=== PATIENT | female | born 1950 | race Caucasian/White ===

== ENCOUNTER 2022-03-08 16:04 | Outpatient (CLI) | payer MEDICARE, SELFPAY ==
[2022-03-08 17:24] LABS: Cholesterol* 245 mg/dL (90-199)
[2022-03-08 17:25] LABS: HDL Cholesterol* 79 mg/dL (>=50); LDL Cholesterol Calculated 131 mg/dL (<100); Triglycerides* 175 mg/dL (40-149)
== END 2022-03-08 16:05 | disposition home or self-care (01) ==
PROVIDERS: PCP Internal Medicine; Visit Provider Internal Medicine
DX: E78.5 Hyperlipidemia, unspecified (principal); D12.6 Benign neoplasm of colon, unspecified; E03.9 Hypothyroidism, unspecified
CPT/HCPCS: 80061; 84439; 84443

== ENCOUNTER 2022-04-12 10:01 | Outpatient (CLI) | payer MEDICARE, SELFPAY | END 2022-04-12 10:02 | disposition home or self-care (01) | PROVIDERS: PCP Internal Medicine; Visit Provider Surgery | DX: Z12.11 Encounter for screening for malignant neoplasm of colon (principal); K63.5 Polyp of colon; Z86.010 Personal history of colon polyps | CPT/HCPCS: 45385; 88305; 99153; J1200; J2250; J2405; J3010 ==

== ENCOUNTER 2022-06-27 08:54 | Day surgery (SDC) | payer MEDICARE, SELFPAY ==
--- NOTE | 2022-06-27 09:03 | SUR.PREOP ---
Patient provided home covid negative results to RN.
--- NOTE | 2022-06-27 09:03 | SUR.PREOP ---
The eye drops brought by the patient (Ketorolac and Prednisolone) are examined and I have determined they are labeled by the patient's pharmacy for this patient as prescribed by the surgeon. The bottles are intact, recently obtained and appear to be correct.
[2022-06-27] MEDS: TETRACAINE 0.5% OPHTH 1 DROP EYE-RIGHT ×2 (09:23→09:31)
[2022-06-27] MEDS: KETOROLAC OPHTH 0.5% 1 DROP EYE-RIGHT ×2 (09:29→09:40)
[2022-06-27 09:43] VITALS: BP 110/72; PULSE 58; RESP 16; TEMP 36.6; O2SAT 95
[2022-06-27] MEDS: SODIUM CHLORIDE 0.9 % (FLUSH) 10 ML SYRINGE IVF (09:46)
[2022-06-27 09:50] VITALS: BMI 23.9
[2022-06-27] MEDS: TETRACAINE 0.5% OPHTH 2 DROP EYE-RIGHT (10:27)
[2022-06-27] MEDS: BALANCED SALT IRRIG SOLN 15 ML EYE-RIGHT (10:32)
--- NOTE | 2022-06-27 10:34 | P.ANES_ITS ---
Anesthesia Charges Start Date/Time Anesthesia Start Date: 06/27/22 Anesthesia Start Time: 10:24 Stop Date/Time Anesthesia Stop Date: 06/27/22 Anesthesia Stop Time: 10:57 Summary Extremes of Age - Over 70 or under 1: [employer]
[2022-06-27 10:55] VITALS: BP 106/78; PULSE 51; RESP 16; TEMP 36.1; O2SAT 95
--- NOTE | 2022-06-27 11:52 | P.OPTPRC_ITS ---
Procedure Note Date of procedure: 06/27/22 Will [facility] bill your pro fee for this procedure?: Yes Procedure Description: SURGEON: Leti Henderson MD PREOPERATIVE DIAGNOSIS: Nuclear sclerotic cataract, right eye. POSTOPERATIVE DIAGNOSIS: Nuclear sclerotic cataract, right eye. NAME OF OPERATION: Phacoemulsification of cataract with posterior chamber intraocular lens implantation in the right eye. ANESTHESIA: Topical. ESTIMATED BLOOD LOSS: Less than 2 cc. COMPLICATIONS: None. PATHOLOGY SPECIMEN: None. INDICATIONS: See consult note for details. The risks, benefits and alternatives of the procedure were explained to the patient, who elected to proceed and s igned informed consent to do so. PROCEDURE: The patient was brought to the pre-holding area where the right eye was identified as the operative eye. I placed my initials above this eye. The patient received eye drops consisting of 0.5% tetracaine, 1% tropicamide, 10% phenylephrine, and 0.5% ketorolac. The patient was then brought to the operating room where the right eye was again identified as the operative eye. The eye was prepped with Betadine and draped in the usual sterile ophthalmic fashion. A #15 super-sharp blade was used to create a paracentesis site. 1% non-preserved intracameral lidocaine was injected into the anterior chamber. Endocoat was injected into the anterior chamber. A 2.4 mm keratome was used to create a three-plane self-sealing incision 1 mm anterior to the temporal limbus. A cystotome was used to create an anterior capsular leaflet. The Utrata forceps were used to extend this to form a continuous curvilinear capsulorrhexis. Hydrodissection was performed. The cataract was removed with phacoemulsification using the kummng-din-qzqeyoi technique. The irrigation and aspiration tip was used to remove the remaining cortex. Healon was injected into the capsular bag. An CANDELARIO ZCB00 intraocular lens of 20.5 diopters was injected into the capsular bag. The irrigation and aspiration tip was used to remove the remaining viscoelastic. Balanced salt solution on a cannula was used to hydrate the wound, and the wound was found to be watertight. The pupil was noted to be round. DISPOSITION: The patient was taken to the recovery room and discharged to home in stable condition. The patient was instructed to call me or go to the emergency department with any sudden change, including dramatic loss of vision, severe pain in the eye or eyebrow region, nausea, or vomiting. The patient will follow up in the clinic tomorrow morning.
== END 2022-06-27 11:24 | disposition home or self-care (01) ==
PROVIDERS: PCP Internal Medicine; Visit Provider Ophthalmology
PROC: (CPT 66984; principal; 2022-06-27 09:00)
DX: H25.11 Age-related nuclear cataract, right eye (principal)
CPT/HCPCS: 66984; 00142; 99100; A9270; J2250; J2405; J3010; V2632

== ENCOUNTER 2022-07-11 10:53 | Day surgery (SDC) | payer MEDICARE, SELFPAY ==
[2022-07-11] MEDS: KETOROLAC OPHTH 0.5% 1 DROP EYE-LEFT ×2 (11:00→11:05)
[2022-07-11] MEDS: TETRACAINE 0.5% OPHTH 1 DROP EYE-LEFT ×2 (11:00→11:05)
--- NOTE | 2022-07-11 11:11 | SUR.PREOP ---
HOME COVID TEST NEGATIVE.
[2022-07-11 11:12] VITALS: BMI 23.9
[2022-07-11 11:15] VITALS: BP 101/73; PULSE 68; RESP 16; TEMP 36.4; O2SAT 95
[2022-07-11] MEDS: SODIUM CHLORIDE 0.9 % (FLUSH) 10 ML SYRINGE IVF (11:15)
--- NOTE | 2022-07-11 11:29 | W.ANESCHARGE ---
Anesthesia Charges Start Date/Time Anesthesia Start Date: 07/11/22 Anesthesia Start Time: 12:01 Stop Date/Time Anesthesia Stop Date: 07/11/22 Anesthesia Stop Time: 12:35 Summary Extremes of Age - Over 70 or under 1: MDA
[2022-07-11] MEDS: TETRACAINE 0.5% OPHTH 2 DROP EYE-LEFT (12:04)
--- NOTE | 2022-07-11 12:08 | W.ANESCHARGE ---
Anesthesia Charges Start Date/Time Anesthesia Start Date: 07/11/22 Anesthesia Start Time: 12:01 Stop Date/Time Anesthesia Stop Date: 07/11/22 Anesthesia Stop Time: 12:35 Summary Extremes of Age - Over 70 or under 1: [employer]
[2022-07-11] MEDS: BALANCED SALT IRRIG SOLN 15 ML EYE-LEFT (12:09)
--- NOTE | 2022-07-11 12:36 | P.OPTPRC_ITS ---
Procedure Note Date of procedure: 07/11/22 Will [facility] bill your pro fee for this procedure?: Yes Procedure Description: SURGEON: Leti Henderson MD PREOPERATIVE DIAGNOSIS: Nuclear sclerotic cataract, left eye. POSTOPERATIVE DIAGNOSIS: Nuclear sclerotic cataract, left eye. NAME OF OPERATION: Phacoemulsification of cataract with posterior chamber intraocular lens implantation in the left eye. ANESTHESIA: Topical. ESTIMATED BLOOD LOSS: Less than 2 cc. COMPLICATIONS: None. PATHOLOGY SPECIMEN: None. INDICATIONS: See consult note for details. The risks, benefits and alternatives of the procedure were explained to the patient, who elected to proceed and sign ed informed consent to do so. PROCEDURE: The patient was brought to the pre-holding area where the left eye was identified as the operative eye. I placed my initials above this eye. The patient received eye drops consisting of 0.5% tetracaine, 1% tropicamide, 10% phenylephrine, and 0.5% ketorolac. The patient was then brought to the operating room where the left eye was again identified as the operative eye. The eye was prepped with Betadine and draped in the usual sterile ophthalmic fashion. A #15 super-sharp blade was used to create a paracentesis site. 1% non-preserved intracameral lidocaine was injected into the anterior chamber. Endocoat was injected into the anterior chamber. A 2.4 mm keratome was used to create a three-plane self-sealing incision 1 mm anterior to the temporal limbus. A cystotome was used to create an anterior capsular leaflet. The Utrata forceps were used to extend this to form a continuous curvilinear capsulorrhexis. Hydrodissection was performed. The cataract was removed with phacoemulsification using the iheypk-kln-uihrced technique. The irrigation and aspiration tip was used to remove the remaining cortex. Healon was injected into the capsular bag. An CANDELARIO ZCB00 intraocular lens of 21.0 diopters was injected into the capsular bag. The irrigation and aspiration tip was used to remove the remaining viscoelastic. Balanced salt solution on a cannula was used to hydrate the wound, and the wound was found to be watertight. The pupil was noted to be round. DISPOSITION: The patient was taken to the recovery room and discharged to home in stable condition. The patient was instructed to call me or go to the emergency department with any sudden change, including dramatic loss of vision, severe pain in the eye or eyebrow region, nausea, or vomiting. The patient will follow up in the clinic tomorrow morning.
[2022-07-11 12:38] VITALS: BP 91/65; PULSE 59; RESP 16; TEMP 36.6; O2SAT 96
== END 2022-07-11 12:51 | disposition home or self-care (01) ==
LOC: OR 10:53
PROVIDERS: PCP Internal Medicine; Visit Provider Ophthalmology
PROC: (CPT 66984; principal; 2022-07-11 11:00)
DX: H25.12 Age-related nuclear cataract, left eye (principal)
CPT/HCPCS: 66984; 00142; 99100; A9270; J2250; J2405; J3010; V2632

== ENCOUNTER 2022-12-31 08:53 | Outpatient (CLI) | payer MEDICARE, SELFPAY | END 2022-12-31 08:54 | disposition home or self-care (01) | PROVIDERS: PCP Internal Medicine; Visit Provider Internal Medicine | DX: Z00.00 Encounter for general adult medical examination without abnormal findings (principal); E03.9 Hypothyroidism, unspecified; E78.5 Hyperlipidemia, unspecified; M85.80 Other specified disorders of bone density and structure, unspecified site; Z13.1 Encounter for screening for diabetes mellitus | CPT/HCPCS: 80061; 82306; 82947; 84443 ==

== ENCOUNTER 2023-01-01 09:27 | Outpatient (RCR) | payer MEDICARE, SELFPAY ==
--- NOTE | 2022-12-18 10:23 | URNOTE ---
Received request for prior auth for Rituximab ([id number]). Pt has medicare primary. Prior authorization is not required as services are based on medical necessity and follow medicare guidelines.
[2023-01-01 09:38] VITALS: BP 108/74; PULSE 67; RESP 16; TEMP 35.7; O2SAT 96
[2023-01-01] MEDS: ACETAMINOPHEN 325 MG TABLET 650 MG PO (10:25)
[2023-01-01] MEDS: METHYLPREDNISOLONE SOD SUCC 62.5 MG/ML (125) 125 MG IVP (10:25)
[2023-01-01] MEDS: SODIUM CHLORIDE 0.9 % (FLUSH) 10 ML SYRINGE IVF (10:30)
[2023-01-01] MEDS: 0.9 % SODIUM CHLORIDE 250 ml IV (10:30)
[2023-01-01 11:43] LABS: Basophils Absolute Auto 0.05 K/uL (0.00-0.30); Basophils Percent Auto 0.8 % (0.0-3.0); Eosinophils Absolute Auto 0.12 K/uL (0.00-0.50); Hemoglobin* 12.9 gm/dL (12.0-16.0); Immature Granulocytes Abs Auto 0.02 K/uL (0.00-0.30); Immature Granulocytes Pct Auto 0.3 %; Lymphocytes Percent Auto 11.7 % (20-44); Mean Corpuscular HGB Conc 32 gm/dL (32-36); Mean Corpuscular Hemoglobin 29 pg (26-34); Mean Corpuscular Volume 91 fL (80-100); Monocytes Percent Auto 10.6 % (0.0-11.0); Neutrophils Percent Auto 74.6 % (42.0-72.0); Platelet Count* 229 K/uL (140-440); RDW Coefficient of Variation % 13.7 % (11.5-15.5); Red Blood Count 4.39 m/uL (4.00-5.20); White Blood Count* 6.06 K/uL (4.50-11.00)
[2023-01-01 11:44] LABS: Slide Review Reflex No
[2023-01-01] MEDS: FAMOTIDINE 10 MG/ML inj 20 MG IVP (12:38)
--- NOTE | 2023-01-01 15:04 | PC.NURSE ---
Pt present at [facility] for Rituxan infusion. About 10 minutes into 200 cc/hour rate pt called to use the restroom and shared that she had itching in her throat for which she took a lozenge. Rituxan infusion stopped and NS started. Pt states this has happened in the past and she was told that it will just pass and to keep going. Dorothea also reports that she used to get Benadryl as a pre-med but because it makes her so sleepy her pre-med was switched to Zyrtec. This was not ordered so was not given. This RN gave pt Tylenol and Solumedrol as ordered about 35 minutes prior to starting infusion. RN discussed with JOSH Farris who came to evaluate Dorothea. Shivani ordered oral Benadryl (12.5 mg), oral Zyrtec (10 mg), and IV famotidine (20 mg). All were given as ordered. Continued to infuse NS for 15 minutes and then Rituxan resumed at 200 cc/hour. Infusion completed without incident. Will fax provider note to ordering provider with this update.
[2023-01-02 21:10] LABS: Immunoglobulin A 146 mg/dL (68-408); Immunoglobulin G 387 mg/dL (768-1632); Immunoglobulin M 92 mg/dL (35-263)
== END 2023-06-30 23:59 | disposition home or self-care (01) ==
LOC: CCIC 09:27
PROVIDERS: Internal Medicine Hematology & Oncology; PCP Internal Medicine; Referring Provider Internal Medicine; Visit Provider Clinical Nurse Specialist
DX: M31.30 Wegener's granulomatosis 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 involvement (principal)
CPT/HCPCS: 36415; 82784; 85025; 88184; 88185; 96376; 96413; 96415; 99212; 99214; A9270; J2930; J7050; J7120; J9312; S0028

== ENCOUNTER 2023-12-31 08:08 | Outpatient (CLI) | payer MEDICARE, SELFPAY ==
--- OUTSIDE RECORDS SUMMARY | 2023-12-31 20:56 | XMS_ITS | Clinical Summary ---
Author Organization [facility] Address [address] [place] [address] Care Team Providers Care Legger Press Operator Name Role Phone Jen Rush MD Unavailable [phone] Dorothea Barfield MD Primary Care Provider Refugio Schulz MD Unavailable [phone] Jen Rush MD Unavailable [phone] Allergies Active Allergy Reactions Criticality Noted Date Comments Amoxicillin 02/05/2018 Iodides Hives 04/20/2014 Iodine Hives High 10/19/2016 Levofloxacin 02/05/2018 Leg pain Medications Medication Sig Dispensed Refills Start Date End Date Status mupirocin (BACTROBAN) 2 % ointmentIndications: Jacky's granulomatosis Use as directed twice daily - mixing 1/3 tube of Bactroban into 1 liter of usual saline nasal rinse. 08/17/2016 Active riTUXimab (RITUXAN) 1 mg/0.1 mL 1 mg/0.1 ml intravitreal injection (PF)Indications:Wege ner's granulomatosis Inject 600 mg into the vein Every 9 months Active loratadine (CLARITIN) 10 MG tabletIndications:We gener's granulomatosis Take 10 mg by mouth Active fluticasone (FLONASE) 50 MCG/ACT sprayIndications:Weg ener's granulomatosis 100 mcg Active levothyroxine (SYNTHROID/LEVOTHROI D) 75 MCG tabletIndications:We gener's granulomatosis Take 75 mcg by mouth Active conjugated estrogens (PREMARIN) creamIndications:Weg ener's granulomatosis Place 1 g vaginally Active hydrocortisone 2.5 % creamIndications:Weg ener's granulomatosis Apply topically 2 times daily 20 g 2 10/31/2017 Active Additional Information Patient taking differently:TopicalPRN, Reported on 11/26/2023 omeprazole (PRILOSEC) [address] capsule TK 1 C PO QAM 05/03/2019 Active formoterol (PERFOROMIST) 20 MCG/2ML neb solutionIndications: Asthma, intermittent Take 2 mLs (20 mcg) by nebulization every 12 hours 120 mL 6 07/24/2019 Active Additional Information Patient taking differently:20 mcg NebulizationPRN, Reported on 11/26/2023 budesonide (PULMICORT) 0.5 MG/2ML neb solutionIndications: Jacky's granulomatosis USE 1 VIAL VIA NEBULIZER DAILY 180 mL 3 09/15/2019 Active Additional Information Patient taking differently: PRN, USE 1 VIAL VIA NEBULIZER DAILY, Reported on 11/26/2023 albuterol (PROAIR HFA/PROVENTIL HFA/VENTOLIN HFA) 108 (90 Base) MCG/ACT inhalerIndications:M oderate persistent asthma without complication Inhale 2 puffs into the lungs every 6 hours as needed for shortness of breath, wheezing or cough 18 g 3 05/29/2023 Active fluticasone-vilanter ol (BREO ELLIPTA) 200-25 MCG/ACT inhalerIndications:M oderate persistent asthma without complication Inhale 1 puff into the lungs daily 180 each 3 10/07/2023 Active sodium chloride (NEBUSAL) 3 % neb solutionIndications: Bronchiectasis without complication (H),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 Use AFTER albuterol 240 mL 6 11/26/2023 Active montelukast (SINGULAIR) 10 MG tabletIndications:Mo derate persistent asthma without complication TAKE 1 TABLET(10 MG) BY MOUTH AT BEDTIME 30 tablet 3 11/29/2023 Active Active Problems Problem Noted Date Diagnosed Date Moderate persistent asthma without complication 06/16/2019 H/O cyclophosphamide therapy 11/07/2016 Jacky's granulomatosis 10/19/2016 Overview: Replacing diagnoses that were inactivated after the 12/23/2020 regulatory import. 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) 11/26/2023 Travel 11/21/2023 Travel 11/07/2023 10:15 AM CDT Lab [facility] [address] [place] [phone] 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); Moderate persistent asthma without complication 11/07/2023 Travel 10/08/2023 My[facility] Medical Advice [facility] Science critical access hospital Health [address] [phone] Jen Rush MD Moderate persistent asthma without complication 10/07/2023 MyC Medical Advice [facility] critical access hospital Health [address] [phone] Jen Rush MD Moderate persistent asthma without complication from Last 3 Months Immunizations Name Administration Dates Next Due COVID-19 MONOVALENT 12+ (Pfizer) 022,11/09/2020,06/15/2020,2020 Zoster recombinant adjuvante d (SHINGRIX) 07/26/2017 Family History Medical History Relation Comments Depression Mother Mental Illness Mother Other - See Comments Mother CLL, PMR Thyroid Disease Mother Thyroid Disease Sister LUNG DISEASE No family hx of Relation Status Comments Mother Sister Social History Tobacco Use Types Packs/Day Years Used Date Smoking Tobacco: Former Cigarettes 0 03/25/1967 - 03/25/1972 Smokeless Tobacco: Never Tobacco Cessation:Counseling Given: Not Answered Comments: very little Alcohol Use Standard Drinks/Week Comments Yes 0 (1 standard drink = 0.6 oz pur e alcohol) PHQ-2 Answer Date Recorded PHQ-2 Score 0 07/04/2023 Adolescent Education Answer Date Record ed Getting School Help Needed Not on file 12/15 Sex and Gender Information Value Date Recorded Sex Assigned at Female 08/08/2018 9:48 AM CDT Gender Identity Female 08/03/2018 6:39 PM CDT Sexual Orientation Straight 08/03/2018 6: 39 PM CDT Last Filed Vital Signs Vital Sign Reading Time Taken Comments Blood Pressure 126/79 11/26/2023 3:58 PM CDT Pulse 61 11/26/2023 3:58 PM CDT Temperature 36.7 ??C (98.1 ??F) 06/02/2019 11:30 AM C DT Respiratory Rate 16 07/04/2023 10:53 AM CDT Oxygen Saturation 98% 11/26/2023 3:58 PM CDT Inhaled Oxygen Concentration - - Weight 67.1 kg (148 lb) 07/04/2023 10:53 AM CDT Height 162.6 cm (5' 4) 07/04/2023 10:53 AM CDT Body Mass Index 25.4 07/04/2023 10:53 AM CDT Plan of Treatment Upcoming Encounters Date Type Department Care Team (Late st Contact Info) Description 02/06/2024 11:00 AM NUISANCE ANIMAL DAMAGE CONTROL AGENT Office Visit [facility] [address] [phone] Refugio Schulz MD [address] [place] [address] 07/07/2024 12:00 PM CDT Office Visit [facility] Pulmonary Function Testing [address] [place] [phone] Jen Rush MD [address] [facility] [address] [place] [address] 07/07/2024 1:30 PM CDT Office Visit [facility] [address] [place] [place] [phone] Jen Rush MD [address] [address] Health Maintenance Due Date Last Done Comments ANNUAL REVIEW OF HM ORDERS 1950 ASTHMA ACTION PLAN [address] ASTHMA CONTR[address] TEST [address] COLONOGRAPHY 1951 FIT 1951 FLEX SIG 1951 TSH W/FREE T4 REFLEX 1951 sDNA (Cologuard) 1951 HEPATITIS C SCREENING 1969 LIPID 1991 RSV VACCINE (1 - Risk 60-74 years 1-dose series) 2011 MEDICARE ANNUAL WELLNESS VISIT 2016 FALL RISK ASSESSMENT 08/12/2019 08/11/2018, 06/12/19 18 MAMMO SCREENING 11/07/2019 11/06/2017 ADVANCE CARE PLANNING 01/23/2022 01/23/2017 COVID-19 Vaccine ( season) 2023 04/23/2023, 07/31/2022, 05/18/2021, Additional history exists INFLUENZA VACCINE (#1) 2023 , 12/19/2021, 12/16/2021, Additional history exists DTAP/TDAP/TD IMMUNIZATION (3 - Td or Tdap) 11/06/2026 11/06/2016, 11/06/2016 GLUCOSE 11/06/2026 11/07/2023, 04/0 05/2023, 11/19/2022, Additional history exists COLONOSCOPY 03/25/2027 03/25/2022 COLORECTAL CANCER SCREENING 03/25/2027 DEXA 01/09/2037 01/09/2022 Pneumococcal Vaccine: 65+ Years Completed 09/27/2017, 05/11/2016, 11/11/2015 ZOSTER IMMUNIZATION Completed 09/27/2017, 8 PHQ-2 (once per calendar year) Completed 07/04/2023, 05/29/2022, 06/02/2019, Additional history exists LUNG CANCER SCREENING Discontinued 07/26/2023 , 01/08/2020, 12/23/2018 HPV IMMUNIZATION Aged Out No longer e ligible based on patient's age to complete this topic MENINGITIS IMMUNIZATION Aged Out No l onger eligible based on patient's age to complete this topic RSV MONOCLONAL ANTIBODY Aged Out No l onger eligible based on patient's age to complete this topic Procedures Procedure Name Priority Date/Time Associated Diagnosis Comments UA MICROSCOPIC WITH REFLEX TO CULTURE Routine 11/07/2023 9:56 AM CDT 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) ROUTINE UA WITH MICROSCOPIC REFLEX TO CULTURE Routine 11/07/2023 9:56 AM CDT 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) CBC WITH PLATELETS Routine 11/07/2023 9: 53 AM CDT 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) CRP INFLAMMATION Routine 11/07/2023 9:53 AM CDT 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) COMPREHENSIVE METABOLIC PANEL Routine 11/07/2023 9:53 AM CDT 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) CT CHEST HI-RESOLUTION WO CONTRAST Routine 07/26/2023 11:15 AM CDT 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) Moderate persistent asthma without complication COLONOSCOPY - HIM SCAN Routine 03/25/2022 DEXA - HIM SCAN Routine 01/09/2022 from Last 3 Months or Most Recently Relevant to Health Maintenance Results * (ABNORMAL) UA Microscopic with Reflex to Culture (11/07/2023 9:56 AM CDT) RBC Urine 0-2 0-2 /HPF /HPF [facility] 11/07/2023 10:03 AM CDT [facility] WBC Urine 0-5 0-5 /HPF /HPF [facility] 11/07/2023 10:03 AM CDT [facility] Squamous Epithelials Urine Few(A) None Seen /LPF [facility] 11/07/2023 10:03 AM CDT [facility] Urine URINE SPECIMEN OBTAINED BY CLEAN CATCH PROCEDURE / Unknown Non-blood Collection / Unknown 11/07/2023 9:56 AM CDT 11/07/2023 9:56 AM CDT Narrative [facility] - 11/07/2023 10:03 AM CDT Urine Culture not indicated Refugio Schulz MD LAB - URINE ORDERAB LES [facility] [address] [facility] (no room number, 1st floor of clinic) [place] [address], [facility] * Routine UA with micro reflex to culture (11/07/2023 9:56 AM CDT) Color Urine Yellow Colorless, Straw, Light Yellow, Yellow 11/07/2023 9:58 AM CDT [facility] Appearance Urine Clear Clear 11/07/19 9:58 AM CDT [facility] Glucose Urine Negative Negative mg/dL 11/07/2023 9:58 AM CDT [facility] Bilirubin Urine Negative Negative 9:58 AM CDT [facility] Ketones Urine Negative Negative mg/dL 11/07/2023 9:58 AM CDT [facility] Specific [place] Urine 1.020 1.003 - 1.035 11/07/2023 9:58 AM CDT [facility] Blood Urine Negative Negative 11/07/2023 9:58 AM CDT [facility] pH Urine 7.0 5.0 - 7.0 11/07/2023 9:58 AM CDT [facility] Protein Albumin Urine Negative Negative mg/dL 11/07/2023 9:58 AM CDT [facility] Urobilinogen Urine 0.2 0.2, 1.0 E.U./dL 11/07/2023 9:58 AM CDT [facility] Nitrite Urine Negative Negative 11/07/2023 9:58 AM CDT [facility] Leukocyte Esterase Urine Negative Negative 11/07/2023 9:58 AM CDT [facility] Urine URINE SPECIMEN OBTAINED BY CLEAN CATCH PROCEDURE / Unknown Non-blood Collection / Unknown 11/07/2023 9:56 AM CDT 11/07/2023 9:56 AM CDT Refugio Schulz MD LAB - URINE ORDERAB LES [facility] [address] [facility] (no room number, 1st floor of clinic) [place] [address], [facility] * CRP inflammation (11/07/2023 9:53 AM CDT) Pathologist [facility] CRP Inflammation 3.23 <5.00 mg/L 11/07/19 4:51 PM CDT [facility] Blood BLOOD SPECIMEN / Unknown Venipuncture / Unknown 11/07/2023 9:53 AM CDT 11/07/2023 9:53 AM CDT Refugio Schulz MD LAB - BLOOD ORDERAB LES [facility] [address] [facility], [address] [place] [phone] * Comprehensive metabolic panel (11/07/2023 9:53 AM CDT) Sodium 140 135 - 145 mmol/L 11/07/2023 4:51 PM CDT [facility] Potassium 4.4 3.4 - 5.3 mmol/L 11/07/2023 4:51 PM CDT [facility] Carbon Dioxide (CO2) 26 22 - 29 mmol/L 11/07/2023 4:51 PM CDT [facility] Anion Gap 9 7 - 15 mmol/L 11/07/2023 4:51 PM CDT [facility] Urea Nitrogen 11.5 8.0 - 23.0 mg/dL 11/07/2023 4:51 PM CDT [facility] Creatinine 0.71 0.51 - 0.95 mg/dL 11/07/2023 4:51 PM CDT [facility] GFR Estimate 90 >60 mL/min/1.7 3m2 11/07/2023 4:51 PM CDT [facility] Comment:eGFR calculated 2020 CKD-EPI equation. Calcium 9.1 8.8 - 10.4 mg/dL 11/07/2023 4:51 PM CDT [facility] Comment:Reference intervals for this test were updated on 10/08/2023 to reflect our healthy population more accurately. There may be differences in the flagging of prior results with similar values performed with this method. Those prior results can be interpreted in the context of the updated reference intervals. Chloride 105 98 - 107 mmol/L 11/07/2023 4:51 PM CDT [facility] Glucose 87 70 - 99 mg/dL 11/07/2023 4:51 PM CDT [facility] Alkaline Phosphatase 135 40 - 150 U/L 11/07/2023 4:51 PM CDT [facility] AST 24 0 - 45 U/L 11/07/2023 4:51 PM CDT [facility] ALT 25 0 - 50 U/L 11/07/2023 4:51 PM CDT [facility] Protein Total 6.5 6.4 - 8.3 g/dL 11/07/2023 4:51 PM CDT [facility] Albumin 4.0 3.5 - 5.2 g/dL 11/07/2023 4:51 PM CDT [facility] Bilirubin Total 0.3 <=1.2 mg/dL 11/07/2023 4:51 PM CDT [facility] Blood BLOOD SPECIMEN / Unknown Venipuncture / Unknown 11/07/2023 9:53 AM CDT 11/07/2023 9:53 AM CDT Refugio Schulz MD LAB - BLOOD ORDERAB LES [facility] [address] [facility], [address] [place] [address], [facility] * CBC with platelets (11/07/2023 9:53 AM CDT) WBC Count 7.0 4.0 - 11.0 10e3/uL 11/07/2023 9:55 AM CDT [facility] RBC Count 4.29 3.80 - 5.20 10e6/uL 11/07/2023 9:55 AM CDT [facility] Hemoglobin 12.4 11.7 - 15.7 g/dL 11/07/2023 9:55 AM CDT [facility] Hematocrit 39.0 35.0 - 47.0 % 11/07/2023 9:55 AM CDT [facility] MCV 91 78 - 100 fL 11/07/2023 9:55 AM CDT [facility] MCH 28.9 26.5 - 33.0 pg 11/07/2023 9:55 AM CDT [facility] MCHC 31.8 31.5 - 36.5 g/dL 11/07/2023 9:55 AM CDT [facility] RDW 14.4 10.0 - 15.0 % 11/07/2023 9:55 AM CDT [facility] Platelet Count 307 150 - 450 10e3/uL 11/07/2023 9:55 AM CDT [facility] Blood BLOOD SPECIMEN / Unknown Venipuncture / Unknown 11/07/2023 9:53 AM CDT 11/07/2023 9:53 AM CDT Refugio Schulz MD LAB - BLOOD ORDERAB LES [facility] [address] [facility] (no room number, 1st floor of clinic) [place] [address], [facility] * CT Chest Hi-Resolution wo Contrast (07/26/2023 11:15 AM CDT) Anatomical Region Laterality Modality Chest, SUBRAD CT BODY, UMP CT CHEST, RAD CT Computed Tomography Impressions 07/26/2023 2:36 PM CDT IMPRESSION: 1. ??Scattered bilateral pulmonary nodules similar to 2019 and therefore should be benign. 2. ??Mucous plugging and mild peribronchial infiltrates in the lung bases suggesting mild small airways type infectious process. NANCY VELIZ MD Narrative 07/26/2023 2:[address] CHEST HI-RESOLUTION WITHOUT CONTRAST July 26, 2023 11:15 AM CLINICAL HISTORY: Worsening productive cough, history of GPA. On rituximab. 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 Moderate persistent asthma without complication. TECHNIQUE: High resolution images were obtained through the chest during inspiration with select expiratory views. Prone imaging was performed. Multiplanar reformats were obtained. Dose reduction techniques were used. CONTRAST: None. COMPARISON: 12/23/2018. FINDINGS: LUNGS AND PLEURA: Scattered pulmonary nodules again seen. Nodules that are present on the current study are similar to previous. Some of the previously seen nodules have resolved. One of the larger nodules in the right upper lobe on series 3 image 66 measures 4 mm, not appreciably changed. There is mild bronchiectasis with mucous plugging in the inferior lingula and right middle lobe, and in both lower lobes. Mild peribronchial reticular nodular infiltrates in the same distribution in the lung bases. MEDIASTINUM/AXILLAE: No lymphadenopathy. No coronary artery calcification. UPPER ABDOMEN: Cholelithiasis. MUSCULOSKELETAL: Unremarkable. Procedure Note Nancy Veliz MD - 07/26/2023 CT CHEST HI-RESOLUTION WITHOUT CONTRAST July 26, 2023 11:15 AM CLINICAL HISTORY: Worsening productive cough, history of GPA. On rituximab. 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 Moderate persistent asthma without complication. TECHNIQUE: High resolution images were obtained through the chest during inspiration with select expiratory views. Prone imaging was performed. Multiplanar reformats were obtained. Dose reduction techniques were used. CONTRAST: None. COMPARISON: 12/23/2018. FINDINGS: LUNGS AND PLEURA: Scattered pulmonary nodules again seen. Nodules that are present on the current study are similar to previous. Some of the previously seen nodules have resolved. One of the larger nodules in the right upper lobe on series 3 image 66 measures 4 mm, not appreciably changed. There is mild bronchiectasis with mucous plugging in the inferior lingula and right middle lobe, and in both lower lobes. Mild peribronchial reticular nodular infiltrates in the same distribution in the lung bases. MEDIASTINUM/AXILLAE: No lymphadenopathy. No coronary artery calcification. UPPER ABDOMEN: Cholelithiasis. MUSCULOSKELETAL: Unremarkable. IMPRESSION: 1. Scattered bilateral pulmonary nodules similar to 2019 and therefore should be benign. 2. Mucous plugging and mild peribronchial infiltrates in the lung bases suggesting mild small airways type infectious process. NANCY VELIZ MD Jasen Butterfield MD IMG CT ORDERABLE S * Colonoscopy - HIM Scan (03/25/2022) Narrative Eleanor Bird - 03/25/[address] [facility] Progress Note Patient Reported PROCEDURES * DEXA - HIM Scan (01/09/2022) Anatomical Region Laterality Modality Other Narrative 01/09/[address] [facility] Progress Note Provider Outside IMG DEXA ORDERABLES from Last 3 Months or Most Recently Relevant to Health Maintenance Care Teams Legger Press Operator Relationship Specialty Start Date End Date Dorothea Barfield MD [facility] [address] [place], [place] [id number] PCP - General Internal Medicine 12/03/16 Jen Rush MD [address] [place] [address] Pulmonary Disease 08/27/16 Refugio Schulz MD [address] [place] [address] [address] [place] [address] Assigned Rheumatology Provider 03/24/22 Jen Rush MD [address] [place] [address] [address] [place] [address] Assigned Pulmonology Provider 06/09/22
--- OUTSIDE RECORDS SUMMARY | 2023-12-31 20:56 | XMS_ITS | Encounter Summary ---
Author Organization [facility] Address [address] [place] [address] Phone Care Team Providers Care Walking Dragline Operator Name Role Phone Joelle Jefferson DO Primary Care Provider [phone] Encounter Details Date Type Department Care Team (Late st Contact Info) Description 12/20/[address] [facility] EpicCare Link [address] [place] [address] Joelle Jefferson DO [address] [place] [address] Special screening for malignant neoplasms, colon (Primary Dx) Social History Tobacco Use Types Packs/Day Years Used Date Smoking Tobacco: Never Assessed Comments Unknown Sex and Gender Information Value Date Recorded Sex Assigned at Not on file Legal Sex Female 11:03 AM CDT Gender Identity Not on file Sexual Orientation Not on file documented as of this encounter Plan of Treatment Not on file documented as of this encounter Visit Diagnoses Diagnosis Special screening for malignant neoplasms, colon- Primary documented in this encounter Care Teams Walking Dragline Operator Relationship Specialty Start Date End Date Joelle Jefferson DO [address] [place], [place] [phone] PCP - General Family Medicine 12/21/21 documented as of this encounter
--- OUTSIDE RECORDS SUMMARY | 2023-12-31 20:56 | XMS_ITS | Referral Summary ---
Author Organization [facility] Address [address] [place] [address] Care Team Providers Care Portrait Painter Name Role Phone Jen Rush MD Unavailable [phone] Dorothea Barfield MD Primary Care Provider Refugio Schulz MD Unavailable [phone] Jen Rush MD Unavailable [phone] Encounters Date Type Department Care Team Description 12/03/2023 Telephone [facility] Rheumatology Clinic [address] [phone] Refugio Schulz MD Medication Question 11/29/2023 Refill [facility] [address] [phone] Jen Rush MD Medication Refill 11/26/2023 Travel 11/26/2023 4:00 PM CDT Office Visit [facility] Health [address] [phone] Jen Rush MD Bronchiectasis without complication (H) (Primary Dx); 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) 11/21/2023 Travel 11/07/2023 Travel 11/07/2023 10:15 AM CDT Lab [facility] [address] [place] [phone] 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 Immunizations Name Administration Dates Next Due COVID-19 MONOVALENT 12+ (Pfizer) 022,11/09/2020,06/15/2020,2020 Zoster recombinant adjuvante d (SHINGRIX) 07/26/2017 Social History Tobacco Use Types Packs/Day Years [...] st Contact Info) Description 02/06/2024 11:00 AM GREEN PROMOTIONS SPECIALIST Office Visit [facility] Specialty Clinic [address] [place] [phone] Refugio Schulz MD [address] [place] [address] [address] [place], [place] [address] 07/07/2024 12:00 PM CDT Office Visit [facility] Pulmonary Function Testing [place] 9[address] [facility] 3rd [place] [address] Jen Rush MD 420 [facility] [address] [place], [place] [phone] 07/07/2024 1:30 PM CDT Office Visit [facility] Lung Science [facility] Clinic [place] 954289 [place] [address] Jen Rush MD 420 [facility] [address] [place] [address] Procedures Procedure Name Priority Date/Time Associated Diagnosis [...] LABORATORY WBC Urine 0-5 0-5 /HPF /HPF HANANH 11/07/2023 10:03 AM CDT CR LABORATORY Squamous [...] LAB - URINE ORDERAB LES CR LABORATORY [facility] [place] [facility] [address] [facility] (no room number, 1st floor of clinic) [place] [address], [facility] * Routine UA with micro reflex [...] 11/07/2023 9:58 AM CDT CR LABORATORY Specific [place] Urine 1.020 1.003 - 1.035 11/07/2023 9:58 [...] LAB - URINE ORDERAB LES CR LABORATORY [facility] [place] [facility] [address] [facility] (no room number, 1st floor of clinic) [place] [address], [facility] * CRP inflammation (11/07/2023 9:53 AM CDT) CRP Inflammation 3.23 <5.00 mg/L 11/07/19 4:51 PM CDT [facility] Blood BLOOD SPECIMEN / Unknown Venipuncture / Unknown 11/07/2023 9:53 AM CDT 11/07/2023 9:53 AM CDT Refugio Schulz MD LAB - BLOOD ORDERAB LES [facility]U LABORATORY [facility] [address] [facility], Room [address]580 [place] [address], [facility] * Comprehensive metabolic panel (11/07/2023 9:53 AM [...] 4:51 PM CDT [facility] Comment:eGFR calculated usin g 1 CKD-EPI equation. Calcium 9.1 8.8 - 10.4 [...] LAB - BLOOD ORDERAB LES [facility]U LABORATORY [facility] [facility] [address] [facility], Room 3[address]580 [place] [address], [facility] * CBC with platelets (11/07/2023 9:53 [...] LAB - BLOOD ORDERAB LES CR LABORATORY [facility] [place] [facility] [address] [facility] (no room number, 1st floor of clinic) [place] [address], [facility] * CT Chest Hi-Resolution wo Contrast [...] Scan (03/25/2022) Narrative Eleanor Bird - 03/25/2022 [facility] Progress Note Patient Reported PROCEDURES * DEXA - HIM Scan (01/09/2022) Anatomical Region Laterality Modality Other Narrative 01/09/2022 [facility] Progress Note Provider Outside IMG DEXA ORDERABLES from Last 3 Months or Most Recently Relevant to Health Maintenance Care Teams Portrait Painter Relationship Specialty Start Date End Date Dorothea Barfield MD [facility] [address] [place] [address] PCP - General Internal Medicine 12/03/16 Jen Rush MD 420 [facility] [address] [place] [address] Pulmonary Disease 08/27/16 Refugio Schulz MD [address] [place] [address] [address] [place], [place] 8836[address] Assigned Rheumatology Provider 03/24/22 Jen Rush MD [address] [place] [address] [address] [place], [place] 803445 Assigned Pulmonology Provider 06/09/22
--- OUTSIDE RECORDS SUMMARY | 2023-12-31 20:56 | XMS_ITS | Clinical Summary ---
Author Organization [facility] Address [address] [place] [address] Phone Care Team Providers Care Supervisor Electrolytic Tinning Name Role Phone Li Joelle Primary Care Provider [phone] Allergies Active Allergy Reactions Criticality Noted Date Comments Amoxicillin Diarrhea 01/17/2022 Iodine Hives 01/17/2022 Medications Breo Ellipta 200-25 mcg/dose blister with device 1 puff 1 (one) time each day. 2 Active levothyroxine (Synthroid) 75 mcg tablet Take 75 mcg by mouth 1 (one) time each day. 2 Active montelukast (SINGULAIR) 10 mg tablet SMARTSI Tablet(s) By Mouth Every Evening 2 Active omeprazole (PriLOSEC) 20 mg capsule Take 20 mg by mouth 1 (one) time each day. 2 Active SUMAtriptan (IMITREX) 50 mg tablet Take by mouth. 2 Active valACYclovir (VALTREX) 1 gram tablet Take 1,000 mg by mouth 2 (two) times per day. 2 Active polyethylene glycol (MIRALAX) 17 gram/dose powderIndicatio ns:History of colon polyps Take 510 g by mouth as directed by provider (bowel prep) for up to 1 dose. Follow prep instructions from our office 17 g 2 Active Active Problems Problem Noted Date Diagnosed Date History of colon polyps 01/16/2022 Overview (01/16/2022): Added automatically from request for surgery [id number] Family History Medical History Relation Comments Colon cancer Neg Hx Social History Tobacco Use Types Packs/Day Years Used Date Smoking Tobacco: Never Smokeless Tobacco: Never Alcohol Use Standard Drinks/Week Comments Not Asked 0 (1 standard drink = 0.6 oz pur e alcohol) rare Comments Unknown Sex and Gender Information Value Date Recorded Sex Assigned at Not on file Legal Sex Female 11:03 AM CDT Gender Identity Not on file Sexual Orientation Not on file Last Filed Vital Signs Vital Sign Reading Time Taken Comments Blood Pressure 122/60 01/15/2022 10:24 AM CDT Pulse 79 01/15/2022 10:24 AM CDT Temperature - - Respiratory Rate - - Oxygen Saturation - - Inhaled Oxygen Concentration - - Weight 64.9 kg (143 lb) 01/15/2022 10:24 AM CDT Height 160 cm (5' 3) 01/15/2022 10:24 AM CDT Body Mass Index 25.33 01/15/2022 10:24 AM CDT Plan of Treatment Health Maintenance Due Date Last Done Comments CT Colonography 1951 Cologuard 1951 Colonoscopy 1951 Colorectal Cancer Screening 1951 Mammogram 1951 Medicare Wellness 1951 Osteoporosis Screening 1951 MMR Vaccines (1 of 1 - Standard series) 1952 Pneumococcal 65+ Yr (1 of 2 - PCV) 1957 Varicella Vaccines (1 of 2 - 13+ 2-dose series) 1964 Hepatitis C Screening 1969 FOBT/FIT 1996 Sigmoidoscopy 1996 Zoster Vaccines (1 of 2) 2001 RSV 60 Years or (1 - 1-dose 60+ series) 2011 Fall Risk Screening 2016 Depression Screening 03/25/2023 COVID-19 Vaccine ( - season) 2023 05/18/2021, 11/09/2020, 06/15/2020, Additional history exists Influenza Vaccine (#1) 2023 DTaP,Tdap,and Td Vaccines (2 - Td or Tdap) 11/06/2026 11/06/2016 HIB Vaccines Aged Out No longer eligi ble based on patient's age to complete this topic HPV Vaccines Aged Out No longer eligi ble based on patient's age to complete this topic Hepatitis A Vaccines Aged Out No long er eligible based on patient's age to complete this topic Hepatitis B Vaccines Aged Out No long er eligible based on patient's age to complete this topic IPV Vaccines Aged Out No longer eligi ble based on patient's age to complete this topic Meningococcal Vaccine Aged Out No ej vitaliy eligible based on patient's age to complete this topic RSV Aged Out No longer eligi ble based on patient's age to complete this topic Insurance MEDICARE PART A AND B [facility] Care Teams Supervisor Electrolytic Tinning Relationship Specialty Start Date End Date Joelle Jefferson DO [address] [place] [address] PCP - General Family Medicine 12/21/21
--- OUTSIDE RECORDS SUMMARY | 2023-12-31 20:57 | XMS_ITS | Encounter Summary ---
Author Organization [facility] Address [address] [place] [address] Care Team Providers Care Acute Care Physical Therapist Name Role Phone Jen Rush MD Unavailable [phone] Dorothea Barfield MD Primary Care Provider Refugio Schulz MD Unavailable [phone] Jen Rush MD Unavailable [phone] Encounter Details Date Type Department Care Team (Latest Contact Info) Description 11/07/2023 Travel Social History Tobacco Use Types Packs/Day Years Used Date Smoking Tobacco: Former Cigarettes 0 03/25/1967 - 03/25/1972 Smokeless Tobacco: Never Comments: very little Alcohol Use Standard Drinks/Week [...] Orientation Straight 08/03/2018 6: 39 PM CDT documented as of this encounter Plan of Treatment Upcoming Encounters Date Type Department Care Team (Late st Contact Info) Description 02/06/2024 11:00 AM TESTBOARD OPERATOR Office Visit [facility] Specialty Clinic [address] [phone] Refugio Schulz MD [address] [place] [address] 07/07/2024 12:00 PM CDT Office Visit [facility] Pulmonary Function Testing [address] 3rd [place] [phone] Jen Rush MD [address] [place] [address]25145 07/07/2024 1:30 PM CDT Office Visit [facility] for [facility] Health Clinic [address] [phone] Jen Rush MD [address] [place] [address] documented as of this encounter Visit Diagnoses Not on filedocumented in this encounter Care Teams Acute Care Physical Therapist Relationship Specialty Start Date End Date Dorothea Barfield MD [address] [address] PCP - General Internal Medicine 12/03/16 Jen Rush MD [address] [place] [address] Pulmonary Disease 08/27/16 Refugio Schulz MD [address] [place] [address] Assigned Rheumatology Provider 03/24/22 Jen Rush MD [address] [place] [address] Assigned Pulmonology Provider 06/09/22 documented as of this encounter
--- OUTSIDE RECORDS SUMMARY | 2023-12-31 20:57 | XMS_ITS | Encounter Summary ---
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); Moderate persistent asthma without complication Social History Tobacco Use Types Packs/Day Years [...] st Contact Info) Description 02/06/2024 11:00 AM STAFF GENETIC COUNSELOR Office Visit [facility] Specialty Clinic [place] [address] [facility] [address] [place] [phone] Refugio Schulz MD [address] [place] [address] 88 [place] [address] 07/07/2024 12:00 PM CDT Office Visit [facility] Pulmonary Function Testing [place] [address] [facility] 3rd [place] [phone] Jen Rush MD [address] [place] [address] 276 [place], [place] 7[address] 07/07/2024 1:30 PM CDT Office Visit [facility] for [facility] Science [facility] Health Clinic [address] [phone] Jen Rush MD [address] [place] [address] 276 [place], [place] 349685 documented as of this encounter Procedures Procedure Name Priority Date/Time Associated Diagnosis [...] 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) documented in this encounter Results * (ABNORMAL) UA Microscopic with Reflex [...] LAB - URINE ORDERAB LES CR LABORATORY [facility] [place] [facility] [address] [facility] (no room number, 1st floor of clinic) [place] [address], [place] * Routine UA with micro reflex to culture (11/07/2023 9:56 AM CDT) Color Urine Yellow Colorless, Straw, Light Yellow, Yellow 11/07/2023 9:58 AM CDT CR LABORATORY Appearance Urine Clear Clear 11/07/19 24 9:58 AM CDT CR LABORATORY Glucose Urine Negative Negative mg/dL 11/07/2023 9:58 AM CDT CR LABORATORY Bilirubin Urine Negative Negative 9:58 AM CDT CR LABORATORY Ketones Urine Negative Negative mg/dL 11/07/2023 9:58 AM CDT CR LABORATORY Specific [place] Urine 1.020 1.003 - 1.035 11/07/2023 9:58 [...] LAB - URINE ORDERAB LES CR LABORATORY [facility] [address] [facility] (no room number, 1st floor of clinic) [place] [address], [facility] * CBC with platelets (11/07/2023 9:53 AM [...] LAB - BLOOD ORDERAB LES CR LABORATORY [facility] [address] [facility] (no room number, 1st floor of clinic) [place] [address], [facility] * CRP inflammation (11/07/2023 9:53 AM CDT) CRP Inflammation 3.23 <5.00 mg/L 11/07/19 4:51 PM CDT [facility] LAB[facility] Blood BLOOD SPECIMEN / Unknown Venipuncture / Unknown 11/07/2023 9:53 AM CDT 11/07/2023 9:53 AM CDT Refugio Schulz MD LAB - BLOOD ORDERAB LES [facility] LABORATORY [facility] [place] [facility] [address] [facility], Room [address]580 [place] [address] * Comprehensive metabolic panel (11/07/2023 9:53 AM [...] PM CDT [facility] LAB[facility] Comment:eGFR calculated usin 2020 CKD-EPI equation. 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) Moderate persistent asthma without complication Unspecified asthma documented in this encounter Care Teams Diesel Mechanic Helper Relationship Specialty Start Date End Date Dorothea Barfield MD [facility] [address] [place] [address] PCP - General Internal Medicine 12/03/16 Jen Rush MD 420 [facility] 276 [place], [place] 421355 Pulmonary Disease 08/27/16 Refugio Schulz MD [address] [place] [address] 558395 Assigned Rheumatology Provider 03/24/22 Jen Rush MD [address] [place] [address]435 Assigned Pulmonology Provider 06/09/22 documented as of this encounter
--- OUTSIDE RECORDS SUMMARY | 2023-12-31 20:57 | XMS_ITS | Encounter Summary ---
Author Organization [facility] Address [address] [place] [address]. [place] [address] Care Team Providers Care Bottle Selector Name Role Phone Jen Rush MD Unavailable [phone] Dorothea Barfield MD Primary Care Provider Refugio Schulz MD Unavailable [phone] Jen Rush MD Unavailable [phone] Encounter Details Date Type Department Care Team (Late st Contact Info) Description 04/05/2023 [facility] Medical Advice [facility] for [facility] Science and Health Clinic [address] [address] Jen Rush MD [address] [place] [address] 276 [place] [address] Social History Tobacco Use Types Packs/Day Years Used Date Smoking Tobacco: Former Cigarettes 0 03/25/1967 - 03/25/1972 Smokeless Tobacco: Never Comments: very little Alcohol Use Standard Drinks/Week Comments Yes 0 (1 standard drink = 0.6 oz pur e alcohol) PHQ-2 Answer Date Recorded PHQ-2 Score 0 05/29/2022 Adolescent Education Answer Date Record ed Getting [...] st Contact Info) Description 02/06/2024 11:00 AM ACOUSTIC WARFARE ANALYST Office Visit [facility] Specialty Clinic [place] [address] [place] [phone] Refugio Schulz MD [address] 33[address] 07/07/2024 12:00 PM CDT Office Visit [facility] Pulmonary Function Testing [address] 3rd [place] [phone] Jen Rush MD [address] [phone] 07/07/2024 1:30 PM CDT Office Visit [facility] for [facility] Clinic [address] [address] Jen Rush MD [address] [phone] documented as of this encounter Visit Diagnoses Not on filedocumented in this encounter Care Teams Bottle Selector Relationship Specialty Start Date End Date Dorothea Barfield MD [facility] [address] [place] [address] PCP - General Internal Medicine 12/03/16 Jen Rush MD [address] [phone] Pulmonary Disease 08/27/16 Refugio Schulz MD [address] [address] Assigned Rheumatology Provider 03/24/22 Jen Rush MD [address] [place] [address] Assigned Pulmonology Provider 06/09/22 documented as of this encounter
--- OUTSIDE RECORDS SUMMARY | 2023-12-31 20:57 | XMS_ITS | Encounter Summary ---
Author Organization [facility] Address [address] [place] [address]. [place] [address] Care Team Providers Care Tree Faller Name Role Phone Jen Rush MD Unavailable [phone] Dorothea Barfield MD Primary Care Provider Refugio Schulz MD Unavailable [phone] Jen Rush MD Unavailable [phone] Encounter Details Date Type Department Care Team (Late st Contact Info) Description 10/08/2023 [facility] Adv[facility] for [facility] Health Clinic [address] [phone] Jen Rush MD 420 [facility] 276 [place] [address] Moderate persistent asthma without complication Social History [...] st Contact Info) Description 02/06/2024 11:00 AM ASSISTANT ACTIVITIES DIRECTOR Office Visit [facility] Specialty Clinic [address] [phone] Refugio Schulz MD [address] [place] [address]4945 07/07/2024 12:00 PM CDT Office Visit [facility] Pulmonary Function Testing [address] 3rd [place] [phone] Jen Rush MD [address] [phone] 07/07/2024 1:30 PM CDT Office Visit [facility] Clinic [address] [phone] Jen Rush MD [address] [place] [address] [phone] documented as of this encounter Visit Diagnoses Diagnosis Moderate persistent asthma without complication Unspecified asthma documented in this encounter Care Teams Tree Faller Relationship Specialty Start Date End Date Dorothea Barfield MD [facility] [address] [place] [address] PCP - General Internal Medicine 12/03/16 Jen Rush MD [address] [phone] Pulmonary Disease 08/27/16 Refugio Schulz MD [address] [place] [address] 855395 Assigned Rheumatology Provider 03/24/22 Jen Rush MD [address] [place] [address] Assigned Pulmonology Provider 06/09/22 documented as of this encounter
--- OUTSIDE RECORDS SUMMARY | 2023-12-31 20:57 | XMS_ITS | Encounter Summary ---
Author Organization [facility] Address [address] [place] [address]. [place] [address] Care Team Providers Care Wireless Team Member Name Role Phone Jen Rush MD Unavailable [phone] Dorothea Barfield MD Primary Care Provider Refugio Schulz MD Unavailable [phone] Jen Rush MD Unavailable [phone] Encounter Details Date Type Department Care Team (Late st Contact Info) Description 07/08/2023 [facility] Medical Advice [facility] for [facility] Science and Health Clinic [address] [phone] Jen Rush MD [address] [place] [address] 276 [place] [address] Social History Tobacco Use Types [...] st Contact Info) Description 02/06/2024 11:00 AM CIGARETTE INSPECTOR Office Visit [facility] [place] [address] [place] [phone] Refugio Schulz MD [address] 4387[address] 07/07/2024 12:00 PM CDT [facility] Visit [facility] Pulmonary Function Testing [address] 3rd [place] [phone] Jen Rush MD [address] [phone] 07/07/2024 1:30 PM CDT Office Visit [facility] for [facility] Clinic [address] [phone] Jen Rush MD [address] [phone] documented as of this encounter Visit Diagnoses Not on filedocumented in this encounter Care Teams Wireless Team Member Relationship Specialty Start Date End Date Dorothea Barfield MD [facility] [address] [place] [address] PCP - General Internal Medicine 12/03/16 Jen Rush MD [address] [phone] Pulmonary Disease 08/27/16 Refugio Schulz MD [address] 817635 Assigned Rheumatology Provider 03/24/22 Jen Rush MD [address] [place] [address] Assigned Pulmonology Provider 06/09/22 documented as of this encounter
--- OUTSIDE RECORDS SUMMARY | 2023-12-31 20:57 | XMS_ITS | Encounter Summary ---
Author Organization [facility] Address [address] [place] [address]. [place] [address] Care Team Providers Care Glue Clamp Operator Name Role Phone Jen Rush MD Unavailable [phone] Dorothea Barfield MD Primary Care Provider Refugio Schulz MD Unavailable [phone] Jen Rush MD Unavailable [phone] Encounter Details Date Type Department Care Team (Late st Contact Info) Description 10/07/2023 [facility] Medical Advice [facility] for [facility] Health Clinic [address] [phone] Jen Rush MD 420 [facility] 276 [place] [address] Moderate persistent asthma without complication [...] st Contact Info) Description 02/06/2024 11:00 AM BEZEL CUTTER Office Visit [facility] Specialty Clinic [address] [phone] Refugio Schulz MD [address] [place] [address] [id number] 07/07/2024 12:00 PM CDT Office Visit [facility] Pulmonary Function Testing [address] 3rd [place] [phone] Jen Rush MD [address] [phone] 07/07/2024 1:30 PM CDT Office Visit [facility] Clinic [address] [phone] Jen Rush MD [address] [place] [address] [phone] documented as of this encounter Visit Diagnoses Diagnosis Moderate persistent asthma without complication Unspecified asthma documented in this encounter Care Teams Glue Clamp Operator Relationship Specialty Start Date End Date Dorothea Barfield MD [facility] [address] [place] [address] PCP - General Internal Medicine 12/03/16 Jen Rush MD [address] [phone] Pulmonary Disease 08/27/16 Refugio Schulz MD [address] [place] [address] 097345 Assigned Rheumatology Provider 03/24/22 Jen Rush MD [address] [place] [address] Assigned Pulmonology Provider 06/09/22 documented as of this encounter
--- OUTSIDE RECORDS SUMMARY | 2023-12-31 20:57 | XMS_ITS | Encounter Summary ---
Author Organization [place] Address [address] [place] [address]. [place] [address] Care Team Providers Care Field Artillery Officer Name Role Phone Jen Rush MD Unavailable [phone] Dorothea Barfield MD Primary Care Provider Refugio Schulz MD Unavailable [phone] Jen Rush MD Unavailable [phone] Encounter Details Date Type Department Care Team (Late st Contact Info) Description 02/07/2023 [facility] Medical Advice Former[facility] [address] [address] Jen Rush MD [address] [place] [address] 276 [place] [address] Social History Tobacco Use Types [...] st Contact Info) Description 02/06/2024 11:00 AM CARE TRANSITIONS MANAGER Office Visit [facility] [place] [address] [place] [phone] Refugio Schulz MD [address] 908165 07/07/2024 12:00 PM CDT Office Visit [facility] Function Testing [address] 3rd [place] [phone] Jen Rush MD [address] [phone] 07/07/2024 1:30 PM CDT Office Visit [facility] [address] [address] Jen Rush MD [address] [phone] documented as of this encounter Visit Diagnoses Not on filedocumented in this encounter Care Teams Field Artillery Officer Relationship Specialty Start Date End Date Dorothea Barfield MD [facility] [address] [place] [address] PCP - General Internal Medicine 12/03/16 Jen Rush MD [address] [phone] Pulmonary Disease 08/27/16 Refugio Schulz MD [address] 673[address] Assigned Rheumatology Provider 03/24/22 Jen Rush MD [address] [place] [address] Assigned Pulmonology Provider 06/09/22 documented as of this encounter
--- OUTSIDE RECORDS SUMMARY | 2023-12-31 20:57 | XMS_ITS | Encounter Summary ---
Author Organization [place] Address [address] [place] [address]. [place] [address] Care Team Providers Care Educational Aide Name Role Phone Jen Rush MD Unavailable [phone] Dorothea Barfield MD Primary Care Provider Refugio Schulz MD Unavailable [phone] Jen Rush MD Unavailable [phone] Encounter Details Date Type Department Care Team (Late st Contact Info) Description 08/16/2023 [facility] [address] [address] Jen Rush MD [address] [place] [address] 276 [place] [address] Social History Tobacco Use Types [...] st Contact Info) Description 02/06/2024 11:00 AM ORACLE FUSION [place] ARCHITECT Office Visit [facility] [place] [address] [place] [phone] Refugio Schulz MD [address] [id number] 07/07/2024 12:00 PM CDT Office Visit [facility] Pul[facility] Function Testing [address] 3rd [place] [phone] Jen Rush MD [address] [phone] 07/07/2024 1:30 PM CDT Office Visit [facility] [address] [address] Jen Rush MD [address] [phone] documented as of this encounter Visit Diagnoses Not on filedocumented in this encounter Care Teams Educational Aide Relationship Specialty Start Date End Date Dorothea Barfield MD [facility] [address] [place] [address] PCP - General Internal Medicine 12/03/16 Jen Rush MD [address] [phone] Pulmonary Disease 08/27/16 Refguio Schulz MD [address] 426125 Assigned Rheumatology Provider 03/24/22 Jen Rush MD [address] [place] [address] Assigned Pulmonology Provider 06/09/22 documented as of this encounter
--- OUTSIDE RECORDS SUMMARY | 2023-12-31 20:57 | XMS_ITS | Encounter Summary ---
Author Organization [place] Address [address] [place] [address]. [place] [address] Care Team Providers Care Aircraft De Icer Installer Name Role Phone Jen Rush MD Unavailable [phone] Dorothea Barfield MD Primary Care Provider Refugio Schulz MD Unavailable [phone] Jen Rush MD Unavailable [phone] Reason for Visit * Reason Comments Medication Refill Encounter Details Date Type Department Care Team (Late st Contact Info) Description 11/29/2023 Refill [facility] [address] [address] Jen Rush MD 420 [facility] 276 [place] [address] Medication Refill Social History Tobacco Use Types Packs/Day Years [...] st Contact Info) Description 02/06/2024 11:00 AM TELEPHONE PLANT POWER OPERATOR Office Visit [facility] [address] [phone] Refugio Schulz MD [address] [place] [address] [id number] 07/07/2024 12:00 PM CDT Office Visit [facility] Pul[facility] Function Testing [address] 3rd [place] [address] Jen Rush MD [address] [phone] 07/07/2024 1:30 PM CDT Office Visit [facility] [address] [phone] Jen Rush MD [address] [address] documented as of this encounter Visit Diagnoses Diagnosis Moderate persistent asthma without complication Unspecified asthma documented in this encounter Care Teams Aircraft De Icer Installer Relationship Specialty Start Date End Date Dorothea Barfield MD [facility] [address] [address] PCP - General Internal Medicine 12/03/16 Jen Rush MD [address] [address] Pulmonary Disease 08/27/16 Refugio Schulz MD [address] 1024[address] Assigned Rheumatology Provider 03/24/22 Jen Rush MD [address] [place] [address] Assigned Pulmonology Provider 06/09/22 documented as of this encounter
--- OUTSIDE RECORDS SUMMARY | 2023-12-31 20:57 | XMS_ITS | Encounter Summary ---
Author Organization [place] [facility] Address [address] [place] [address]. [place] [address] Care Team Providers Care Logistics Operations Manager Name Role Phone Jen Rush MD Unavailable [phone] Dorothea Barfield MD Primary Care Provider Refugio Schulz MD Unavailable [phone] Jne Rush MD Unavailable [phone] Reason for Visit * Reason Onset Date Comments Orders 05/28/2023 Encounter Details Date Type Department Care Team (Late st Contact Info) Description 05/28/2023 Telephone [facility] [place] [id number] [place] [address] Jen Rush MD 420 [facility] [address] [place] [address] Orders Social History Tobacco Use Types Packs/Day Years [...] PM CDT documented as of this encounter Miscellaneous Notes * Telephone Encounter - Adalgisa Beltran - 05/28/2023 8:11 AM CST [facility] Call Center Phone Message May a detailed message be left on voicemail: no Reason for Call: Order(s): Other: Reason for requested: PFT Date needed: 11/12/2023 Provider name: Dr. Rush Pt had to reschedule her original apt on 06/11/2023 to 11/12/2023. Please extend PFT orders. Action Taken: Other: Pulm Travel Screening: Not Applicable RNET MEDIA PLANNER documented in this encounter Plan of Treatment Upcoming Encounters Date Type Department Care Team (Late st Contact Info) Description 02/06/2024 11:00 AM INTERNET MEDIA PLANNER Office Visit [facility] [address] [phone] Refugio Schulz MD [address] [place] [address] [phone] 07/07/2024 12:00 PM CDT Office Visit [facility] Pulmonary Function Testing [address] 3rd [place] [phone] Jen Rush MD [address] [place] [address] [phone] 07/07/2024 1:30 PM CDT Office Visit [facility] [address] [phone] Jen Rush MD [address] [place] [address] 394405 documented as of this encounter Visit Diagnoses Not on filedocumented in this encounter Care Teams Logistics Operations Manager Relationship Specialty Start Date End Date Dorothea Barfield MD [address] [address] PCP - General Internal Medicine 12/03/16 Jen Rush MD [address] [place] [address] [phone] Pulmonary Disease 08/27/16 Refugio Schulz MD [address] [place] [address] [phone] Assigned Rheumatology Provider 03/24/22 Jen Rush MD [address] [place] [address] [phone] Assigned Pulmonology Provider 06/09/22 documented as of this encounter
--- OUTSIDE RECORDS SUMMARY | 2023-12-31 20:57 | XMS_ITS | Encounter Summary ---
Author Organization [facility] Address [address] [place] [address] Care Team Providers Care Chain Mortiser Operator Name Role Phone Jen Rush MD Unavailable [phone] Dorothea Barfield MD Primary Care Provider [phone] Refugio Schulz MD Unavailable [phone] Jen Rush MD Unavailable [phone] Reason for Visit * Reason Onset Date Comments Medication Question 12/03/2023 Encounter Details Date Type Department Care Team (Late st Contact Info) Description 12/03/2023 Telephone [facility] [address] [address] Refugio Schulz MD [address] [place] [address] Medication Question Social History Tobacco Use Types Packs/Day Years [...] encounter Miscellaneous Notes * Telephone Encounter - Erma Palomares RN - 12/12/2023 10:17 AM CDT Called and discussed needed labs based on therapy plan orders. Erma Palomares RN * Telephone Encounter - Colleen Red - 12/12/2023 9:36 AM CDT Bel[facility] is requesting a call back from a nurse of Dr. Schulz. States they have a specific, quick question. Please follow-up. Thank you. * Telephone Encounter - Erma Palomares RN - 12/03/2023 9:47 AM CDT [facility] called and per orders ok to substitute a biosimiliar. Erma Palomares RN * Telephone Encounter - Jaky Juarez - 12/03/2023 9:01 AM CDT Images from the original note were not included. Action Taken: Message routed to: [facility]): Rheum Travel Screening: Not Applicable Date of Service: documented in this encounter Plan of Treatment Upcoming Encounters Date Type Department Care Team (Late st Contact Info) Description 02/06/2024 11:00 AM COMMUNICATIONS MARKETING INTERN Office Visit [facility] [address] [place] [address] Refugio Schulz MD [address] [place] [phone] 07/07/2024 12:00 PM CDT Office Visit [facility] Pulmonary Function Testing [address] 3rd [place] [phone] Jen Rush MD [address] [place] [address] [phone] 07/07/2024 1:30 PM CDT Office Visit [facility] [address] [phone] Jen Rush MD [address] [place] [address] [phone] documented as of this encounter Visit Diagnoses Not on filedocumented in this encounter Care Teams Chain Mortiser Operator Relationship Specialty Start Date End Date Dorothea Barfield MD [address] [address] PCP - General Internal Medicine 12/03/16 Jen Rush MD [address] [place] [address] [phone] Pulmonary Disease 08/27/16 Refugio Schulz MD [address] [place] [address] Assigned Rheumatology Provider 03/24/22 Jen Rush MD [address] [place] [address] Assigned Pulmonology Provider 06/09/22 documented as of this encounter
--- OUTSIDE RECORDS SUMMARY | 2023-12-31 20:57 | XMS_ITS | Encounter Summary ---
Author Organization [facility] Address [address] [place] [address]. [place] [address] Care Team Providers Care Machine Heel Seat Laster Name Role Phone Jen Rush MD Unavailable [phone] Dorothea Barfield MD Primary Care Provider [phone] Refugio Schulz MD Unavailable [phone] Jen Rush MD Unavailable [phone] Reason for Visit * Reason Onset Date Comments Labs Only 11/15/2022 Encounter Details Date Type Department Care Team (Late st Contact Info) Description 11/15/2022 MyC Medical Advice [facility] [address] [phone] Refugio Schulz MD [address] [place] [address] Labs Only Social History Tobacco Use Types Packs/Day Years Used Date Smoking Tobacco: Former Cigarettes 0 03/25/1967 - 03/25/1972 Smokeless Tobacco: Never Comments: very little Alcohol Use Standard Drinks/Week Comments Yes 0 (1 standard drink = 0.6 oz pur e alcohol) PHQ-2 Answer Date Recorded PHQ-2 Score 0 05/29/2022 Sex and Gender Information Value Date Recorded Sex Assigned at Female 08/08/2018 9:48 AM CDT Gender Identity Female 08/03/2018 6:39 PM CDT Sexual Orientation Straight 08/03/2018 6: 39 PM CDT COVID-19 Exposure Response Date Recorded In the last 10 days, have wander u been in contact with someone who was confirmed or suspected to have Coronavirus/COVID-19? No / Unsure 11/16/2022 12:52 PM CDT documented as of this encounter Miscellaneous Notes * Telephone Encounter - Erma Palomares RN - 11/15/2022 9:57 AM CDT See MyChart message from patient. Wondering about labs prior to 11/29/22 appt. Labs entered from previous appt. Please review and sign if appropriate. Erma Palomares RN documented in this encounter Plan of Treatment Upcoming Encounters Date Type Department Care Team (Late st Contact Info) Description 02/06/2024 11:00 AM SEMICONDUCTOR ASSEMBLER Office Visit [facility] [address] [phone] Refugio Schulz MD [address] [place] [address] [phone] 07/07/2024 12:00 PM CDT Office Visit [facility] Pulmonary Function Testing [address] 3rd [place] [phone] Jen Rush MD [address] [place] [address] [phone] 07/07/2024 1:30 PM CDT Office Visit [facility] [address] [phone] Jen Rush MD [address] [place] [address] [phone] documented as of this encounter Results * (ABNORMAL) Routine UA with micro reflex to culture (06/26/2023 9:42 AM CDT) Color Urine Yellow Colorless, Straw, Light Yellow, Yellow 06/26/2023 9:49 AM CDT [facility] Appearance Urine Clear Clear 06/26/19 9:49 AM CDT [facility] Glucose Urine Negative Negative mg/dL 06/26/2023 9:49 AM CDT [facility] Bilirubin Urine Negative Negative 9:49 AM CDT [facility] Ketones Urine Negative Negative mg/dL 06/26/2023 9:49 AM CDT [facility] Specific [place] Urine 1.025 1.003 - 1.035 06/26/2023 9:49 AM CDT [facility] Blood Urine Negative Negative 06/26/2023 9:49 AM CDT [facility] pH Urine 6.0 5.0 - 7.0 06/26/2023 9:49 AM CDT [facility] Protein Albumin Urine Negative Negative mg/dL 06/26/2023 9:49 AM CDT [facility] Urobilinogen Urine 0.2 0.2, 1.0 E.U./dL 06/26/2023 9:49 AM CDT [facility] Nitrite Urine Negative Negative 06/26/2023 9:49 AM CDT [facility] Leukocyte Esterase Urine Trace(A) Negative 06/26/2023 9:49 AM CDT [facility] Urine URINE SPECIMEN OBTAINED BY CLEAN CATCH PROCEDURE / Unknown Non-blood Collection / Unknown 06/26/2023 9:42 AM CDT 06/26/2023 9:42 AM CDT Refugio Schulz MD LAB - URINE ORDERAB LES [facility]ORY [facility] [place] [facility] [address] [facility] (no room number, 1st floor of clinic) [place] [address], [facility] [phone] * CRP inflammation (06/26/2023 9:36 AM CDT) CRP Inflammation <3.00 <5.00 mg/L 06/26/19 3:29 PM CDT [facility] Blood BLOOD SPECIMEN / Unknown Venipuncture / Unknown 06/26/2023 9:36 AM CDT 06/26/2023 9:36 AM CDT Refugio Schulz MD LAB - BLOOD ORDERAB LES [facility] Lab [address] [facility], Room [address] [place] [address], [facility] * Comprehensive metabolic panel (06/26/2023 9:36 AM CDT) Sodium 140 135 - 145 mmol/L 06/26/2023 3:29 PM CDT [facility] Comment:Reference intervals for this test were updated on 12/18/2022 to more accurately reflect our healthy population. There may be differences in the flagging of prior results with similar values performed with this method. Interpretation of those prior results can be made in the context of the updated reference intervals. Potassium 4.5 3.4 - 5.3 mmol/L 06/26/2023 3:29 PM CDT [facility] Carbon Dioxide (CO2) 26 22 - 29 mmol/L 06/26/2023 3:29 PM CDT [facility] Anion Gap 9 7 - 15 mmol/L 06/26/2023 3:29 PM CDT [facility] Urea Nitrogen 14.9 8.0 - 23.0 mg/dL 06/26/2023 3:29 PM CDT [facility] Creatinine 0.73 0.51 - 0.95 mg/dL 06/26/2023 3:29 PM CDT [facility] GFR Estimate 87 >60 mL/min/1. 73m2 06/26/2023 3:29 PM CDT [facility] Calcium 9.2 8.8 - 10.2 mg/dL 06/26/2023 3:29 PM CDT [facility] Chloride 105 98 - 107 mmol/L 06/26/2023 3:29 PM CDT [facility] Glucose 84 70 - 99 mg/dL 06/26/2023 3:29 PM CDT [facility] Alkaline Phosphatase 71 40 - 150 U/L 06/26/2023 3:29 PM CDT [facility] Comment:Reference intervals for this test were updated on 02/05/2023 to more accurately reflect our healthy population. There may be differences in the flagging of prior results with similar values performed with this method. Interpretation of those prior results can be made in the context of the updated reference intervals. AST 20 0 - 45 U/L 06/26/2023 3:29 PM CDT [facility] Comment:Reference intervals for this test were updated on 09/03/2022 to more accurately reflect our healthy population. There may be differences in the flagging of prior results with similar values performed with this method. Interpretation of those prior results can be made in the context of the updated reference intervals. ALT 19 0 - 50 U/L 06/26/2023 3:29 PM CDT [facility] Comment:Reference intervals for this test were updated on 09/03/2022 to more accurately reflect our healthy population. There may be differences in the flagging of prior results with similar values performed with this method. Interpretation of those prior results can be made in the context of the updated reference intervals. Protein Total 6.4 6.4 - 8.3 g/dL 06/26/2023 3:29 PM CDT [facility] Albumin 4.2 3.5 - 5.2 g/dL 06/26/2023 3:29 PM CDT [facility] Bilirubin Total 0.3 <=1.2 mg/dL 06/26/2023 3:29 PM CDT [facility] Blood BLOOD SPECIMEN / Unknown Venipuncture / Unknown 06/26/2023 9:36 AM CDT 06/26/2023 9:36 AM CDT Refugio Schulz MD LAB - BLOOD ORDERAB LES [facility] [place] [facility] [address] [facility], [address] [place] [address] * (ABNORMAL) Routine UA with microscopic - No culture (UMP) (11/19/2022 1:13 PM CDT) Color Urine Yellow Colorless, Straw, Light Yellow, Yellow 11/19/2022 1:26 PM CDT [facility] Appearance Urine Clear Clear 11/20/19 23 1:26 PM CDT [facility] Glucose Urine Negative Negative mg/dL 11/19/2022 1:26 PM CDT [facility] Bilirubin Urine Negative Negative 3 1:26 PM CDT [facility] Ketones Urine 40(A) Negative mg/dL 11/19/2022 1:26 PM CDT [facility] Specific [place] Urine >=1.030 1.003 - 1.035 11/19/2022 1:26 PM CDT [facility] Blood Urine Negative Negative 11/19/2022 1:26 PM CDT [facility] pH Urine 5.5 5.0 - 7.0 11/19/2022 1:26 PM CDT [facility] Protein Albumin Urine Negative Negative mg/dL 11/19/2022 1:26 PM CDT [facility] Urobilinogen Urine 0.2 0.2, 1.0 E.U./dL 11/19/2022 1:26 PM CDT [facility] Nitrite Urine Negative Negative 11/19/2022 1:26 PM CDT [facility] Leukocyte Esterase Urine Moderate(A) Negative 11/19/2022 1:26 PM CDT [facility] Urine URINE SPECIMEN / Unknown Non-blood Collection / Unknown 11/19/2022 1:13 PM CDT 11/19/2022 1:13 PM CDT Refugio Schulz MD LAB - URINE ORDERAB LES [facility] [place] [facility] [address] [facility] (no room number, 1st floor of clinic) [place] [address], [place] [phone] * (ABNORMAL) CRP inflammation (11/19/2022 1:09 PM CDT) CRP Inflammation 12.20(H) <5.00 mg/L 11/19/2022 5:29 PM CDT [facility] Blood BLOOD SPECIMEN / Unknown Venipuncture / Unknown 11/19/2022 1:09 PM CDT 11/19/2022 1:09 PM CDT Refugio Schulz MD LAB - BLOOD ORDERAB LES [facility] [place] [facility] [address] [facility], Room [address] [place] [address], [place] [phone] * CBC with platelets (11/19/2022 1:09 PM CDT) WBC Count 8.7 4.0 - 11.0 10e3/uL 11/19/2022 1:21 PM CDT [facility] RBC Count 4.92 3.80 - 5.20 10e6/uL 11/19/2022 1:21 PM CDT [facility] Hemoglobin 14.5 11.7 - 15.7 g/dL 11/19/2022 1:21 PM CDT [facility] Hematocrit 45.4 35.0 - 47.0 % 11/19/2022 1:21 PM CDT [facility] MCV 92 78 - 100 fL 11/19/2022 1:21 PM CDT [facility] MCH 29.5 26.5 - 33.0 pg 11/19/2022 1:21 PM CDT [facility] MCHC 31.9 31.5 - 36.5 g/dL 11/19/2022 1:21 PM CDT [facility] RDW 13.0 10.0 - 15.0 % 11/19/2022 1:21 PM CDT [facility] Platelet Count 302 150 - 450 10e3/uL 11/19/2022 1:21 PM CDT [facility] Blood BLOOD SPECIMEN / Unknown Venipuncture / Unknown 11/19/2022 1:09 PM CDT 11/19/2022 1:09 PM CDT Refugio Schuzl MD LAB - BLOOD ORDERAB LES [facility] [place] [facility] [address] [facility] (no room number, 1st floor of clinic) [place] [address], [facility] [phone] * Comprehensive metabolic panel (11/19/2022 1:09 PM CDT) Pathologist [facility] Sodium 141 136 - 145 mmol/L 11/19/2022 5:29 PM CDT [facility] Potassium 4.2 3.4 - 5.3 mmol/L 11/19/2022 5:29 PM CDT [facility] Chloride 103 98 - 107 mmol/L 11/19/2022 5:29 PM CDT [facility] Carbon Dioxide (CO2) 26 22 - 29 mmol/L 11/19/2022 5:29 PM CDT [facility] Anion Gap 12 7 - 15 mmol/L 11/19/2022 5:29 PM CDT [facility] Urea Nitrogen 14.1 8.0 - 23.0 mg/dL 11/19/2022 5:29 PM CDT [facility] Creatinine 0.74 0.51 - 0.95 mg/dL 11/19/2022 5:29 PM CDT [facility] Calcium 9.4 8.8 - 10.2 mg/dL 11/19/2022 5:29 PM CDT [facility] Glucose 92 70 - 99 mg/dL 11/19/2022 5:29 PM CDT [facility] Alkaline Phosphatase 90 35 - 104 U/L 11/19/2022 5:29 PM CDT [facility] AST 24 0 - 45 U/L 11/19/2022 5:29 PM CDT [facility] Comment:Reference intervals for this test were updated on 09/03/2022 to more accurately reflect our healthy population. There may be differences in the flagging of prior results with similar values performed with this method. Interpretation of those prior results can be made in the context of the updated reference intervals. ALT 25 0 - 50 U/L 11/19/2022 5:29 PM CDT [facility] Comment:Reference intervals for this test were updated on 09/03/2022 to more accurately reflect our healthy population. There may be differences in the flagging of prior results with similar values performed with this method. Interpretation of those prior results can be made in the context of the updated reference intervals. Protein Total 7.3 6.4 - 8.3 g/dL 11/19/2022 5:29 PM CDT [facility] Albumin 4.7 3.5 - 5.2 g/dL 11/19/2022 5:29 PM CDT [facility] Bilirubin Total 0.3 <=1.2 mg/dL 11/19/2022 5:29 PM CDT [facility] GFR Estimate 86 >60 mL/min/1. 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
--- OUTSIDE RECORDS SUMMARY | 2023-12-31 20:57 | XMS_ITS | Encounter Summary ---
Author Organization [facility] Address [address] [place] [address] Care Team Providers Care Packaging Coordinator Name Role Phone Jen Rush MD Unavailable [phone] Dorothea Barfield MD Primary Care Provider Refugio Schulz MD Unavailable [phone] Jen Rush MD Unavailable [phone] Encounter Details Date Type Department Care Team (Late st Contact Info) Description 06/27/2023 MyC Medical Advice [facility] Heart Clinic [address] [address] [facility] Social History Tobacco Use Types Packs/Day Years [...] st Contact Info) Description 02/06/2024 11:00 AM TRANSCRIPTIONIST Office Visit [facility] Specialty Clinic [address] [place] [phone] Refugio Schulz MD [address] [place] [address] [id number] 07/07/2024 12:00 PM CDT Office Visit [facility] Pulmonary Function Testing [address] 3rd [place] [phone] Jen Rush MD [address] [phone] 07/07/2024 1:30 PM CDT Office Visit [facility] Clinic [address] [phone] Jen Rush MD [address] [place] [address] [id number] documented as of this encounter Visit Diagnoses Not on filedocumented in this encounter Care Teams Packaging Coordinator Relationship Specialty Start Date End Date Dorothea Barfield MD [address] [address] PCP - General Internal Medicine 12/03/16 Jen Rush MD [address] [place] [address] Pulmonary Disease 08/27/16 Refugio Schulz MD [address] [place] [address] [phone] Assigned Rheumatology Provider 03/24/22 Jen Rush MD [address] [place] [address] [phone] Assigned Pulmonology Provider 06/09/22 documented as of this encounter
--- OUTSIDE RECORDS SUMMARY | 2023-12-31 20:57 | XMS_ITS | Encounter Summary ---
Author Organization [facility] Address [address] [place] [address] Care Team Providers Care Reporting Consultant Name Role Phone Jen Rush MD Unavailable [phone] Dorothea Barfield MD Primary Care Provider [phone] Refugio Schulz MD Unavailable [phone] Jen Rush MD Unavailable [phone] Encounter Details Date Type Department Care Team (Late st Contact Info) Description 07/10/2023 MyC Medical Advice [address] [place] [address] Erma Palomares RN Social History Tobacco Use Types Packs/Day Years [...] st Contact Info) Description 02/06/2024 11:00 AM PEDIATRIC ORTHODONTIST Office Visit [address] [place] [phone] Refugio Schulz MD [address] [place] [address] [phone] 07/07/2024 12:00 PM CDT Office Visit [facility] Pulmonary Function Testing [address] 3rd [place] [phone] Jen Rush MD [address] [phone] 07/07/2024 1:30 PM CDT Office Visit [facility] [address] [phone] Jen Rush MD [address] [place] [address] [phone] documented as of this encounter Visit Diagnoses Not on filedocumented in this encounter Care Teams Reporting Consultant Relationship Specialty Start Date End Date Dorothea Barfield MD [address] [address] PCP - General Internal Medicine 12/03/16 Jen Rush MD [address] [place] [address] 378325 Pulmonary Disease 08/27/16 Refugio Schulz MD [address] [place] [address] [phone] Assigned Rheumatology Provider 03/24/22 Jen Rush MD [address] [place] [address] [phone] Assigned Pulmonology Provider 06/09/22 documented as of this encounter
--- OUTSIDE RECORDS SUMMARY | 2023-12-31 20:57 | XMS_ITS | Encounter Summary ---
Author Organization [place] Address [address] [place] [address]. [place] [address] Care Team Providers Care Production Lead Name Role Phone Jen Rush MD Unavailable [phone] Dorothea Barfield MD Primary Care Provider Refugio Schulz MD Unavailable [phone] Jen Rush MD Unavailable [phone] Encounter Details Date Type Department Care Team (Late st Contact Info) Description 07/16/2023 [facility] Medical Advice [facility] [address] [address] Jen Rush MD [address] [place] [address] 276 [place] [address] Social History Tobacco Use Types [...] st Contact Info) Description 02/06/2024 11:[address] AM STREETS AND BUILDINGS DECORATOR Office Visit [facility] [place] [address] [place] [phone] Refugio Schulz MD [address] [phone] 07/07/2024 12:00 PM CDT Office Visit [facility] Pulmonary Function Testing [address] 3rd [place] [phone] Jen Rush MD [address] [phone] 07/07/2024 1:30 PM CDT Office Visit [facility] [address] [phone] Jen Rush MD [address] [phone] documented as of this encounter Visit Diagnoses Not on filedocumented in this encounter Care Teams Production Lead Relationship Specialty Start Date End Date Dorothea Barfield MD [facility] [address] [place] [address] PCP - General Internal Medicine 12/03/16 Jen Rush MD [address] [phone] Pulmonary Disease 08/27/16 Refugio Schulz MD [address] [phone] Assigned Rheumatology Provider 03/24/22 Jen Rush MD [address] [place] [address] Assigned Pulmonology Provider 06/09/22 documented as of this encounter
--- OUTSIDE RECORDS SUMMARY | 2023-12-31 20:57 | XMS_ITS | Encounter Summary ---
Author Organization [facility] Address [address] [place] [address]. [place] [address] Care Team Providers Care Broadcast Transmitter Operator Name Role Phone Jen Rush MD Unavailable [phone] Dorothea Barfield MD Primary Care Provider Refugio Schulz MD Unavailable [phone] Jen Rush MD Unavailable [phone] Encounter Details Date Type Department Care Team (Late st Contact Info) Description 10/08/2022 [facility] [facility] [address] [address] Jen Rush MD [address] [place] [address] 276 [place] [address] Social History Tobacco Use Types [...] st Contact Info) Description 02/06/2024 11:00 AM ACQUISITION PROFESSIONAL Office Visit [facility] [place] [address] [place] [phone] Refugio Schulz MD [address] [address] 07/07/2024 12:00 PM CDT Office Visit [facility] Pulmonary Function Testing [address] 3rd [place] [phone] Jen Rush MD [address] [phone] 07/07/2024 1:30 PM CDT Office Visit [facility] [address] [phone] Jen Rush MD [address] [id number] documented as of this encounter Visit Diagnoses Not on filedocumented in this encounter Care Teams Broadcast Transmitter Operator Relationship Specialty Start Date End Date Dorothea Barfield MD [address] [address] PCP - General Internal Medicine 12/03/16 Jen Rush MD [address] [address] Pulmonary Disease 08/27/16 Refugio Schulz MD [address] [place] [address] Assigned Rheumatology Provider 03/24/22 Jen Rush MD [address] [place] [address] 276 [place] [address] Assigned Pulmonology Provider 06/09/22 documented as of this encounter
--- OUTSIDE RECORDS SUMMARY | 2023-12-31 20:57 | XMS_ITS | Encounter Summary ---
Author Organization [facility] Address [address] [place] [address]. [place] [address] Care Team Providers Care Kiln Worker Name Role Phone Jen Rush MD Unavailable [phone] Dorothea Barfield MD Primary Care Provider Refugio Schulz MD Unavailable [phone] Jen Rush MD Unavailable [phone] Reason for Visit * Reason Comments Follow Up Return pulm. 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) Social History Tobacco Use Types Packs/Day Years [...] PM CDT documented as of this encounter Last Filed Vital Signs Vital Sign Reading Time Taken Comments Blood Pressure 126/79 11/26/2023 3:58 PM CDT Pulse 61 11/26/2023 3:58 PM CDT Temperature - - Respiratory Rate - - Oxygen Saturation 98% 11/26/2023 3:58 PM CDT Inhaled Oxygen Concentration - - Weight - - Height - - Body Mass Index - - documented in this encounter Patient Instructions * Patient Instructions* Jen Rush MD - 11/26/2023 4:00 PM CDT I am prescribing a 3% saline nebulizer solution to be used initially every day, probably morning. Then you can use the flutter/aerobika valve. Keep me posted on how it goes, we can tweak it or adjust frequency depending on how you're feeling. documented in this encounter Progress Notes * Jen Rush MD - 11/26/2023 4:00 PM CDT Images from the original note were not included. 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 Her granulomatosis has been characterized by extensive sinus disease, no known airway stenoses although she did have hemoptysis. Asthma-moderate persistent. Noticed albuterol made things worse. Still on maintenance inhaled steroid and LABA but once daily. Definitely notices dyspnea and wheezing without these. Granulomatosis with polyangiitis-primarily sinus manifestations and lower respiratory symptoms without airway stenosis. Currently rituximab therapy seems to be working well for her. She is also seeing rheumatology had [facility] to manage this. PFTs do not seem to have been very helpful in monitoring her disease activity, however they are abnormal and has been even more so in the past. Moderate obstruction on last PFTs Breo definitely helps but albuterol really doesn't Bronchiectasis - 3% NaCl 1-2 times daily, Flutter valve given today She hasn't experienced exacerbations but is bothered by cough and mucus. Trial airway clearance primarily for symptom relief. Follow-up in clinic in 6 months The longitudinal plan of care for the diagnosis(es)/condition(s) as documented were addressed during this visit. Due to the added complexity in care, I will continue to support Dorothea in the subsequent management and with ongoing continuity of care. Medical Decision Making Jen Rush MD Reason for Visit Dorothea Brunner is a 73 year old female who is followed for GPA. Pulmonary HPI She continues on Rituximab, now yearly in December. She had antibiotics in September for tick bite and that helped her breathing. She takes loratadine in the spring (or montelukast) Morning - Breo every day now Budesonide and Formoterol neb only when sick; Nasal irrigation (NaCl, NaHCO3 and baby shampoo with mupirocin); Flonase Evening - nasal irrigation (increase to TID if needed) The patient was seen and examined by Jen Rush MD Current Outpatient Medications Medication Sig Dispense Refill albuterol (PROAIR HFA/PROVENTIL HFA/VENTOLIN HFA) 108 (90 Base) MCG/ACT inhaler Inhale 2 puffs intothe lungs every 6 hours as needed for shortness of breath, wheezing or cough 18 g 3 budesonide (PULMICORT) 0.5 MG/2ML neb solution USE 1 VIAL VIA NEBULIZER DAILY (Patient taking differently: as needed. USE 1 VIAL VIA NEBULIZER DAILY) 180 mL 3 conjugated estrogens (PREMARIN) cream Place 1 g vaginally fluticasone (FLONASE) 50 MCG/ACT spray 100 mcg fluticasone-vilanterol (BREO ELLIPTA) 200-25 MCG/ACT inhaler Inhale 1 puff into the lungs daily 180each 3 formoterol (PERFOROMIST) 20 MCG/2ML neb solution Take 2 mLs (20 mcg) by nebulization every 12 hours(Patient taking differently: Take 20 mcg by nebulization as needed.) 120 mL 6 hydrocortisone 2.5 % cream Apply topically 2 times daily (Patient taking differently: Apply topically as needed.) 20 g 2 levothyroxine (SYNTHROID/LEVOTHROID) 75 MCG tablet Take 75 mcg by mouth loratadine (CLARITIN) 10 MG tablet Take 10 mg by mouth montelukast (SINGULAIR) 10 MG tablet Take 1 tablet (10 mg) by mouth at bedtime 30 tablet 3 mupirocin (BACTROBAN) 2 % ointment Use as directed twice daily - mixing 1/3 tube of Bactroban into 1 liter of usual saline nasal rinse. omeprazole (PRILOSEC) [address] capsule TK 1 C PO QAM riTUXimab (RITUXAN) 1 mg/0.1 mL 1 mg/0.1 ml intravitreal injection (PF) Inject 600 mg into the veinEvery 9 months fluticasone-vilanterol (BREO ELLIPTA) 200-25 MCG/INH inhaler INHALE 1 PUFF INTO THE LUNGS DAILY 1 Inhaler 5 VENTOLIN HFA 108 (90 Base) MCG/ACT inhaler Inhale 2 puffs into the lungs every 6 hours as needed for shortness of breath, wheezing or cough 18 g 3 No current facility-administered medications for this visit. Allergies Allergen Reactions Iodine Hives Amoxicillin Iodides Hives Levaquin [Levofloxacin] Leg pain Social History Socioeconomic History Marital status: Spouse name: Not on file Number of children: Not on file Years of education: Not on file Highest education level: Not on file Occupational History Not on file Tobacco Use Smoking status: Former Current packs/day: 0.00 Types: Cigarettes Start date: 03/25/1967 Quit date: 03/25/1972 Years since quittin.7 Smokeless tobacco: Never Tobacco comments: very little Substance and Sexual Activity Alcohol use: Yes Drug use: No Sexual activity: Never Other Topics Concern Parent/sibling w/ CABG, [place] or angioplasty before 65F 55M? Not Asked Social History Narrative Not on file Social Determinants of Health Financial Resource Strain: Not on file Food Insecurity: Not on file Transportation Needs: Not on file Physical Activity: Not on file Stress: Not on file Social Connections: Not on file Interpersonal Safety: Not on file Housing Stability: Not on file Past Medical History: Diagnosis Date Allergic rhinitis child Asthma Autoimmune disease (H24) GPA diagnosed about Age 41 Chronic sinusitis child Chronic tonsillitis child Tonsillectomy at Age 8 Gastroesophageal reflux disease Last two years Granulomatosis with polyangiitis (H) Hearing problem Since Age 8 Several Ear tubes Hypothyroid Tinnitus Last two years Past Surgical History: Procedure Laterality Date ADENOIDECTOMY Age 8 APPENDECTOMY CATARACT EXTRACTION, BILATERAL Bilateral 08/10/2022 SECTION TEMPLATE CHECKER SURGERY 2 Caesarians SINUS SURGERY TONSILLECTOMY Age 8 TYMPANOPLASTY Age 8 Several Ear tubes since Family History Problem Relation Age of Onset Other - See Comments Mother CLL, PMR Mental Illness Mother Depression Mother Thyroid Disease Mother Thyroid Disease Sister LUNG DISEASE No family hx of ROS Pulmonary Dyspnea: No, Cough: Yes, Chest pain: No, Wheezing: No, Sputum Production: Yes, Hemoptysis: No A complete ROS was otherwise negative except as noted in the HPI. BP 126/79 (BP Location: Right arm, Patient Position: Chair, Cuff Size: Adult Regular) Pulse 61 SpO2 98% Exam: GENERAL APPEARANCE: Well developed, well nourished, alert, and in no apparent distress. RESP: normal percussion, good air flow throughout. No crackles. No rhonchi. No wheezes. PSYCH: mentation appears normal. and affect normal/bright Results: PFTs 07/12/23 stable since at least 2017 moderate obstruction with normal diffusion CT chest July 2023 bronchiectasis of the right middle lobe and lingula, nonspecific although can be seen in the setting of coexisting atypical mycobacterial infection. Most recent sinus CT done in March [address] [facility] January 2016 IMPRESSION: 1. Significant interval improvement in previously noted multifocal nodular and masslike regions of airspace disease consistent with treated GPA. Residual nodules are felt to reflect regions of postinflammatory scarring. 2. Chronic large airways disease with areas of progressive distal mucous plugging as well as a few new branching opacities. A superimposed chronic airways infection is possible. documented in this encounter Nursing Notes * Maria Ines Zamorano CMA - 11/26/2023 4:00 PM CDT Chief Complaint Patient presents with Follow Up Return pulm. Vitals were taken and medications were reconciled. Maria Ines Zamorano RMLandry 3:59 PM documented in this encounter Plan of Treatment Upcoming Encounters Date Type Department Care Team (Late st Contact Info) Description 02/06/2024 11:00 AM SCOOP DRIVER Office Visit [facility] [address] [place] [phone] Refugio Schulz MD [address] [place] [address] [phone] 07/07/2024 12:00 PM CDT Office Visit [facility] Pulmonary Function Testing [address] 3rd [place] [phone] Jen Rush MD [address] [place] [address] [phone] 07/07/2024 1:30 PM CDT Office Visit [facility] [address] [phone] Jen Rush MD [address] [place] [address] [phone] documented as of this encounter Visit Diagnoses Diagnosis Bronchiectasis without complication (H)- Primary Bronchiectasis without acute exacerbation 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) documented in this encounter Care Teams Kiln Worker Relationship Specialty Start Date End Date Dorothea Barfield MD [facility] [address] [place] [address] PCP - General Internal Medicine 12/03/16 Jen Rush MD [address] [place] [address] [phone] Pulmonary Disease 08/27/16 Refugio Schulz MD 515 [facility] [address] [place] [address] Assigned Rheumatology Provider 03/24/22 Jen Rush MD 420 [facility] [address] [place] [address] Assigned Pulmonology Provider 06/09/22 documented as of this encounter
--- OUTSIDE RECORDS SUMMARY | 2023-12-31 20:57 | XMS_ITS | Encounter Summary ---
Author Organization [place] Address [address] [place] [address]. [place] [address] Care Team Providers Care Data Processing Systems Consultant Name Role Phone Jen Rush MD Unavailable [phone] Dorothea Barfield MD Primary Care Provider Refugio Schulz MD Unavailable [phone] eJn Rush MD Unavailable [phone] Encounter Details Date Type Department Care Team (Late st Contact Info) Description 03/09/2022 [facility] Medical Advice [facility] [address] [address] Jen Rush MD [address] [place] [address] [address] [place] [address] Social History Tobacco Use Types Packs/Day Years Used Date Smoking Tobacco: Former Cigarettes 0 03/25/1967 - 03/25/1972 Smokeless Tobacco: Never Comments: very little Alcohol Use Standard Drinks/Week Comments Yes 0 (1 standard drink = 0.6 oz pur e alcohol) PHQ-2 Answer Date Recorded PHQ-2 Score 0 06/02/2019 Sex and Gender Information Value Date Recorded Sex Assigned at Female 08/08/2018 9:48 AM CDT Gender Identity Female 08/03/2018 6:39 PM CDT Sexual Orientation Straight 08/03/2018 6: 39 PM CDT COVID-19 Exposure Response Date Recorded In the last 10 days, have yo u been in contact with someone who was confirmed or suspected to have Coronavirus/COVID-19? Unable to assess 03/12/2022 8:19 AM TANK PUMPER documented as of this encounter Plan of Treatment Upcoming Encounters Date Type Department Care Team (Late st Contact Info) Description 02/06/2024 11:00 AM TANK PUMPER Office Visit [facility] [address] [phone] Refugio Schulz MD [address] [place] [address] [phone] 07/07/2024 12:00 PM CDT Office Visit [facility] Pulmonary Function Testing [place] [address] [place] [address] 3rd [place] [address] Jen Rush MD [address] [place] [address] [phone] 07/07/2024 1:30 PM CDT Office Visit [facility] [address] [address] Jen Rush MD [address] [place] [address] documented as of this encounter Visit Diagnoses Not on filedocumented in this encounter Care Teams Data Processing Systems Consultant Relationship Specialty Start Date End Date Doroteha Barfield MD [facility] [address] [place] [address] PCP - General Internal Medicine 12/03/16 Jen Rush MD [address] [place] [address] [phone] Pulmonary Disease 08/27/16 Refugio Schulz MD [address] [place] [address] Assigned Rheumatology Provider 03/24/22 Jen Rush MD [address] [place] [address] 276 [place], [place] 075855 Assigned Pulmonology Provider 06/09/22 documented as of this encounter
--- OUTSIDE RECORDS SUMMARY | 2023-12-31 20:57 | XMS_ITS | Encounter Summary ---
Author Organization [facility] Address [address] [place] [address] Care Team Providers Care Audiovisual Aids Technician Name Role Phone Jen Rush MD Unavailable [phone] Dorothea Barfield MD Primary Care Provider Refugio Schulz MD Unavailable [phone] Jen Rush MD Unavailable [phone] Encounter Details Date Type Department Care Team (Latest Contact Info) Description 11/21/2023 Travel Social History Tobacco Use Types Packs/Day [...] st Contact Info) Description 02/06/2024 11:00 AM COMMERCIAL ESTIMATOR Office Visit [facility] [address] [phone] Refugio Schulz MD [address] [place] [address] 07/07/2024 12:00 PM CDT Office Visit [facility] Pulmonary Function Testing [address] 3rd [place] [phone] Jen Rush MD [address] [place] [address] [phone] 07/07/2024 1:30 PM CDT Office Visit [facility] [address] [phone] Jen Rush MD [address] [place] [address] documented as of this encounter Visit Diagnoses Not on filedocumented in this encounter Care Teams Audiovisual Aids Technician Relationship Specialty Start Date End Date Dorothea Barfield MD [address] [address] PCP - General Internal Medicine 12/03/16 Jen Rush MD [address] [place] [address] Pulmonary Disease 08/27/16 Refugio Schulz MD [address] [place] [address] Assigned Rheumatology Provider 03/24/22 Jen Rush MD [address] [place] [address] Assigned Pulmonology Provider 06/09/22 documented as of this encounter
--- OUTSIDE RECORDS SUMMARY | 2023-12-31 20:57 | XMS_ITS | Encounter Summary ---
Author Organization [facility] Address [address] [place] [address]. [place] [address] Care Team Providers Care Rewriter Name Role Phone Jen Rush MD Unavailable [phone] Dorothea Barfield MD Primary Care Provider Refugio Schulz MD Unavailable [phone] Jen Rush MD Unavailable [phone] Encounter Details Date Type Department Care Team (Late st Contact Info) Description 04/22/2022 [facility] Medical Advice [facility] [address] [address] Jen Rush MD [address] [place] [address] [address] [place] [address] Social History Tobacco Use Types [...] suspected to have Coronavirus/COVID-19? No / Unsure 03/26/2022 1:20 PM MACHINE FORMER documented as of this encounter Plan of Treatment Upcoming Encounters Date Type Department Care Team (Late st Contact Info) Description 02/06/2024 11:00 AM MACHINE FORMER Office Visit [facility] [address] [phone] Refugio Schulz MD [address] [place] [address] 557655 07/07/2024 12:00 PM CDT Office Visit [facility] Function Testing [place] [address] [place] [address] 3rd [place] [address] Jen Rush MD [address] [place] [address] [phone] 07/07/2024 1:30 PM CDT Office Visit [facility] [address] [address] Jen Rush MD [address] [place] [address] [phone] documented as of this encounter Visit Diagnoses Not on filedocumented in this encounter Care Teams Rewriter Relationship Specialty Start Date End Date Dorothea Barfield MD [facility] [address] [place] [address] PCP - General Internal Medicine 12/03/16 Jen Rush MD [address] [place] [address] [phone] Pulmonary Disease 08/27/16 Refugio Schulz MD [address] [place] [address] [phone] Assigned Rheumatology Provider 03/24/22 Jen Rush MD [address] [place] [address] [address] [place], [place] 986805 Assigned Pulmonology Provider 06/09/22 documented as of this encounter
--- OUTSIDE RECORDS SUMMARY | 2023-12-31 20:57 | XMS_ITS | Encounter Summary ---
Author Organization [facility] Address [address] [place] [address] Care Team Providers Care Fruit Picker Machine Operator Name Role Phone Jen Rush MD Unavailable [phone] Dorothea Barfield MD Primary Care Provider Refugio Schulz MD Unavailable [phone] Jen Rush MD Unavailable [phone] Encounter Details Date Type Department Care Team (Late st Contact Info) Description 06/20/2023 [facility] Advice [address] [place] [address] Carlee Bates, ESPERANZA Social History Tobacco Use Types Packs/Day Years [...] st Contact Info) Description 02/06/2024 11:00 AM CLINICAL PHLEBOTOMIST Office Visit [address] [place] [address] Refugio Schulz MD [address] [place] [address] 192915 07/07/2024 12:00 PM CDT Office Visit [facility] Pulmonary Function Testing [address] 3rd [place] [phone] Jen Rush MD [address] [phone] 07/07/2024 1:30 PM CDT Office Visit [facility] [address] [phone] Jen Rush MD [address] [place] [address] [id number] documented as of this encounter Visit Diagnoses Not on filedocumented in this encounter Care Teams Fruit Picker Machine Operator Relationship Specialty Start Date End Date Dorothea Barfield MD [address] [address] PCP - General Internal Medicine 12/03/16 Jen Rush MD [address] [place] [address] 858495 Pulmonary Disease 08/27/16 Refugio Schulz MD [address] [place] [address] [phone] Assigned Rheumatology Provider 03/24/22 Jen Rush MD [address] [place] [address] [phone] Assigned Pulmonology Provider 06/09/22 documented as of this encounter
--- OUTSIDE RECORDS SUMMARY | 2023-12-31 20:57 | XMS_ITS | Encounter Summary ---
Author Organization [place] Address [address] [place] [address]. [place] [address] Care Team Providers Care Food Assembler Kitchen Name Role Phone Jen Rush MD Unavailable [phone] Dorothea Barfield MD Primary Care Provider [phone] Refugio Schulz MD Unavailable [phone] Jen Rush MD Unavailable [phone] Reason for Visit * Reason Onset Date Comments Refill Request 09/23/2023 fluticasone-akin nterol (BREO ELLIPTA) 200-25 MCG/ACT inhaler Encounter Details Date Type Department Care Team (Late st Contact Info) Description 09/23/2023 Refill [facility] [address] [address] Jen Rush MD [address] [place] [address] 276 [place] [address] Refill Request (fluticasone-vilanterol (BREO ELLIPTA) 200-25 MCG/ACT inhaler) Social History Tobacco Use Types Packs/Day Years Used Date Smoking Tobacco: Former Cigarettes 0 03/25/1967 - 03/25/1972 Smokeless Tobacco: Never Comments: very little Alcohol Use Standard Drinks/Week Comments Yes 0 (1 standard drink = 0.6 oz pur e alcohol) PHQ-2 Answer Date Recorded PHQ-2 Score 0 07/04/2023 Adolescent Education Answer Date Record ed Getting School Help Needed Not on file 09/23 /2023 Sex and Gender Information Value Date Recorded Sex Assigned at Female 08/08/2018 9:48 AM CDT Gender Identity Female 08/03/2018 6:39 PM CDT Sexual Orientation Straight 08/03/2018 6: 39 PM CDT documented as of this encounter Miscellaneous Notes * Telephone Encounter - Germaine Perkins LPN - 09/23/2023 10:58 AM CDT Images from the original note were not included. documented in this encounter Plan of Treatment Upcoming Encounters Date Type Department Care Team (Late st Contact Info) Description 02/06/2024 11:00 AM NON PROFIT FINANCIAL CONTROLLER Office Visit [facility] [address] [phone] Refugio Schulz MD [address] [place] [address] 460355 07/07/2024 12:00 PM CDT Office Visit [facility] Pulmonary Function Testing [address] 3rd [place] [phone] Jen Rush MD [address] [place] [address] 896605 07/07/2024 1:30 PM CDT Office Visit [facility] [address] [phone] Jen Rush MD [address] [place] [address] [phone] documented as of this encounter Visit Diagnoses Diagnosis Moderate persistent asthma without complication Unspecified asthma documented in this encounter Care Teams Food Assembler Kitchen Relationship Specialty Start Date End Date Dorothea Barfield MD [facility] [address] [place] [address] PCP - General Internal Medicine 12/03/16 Jen Rush MD [address] [place] [address] Pulmonary Disease 08/27/16 Refugio Schulz MD [address] [place] [address] 955005 Assigned Rheumatology Provider 03/24/22 Jen Rush MD [address] [place] [address] Assigned Pulmonology Provider 06/09/22 documented as of this encounter
--- OUTSIDE RECORDS SUMMARY | 2023-12-31 20:57 | XMS_ITS | Encounter Summary ---
Author Organization [facility] Address [address] [place] [address] Care Team Providers Care Pct Name Role Phone Jen Rush MD Unavailable [phone] Dorothea Barfield MD Primary Care Provider Refugio Schulz MD Unavailable [phone] Jen Rush MD Unavailable [phone] Encounter Details Date Type Department Care Team (Late st Contact Info) Description 11/23/2022 [facility] Medical Advice [facility] [address] [address] Carlee Bates, RN Social History Tobacco Use Types Packs/Day [...] suspected to have Coronavirus/COVID-19? No / Unsure 11/22/2022 2:54 PM CDT documented as of this encounter Plan of Treatment Upcoming Encounters Date Type Department Care Team (Late st Contact Info) Description 02/06/2024 11:00 AM INDUSTRIAL SALES REPRESENTATIVE Office Visit [facility] [address] [phone] Refugio Schulz MD [address] [place] [address] 07/07/2024 12:00 PM CDT Office Visit [facility] Pulmonary Function Testing [address] 3rd [place] [phone] Jen Rush MD [address] [phone] 07/07/2024 1:30 PM CDT Office Visit [facility] [address] [phone] Jen Rush MD [address] [phone] documented as of this encounter Visit Diagnoses Not on filedocumented in this encounter Care Teams Pct Relationship Specialty Start Date End Date Dorothea Barfield MD [facility] [address] [place] [address] PCP - General Internal Medicine 12/03/16 Jen Rush MD [address] 445385 Pulmonary Disease 08/27/16 Refugio Schulz MD [address] [place] [address] Assigned Rheumatology Provider 03/24/22 Jen Rush MD [address] [place] [address] Assigned Pulmonology Provider 06/09/22 documented as of this encounter
--- OUTSIDE RECORDS SUMMARY | 2023-12-31 20:57 | XMS_ITS | Encounter Summary ---
Author Organization [facility] Address [address] [place] [address] Care Team Providers Care Beauty Culturist Apprentice Name Role Phone Jen Rush MD Unavailable [phone] Dorothea Barfield MD Primary Care Provider Refugio Schulz MD Unavailable [phone] Jen Rush MD Unavailable [phone] Encounter Details Date Type Department Care Team (Latest Contact Info) Description 11/26/2023 Travel Social History Tobacco Use Types Packs/Day [...] st Contact Info) Description 02/06/2024 11:00 AM FUNERAL SALES MANAGER Office Visit [facility] [address] [address] Refugio Schulz MD [address] [place] [address] 07/07/2024 12:00 PM CDT Office Visit [facility] Pulmonary Function Testing [address] 3rd [place] [phone] Jen Rush MD [address] [place] [address] 425915 07/07/2024 1:30 PM CDT Office Visit [facility] for [facility] Clinic [address] [phone] Jen Rush MD [address] [place] [address] documented as of this encounter Visit Diagnoses Not on filedocumented in this encounter Care Teams Beauty Culturist Apprentice Relationship Specialty Start Date End Date Dorothea Barfield MD [address] [address] PCP - General Internal Medicine 12/03/16 Jen Rush MD [address] [place] [address] Pulmonary Disease 08/27/16 Refugio Schulz MD [address] [place] [address] Assigned Rheumatology Provider 03/24/22 Jen Rush MD [address] [place] [address] Assigned Pulmonology Provider 06/09/22 documented as of this encounter
--- OUTSIDE RECORDS SUMMARY | 2023-12-31 20:58 | XMS_ITS | Encounter Summary ---
Author Organization [facility] Address [address] [place] [address] Care Team Providers Care Manager Restaurant Name Role Phone Jen Rush MD Unavailable [phone] Dorothea Barfield MD Primary Care Provider Cinthia Bravo MD Unavailable [phone] Refugio Schulz MD Unavailable [phone] Jen Rush MD Unavailable [phone] Refugio Schulz MD Unavailable [phone] Jen Rush MD Unavailable [phone] Encounter Details Date Type Department Care Team (Late st Contact Info) Description 06/22/2018 [facility] Medical Advice [facility] for [facility] [address] [address] Jen Rush MD [address] [place] [address] 276 [place] [address] Social History Tobacco Use Types Packs/Day Years Used Date Smoking Tobacco: Former Cigarettes 0 06/10/1966 - 06/11/1971 Smokeless Tobacco: Never Comments: very little Alcohol Use Standard Drinks/Week Comments No 0 (1 standard drink = 0.6 oz pur e alcohol) PHQ-2 Answer Date Recorded PHQ-2 Score 0 04/01/2018 Sex and Gender Information Value Date Recorded Sex Assigned at Female 08/08/2018 9:48 AM CDT Gender Identity Female 08/03/2018 6:39 PM CDT Sexual Orientation Straight 08/03/2018 6: 39 PM CDT documented as of this encounter Plan of Treatment Upcoming Encounters Date Type Department Care Team (Late st Contact Info) Description 02/06/2024 11:00 AM COUNTER SERVER Office Visit [facility] [address] [phone] Refugio Schulz MD [address] [place] [address] [phone] 07/07/2024 12:00 PM CDT Office Visit [facility] Pulmonary Function Testing [place] [address] [facility] 3rd [place] [phone] Jen Rush MD [address] [address] 07/07/2024 1:30 PM CDT Office Visit [facility] [place] [address] [place] [address] Jen Rush MD [address] [phone] documented as of this encounter Visit Diagnoses Not on filedocumented in this encounter Care Teams Manager Restaurant Relationship Specialty Start Date End Date Dorothea Barfield MD [facility] [address] [place] [address] PCP - General Internal Medicine 12/03/16 Jen Rush MD [address] [place] [address] 276 [place], [place] 533575 Pulmonary Disease 08/27/16 Cinthia Bravo MD [address] [place] [address] Assigned Surgical Provider 01/15/20 02/13/20 Refugio Schulz MD [address] [place] [address] Assigned Rheumatology Provider 01/15/20 12/03/20 Jen Rush MD [address] [place] [address] Assigned Pulmonology Provider 01/15/20 12/17/20 Refugio Schulz MD [address] [place] [address] Assigned Rheumatology Provider 03/24/22 Jen Rush MD [address] [place] [address] Assigned Pulmonology Provider 06/09/22 documented as of this encounter
--- OUTSIDE RECORDS SUMMARY | 2023-12-31 20:58 | XMS_ITS | Encounter Summary ---
Author Organization [place] Address [address] [place] [address] Care Team Providers Care Audit Control Clerk Name Role Phone Jen Rush MD Unavailable [phone] Dorothea Barfield MD Primary Care Provider Cinthia Bravo MD Unavailable [phone] Refugio Schulz MD Unavailable [phone] Jen Rush MD Unavailable [phone] Refugio Schulz MD Unavailable [phone] Jen Rush MD Unavailable [phone] Encounter Details Date Type Department Care Team (Late st Contact Info) Description 06/10/2019 [facility] Medical Advice [facility] [address] [address] Jen Rush MD [address] [place] [address] 276 [place] [address] Social History Tobacco Use Types [...] st Contact Info) Description 02/06/2024 11:00 AM STITCHDOWNS TOE FORMER Office Visit [facility] [address] [phone] Refugio Schulz MD [address] [place] [address] 593235 07/07/2024 12:00 PM CDT Office Visit [facility] Pul[facility] Function Testing [place] [address] [facility] 3rd [place] [phone] Jen Rush MD [address] [address] 07/07/2024 1:30 PM CDT Office Visit [facility] [place] [address] [place] [address] Jen Rush MD [address] [phone] documented as of this encounter Visit Diagnoses Not on filedocumented in this encounter Care Teams Audit Control Clerk Relationship Specialty Start Date End Date Dorothea Barfield MD [facility] [address] [place] [address] PCP - General Internal Medicine 12/03/16 Jen Rush MD [address] [place] [address] 276 [place], [place] 549455 Pulmonary Disease 08/27/16 Cinthia Bravo MD [address] [place] [address] Assigned Surgical Provider 01/15/20 02/13/20 Refugio Schulz MD [address] [place] [address] Assigned Rheumatology Provider 01/15/20 12/03/20 Jen Rush MD [address] [place] [address] Assigned Pulmonology Provider 01/15/20 12/17/20 Refugio Schulz MD [address] [place] [address] Assigned Rheumatology Provider 03/24/22 Jen Rush MD [address] [place] [address] Assigned Pulmonology Provider 06/09/22 documented as of this encounter
--- OUTSIDE RECORDS SUMMARY | 2023-12-31 20:58 | XMS_ITS | Encounter Summary ---
Author Organization [place] Address [address] [place] [address] Care Team Providers Care Blend Technician Name Role Phone Jen Rush MD Unavailable [phone] Dorothea Barfield MD Primary Care Provider [phone] Cinthia Bravo MD Unavailable [phone] Refugio Schulz MD Unavailable [phone] Jen Rush MD Unavailable [phone] Refugio Schulz MD Unavailable [phone] Jen Rush MD Unavailable [phone] Reason for Visit * Reason Onset Date Comments request 06/09/2019 Encounter Details Date Type Department Care Team (Late st Contact Info) Description 06/09/2019 Telephone [facility] [address] [address] Jen Rush MD 420 [facility] 276 [place] [address] request Social History Tobacco Use Types Packs/Day Years [...] encounter Miscellaneous Notes * Telephone Encounter - Tierney Cuello - 06/09/2019 4:20 PM CDT Faxed order back to [facility]. * Telephone Encounter - Tierney Cuello - 06/09/2019 3:42 PM CDT Emailed form to provider and placed in providers folder. * Telephone Encounter - Ivonne Parson - 06/09/2019 8:53 AM CDT [facility] Phone Message May a detailed message be left on voicemail: no Reason for Call: Other: [facility] called to let the clinic know they are faxing over a CMN form forthe pt Action Taken: Message routed to: [facility] Pulm Travel Screening: Not Applicable documented in this encounter Plan of Treatment Upcoming Encounters Date Type Department Care Team (Late st Contact Info) Description 02/06/2024 11:00 AM POT FLUXER Office Visit [facility] [address] [place] [address] Refugio Schulz MD [address] [place] [address] 88 [place] [address] 07/07/2024 12:00 PM CDT Office Visit [facility] Pulmonary Function Testing [address] 3rd [place] [address] Jen Rush MD 420 [facility] 276 [place] [address] 07/07/2024 1:30 PM CDT Office [facility] [address] [phone] Jen Rush MD [address] 458[address] documented as of this encounter Visit Diagnoses Not on filedocumented in this encounter Care Teams Blend Technician Relationship Specialty Start Date End Date Dorothea Barfield MD [address] [address] PCP - General Internal Medicine 12/03/16 Jen Rush MD [address] [place] [address] 312555 Pulmonary Disease 08/27/16 Cinthia Bravo MD [address] [place] [address] 599995 Assigned Surgical Provider 01/15/20 02/13/20 Refugio Schulz MD [address] [place] [place] [address] 287435 Assigned Rheumatology Provider 01/15/20 12/03/20 Jen Rush MD [address] [place] [address] 770065 Assigned Pulmonology Provider 01/15/20 12/17/20 Refugio Schulz MD [address] [place] [address] Assigned Rheumatology Provider 03/24/22 Jen Rush MD [address] [address] Assigned Pulmonology Provider 06/09/22 documented as of this encounter
--- OUTSIDE RECORDS SUMMARY | 2023-12-31 20:58 | XMS_ITS | Encounter Summary ---
Author Organization [place] Address [address] [place] [address]. [place] [address] Care Team Providers Care Appeals Analyst Name Role Phone Jen Rush MD Unavailable [phone] Dorothea Barfield MD Primary Care Provider Cinthia Bravo MD Unavailable [phone] Refugio Schulz MD Unavailable [phone] Jen Rush MD Unavailable [phone] Refugio Schulz MD Unavailable [phone] Jen Rush MD Unavailable [phone] Encounter Details Date Type Department Care Team (Late st Contact Info) Description 08/15/2017 [facility] Medical Advice [facility] [address] [address] Kye [place] MD [facility] [address] [place] [address] [place] [address] Social History Tobacco Use Types Packs/Day Years Used Date Smoking Tobacco: Former Cigarettes Smokeless Tobacco: Never Comments: very little Alcohol Use Standard Drinks/Week Comments No 0 (1 standard drink = 0.6 oz pur e alcohol) Sex and Gender Information Value Date Recorded Sex Assigned at Female 08/08/2018 9:48 AM CDT Gender Identity Female 08/03/2018 6:39 PM CDT Sexual Orientation Straight 08/03/2018 6: 39 PM CDT documented as of this encounter Plan of Treatment Upcoming Encounters Date Type Department Care Team (Late st Contact Info) Description 02/06/2024 11:00 AM TRAFFIC DIVISION COMMANDING OFFICER Office Visit [facility] [address] 200 [place] [address] Refugio Schulz MD 515 [facility] 88 [place], [place] 566875 07/07/2024 12:00 PM CDT Office Visit [facility] Pulmonary Function Testing [place] [address] [facility] 3rd [place] [address] Jen Rush MD 420 [facility] 276 [place], [place] [phone] 07/07/2024 1:30 PM CDT Office Visit [facility] [place] [address] [place] [address] Jen Rush MD [address] [address] documented as of this encounter Visit Diagnoses Not on filedocumented in this encounter Care Teams Appeals Analyst Relationship Specialty Start Date End Date Dorothea Barfield MD [facility] [address] [place] [address] PCP - General Internal Medicine 12/03/16 Jen Rush MD 420 [facility] 276 [place], [place] [phone] Pulmonary Disease 08/27/16 Cinthia Bravo MD [address] [phone] Assigned Surgical Provider 01/15/20 02/13/20 Refugio Schulz MD [address] [place] [address] Assigned Rheumatology Provider 01/15/20 12/03/20 Jen Rush MD [address] [place] [address] 846695 Assigned Pulmonology Provider 01/15/20 12/17/20 Refugio Schulz MD [address] [place] [address] 810665 Assigned Rheumatology Provider 03/24/22 Jen Rush MD [address] [place] [address] 609525 Assigned Pulmonology Provider 06/09/22 documented as of this encounter
--- OUTSIDE RECORDS SUMMARY | 2023-12-31 20:58 | XMS_ITS | Encounter Summary ---
Author Organization [place] Address [address] [place] [address] Care Team Providers Care Commercial Loan Underwriter Name Role Phone Jen Rush MD Unavailable [phone] Dorothea Barfield MD Primary Care Provider Cinthia Bravo MD Unavailable [phone] Refugio Schulz MD Unavailable [phone] Jen Rush MD Unavailable [phone] Refugio Schulz MD Unavailable [phone] Jen Rush MD Unavailable [phone] Encounter Details Date Type Department Care Team (Late st Contact Info) Description 06/18/2017 MyC Medical Advice [facility] [address] [address] Jen Rush MD [address] [place] [address] 276 [place] [address] Social History Tobacco Use Types [...] st Contact Info) Description 02/06/2024 11:00 AM FINISHING RANGE OPERATOR [facility] Visit [facility] [address] [phone] Refugio Schulz MD 515 [facility] 88 [place], [place] 252345 07/07/2024 12:00 PM CDT [facility] Visit [facility] Pulmonary Function Testing [place] [address] [place] [address] 3rd [place] [address] Jen Rush MD 420 [facility] 276 [place], [place] [phone] 07/07/2024 1:30 PM CDT Office Visit [facility] for [facility] Health [facility] [address] [place] [address] Jen Rush MD [address] [address] documented as of this encounter Visit Diagnoses Not on filedocumented in this encounter Care Teams Commercial Loan Underwriter Relationship Specialty Start Date End Date Dorothea Barfield MD [facility] 1999 [place] [address] PCP - General Internal Medicine 12/03/16 Jen Rush MD 420 [facility] 276 [place] [address] Pulmonary Disease 08/27/16 Cinthia Bravo MD 420 [facility] 396 [place], [place] [phone] Assigned Surgical Provider 01/15/20 02/13/20 Refugio Schulz MD [address] [place] [address] Assigned Rheumatology Provider 01/15/20 12/03/20 Jen Rush MD [address] [place] [address] 455025 Assigned Pulmonology Provider 01/15/20 12/17/20 Refugio Schulz MD [address] [place] [address] 590645 Assigned Rheumatology Provider 03/24/22 Jen Rush MD [address] [place] [address] [id number] Assigned Pulmonology Provider 06/09/22 documented as of this encounter
--- OUTSIDE RECORDS SUMMARY | 2023-12-31 20:58 | XMS_ITS | Encounter Summary ---
Author Organization [place] Address [address] [place] [address] Care Team Providers Care Insurance Follow Up Rep Name Role Phone Jen Rush MD Unavailable [phone] Dorothea Barfield MD Primary Care Provider [phone] Cinthia Bravo MD Unavailable [phone] Refugio Schulz MD Unavailable [phone] Jen Rush MD Unavailable [phone] Refugio Schulz MD Unavailable [phone] Jen Rush MD Unavailable [phone] Encounter Details Date Type Department Care Team (Late st Contact Info) Description 12/11/2016 MyC Medical Advice [facility] [address] [address] Kylah Cueva, ESPERANZA Social History Tobacco Use Types Packs/Day Years Used Date Smoking Tobacco: Former Cigarettes Comments:1967- very little Sex and Gender Information Value Date Recorded Sex Assigned at Female 08/08/2018 9:48 AM CDT Gender Identity Female 08/03/2018 6:39 PM CDT Sexual Orientation Straight 08/03/2018 6: 39 PM CDT documented as of this encounter Plan of Treatment Upcoming Encounters Date Type Department Care Team (Late st Contact Info) Description 02/06/2024 11:00 AM WRAP YARN SORTER Office Visit [facility] [address] [place] [phone] Refugio Schulz MD [address] [place] [address] 225245 07/07/2024 12:00 PM CDT Office Visit [facility] Pulmonary Function Testing [address] 3rd [place] [phone] Jen Rush MD [address] 304435 07/07/2024 1:30 PM CDT Office Visit [facility] for Lung Science and [address] [phone] Jen Rush MD [address] [place] [address] 209625 documented as of this encounter Visit Diagnoses Not on filedocumented in this encounter Care Teams Insurance Follow Up Rep Relationship Specialty Start Date End Date Dorothea Barfield MD [address] [address] PCP - General Internal Medicine 12/03/16 Jen Rush MD [address] [place] [address] 540285 Pulmonary Disease 08/27/16 Cinthia Bravo MD [address] [place] [address] 836355 Assigned Surgical Provider 01/15/20 02/13/20 Refugio Schulz MD [address] [place] [address] 066445 Assigned Rheumatology Provider 01/15/20 12/03/20 Jen Rush MD 420 [facility] 276 [place], [place] 912445 Assigned Pulmonology Provider 01/15/20 12/17/20 Refugio Schulz MD [address] [place] [address] 88 [place], [place] 309425 Assigned Rheumatology Provider 03/24/22 Jen Rush MD [address] [place] [address] 276 [place], [place] 630495 Assigned Pulmonology Provider 06/09/22 documented as of this encounter
--- OUTSIDE RECORDS SUMMARY | 2023-12-31 20:58 | XMS_ITS | Encounter Summary ---
Author Organization [place] Address [address] [place] [address] Care Team Providers Care Rubber Extrusion Machine Operator Name Role Phone Jen Rush MD Unavailable [phone] Dorothea Barfield MD Primary Care Provider [phone] Cinthia Bravo MD Unavailable [phone] Refugio Schulz MD Unavailable [phone] Jen Rush MD Unavailable [phone] Refugio Schulz MD Unavailable [phone] Jen Rush MD Unavailable [phone] Encounter Details Date Type Department Care Team (Late st Contact Info) Description 01/15/2019 MyC Medical Advice [facility] 909 [facility] 4th [place] [address] Cinthia Bravo MD 420 [facility] 396 [place] [address] Social History Tobacco Use Types [...] st Contact Info) Description 02/06/2024 11:00 AM YOUTH CORRECTIONS OFFICER Office Visit [facility] [address] [phone] Refugio Schulz MD [address] [place] [address] 88 [place], [place] 641335 07/07/2024 12:00 PM CDT Office Visit [facility] Pulmonary Function Testing [place] 9[address] [facility] 3rd [place] [address] Jen Rush MD [address] [address] 07/07/2024 1:30 PM CDT Office Visit [facility] [place] 909 [place] [address] Jen Rush MD [address] [address] documented as of this encounter Visit Diagnoses Not on filedocumented in this encounter Care Teams Rubber Extrusion Machine Operator Relationship Specialty Start Date End Date Dorothea Barfield MD [facility] 1999 [place] [address] PCP - General Internal Medicine 12/03/16 Jen Rush MD [address] [place] [address] [phone] Pulmonary Disease 08/27/16 Cinthia Bravo MD [address] [place] [address] Assigned Surgical Provider 01/15/20 02/13/20 Refugio Schulz MD [address] [place] [address] Assigned Rheumatology Provider 01/15/20 12/03/20 Jen Rush MD [address] [place] [address] Assigned Pulmonology Provider 01/15/20 12/17/20 Refugio Schulz MD [address] [place] [address] Assigned Rheumatology Provider 03/24/22 Jen Rush MD [address] [place] [address] Assigned Pulmonology Provider 06/09/22 documented as of this encounter
--- OUTSIDE RECORDS SUMMARY | 2023-12-31 20:58 | XMS_ITS | Encounter Summary ---
Author Organization [place] Address [address] [place] [address] Care Team Providers Care Central Sterile Supply Technician Name Role Phone Jen Rush MD Unavailable [phone] Dorothea Barfield MD Primary Care Provider Cinthia Bravo MD Unavailable [phone] Refugio Schulz MD Unavailable [phone] Jen Rush MD Unavailable [phone] Refugio Schulz MD Unavailable [phone] Jen Rush MD Unavailable [phone] Encounter Details Date Type Department Care Team (Late st Contact Info) Description 10/22/2019 [facility] Medical Advice [facility] [address] [address] Jen Rush MD [address] [place] [address] 276 [place] [address] Social History Tobacco Use Types [...] * Telephone Encounter - Tierney Cuello - 10/23/2019 12:58 PM CDT Mailed pts last PFT results to home address. documented in this encounter Plan of Treatment Upcoming Encounters Date Type Department Care Team (Late st Contact Info) Description 02/06/2024 11:00 AM PSYCHIATRIC NP Office Visit [facility] [address] [phone] Refugio Schulz MD [address] [place] [address] 236265 07/07/2024 12:00 PM CDT Office Visit [facility] Pulmonary Function Testing [address] 3rd [place] [phone] Jen Rush MD [address] [place] [address] [phone] 07/07/2024 1:30 PM CDT Office Visit [facility] Center for [facility] Science and Health Clinic [address] [phone] Jen Rush MD [address] [place] [address] [phone] documented as of this encounter Visit Diagnoses Not on filedocumented in this encounter Care Teams Central Sterile Supply Technician Relationship Specialty Start Date End Date Dorothea Barfield MD [facility] 1999 [place] [address] PCP - General Internal Medicine 12/03/16 Jen Rush MD 420 [facility] 276 [place], [place] 308375 Pulmonary Disease 08/27/16 Cinthia Bravo MD 420 [facility] 396 [place] [address] Assigned Surgical Provider 01/15/20 02/13/20 Refugio Schulz MD 515 [facility] 88 [place], [place] 795425 Assigned Rheumatology Provider 01/15/20 12/03/20 Jen Rush MD 420 [facility] 276 [place], [place] 747245 Assigned Pulmonology Provider 01/15/20 12/17/20 Refugio Schulz MD [address] [phone] Assigned Rheumatology Provider 03/24/22 Jen Rush MD 420 [facility] 276 [place], [place] 801695 Assigned Pulmonology Provider 06/09/22 documented as of this encounter
--- OUTSIDE RECORDS SUMMARY | 2023-12-31 20:58 | XMS_ITS | Encounter Summary ---
Author Organization [facility] Address [address] [place] [address] Care Team Providers Care Water Treatment Plant Mechanic Name Role Phone Jen Rush MD Unavailable [phone] Dorothea Barfield MD Primary Care Provider Cinthia Bravo MD Unavailable [phone] Refugio Schulz MD Unavailable [phone] Jen Rush MD Unavailable [phone] Refugio Schulz MD Unavailable [phone] Jen Rush MD Unavailable [phone] Encounter Details Date Type Department Care Team (Late st Contact Info) Description 06/08/2019 [facility] Medical Advice [facility] [address] [address] Jen Rush MD [address] [place] [address] 276 [place] [address] Social History Tobacco Use Types [...] * Telephone Encounter - Tierney Cuello - 06/08/2019 12:58 PM CDT Called and spoke with pt and changed appt to telephone visit. documented in this encounter Plan of Treatment Upcoming Encounters Date Type Department Care Team (Late st Contact Info) Description 02/06/2024 11:00 AM BAND SAWMILL OPERATOR Office Visit [facility] Special[facility] Clinic [address] [phone] Refugio Schulz MD [address] [place] [address] [phone] 07/07/2024 12:00 PM CDT Office Visit [facility] Pulmonary Function Testing [address] 3rd [place] [phone] Jen Rush MD [address] [place] [address] [phone] 07/07/2024 1:30 PM CDT Office Visit [facility] Center for [facility] Science and Health Clinic [address] [phone] Jen Rush MD [address] [place] [address] 821745 documented as of this encounter Visit Diagnoses Not on filedocumented in this encounter Care Teams Water Treatment Plant Mechanic Relationship Specialty Start Date End Date Dorothea Barfield MD [facility] 2000 [place] [address] PCP - General Internal Medicine 12/03/16 Jen Rush MD 420 [facility] 276 [place], [place] 633825 Pulmonary Disease 08/27/16 Cinthia Bravo MD 420 [facility] 396 [place] [address] Assigned Surgical Provider 01/15/20 02/13/20 Refugio Schulz MD 515 [facility] 88 [place], [place] 538035 Assigned Rheumatology Provider 01/15/20 12/03/20 Jen Rush MD 420 [facility] 276 [place], [place] 745705 Assigned Pulmonology Provider 01/15/20 12/17/20 Refugio Schulz MD 515 [facility] 88 [place], [place] 685075 Assigned Rheumatology Provider 03/24/22 Jen Rush MD 420 [facility] 276 [place], [place] 333945 Assigned Pulmonology Provider 06/09/22 documented as of this encounter
--- OUTSIDE RECORDS SUMMARY | 2023-12-31 20:58 | XMS_ITS | Encounter Summary ---
Author Organization [facility] Address [address] [place] [address] Care Team Providers Care Pizza Maker Name Role Phone Jen Rush MD Unavailable [phone] Dorothea Barfield MD Primary Care Provider Cinthia Bravo MD Unavailable [phone] Refugio Schulz MD Unavailable [phone] Jen Rush MD Unavailable [phone] Refugio Schulz MD Unavailable [phone] Jen Rush MD Unavailable [phone] Encounter Details Date Type Department Care Team (Late st Contact Info) Description 06/18/2017 MyC Medical Advice [facility] Clinic [address] [address] Jen Rush MD [address] [place] [address] 276 [place] [address] Social History Tobacco Use Types [...] st Contact Info) Description 02/06/2024 11:00 AM BEEF CATTLE FARM MANAGER Office Visit [facility] Specialty Clinic [address] [phone] Refugio Schulz MD 515 [facility] 88 [place], [place] 380785 07/07/2024 12:00 PM CDT Office Visit [facility] Pulmonary Function Testing [place] [address] [place] [address] 3rd [place] [address] Jen Rush MD 420 [facility] 276 [place], [place] [phone] 07/07/2024 1:30 PM CDT Office Visit [facility] for [facility] Science and Health [facility] [address] [place] [address] Jen Rush MD [address] [address] documented as of this encounter Visit Diagnoses Not on filedocumented in this encounter Care Teams Pizza Maker Relationship Specialty Start Date End Date Dorothea Barfield MD [facility] 1999 [place] [address] PCP - General Internal Medicine 12/03/16 Jen Rush MD 420 [facility] 276 [place] [address] Pulmonary Disease 08/27/16 Cinthia Bravo MD 420 [facility] 396 [place], [place] [phone] Assigned Surgical Provider 01/15/20 02/13/20 Refugio Schulz MD [address] [place] [address] Assigned Rheumatology Provider 01/15/20 12/03/20 Jen Rush MD [address] [place] [address] 074205 Assigned Pulmonology Provider 01/15/20 12/17/20 Refugio Schulz MD [address] [place] [address] 201405 Assigned Rheumatology Provider 03/24/22 Jen Rush MD [address] [place] [address] [phone] Assigned Pulmonology Provider 06/09/22 documented as of this encounter
--- OUTSIDE RECORDS SUMMARY | 2023-12-31 20:58 | XMS_ITS | Encounter Summary ---
Author Organization [place] Address [address] [place] [address] Care Team Providers Care Evaporator Name Role Phone Jen Rush MD Unavailable [phone] Dorothea Barfield MD Primary Care Provider Cinthia Bravo MD Unavailable [phone] Refugio Schulz MD Unavailable Jen Rush MD Unavailable [phone] Refugio Schulz MD Unavailable [phone] Jen Rush MD Unavailable [phone] Encounter Details Date Type Department Care Team (Late st Contact Info) Description 03/11/2017 [facility] [address] [address] Jen Rush MD [address] [place] [address] 276 [place] [address] Social History Tobacco Use Types Packs/Day Years Used Date Smoking Tobacco: Former Cigarettes Smokeless Tobacco: Never Comments: very little Sex and Gender Information Value Date Recorded Sex Assigned at Female 08/08/2018 9:48 AM CDT Gender Identity Female 08/03/2018 6:39 PM CDT Sexual Orientation Straight 08/03/2018 6: 39 PM CDT documented as of this encounter Plan of Treatment Upcoming Encounters Date Type Department Care Team (Late st Contact Info) Description 02/06/2024 11:00 AM DUST BRUSH ASSEMBLER Office Visit [facility] [address] [place] [phone] Refugio Schulz MD 515 [facility] 88 [place], [place] 0[address]365 07/07/2024 12:00 PM CDT Office Visit [facility] Pulmonary Function Testing [place] [address] [place] [address] 3rd [place] [phone] Jen Rush MD [address] [address] 07/07/2024 1:30 PM CDT Office Visit [facility] Health Clinic [address] [address] Jen Rush MD [address] [phone] documented as of this encounter Visit Diagnoses Not on filedocumented in this encounter Care Teams Evaporator Relationship Specialty Start Date End Date Dorothea Barfield MD [address] [address] PCP - General Internal Medicine 12/03/16 Jen Rush MD 420 [facility] 276 [place], [place] [phone] Pulmonary Disease 08/27/16 Cinthia Bravo MD 420 [facility] 396 [place], [place] 093985 Assigned Surgical Provider 01/15/20 02/13/20 Refugio Schulz MD [address] [place] [address] Assigned Rheumatology Provider 01/15/20 12/03/20 Jen Rush MD [address] [place] [address] 177505 Assigned Pulmonology Provider 01/15/20 12/17/20 Refugio Schulz MD [address] [place] [address] Assigned Rheumatology Provider 03/24/22 Jen Rush MD [address] [place] [address] 979965 Assigned Pulmonology Provider 06/09/22 documented as of this encounter
--- OUTSIDE RECORDS SUMMARY | 2023-12-31 20:58 | XMS_ITS | Encounter Summary ---
Author Organization [place] Address [address] [place] [address] Care Team Providers Care Technical Operations Manager Name Role Phone Jen Rush MD Unavailable [phone] Dorothea Barfield MD Primary Care Provider Cinthia Bravo MD Unavailable [phone] Refugio Schulz MD Unavailable [phone] Jen Rush MD Unavailable [phone] Refugio Schulz MD Unavailable [phone] Jen Rush MD Unavailable [phone] Encounter Details Date Type Department Care Team (Late st Contact Info) Description 05/09/2018 [facility] Adv[facility] for [facility] Health Clinic [address] [address] Jen Rush MD [address] [place] [address] 276 [place] [address] Social History Tobacco Use Types [...] st Contact Info) Description 02/06/2024 11:00 AM MILK TREATER Office Visit [facility] [place] [address] [phone] Refugio Schulz MD [address] [place] [address] [phone] 07/07/2024 12:00 PM CDT Office Visit [facility] Pulmonary Function Testing [place] [address] [place] [address] 3rd [place] [address] Jen Rush MD [address] [address] 07/07/2024 1:30 PM CDT Office Visit [facility] for [facility] Clinic [address] [address] Jen Rush MD [address] [place] [address] documented as of this encounter Visit Diagnoses Not on filedocumented in this encounter Care Teams Technical Operations Manager Relationship Specialty Start Date End Date Dorothea Barfield MD [facility] 1999 [place] [address] PCP - General Internal Medicine 12/03/16 Jen Rush MD [address] [place] [address] Pulmonary Disease 08/27/16 Cinthia Bravo MD [address] [place] [address] Assigned Surgical Provider 01/15/20 02/13/20 Refugio Schulz MD [address] [place] [address] Assigned Rheumatology Provider 01/15/20 12/03/20 Jen Rush MD [address] [place] [address] Assigned Pulmonology Provider 01/15/20 12/17/20 Refugio Schulz MD [address] [place] [address] Assigned Rheumatology Provider 03/24/22 Jen Rush MD [address] [place] [address] Assigned Pulmonology Provider 06/09/22 documented as of this encounter
--- OUTSIDE RECORDS SUMMARY | 2023-12-31 20:58 | XMS_ITS | Encounter Summary ---
Author Organization [place] Address [address] [place] [address] Care Team Providers Care Judicial Registrar Name Role Phone Jen Rush MD Unavailable [phone] Dorothea Barfield MD Primary Care Provider [phone] Cinthia Bravo MD Unavailable [phone] Refugio Schulz MD Unavailable [phone] Jen Rush MD Unavailable [phone] Refugio Schulz MD Unavailable [phone] Jen Rush MD Unavailable [phone] Encounter Details Date Type Department Care Team (Late st Contact Info) Description 08/03/2019 [facility] Medical Advice [facility] Health Clinic [address] [address] Jen Rush MD [address] [place] [address] 276 [place] [address] Social History Tobacco Use Types [...] st Contact Info) Description 02/06/2024 11:00 AM RABBLE FURNACE TENDER Office Visit [facility] Clinic [address] [phone] Refugio Schulz MD [address] [place] [address] [phone] 07/07/2024 12:00 PM CDT Office Visit [facility] Pulmonary Function Testing [place] 909 [facility] 3rd [place] [phone] Jen Rush MD [address] [address] 07/07/2024 1:30 PM CDT Office Visit [facility] Clinic [place] [address] [place] [address] Jen Rush MD [address] [phone] documented as of this encounter Visit Diagnoses Not on filedocumented in this encounter Care Teams Judicial Registrar Relationship Specialty Start Date End Date Dorothea Barfield MD [facility] 2000 [place] [address] PCP - General Internal Medicine 12/03/16 Jen Rush MD [address] [place] [address] 276 [place], [place] 964895 Pulmonary Disease 08/27/16 Cinthia Bravo MD [address] [place] [address] Assigned Surgical Provider 01/15/20 02/13/20 Refugio Schulz MD [address] [place] [address] Assigned Rheumatology Provider 01/15/20 12/03/20 Jen Rush MD [address] [place] [address] Assigned Pulmonology Provider 01/15/20 12/17/20 Refugio Schulz MD [address] [place] [address] Assigned Rheumatology Provider 03/24/22 Jen Rush MD [address] [place] [address] Assigned Pulmonology Provider 06/09/22 documented as of this encounter
--- OUTSIDE RECORDS SUMMARY | 2023-12-31 20:58 | XMS_ITS | Encounter Summary ---
Author Organization [place] Address [address] [place] [address] Care Team Providers Care Purse Framer Name Role Phone Jen Rush MD Unavailable [phone] Dorothea Barfield MD Primary Care Provider Cinthia Bravo MD Unavailable [phone] Refugio Schulz MD Unavailable [phone] Jen Rush MD Unavailable [phone] Refugio Schulz MD Unavailable [phone] Jen Rush MD Unavailable [phone] Encounter Details Date Type Department Care Team (Late st Contact Info) Description 06/04/2019 [facility] Medical Advice [facility] [address] [address] Jen Rush MD [address] [place] [address] 276 [place] [address] Social History Tobacco Use Types [...] st Contact Info) Description 02/06/2024 11:00 AM JUKE BOX MECHANIC Office Visit [facility] [address] [phone] Refugio Schulz MD [address] [place] [address] 398365 07/07/2024 12:00 PM CDT Office Visit [facility] Pulmonary Function Testing [place] [address] [facility] 3rd [place] [phone] Jen Rush MD [address] [address] 07/07/2024 1:30 PM CDT Office Visit [facility] [place] [address] [place] [address] Jen Rush MD [address] [phone] documented as of this encounter Visit Diagnoses Not on filedocumented in this encounter Care Teams Purse Framer Relationship Specialty Start Date End Date Dorothea Barfield MD [facility] [address] [place] [address] PCP - General Internal Medicine 12/03/16 Jen Rush MD [address] [place] [address] 276 [place], [place] [phone] Pulmonary Disease 08/27/16 Cinthia Bravo MD [address] [place] [address] Assigned Surgical Provider 01/15/20 02/13/20 Refugio Schulz MD [address] [place] [address] Assigned Rheumatology Provider 01/15/20 12/03/20 Jen Rush MD [address] [place] [address] Assigned Pulmonology Provider 01/15/20 12/17/20 Refugio Schulz MD [address] [place] [address] Assigned Rheumatology Provider 03/24/22 Jen Rush MD [address] [place] [address] Assigned Pulmonology Provider 06/09/22 documented as of this encounter
--- OUTSIDE RECORDS SUMMARY | 2023-12-31 20:58 | XMS_ITS | Encounter Summary ---
Author Organization [place] Address [address] [place] [address] Care Team Providers Care Accountant Tax Name Role Phone Jen Rush MD Unavailable [phone] Dorothea Barfield MD Primary Care Provider Cinthia Bravo MD Unavailable [phone] Refugio Schulz MD Unavailable [phone] Jen Rush MD Unavailable [phone] Refugio Schulz MD Unavailable [phone] Jen Rush MD Unavailable [phone] Encounter Details Date Type Department Care Team (Late st Contact Info) Description 12/10/2017 [facility] Medical Advice [facility] [address] [address] Jen Rush MD [address] [place] [address] 276 [place] [address] Social History Tobacco Use Types [...] st Contact Info) Description 02/06/2024 11:00 AM SPEECH AND HEARING CLINIC DIRECTOR Office Visit [facility] [address] [phone] Refugio Schulz MD 515 [facility] 88 [place], [place] 1732[address] 07/07/2024 12:00 PM CDT Office Visit [facility] Pulmonary Function Testing [place] [address] [place] [address] 3rd [place] [address] Jen Rush MD 420 [facility] 276 [place], [place] 69644455 07/07/2024 1:30 PM CDT Office Visit [facility] [address] [place] [address] Jen Rush MD [address] [address] documented as of this encounter Visit Diagnoses Not on filedocumented in this encounter Care Teams Accountant Tax Relationship Specialty Start Date End Date Dorothea Barfield MD [facility] 1999 [place] [address] PCP - General Internal Medicine 12/03/16 Jen Rush MD 420 [facility] 276 [place] [address] Pulmonary Disease 08/27/16 Cinthia Bravo MD 420 [facility] 396 [place], [place] [phone] Assigned Surgical Provider 01/15/20 02/13/20 Refugio Schulz MD [address] [place] [address] Assigned Rheumatology Provider 01/15/20 12/03/20 Jen Rush MD [address] [place] [address] 391205 Assigned Pulmonology Provider 01/15/20 12/17/20 Refugio Schulz MD [address] [place] [address] [phone] Assigned Rheumatology Provider 03/24/22 Jen Rush MD [address] [place] [address] [id number] Assigned Pulmonology Provider 06/09/22 documented as of this encounter
--- OUTSIDE RECORDS SUMMARY | 2023-12-31 20:58 | XMS_ITS | Encounter Summary ---
Author Organization [place] Address [address] [place] [address] Care Team Providers Care Fugitive Detective Name Role Phone Jen Rush MD Unavailable [phone] Dorothea Barfield MD Primary Care Provider Cinthia Bravo MD Unavailable [phone] Refugio Schulz MD Unavailable [phone] Jen Rush MD Unavailable [phone] Refugio Schulz MD Unavailable [phone] Jen Rush MD Unavailable [phone] Reason for Referral * Consultation (Routine) - Closed Specialty Diagnoses / Procedures Referred By Lisa t Referred To Contact Rheumatology Diagnoses Granulomatosis with polyangiitis, unspecified whether renal involvement (H) Refugio Schulz MD [address] [place] [address] Referral ID Status Reason Start Date Expiration Date Visits Re quested Visits Authorized [id number] Closed 08/24/2019 08/23/2020 1 1 Question Answer Preferred Location: Other - Use Comments Class External referral [5] Scheduling Instructions: Please call the facility your provider referred you to schedule your appointment - [facility] Comments Please be aware that coverage of these services is subject to the terms and limitations of your health insurance plan. Call member services at your health plan with any benefit or coverage questions. Please call the facility your provider referred you to schedule your appointment [facility] Encounter Details Date Type Department Care Team (Latest Contact Info) Description 08/24/2019 [facility] Medical Advice [facility] [address] [phone] Refugio Scuhlz MD [address] [place] [address] 448505 Granulomatosis with polyangiitis, unspecified whether renal involvement (H) (Primary Dx) Social History Tobacco Use Types [...] st Contact Info) Description 02/06/2024 11:00 AM ATHLETIC MONITOR Office Visit [facility] [address] [phone] Refugio Schulz MD [address] [place] [address] 448335 07/07/2024 12:00 PM CDT Office Visit [facility] Pulmonary Function Testing [address] 3rd [place] [address] Jen Rush MD [address] [place] [address] 575285 07/07/2024 1:30 PM CDT Office Visit [facility] [address] [phone] Jen Rush MD [address] 107025 Scheduled Referrals Name Type Priority Associated Diagnoses Orde r Schedule RHEUMATOLOGY REFERRAL Referral Routine Granulomatosis with polyangiitis, unspecified whether renal involvement (H) Expected: 11/24/2019 (Approximate), Expires: 08/23/2020 documented as of this encounter Visit Diagnoses Diagnosis Granulomatosis with polyangiitis, unspecified whether renal involvement (H)- Primary documented in this encounter Care Teams Fugitive Detective Relationship Specialty Start Date End Date Dorothea Barfield MD [address] [address] PCP - General Internal Medicine 12/03/16 Jen Rush MD [address] [place] [address] Pulmonary Disease 08/27/16 Cinthia Bravo MD [address] [place] [address] Assigned Surgical Provider 01/15/20 02/13/20 Refugio Schulz MD [address] [place] [address] Assigned Rheumatology Provider 01/15/20 12/03/20 Jen Rush MD [address] [place] [address] Assigned Pulmonology Provider 01/15/20 12/17/20 Refugio Schulz MD [address] [place] [address] Assigned Rheumatology Provider 03/24/22 Jen Rush MD [address] [address] Assigned Pulmonology Provider 06/09/22 documented as of this encounter
--- OUTSIDE RECORDS SUMMARY | 2023-12-31 20:58 | XMS_ITS | Encounter Summary ---
Author Organization [place] Address [address] [place] [address] Care Team Providers Care Therapy Teacher Name Role Phone Jen Rush MD Unavailable [phone] Dorothea Barfield MD Primary Care Provider Cinthia Bravo MD Unavailable [phone] Refugio Schulz MD Unavailable [phone] Jen Rush MD Unavailable [phone] Refugio Schulz MD Unavailable [phone] Jen Rush MD Unavailable [phone] Reason for Visit * Reason Onset Date Comments Patient Request 03/02/2019 Infusion Center needing last lab results from 01/10 Encounter Details Date Type Department Care Team (Late st Contact Info) Description 03/02/2019 Telephone [facility] [address] [address] Refugio Schulz MD [address] [place] [address] Patient Request (Infusion Center needing last lab results from 01/10) Social History Tobacco Use Types Packs/Day Years [...] encounter Miscellaneous Notes * Telephone Encounter - Ivonne Bhagat, RN - 03/02/2019 1:00 PM CST Faxed most recent labs to the infusion center. AMMON NegronN RN Rheumatology Clinic Nurse [facility] ING DEPARTMENT SUPERVISOR * Telephone Encounter - Jordyn Hightower - 03/02/2019 11:58 AM CST [facility] Call Center Phone Message May a detailed message be left on voicemail: yes Reason for Call: Other: Infusion [facility] is requesting the last lab for pt from [facility] 2018. They are ging to need it for pt's infusion coming up. Please reach out to Laura or fax results to number on file. Thank you Action Taken: Message routed to: [facility] Rheum ING DEPARTMENT SUPERVISOR documented in this encounter Plan of Treatment Upcoming Encounters Date Type Department Care Team (Late st Contact Info) Description 02/06/2024 11:00 AM CUTTING DEPARTMENT SUPERVISOR Office Visit [facility] [address] 200 [place] [phone] Refugio Schulz MD [address] [place] [address] 88 [place], [place] [address] 07/07/2024 12:00 PM CDT Office Visit [facility] Pulmonary Function Testing [place] [phone] [facility] 3rd [place] [address] Jen Rush MD 420 [facility] 276 [place], [place] 749165 07/07/2024 1:30 PM CDT Office Visit [facility] [address] [phone] Jen Rush MD [address] [address] documented as of this encounter Visit Diagnoses Not on filedocumented in this encounter Care Teams Therapy Teacher Relationship Specialty Start Date End Date Dorothea Barfield MD [address] [address] PCP - General Internal Medicine 12/03/16 Jen Rush MD [address] [place] [address] 453375 Pulmonary Disease 08/27/16 Cinthia Bravo MD [address] 033775 Assigned Surgical Provider 01/15/20 02/13/20 Refugio Schulz MD [address] [place] [address] Assigned Rheumatology Provider 01/15/20 12/03/20 Jen Rush MD [address] [place] [address] Assigned Pulmonology Provider 01/15/20 12/17/20 Refugio Schulz MD [address] [place] [address] Assigned Rheumatology Provider 03/24/22 Jen Rush MD [address] [place] [address] Assigned Pulmonology Provider 06/09/22 documented as of this encounter
--- OUTSIDE RECORDS SUMMARY | 2023-12-31 20:58 | XMS_ITS | Encounter Summary ---
Author Organization [place] Address [address] [place] [address]. [place] [address] Care Team Providers Care Neurosurgical Physician Assistant Name Role Phone Jen Rush MD Unavailable [phone] Dorothea Barfield MD Primary Care Provider Cinthia Bravo MD Unavailable [phone] Refugio Schulz MD Unavailable [phone] Jen Rush MD Unavailable [phone] Refugio Schulz MD Unavailable [phone] Jen Rush MD Unavailable [phone] Encounter Details Date Type Department Care Team (Late st Contact Info) Description 08/21/2018 MyC Medical Advice [facility] Services - Medical Specialties Service Line [address] [place] [address] Jen Rush MD [address] [place] [address] Social History Tobacco Use Types Packs/Day [...] st Contact Info) Description 02/06/2024 11:00 AM FITNESS PLAN COORDINATOR Office Visit [facility] [address] [phone] Refugio Schulz MD [address] [place] [address] 410675 07/07/2024 12:00 PM CDT Office Visit [facility] Pulmonary Function Testing [place] 909 [facility] 3rd [place] [address] Jen Rush MD [address] [address] 07/07/2024 1:30 PM CDT Office Visit [facility] [place] [address] [place] [address] Jen Rush MD [address] [place] [address] documented as of this encounter Visit Diagnoses Not on filedocumented in this encounter Care Teams Neurosurgical Physician Assistant Relationship Specialty Start Date End Date Dorothea Barfield MD [facility] 1999 [place] [address] PCP - General Internal Medicine 12/03/16 Jen Rush MD [address] [place] [address] 489135 Pulmonary Disease 08/27/16 Cinthia Bravo MD [address] [place] [address] Assigned Surgical Provider 01/15/20 02/13/20 Refugio Schulz MD [address] [place] [address] Assigned Rheumatology Provider 01/15/20 12/03/20 Jen Rush MD [address] [place] [address] Assigned Pulmonology Provider 01/15/20 12/17/20 Refugio Schulz MD [address] [place] [address] Assigned Rheumatology Provider 03/24/22 Jen Rush MD [address] [place] [address] 337[address] Assigned Pulmonology Provider 06/09/22 documented as of this encounter
--- OUTSIDE RECORDS SUMMARY | 2023-12-31 20:58 | XMS_ITS | Encounter Summary ---
Author Organization [place] Address [address] [place] [address] Care Team Providers Care Tmd Teacher Assistant Name Role Phone Jen Rush MD Unavailable [phone] Dorothea Barfield MD Primary Care Provider Cinthia Bravo MD Unavailable [phone] Refugio Schulz MD Unavailable [phone] Jen Rush MD Unavailable [phone] Refugio Schulz MD Unavailable [phone] Jen Rush MD Unavailable [phone] Encounter Details Date Type Department Care Team (Late st Contact Info) Description 02/16/2018 [facility] Medical Advice [facility] [address] [address] Refugio Schulz MD [address] [place] [address] Social History Tobacco Use Types Packs/Day [...] st Contact Info) Description 02/06/2024 11:00 AM DIRECTOR OF STUDENT FINANCIAL AID Office Visit [facility] [address] [phone] Refugio Schulz MD 515 [facility] 88 [place], [place] [address] 07/07/2024 12:00 PM CDT Office Visit [facility] Pulmonary Function Testing [place] [address] [place] [address] 3rd [place] [phone] Jen Rush MD [address] 334[address] 07/07/2024 1:30 PM CDT Office Visit [facility] [address] [phone] Jen Rush MD [address] [phone] documented as of this encounter Visit Diagnoses Not on filedocumented in this encounter Care Teams Tmd Teacher Assistant Relationship Specialty Start Date End Date Dorothea Barfield MD [facility] 2000 [place] [address] PCP - General Internal Medicine 12/03/16 Jen Rush MD 420 [facility] 276 [place], [place] [phone] Pulmonary Disease 08/27/16 Cinthia Bravo MD 420 [facility] 396 [place], [place] 512865 Assigned Surgical Provider 01/15/20 02/13/20 Refugio Schulz MD [address] [place] [address] Assigned Rheumatology Provider 01/15/20 12/03/20 Jen Rush MD [address] [place] [address] 393925 Assigned Pulmonology Provider 01/15/20 12/17/20 Refugio Schulz MD [address] [place] [address] Assigned Rheumatology Provider 03/24/22 Jen Ruhs MD [address] [place] [address] 790195 Assigned Pulmonology Provider 06/09/22 documented as of this encounter
--- OUTSIDE RECORDS SUMMARY | 2023-12-31 20:58 | XMS_ITS | Encounter Summary ---
Author Organization [place] Address [address] [place] [address] Care Team Providers Care Farmworker Fur Name Role Phone Jen Rush MD Unavailable [phone] Dorothea Barfield MD Primary Care Provider Cinthia Bravo MD Unavailable [phone] Refugio Schulz MD Unavailable [phone] Jen Rush MD Unavailable [phone] Refugio Schulz MD Unavailable [phone] Jen Rush MD Unavailable [phone] Encounter Details Date Type Department Care Team (Late st Contact Info) Description 07/15/2017 MyC Medical Advice [facility] Clinic [address] [address] Jen Rush MD [address] [place] [address] 276 [place] [address] Social History Tobacco Use Types [...] st Contact Info) Description 02/06/2024 11:00 AM BUSINESS INITIATIVES MANAGER Office Visit [facility] Special[facility] Clinic [address] [phone] Refugio Schulz MD 515 [facility] 88 [place], [place] 119445 07/07/2024 12:00 PM CDT Office Visit [facility] Pulmonary Function Testing [place] [address] [place] [address] 3rd [place] [address] Jen Rush MD 420 [facility] 276 [place], [place] [phone] 07/07/2024 1:30 PM CDT Office Visit [facility] for [facility] Health [facility] [address] [place] [address] Jen Rush MD [address] [address] documented as of this encounter Visit Diagnoses Not on filedocumented in this encounter Care Teams Farmworker Fur Relationship Specialty Start Date End Date Dorothea Barfield MD [facility] 1999 [place] [address] PCP - General Internal Medicine 12/03/16 Jen Rush MD 420 [facility] 276 [place] [address] Pulmonary Disease 08/27/16 Cinthia Bravo MD 420 [facility] 396 [place], [place] 12689455 Assigned Surgical Provider 01/15/20 02/13/20 Refugio Schulz MD [address] [place] [address] Assigned Rheumatology Provider 01/15/20 12/03/20 Jen Rush MD [address] [place] [address] 766645 Assigned Pulmonology Provider 01/15/20 12/17/20 Refugio Schulz MD [address] [place] [address] 470115 Assigned Rheumatology Provider 03/24/22 Jen Rush MD [address] [place] [address] [phone] Assigned Pulmonology Provider 06/09/22 documented as of this encounter
--- OUTSIDE RECORDS SUMMARY | 2023-12-31 20:58 | XMS_ITS | Encounter Summary ---
Author Organization [place] Address [address] [place] [address] Care Team Providers Care Retirement Consultant Name Role Phone Jen Rush MD Unavailable [phone] Dorothea Barfield MD Primary Care Provider Cinthia Bravo MD Unavailable [phone] Refugio Schulz MD Unavailable Jen Rush MD Unavailable [phone] Refugio Schulz MD Unavailable [phone] Jen Rush MD Unavailable [phone] Encounter Details Date Type Department Care Team (Late st Contact Info) Description 03/11/2017 [facility] Medical [facility] for [facility] Health Clinic [address] [address] Jen Rush MD [address] [place] [address] 276 [place] [address] Social History Tobacco Use Types [...] st Contact Info) Description 02/06/2024 11:00 AM FIELD OBSERVER Office Visit [facility] Specialty Clinic [address] [place] [phone] Refugio Schulz MD 515 [facility] 88 [place], [place] 0[address]25 07/07/2024 12:00 PM CDT Office Visit [facility] Pulmonary Function Testing [place] [address] [place] [address] 3rd [place] [phone] Jen Rush MD [address] [address] 07/07/2024 1:30 PM CDT Office Visit [facility] for [facility] Clinic [address] [address] Jen Rush MD [address] [phone] documented as of this encounter Visit Diagnoses Not on filedocumented in this encounter Care Teams Retirement Consultant Relationship Specialty Start Date End Date Dorothea Barfield MD [address] [address] PCP - General Internal Medicine 12/03/16 Jen Rush MD 420 [facility] 276 [place], [place] [phone] Pulmonary Disease 08/27/16 Cinthia Bravo MD 420 [facility] 396 [place], [place] 835645 Assigned Surgical Provider 01/15/20 02/13/20 Refugio Schulz MD [address] [place] [address] Assigned Rheumatology Provider 01/15/20 12/03/20 Jen Rush MD [address] [place] [address] 881755 Assigned Pulmonology Provider 01/15/20 12/17/20 Refugio Schulz MD [address] [place] [address] Assigned Rheumatology Provider 03/24/22 Jen Rush MD [address] [place] [address] 063325 Assigned Pulmonology Provider 06/09/22 documented as of this encounter
--- OUTSIDE RECORDS SUMMARY | 2023-12-31 20:58 | XMS_ITS | Encounter Summary ---
Author Organization [facility] Address [address] [place] [address] Care Team Providers Care Assistant Site Manager Name Role Phone Jen Rush MD Unavailable [phone] Dorothea Barfield MD Primary Care Provider Cinthia Bravo MD Unavailable [phone] Refugio Schulz MD Unavailable [phone] Jen Rush MD Unavailable [phone] Refugio Schulz MD Unavailable [phone] Jen Rush MD Unavailable [phone] Encounter Details Date Type Department Care Team (Late st Contact Info) Description 06/22/2017 MyC Medical Advice [facility] [address] [address] Jen Rush MD [address] [place] [address] [address] [place] [address] Social History Tobacco Use Types [...] st Contact Info) Description 02/06/2024 11:00 AM STORE CLERK Office Visit [facility] [address] [phone] Refugio Schulz MD 515 [facility] [address] [place], [place] [address] 07/07/2024 12:00 PM CDT Office Visit [facility] Pul[facility] Function Testing [place] [address] [place] [address] 3rd [place] [address] Jen Rush MD 420 [facility] [address] [place], [place] [id number] 07/07/2024 1:30 PM CDT Office Visit [facility] [address] [place] [address] Jen Rush MD [address] [address] documented as of this encounter Visit Diagnoses Not on filedocumented in this encounter Care Teams Assistant Site Manager Relationship Specialty Start Date End Date Dorothea Barfield MD [facility] [address] [place] [address] PCP - General Internal Medicine 12/03/16 Jen Rush MD 420 [facility] [address] [place] [address] Pulmonary Disease 08/27/16 Cinthia Bravo MD 420 [facility] [address] [place], [place] [id number] Assigned Surgical Provider 01/15/20 02/13/20 Refugio Schulz MD [address] [place] [address] Assigned Rheumatology Provider 01/15/20 12/03/20 Jen Rush MD [address] [place] [address] [id number] Assigned Pulmonology Provider 01/15/20 12/17/20 Refugio Schulz MD [address] [place] [address] [id number] Assigned Rheumatology Provider 03/24/22 Jen Rush MD [address] [place] [address] [phone] Assigned Pulmonology Provider 06/09/22 documented as of this encounter
--- OUTSIDE RECORDS SUMMARY | 2023-12-31 20:58 | XMS_ITS | Encounter Summary ---
Author Organization [place] Address [address] [place] [address] Care Team Providers Care Child Center Assistant Name Role Phone eJn Rush MD Unavailable [phone] Dorothea Barfield MD Primary Care Provider Cinthia Bravo MD Unavailable [phone] Refugio Schulz MD Unavailable [phone] Jen Rush MD Unavailable [phone] Refugio Schulz MD Unavailable [phone] Jen Rush MD Unavailable [phone] Encounter Details Date Type Department Care Team (Late st Contact Info) Description 12/26/2018 MyC Medical Advice [facility] [address] [address] Amada Issa, ESPERANZA Social History Tobacco Use Types Packs/Day [...] st Contact Info) Description 02/06/2024 11:00 AM RN BARIATRIC Office Visit [facility] [address] [place] [phone] Refugio Schulz MD 515 [facility] 88 [place], [place] [address] 07/07/2024 12:00 PM CDT Office Visit [facility] Pulmonary Function Testing [place] 909 [facility] 3rd [place] [address] Jen Rush MD 420 [facility] 276 [place], [place] [phone] 07/07/2024 1:30 PM CDT Office Visit [facility] [place] 909 [place] [address] Jen Rush MD [address] [address] documented as of this encounter Visit Diagnoses Not on filedocumented in this encounter Care Teams Child Center Assistant Relationship Specialty Start Date End Date Dorothea Barfield MD [facility] [address] [place] [address] PCP - General Internal Medicine 12/03/16 Jen Rush MD 420 [facility] [address] [place], [place] [phone] Pulmonary Disease 08/27/16 Cinthia Bravo MD [address] [phone] Assigned Surgical Provider 01/15/20 02/13/20 Refugio Schulz MD [address] [place] [id number] Assigned Rheumatology Provider 01/15/20 12/03/20 Jen Rush MD [address] [place] [address] [id number] Assigned Pulmonology Provider 01/15/20 12/17/20 Refugio Schulz MD [address] [place] [address] [id number] Assigned Rheumatology Provider 03/24/22 Jen Rush MD [address] [place] [address] [id number] Assigned Pulmonology Provider 06/09/22 documented as of this encounter
== END 2023-12-31 08:09 | disposition home or self-care (01) ==
LOC: NFLDREF 20:54
PROVIDERS: PCP Internal Medicine; Referring Provider Internal Medicine; Visit Provider Internal Medicine
DX: M85.80 Other specified disorders of bone density and structure, unspecified site (principal); E78.5 Hyperlipidemia, unspecified; E03.9 Hypothyroidism, unspecified
CPT/HCPCS: 80061; 82306; 84443

== ENCOUNTER 2024-01-02 08:05 | Outpatient (RCR) | payer MEDICARE, SELFPAY ==
--- NOTE | 2023-12-03 10:54 | URNOTE ---
Prior auth is not required for Rituximab (J9312) or biosimilar Truxima ([id number]). Services are based on medical necessity and follow medicare guidelines.
--- NOTE | 2023-12-04 14:07 | ONC.NURNOTE ---
Diagnosis: Jacky's Granulomatosis
[2024-01-02 08:32] LABS: Basophils Absolute Auto 0.04 K/uL (0.00-0.30); Basophils Percent Auto 0.9 % (0.0-3.0); Eosinophils Percent Auto 4.4 % (0.0-7.0); Hemoglobin* 12.9 gm/dL (12.0-16.0); Immature Granulocytes Abs Auto 0.01 K/uL (0.00-0.30); Immature Granulocytes Pct Auto 0.2 %; Lymphocytes Absolute Auto 1.52 K/uL (0.90-2.90); Lymphocytes Percent Auto 33.3 % (20-44); Mean Corpuscular HGB Conc 32 gm/dL (32-36); Mean Corpuscular Hemoglobin 29 pg (26-34); Mean Corpuscular Volume 92 fL (80-100); Monocytes Percent Auto 11.2 % (0.0-11.0); Neutrophils Absolute Auto 2.29 K/uL (1.7-7.0); Platelet Count* 236 K/uL (140-440); RDW Coefficient of Variation % 14.5 % (11.5-15.5); Red Blood Count 4.48 m/uL (4.00-5.20); White Blood Count* 4.57 K/uL (4.50-11.00)
[2024-01-02 08:42] LABS: Slide Review Reflex No
[2024-01-02 08:46] LABS: Albumin* 4.2 g/dL (3.3-5.0); Chloride* 107 mmol/L (96-114); Sodium* 140 mmol/L (135-149)
[2024-01-02 08:48] LABS: Creatinine* 0.7 mg/dL (0.5-1.5); Estimated Glomerular Filt Rate 92 ml/min
[2024-01-02 08:49] LABS: Alanine Aminotransferase* 33 U/L (4-35); Alkaline Phosphatase* 88 U/L (40-150); Anion Gap 5 mEq/L (7-15); Aspartate Amino Transferase* 31 U/L (12-35); Bilirubin Total* 0.4 mg/dL (0.1-1.5); Blood Urea Nitrogen* 17 mg/dL (7-30); Calcium* 9.5 mg/dL (8.4-10.6); Carbon Dioxide* 28 mmol/L (20-32); Glucose* 71 mg/dL (60-115); Total Protein* 6.7 g/dL (6.0-8.3)
[2024-01-02] MEDS: ACETAMINOPHEN 325 MG TABLET 650 MG PO (09:23)
[2024-01-02] MEDS: diphenhydrAMINE 25 MG CAPSULE PO (09:26)
--- NOTE | 2024-01-02 09:35 | PM.EN ---
Chart Event Note Date Seen: 01/02/24 Chart Event Note: Hypersensitivity prevention regimen for rituximab Previous reaction with last dose of rituximab 500mg on 01/01/23 - pruritis and sensation of throat tightening. - taking singulair - does not want to take IV benadryl due to lethargy and whooziness - previously treated with tylenol and solumedrol. Rxn treated with famotidine 20 mg IVP, zyrec 10mg PO, 12.5mg of diphenhydramine PO and able to complete treatment. Plan - taking singular daily. - tylenol and medrol as ordered - add famotidine 20 mg IV - add benadryl 25mg PO Pt is agreeable to this plan. Addendum: Ms. Brunner tolerated rituximab infusion with mild episode of throat scratchiness. No other evidence for hypersensitivity reaction today.
[2024-01-02] MEDS: FAMOTIDINE 10 MG/ML inj 20 MG IVP (09:50)
[2024-01-02] MEDS: METHYLPREDNISOLONE SOD SUCC 40 MG/ML 80 MG IVP (09:51)
[2024-01-02] MEDS: TUBING PRIMARY IV (10:50)
[2024-01-02] MEDS: [UNRECOGNIZED DRUG - OTHER] IV (10:50)
[2024-01-02] MEDS: RITUXIMAB ABBS IV (10:50)
[2024-01-04 00:44] LABS: Immunoglobulin A 161 mg/dL (68-408); Immunoglobulin G 592 mg/dL (768-1632); Immunoglobulin M 112 mg/dL (35-263)
== END 2024-06-30 23:59 | disposition home or self-care (01) ==
LOC: CCIC 08:05
PROVIDERS: PCP Internal Medicine; Referring Provider Internal Medicine; Visit Provider Clinical Nurse Specialist
DX: M31.30 Wegener's granulomatosis 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 involvement (principal)
CPT/HCPCS: 36415; 80053; 82784; 82787; 85025; 86355; 86356; 96375; 96376; 96413; 96415; A9270; J2919; J7030; Q5115; S0028

== ENCOUNTER 2024-02-17 10:47 | Emergency (ER) | payer MEDICARE, SELFPAY ==
[2024-02-17 10:57] VITALS: BP 114/78; PULSE 62; RESP 18; TEMP 36.6; O2SAT 97; BMI 25.7
--- NOTE | 2024-02-17 11:50 | CRLHL7_ITS ---
For Patients: As a result of the Century Cures Act, medical imaging exams and procedure reports are released immediately into your electronic medical record. You may view this report before your referring provider. If you have questions, please contact your health care provider. INDICATION: Right upper quadrant abdomen pain TECHNIQUE: Ultrasound abdomen limited. Sonographic images of the right upper quadrant were obtained using bobby-scale and color Doppler images. COMPARISON: None FINDINGS: Liver: Normal in size and echotexture. No masses. No intrahepatic biliary dilatation. Gallbladder: Cholelithiasis without gallbladder wall thickening or pericholecystic fluid. Common bile duct: 3 mm. Pancreas: Partially obscured by bowel gas without discrete lesion. Right kidney: Normal in size. Normal echotexture and cortex. No masses, stones, or hydronephrosis. Vasculature: Proximal abdominal aorta and IVC are normal. IMPRESSION: Cholelithiasis without sonographic evidence of cholecystitis. Dictated by Bryan Oates MD @ 02/17/2024 1:14:29 PM (Electronically Signed)
[2024-02-17 12:11] LABS: Basophils Absolute Auto 0.06 K/uL (0.00-0.30); Basophils Percent Auto 0.7 % (0.0-3.0); Eosinophils Absolute Auto 0.15 K/uL (0.00-0.50); Eosinophils Percent Auto 1.8 % (0.0-7.0); Hematocrit 42.4 % (33.0-51.0); Hemoglobin* 13.7 gm/dL (12.0-16.0); Immature Granulocytes Abs Auto 0.02 K/uL (0.00-0.30); Immature Granulocytes Pct Auto 0.2 %; Mean Corpuscular HGB Conc 32 gm/dL (32-36); Mean Corpuscular Hemoglobin 29 pg (26-34); Mean Corpuscular Volume 91 fL (80-100); Monocytes Percent Auto 8.5 % (0.0-11.0); Neutrophils Absolute Auto 6.07 K/uL (1.7-7.0); Neutrophils Percent Auto 70.8 % (42.0-72.0); Platelet Count* 246 K/uL (140-440); RDW Coefficient of Variation % 13.9 % (11.5-15.5); Red Blood Count 4.67 m/uL (4.00-5.20); White Blood Count* 8.57 K/uL (4.50-11.00)
[2024-02-17 12:16] LABS: Slide Review Reflex No
[2024-02-17 12:26] LABS: Albumin* 4.6 g/dL (3.3-5.0); Chloride* 106 mmol/L (96-114); Sodium* 138 mmol/L (135-149)
--- NOTE | 2024-02-17 12:26 | ED.GENADULT ---
HPI - General Adult General Chief complaint: Abdominal Pain Stated complaint: Diverticulitis Time Seen by Provider: 02/17/24 11:37 Source: patient Mode of arrival: ambulatory Limitations: no limitations History of Present Illness HPI narrative: 73-year-old female coming in today complaining of abdominal pain. Pain has occurred 3 times in the past couple of weeks. Usually occurs about 2 hours after she eats. She describes it as being located in the epigastric region. Does not radiate. It causes her to feel nauseated. She denies any fevers or chills. She denies vomiting. She states that she feels she slightly constipated but had a regular bowel movement yesterday before her last episode of pain started. It lasts several hours and then goes away. Patient is concerned that she has diverticulitis. She is on daily omeprazole due to GERD. Related Data Home Medications ?Medication ?Instructions ?Recorded ?Confirmed hydrocortisone 2.5 % topical cream 1 applic topical BID PRN 02/25/22 02/17/24 budesonide 0.5 mg/2 mL suspension 0.5 mg inhalation QDAY PRN 03/08/22 02/17/24 for nebulization (Pulmicort) calcium carbonate-vitamin D3 1 tab PO DAILY 03/08/22 02/17/24 conjugated estrogens 0.625 mg 0.625 mg PO QDAY 03/08/22 02/17/24 tablet (Premarin) fluticasone furoate 200 1 inh inhalation DAILY 03/08/22 02/17/24 mcg-vilanterol 25 mcg/dose inhalation powder (Breo Ellipta) fluticasone propionate 50 1 spray intranasal QDAY 03/08/22 02/17/24 mcg/actuation nasal spray,suspension (Allergy Relief (fluticasone)) formoterol fumarate 20 mcg/2 mL 2 ml inhalation DAILY PRN 03/08/22 02/17/24 solution for nebulization rituximab 10 mg/mL 500 mg IV .yearly 06/18/22 02/17/24 concentrate,intravenous montelukast 10 mg tablet 10 mg PO QPM 08/01/23 02/17/24 (Singulair) Previous Rx's ?Medication ?Instructions ?Recorded albuterol sulfate 90 mcg/actuation 2 puff inhalation Q4-6H PRN 02/25/22 aerosol inhaler shortness of breath or wheezing #8.5 grams valacyclovir 1 gram tablet 1,000 mg PO QDAY PRN cold sores 05/29/23 (Valtrex) #20 tabs sumatriptan succinate 50 mg tablet See Rx Instructions PO .COMPLEX #9 06/03/23 tabs mupirocin 2 % topical ointment 1 applic topical BID #22 grams 08/26/23 levothyroxine 75 mcg capsule 75 mcg PO QDAY #90 caps 01/07/24 omeprazole 20 mg capsule,delayed 20 mg PO QDAY #90 caps 01/07/24 release Allergies Allergy/AdvReac Type Severity Reaction Status Date / Time amoxicillin Allergy Mild Diarrhea Verified 02/17/24 11:03 iodine Allergy Mild Hives Verified 02/17/24 11:03 levofloxacin Allergy Mild leg Verified 02/17/24 11:03 muscles-pain Review of Systems Status of ROS: Reports: 10 or more systems reviewed and unremarkable except as noted in History and below PFSH PFSH Surgical History History of cataract surgery ?Z98.49 - Cataract extraction status, unspecified eye (ICD-10) Squamous cell carcinoma of skin ?C44.92 - Squamous cell carcinoma of skin, unspecified (ICD-10) History of tonsillectomy and adenoidectomy ?Z90.89 - Acquired absence of other organs (ICD-10) History of sinus surgery ?Z98.890 - Other specified postprocedural states (ICD-10) History of section ?Z98.891 - History of uterine scar from previous surgery (ICD-10) History of appendectomy ?Z90.49 - Acquired absence of other specified parts of digestive tract (ICD-10) Social History What is your current living situation?: I presently have a place to live Problems where you live: no known problems In the past 12 months, utilities in danger of being shut off: no In the past 12 mos, have been you worried that your food would run out before you had money to buy more?: never true In the past 12 mos, the food you bought just didn't last and you didn't have money to buy more?: never true Smoking Status: Former smoker Do you use any of these nicotine containing products: None How often do you have a drink containing alcohol: 2-3 times a week Alcohol type: wine How many standard drinks containing alcohol do you have on a typical day: 1 or 2 AUDIT-C Alcohol total score: 3 Non-prescribed substance use: denies use Caffeine: Yes How often does anyone, including family, friends and others, physically hurt you: never How often does anyone, including family, friends and others, insult or talk down to you: never How often does anyone, including family, friends and others, threaten you with harm: never How often does anyone, including family, friends and others, scream or curse at you: never Are you using contraception or practicing any form of control: No Exam Narrative: Exam Narrative: Well-nourished well-developed patient in no acute distress. Alert and oriented. Answers questions appropriately. Mood and affect are appropriate. Thoughts are goal oriented and rational. No tangential or magical thinking noted. Patient speaks in full sentences without needing to catch her breath. HEENT: Normocephalic atraumatic. Pupils are equally round reactive to light. Extraocular muscles are intact. Conjunctivae are moist without any icterus noted. Moist mucous membranes. Posterior pharynx is normal. Neck is soft without any lymphadenopathy or thyromegaly. No masses are appreciated. Cardiovascular: Heart is regular rate and rhythm S1 and S2 are present without any murmurs. Lungs: Clear to auscultation bilaterally no wheezes rhonchi or rales are appreciated. Patient takes deep breaths without any discomfort. Abdomen: Soft and nondistended. She has no significant discomfort in the epigastric region. She does have right upper quadrant tenderness. No masses are appreciated. Main her of the abdominal exam is normal. Extremities: Bilateral lower extremities are without edema. Skin: Well perfused without any obvious rashes. Const: Vital Signs, click to edit/add: Vital Signs - 24 hr 02/17/24 10:57 Temperature 97.9 F Pulse Rate [Right Pulse Oximeter] 62 Respiratory Rate 18 Blood Pressure [Ri ght Upper Arm] 114/78 Pulse Oximetry 97 Oxygen Delivery Me thod Room Air Course Course ED Course: Differential diagnosis includes cholelithiasis, cholecystitis, gastritis, peptic ulcer disease. This would be very unusual presentation for diverticulitis. CBC is unremarkable. Chemistries are normal. Lipase is normal. LFTs are normal. CRP is normal. Right upper quadrant ultrasound showing cholelithiasis with multiple large stones. Vital Signs Vital signs: Initial Vital Signs Temperature 97.9 F 02/17/24 10:57 Temperature Source Temporal Artery Scan 02/17/24 10:57 Pulse Rate 62 02/17/24 10:57 Respiratory Rate 18 02/17/24 10:57 Blood Pressure 114/78 02/17/24 10:57 Blood Pressure Mean 90 02/17/24 10:57 Blood Pressure Position Sitting 02/17/24 10:57 Pulse Oximetry 97 02/17/24 10:57 Oxygen Delivery Method Room Air 02/17/24 10:57 Vital Signs Temperature 97.9 F 02/17/24 10:57 Pulse Rate 62 02/17/24 10:57 Respiratory Rate 18 02/17/24 10:57 Blood Pressure 114/78 02/17/24 10:57 Pulse Oximetry 97 02/17/24 10:57 Oxygen Delivery Method Room Air 02/17/24 10:57 Temperature 97.9 F 02/17/24 10:57 Pulse Rate 62 02/17/24 10:57 Respiratory Rate 18 02/17/24 10:57 Blood Pressure 114/78 02/17/24 10:57 Pulse Oximetry 97 02/17/24 10:57 Oxygen Delivery Method Room Air 02/17/24 10:57 Medical Decision Making MDM Narrative Medical decision making narrative: 73-year-old female with cholelithiasis. No evidence of cholecystitis. Patient will follow-up with general surgery. Lab Data Lab results reviewed: Yes I reviewed the patient's lab results Labs: Lab Results 02/17/24 Range/Units 12:00 WBC 8.57 (4.50-11.00) K/uL RBC 4.67 (4.00-5.20) m/uL Hgb 13.7 (12.0-16.0) gm/dL Hct 42.4 (33.0-51.0) % MCV 91 (80-100) fL MCH 29 (26-34) pg MCHC 32 (32-36) gm/dL RDW Coeff of Veronica 13.9 (11.5-15.5) % Plt Count 246 (140-440) K/uL Neut % (Auto) 70.8 (42.0-72.0) % Lymph % (Auto) 18.0 L (20-44) % Collin % (Auto) 8.5 (0.0-11.0) % Eos % (Auto) 1.8 (0.0-7.0) % Baso % (Auto) 0.7 (0.0-3.0) % Neut # (Auto) 6.07 (1.7-7.0) K/uL Lymph # (Auto) 1.50 (0.90-2.90) K/uL Collin # (Auto) 0.70 (0.00-0.90) K/UL Eos # (Auto) 0.15 (0.00-0.50) K/uL Baso # (Auto) 0.06 (0.00-0.30) K/uL Abs Immat Gran (auto) 0.02 (0.00-0.30) K/uL Imm/Tot Granulo (auto) 0.2 % Sodium 138 (135-149) mmol/L Potassium 4.3 (3.6-5.1) mmol/L Chloride 106 (96-114) mmol/L Carbon Dioxide 27 (20-32) mmol/L Anion Gap 5 L (7-15) mEq/L BUN 12 (7-30) mg/dL Creatinine 0.6 (0.5-1.5) mg/dL Estimated Creat Clear 42.07 Estimated GFR 95 ml/min Glucose 90 (60-115) mg/dL Calcium 9.7 (8.4-10.6) mg/dL Total Bilirubin 0.4 (0.1-1.5) mg/dL Direct Bilirubin 0.1 (0.0-0.5) mg/dL AST 28 (12-35) U/L ALT 32 (4-35) U/L Alkaline Phosphatase 75 (40-150) U/L C-Reactive Protein < 0.5 L (0.5-1.0) mg/dL Total Protein 7.2 (6.0-8.3) g/dL Albumin 4.6 (3.3-5.0) g/dL Lipase 90 (23-300) U/L Imaging Data US - abdomen: Attestation: I have reviewed the pertinent imaging results. Radiologist's impression: Ultrasound abdomen limited. Sonographic images of the right upper quadrant were obtained using bobby-scale and color Doppler images. COMPARISON: None FINDINGS: Liver: Normal in size and echotexture. No masses. No intrahepatic biliary dilatation. Gallbladder: Cholelithiasis without gallbladder wall thickening or pericholecystic fluid. Common bile duct: 3 mm. Pancreas: Partially obscured by bowel gas without discrete lesion. Right kidney: Normal in size. Normal echotexture and cortex. No masses, stones, or hydronephrosis. Vasculature: Proximal abdominal aorta and IVC are normal. IMPRESSION: Cholelithiasis without sonographic evidence of cholecystitis. Discharge Plan Discharge Clinical Impression: Cholelithiasis Instructions: Gallstones (ED) Additional Instructions: You will need to follow-up with general surgeon to discuss removal of your gallbladder. Please call the [facility] at [phone] to get in contact with general surgery. Return to the ER if you develop vomiting, fevers, or pain that does not go away. Prescriptions: No Action fluticasone furoate-vilanterol [Breo Ellipta] 200-25 mcg/dose blister with device 1 inh inhalation DAILY Patient Comments: INHALE 1 PUFF BY MOUTH INTO LUNGS DAILY Premarin 0.625 mg tablet 0.625 mg PO QDAY calcium carbonate-vitamin D3 1 tab PO DAILY budesonide [Pulmicort] 0.5 mg/2 mL suspension for nebulization 0.5 mg inhalation QDAY PRN Patient Comments: USE 1 VIAL VIA NEBULIZER DAILY fluticasone propionate [Allergy Relief (fluticasone)] 50 mcg/actuation spray,suspension 1 spray intranasal QDAY Rx Instructions: administer into each nostril formoterol fumarate 20 mcg/2 mL solution for nebulization 2 ml inhalation DAILY PRN montelukast [Singulair] 10 mg tablet 10 mg PO QPM omeprazole 20 mg capsule,delayed release(DR/EC) 20 mg PO QDAY Qty: 90 3RF levothyroxine 75 mcg capsule 75 mcg PO QDAY Qty: 90 3RF hydrocortisone 2.5 % cream 1 applic topical BID PRN albuterol sulfate 90 mcg/actuation HFA aerosol inhaler 2 puff inhalation Q4-6H PRN (Reason: shortness of breath or wheezing) Qty: 8.5 0RF rituximab 10 mg/mL concentrate 500 mg IV .yearly valacyclovir [Valtrex] 1 gram tablet 1,000 mg PO QDAY PRN (Reason: cold sores) Qty: 20 3RF Rx Instructions: take daily for 5 days at first sign of outbreak sumatriptan succinate 50 mg tablet See Rx Instructions PO .COMPLEX Qty: 9 11RF Rx Instructions: take 1 tab at onset of headache; if no relief may repeat 1 tab after at least 2 hrs; max = 4 tabs/24 hr PO mupirocin 2 % ointment 1 applic topical BID Qty: 22 3RF Follow Up/Referrals: Dorothea Barfield MD [Primary Care Provider] - Stand Alone Forms: MyHealth Info Instructions
[2024-02-17 12:27] LABS: Potassium* 4.3 mmol/L (3.6-5.1)
[2024-02-17 12:29] LABS: Creatinine* 0.6 mg/dL (0.5-1.5); Est. Creatinine Clearance* 42.07; Estimated Glomerular Filt Rate 95 ml/min
[2024-02-17 12:30] LABS: Alanine Aminotransferase* 32 U/L (4-35); Alkaline Phosphatase* 75 U/L (40-150); Anion Gap 5 mEq/L (7-15); Aspartate Amino Transferase* 28 U/L (12-35); Bilirubin Direct* 0.1 mg/dL (0.0-0.5); Bilirubin Total* 0.4 mg/dL (0.1-1.5); Blood Urea Nitrogen* 12 mg/dL (7-30); Calcium* 9.7 mg/dL (8.4-10.6); Carbon Dioxide* 27 mmol/L (20-32); Glucose* 90 mg/dL (60-115); Lipase* 90 U/L (23-300); Total Protein* 7.2 g/dL (6.0-8.3)
--- OUTSIDE RECORDS SUMMARY | 2024-02-17 12:32 | XMS_ITS | Encounter Summary ---
Author Organization [facility] Address [address] [place] [address] Phone Care Team Providers Care Fireworks Assembler Name Role Phone Joelle Jefferson DO Primary Care Provider Encounter Details Date Type Department Care Team (Late st Contact Info) Description 12/20/2021 Community Orders [facility] EpicCare Link [address] [place] [address] Joelle Jefferson DO [address] [place] [address] Special screening for malignant neoplasms, colon (Primary [...] Primary documented in this encounter Care Teams Fireworks Assembler Relationship Specialty Start Date End Date Joelle Jefferson DO [address] [place], [place] [id number] PCP - General Family Medicine 12/21/21 documented as of this encounter
--- OUTSIDE RECORDS SUMMARY | 2024-02-17 12:32 | XMS_ITS | Referral Summary ---
Author Organization [place] Address [facility] 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) 02/02/2024 Travel 12/03/2023 Telephone [facility] Rheumatology [facility] [address] [address] Refugio Schulz MD Medication Question 11/29/2023 Refill [facility] Science [address] [phone] Jen Rush MD Medication Refill 11/26/2023 Travel 11/26/2023 4:00 PM CDT Office Visit [facility] Lung Science and Health [address] [phone] Jen Rush MD Bronchiectasis without complication (H) (Primary Dx); 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) 11/21/2023 Travel from Last 3 Months Allergies Active Allergy Reactions Criticality Noted Date Comments Amoxicillin 02/05/2018 Iodides Hives 04/20/2014 Iodine Hives High 10/19/2016 Levofloxacin 02/05/2018 Leg pain Medications mupirocin (BACTROBAN) 2 % ointmentIndication s:Jacky's granulomatosis Use as directed twice daily - mixing 1/3 tube of Bactroban into 1 liter of usual saline nasal rinse. 08/18/19 17 Active riTUXimab (RITUXAN) 1 mg/0.1 mL 1 mg/0.1 ml intravitreal injection (PF)Indications:We gener's granulomatosis Inject 600 mg into the vein Every 9 months Active loratadine (CLARITIN) 10 MG tabletIndications: Jacky's granulomatosis Take 10 mg by mouth Active fluticasone (FLONASE) 50 MCG/ACT sprayIndications:W egener's granulomatosis 100 mcg Activ e levothyroxine (SYNTHROID/LEVOTHR OID) 75 MCG tabletIndications: Jacky's granulomatosis Take 75 mcg by mouth Active conjugated estrogens (PREMARIN) creamIndications:W egener's granulomatosis Place 1 g vaginally Active hydrocortisone 2.5 % creamIndications:W egener's granulomatosis Apply topically 2 times daily 20 g 2 11/01/19 18 Active Additional Information Patient taking differently:TopicalPRN, Reported on 02/06/2024 omeprazole (PRILOSEC) [address] capsule TK 1 C PO QAM 05/03/19 20 Active formoterol (PERFOROMIST) 20 MCG/2ML neb solutionIndication s:Asthma, intermittent Take 2 mLs (20 mcg) by nebulization every 12 hours 120 mL 6 07/24/19 20 Active Additional Information Patient taking differently:20 mcg NebulizationPRN, Reported on 02/06/2024 budesonide (PULMICORT) 0.5 MG/2ML neb solutionIndication s:Jacky's granulomatosis USE 1 VIAL VIA NEBULIZER DAILY 180 mL 3 09/15/19 20 Active Additional Information Patient taking differently: PRN, USE 1 VIAL VIA NEBULIZER DAILY, Reported on 02/06/2024 albuterol (PROAIR HFA/PROVENTIL HFA/VENTOLIN HFA) 108 (90 Base) MCG/ACT inhalerIndications :Moderate persistent asthma without complication Inhale 2 puffs into the lungs every 6 hours as needed for shortness of breath, wheezing or cough 18 g 3 05/29/19 24 Active fluticasone-vilant franck (BREO ELLIPTA) 200-25 MCG/ACT inhalerIndications :Moderate persistent asthma without complication Inhale 1 puff into the lungs daily 180 each 3 10/07/19 24 Active sodium chloride (NEBUSAL) 3 % neb solutionIndication s:Bronchiectasis without complication (H),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 Use AFTER albuterol 240 mL 6 11/26/19 24 Active montelukast (SINGULAIR) 10 MG tabletIndications: Moderate persistent asthma without complication TAKE 1 TABLET(10 MG) BY MOUTH AT BEDTIME 30 tablet 3 11/29/19 24 Active Active Problems Problem Noted Date Diagnosed Date Moderate persistent asthma without complication 06/16/2019 H/O cyclophosphamide therapy 11/07/2016 Jacky's granulomatosis 10/19/2016 Overview (12/23/2020): Replacing diagnoses that were inactivated after the [...] School Help Needed Not on file 12/15 Comments No Sex and Gender Information Value Date Recorded Sex Assigned at Female 08/08/2018 9:48 AM CDT Legal Sex Female 3:15 AM WEASAND TRIMMER Gender Identity Female 08/03/2018 6:39 PM CDT Sexual Orientation Straight 08/03/2018 6: 39 PM CDT Last Filed Vital Signs Vital Sign Reading Time Taken Comments Blood Pressure 107/70 02/06/2024 10:53 AM WEASAND TRIMMER Pulse 68 02/06/2024 10:53 AM WEASAND TRIMMER Temperature 36.7 C (98.1 F) 06/02/2019 11:30 AM CDT Respiratory Rate 16 07/04/2023 10:53 AM CDT Oxygen Saturation 94% 02/06/2024 10:53 AM WEASAND TRIMMER Inhaled Oxygen Concentration - - Weight 68 kg (150 lb) 02/06/2024 10:53 AM WEASAND TRIMMER sh oes Height 162.6 cm (5' 4) 02/06/2024 10:53 AM WEASAND TRIMMER Body Mass Index 25.75 02/06/2024 10:53 AM WEASAND TRIMMER Plan of Treatment Upcoming Encounters Date Type Department Care Team (Late st Contact Info) Description 07/07/2024 12:00 PM CDT Office Visit [facility] Pulmonary Function Testing [address] 3rd [place] [phone] Jen Rush MD [address] [place] [phone] 07/07/2024 1:30 PM CDT Office Visit [facility] [address] [phone] Jen Rush MD [address] [place] [address] [phone] 11/24/2024 10:15 AM CDT Lab [facility] [address] [place] [phone] 12/03/2024 10:30 AM CDT Office Visit [facility] [place] [address] [place] [address] [address] [place] [address] Refugio Schulz MD [address] [place] [id number] Procedures Procedure Name Priority Date/Time Associated Diagnosis Comments COMPREHENSIVE METABOLIC PANEL Routine 11/07/2023 9:53 AM CDT 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) CT CHEST HI-RESOLUTION WO CONTRAST Routine 07/26/2023 11:15 AM CDT 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) Moderate persistent asthma without complication COLONOSCOPY - HIM SCAN Routine 03/25/2022 DEXA - HIM SCAN Routine 01/09/2022 from Last 3 Months or Most Recently Relevant to Health Maintenance Results * Comprehensive metabolic panel (11/07/2023 9:53 AM [...] 9:53 AM CDT 11/07/2023 9:53 AM CDT us Refugio Schulz MD LAB - BLOOD ORDERABLES Hilda l Result [facility] [place] [facility] [address] [facility], [address] [place] [address], [facility] [place] * CT Chest Hi-Resolution wo Contrast (07/26/2023 11:15 AM CDT) Anatomical Region Laterality Modality Chest, SUBRAD CT BODY, UMP CT CHEST, RAD CT Computed Tomography Impressions 07/26/2023 2:36 PM CDT IMPRESSION: 1. Scattered bilateral pulmonary nodules similar [...] airways type infectious process. NANCY VELIZ MD us Jasen Butterfield MD IMG CT ORDERABLES Final Result * Colonoscopy - HIM Scan (03/25/2022) Narrative Eleanor Bird - 03/25/2022 [facility] Progress Note us Patient Reported PROCEDURES Final Result * DEXA - HIM Scan (01/09/2022) Anatomical Region Laterality Modality Other Narrative 01/09/2022 [facility] Progress Note us Provider Outside IMG DEXA ORDERABLES Final Resul t from Last 3 Months or Most Recently Relevant to Health Maintenance Insurance MEDICARE [facility] MEDICARE [facility] Member Subscriber Plan / Payer (Ef fective 2016-Present) Name:Dorothea Brunner Relation to Subscriber:Self Name:Dorothea Brunner Payer ID:[id number] Group ID:Not on file Type:Dre[employer] Address: [employer] [address] [place] [phone] MEDICARE [facility] Care Teams Lead Trainer Relationship Specialty Start Date End Date Dorothea Barfield MD [address] [address] PCP - General Internal Medicine 12/03/16 Jen Rush MD [address] [place] [address] [phone] Pulmonary Disease 08/27/16 Refugio Schulz MD [address] [place] [address] [phone] Assigned Rheumatology Provider 03/24/22 Jen Rush MD [address] [place] [address] [phone] Assigned Pulmonology Provider 06/09/22
--- OUTSIDE RECORDS SUMMARY | 2024-02-17 12:32 | XMS_ITS | Encounter Summary ---
Author Organization [place] Address [address] [facility] 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 Gender Identity Female 08/03/2018 6:39 PM CDT Sexual Orientation Straight 08/03/2018 6: 39 PM CDT documented as of this encounter Plan of Treatment Upcoming Encounters Date Type Department Care Team (Late st Contact Info) Description 07/07/2024 12:00 PM CDT Office Visit [facility] Pulmonary Function Testing [address] 3rd [place] [phone] Jen Rush MD [address] [place] [address] [phone] 07/07/2024 1:30 PM CDT Office Visit [facility] [address] [phone] Jen Rush MD [address] [place] [address] [phone] 11/24/2024 10:[address] [facility] [address] [place] [phone] 12/03/2024 10:30 AM CDT Office Visit [facility] Specialty [facility] [place] [address] [place] [phone] Refugio Schulz MD [address] [place] [address] [phone] documented as of this encounter Visit Diagnoses Not on filedocumented in this encounter Care Teams Arborist Climber Relationship Specialty Start Date End Date Dorothea Barfield MD [facility] [address] [place] [address] PCP - General Internal Medicine 12/03/16 Jen Rush MD [address] [place] [address] [phone] Pulmonary Disease 08/27/16 Refugio Schulz MD [address] [place] [address] [phone] Assigned Rheumatology Provider 03/24/22 Jen Rush MD [address] [place] [phone] Assigned Pulmonology Provider 06/09/22 documented as of this encounter
--- OUTSIDE RECORDS SUMMARY | 2024-02-17 12:32 | XMS_ITS | Encounter Summary ---
Author Organization [place] Address [address] [facility] 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 Gender Identity Female 08/03/2018 6:39 PM CDT Sexual Orientation Straight 08/03/2018 6: 39 PM CDT documented as of this encounter Plan of Treatment Upcoming Encounters Date Type Department Care Team (Late st Contact Info) Description 07/07/2024 12:00 PM CDT Office Visit [facility] Pulmonary Function Testing [address] [place] [phone] Jen Rush MD [address] [place] [address] [phone] 07/07/2024 1:30 PM CDT Office Visit [facility] for [facility] [address] [phone] Jen Rush MD [address] [place] [address] [phone] 11/24/2024 10:15 AM CDT Lab [facility] [address] [place] [phone] 12/03/2024 10:30 AM CDT Office Visit [facility] Specialty Clinic [place] [address] [place] [phone] Refugio Schulz MD [address] [place] [address] [phone] documented as of this encounter Visit Diagnoses Not on filedocumented in this encounter Care Teams Safety Officer Relationship Specialty Start Date End Date Dorothea Barfield MD [facility] [address] [place] [address] PCP - General Internal Medicine 12/03/16 Jen Rush MD [address] [place] [address] [phone] Pulmonary Disease 08/27/16 Refugio Schulz MD [address] [place] [address] [phone] Assigned Rheumatology Provider 03/24/22 Jen Rush MD [address] [place] [id number] Assigned Pulmonology Provider 06/09/22 documented as of this encounter
--- OUTSIDE RECORDS SUMMARY | 2024-02-17 12:32 | XMS_ITS | Clinical Summary ---
Author Organization [place] Address [address] [facility] [place] [address] Care Team Providers Care Snuff Grinder And Screener Name Role Phone Jen Rush MD Unavailable [phone] Dorothea Barfield MD Primary Care Provider Refugio Schulz MD Unavailable [phone] Jen Rush MD Unavailable [phone] Allergies Active Allergy Reactions Criticality Noted Date [...] Date Type Department Care Team Description 02/06/2024 11:00 AM MEDICATION RECONCILIATION TECHNICIAN Office Visit 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 Rheumatology Clinic [address] [phone] Refugio Schulz MD Medication Question 11/29/2023 Refill [facility] Lung Science and Health [address] [phone] Jen Rush MD Medication Refill 11/26/2023 4:00 PM CDT Office Visit [facility] Lung Science and Health [address] [phone] Jen Rush MD Bronchiectasis without complication (H) (Primary Dx); 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) 11/26/2023 Travel 11/21/2023 Travel from Last 3 Months Immunizations Name Administration [...] AM CDT Legal Sex Female 3:15 AM MEDICATION RECONCILIATION TECHNICIAN Gender Identity Female 08/03/2018 6:39 PM CDT Sexual Orientation Straight 08/03/2018 6: 39 PM CDT Last Filed Vital Signs Vital Sign Reading Time Taken Comments Blood Pressure 107/70 02/06/2024 10:53 AM MEDICATION RECONCILIATION TECHNICIAN Pulse 68 02/06/2024 10:53 AM MEDICATION RECONCILIATION TECHNICIAN Temperature 36.7 C (98.1 F) 06/02/2019 11:30 AM CDT Respiratory Rate 16 07/04/2023 10:53 AM CDT Oxygen Saturation 94% 02/06/2024 10:53 AM MEDICATION RECONCILIATION TECHNICIAN Inhaled Oxygen Concentration - - Weight 68 kg (150 lb) 02/06/2024 10:53 AM MEDICATION RECONCILIATION TECHNICIAN sh oes Height 162.6 cm (5' 4) 02/06/2024 10:53 AM MEDICATION RECONCILIATION TECHNICIAN Body Mass Index 25.75 02/06/2024 10:53 AM MEDICATION RECONCILIATION TECHNICIAN Plan of Treatment Upcoming Encounters Date Type Department Care Team (Late st Contact Info) Description 07/07/2024 12:00 PM CDT Office Visit [facility] Pulmonary Function Testing [address] [place] [phone] Jen Rush MD [address] [place] [phone] 07/07/2024 1:30 PM CDT Office Visit [facility] for [facility] Science and Health Clinic [address] [phone] Jen Rush MD [address] [place] [phone] 11/24/2024 10:15 AM CDT Lab [facility] [address] [place] [phone] 12/03/2024 10:30 AM CDT Office Visit [facility] Specialty Clinic [place] [address] [facility] [address] [place] [phone] Refugio Schulz MD [address] [place] [address] Health Maintenance Due Date Last Done Comments [...] PLANNING 01/23/2022 01/23/2017 COVID-19 Vaccine ( season) 2024 11/27/2023, 04/23/2023, 07/31/2022, Additional history exists DTAP/TDAP/TD IMMUNIZATION (3 - [...] CANCER SCREENING Discontinued 07/26/2023 , 01/08/2020, 12/23/2018 INFLUENZA VACCINE Completed 11/27/2023, , 12/19/2021, Additional history exists HPV IMMUNIZATION Aged Out No longer e [...] CDT [facility] Comment:eGFR calculated usin g 2021 CKD-EPI equation. Calcium 9.1 8.8 - 10.4 [...] CDT Refugio Schulz MD LAB - BLOOD ORDERABLES Hilda rachel Result [facility] [place] [facility] [address] [facility], Room [address] [place] [phone] * CT Chest Hi-Resolution wo Contrast (07/26/2023 [...] Scan (03/25/2022) Narrative Eleanor Bird - 03/25/2022 [facility] Progress Note us Patient Reported PROCEDURES Final Result * DEXA - HIM Scan (01/09/2022) Anatomical Region Laterality Modality Other Narrative 01/09/2022 [facility] Progress Note us Provider Outside IMG DEXA ORDERABLES Final Resul t from Last 3 Months or Most Recently Relevant to Health Maintenance Insurance MEDICARE [facility] MEDICARE [facility] Member Subscriber Plan / Payer ( fective 2016-Present) Name:Dorothea Brunner Relation to Subscriber:Self Name:Dorothea Brunner Payer ID:[id number] Group ID:Not on file Type:[email or web address] Address: [facility] [address] [place] [phone] MEDICARE [facility] Care Teams Snuff Grinder And Screener Relationship Specialty Start Date End Date Dorothea Barfield MD [address] [address] PCP - General Internal Medicine 12/03/16 Jen Rush MD [address] [place] [address] [address] [place] [address] Pulmonary Disease 08/27/16 Refugio Schulz MD [address] [place] [address] Assigned Rheumatology Provider 03/24/22 Jen Rush MD [address] [place] [address] [address] [place] [address] Assigned Pulmonology Provider 06/09/22
--- OUTSIDE RECORDS SUMMARY | 2024-02-17 12:32 | XMS_ITS | Clinical Summary ---
Author Organization [facility] Address [address] [place] [address] Phone Care Team Providers Care Soil Expert Name Role Phone Li Joelle Primary Care Provider [phone] Allergies Active Allergy Reactions Criticality Noted Date [...] (01/16/2022): Added automatically from request for surgery [id number] Family History Medical History Relation Comments Colon [...] Zoster Vaccines (1 of 2) 2001 RSV Vaccine (1 - Risk 60-74 years 1-dose series) 2011 Depression Screening 03/25/2023 Fall Risk Screening 03/25/2023 COVID-19 Vaccine ( - 2023- season) 2023 05/18/2021, 11/09/2020, 06/15/2020, Additional history [...] topic Insurance MEDICARE PART A AND B [facility] Care Teams Soil Expert Relationship Specialty Start Date End Date Joelle Jefferson DO [address] [place] [address] PCP - General Family Medicine 12/21/21
--- OUTSIDE RECORDS SUMMARY | 2024-02-17 12:32 | XMS_ITS | Encounter Summary ---
Author Organization [facility] Address [address] 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) Encounter Details Date Type Department Care Team (Late st Contact Info) Description 02/06/2024 11:00 AM SANITATION WORKER CLEANING EQUIPMENT Office Visit [facility] [address] [phone] Refugio Schulz MD [address] [place] [address] [phone] 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) (Primary Dx) Social History [...] AM CDT Legal Sex Female 3:15 AM SANITATION WORKER CLEANING EQUIPMENT Gender Identity Female 08/03/2018 6:39 PM CDT Sexual Orientation Straight 08/03/2018 6: 39 PM CDT documented as of this encounter Last Filed Vital Signs Vital Sign Reading Time Taken Comments Blood Pressure 107/70 02/06/2024 10:53 AM SANITATION WORKER CLEANING EQUIPMENT Pulse 68 02/06/2024 10:53 AM SANITATION WORKER CLEANING EQUIPMENT Temperature - - Respiratory Rate - - Oxygen Saturation 94% 02/06/2024 10:53 AM SANITATION WORKER CLEANING EQUIPMENT Inhaled Oxygen Concentration - - Weight 68 kg (150 lb) 02/06/2024 10:53 AM SANITATION WORKER CLEANING EQUIPMENT sh oes Height 162.6 cm (5' 4) 02/06/2024 10:53 AM SANITATION WORKER CLEANING EQUIPMENT Body Mass Index 25.75 02/06/2024 10:53 AM SANITATION WORKER CLEANING EQUIPMENT documented in this encounter Patient Instructions * Patient Instructions* Refugio Schulz MD - 02/06/2024 11:00 AM SANITATION WORKER CLEANING EQUIPMENT Diagnosis: 1. 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 2. Bronchiectasis: Structural changes in the airways are likely the major driver examiner of recurrent voluminous sputum and mucus production. Plan: 1. Continue aggressive pulmonary toilet with daily inhalers, saline washes, etc., consider additionof mucolytics. Follow-up with pulmonary/Dr. Rush regarding management of bronchiectasis (mucolytics, suppressive antibiotics, etc.) 2. Plan rituximab 500 mg intravenous to be given no less than 1 year from December 24, 2023 at the infusion center in [facility]. 3. Repeat comprehensive metabolic panel, CBC, urinalysis, CRP in July 2024. 4. Consider substitution of hydroxyzine for Benadryl as needed's at the next infusion. TATION WORKER CLEANING EQUIPMENT TATION WORKER CLEANING EQUIPMENT documented in this encounter Progress Notes * Refugio Schulz MD - 02/06/2024 11:00 AM CST Images from the original note were not included. [facility] Refugio Schulz MD 02/06/2024 Name: Dorothea Brunner Age: [age] year old : 1950 Referring provider: Referred Self Assessment and Plan: #Granulomatosis with polyangiitis (predominantly airway, ocular, and sinus involvement; intermittent low-titer p-ANCA and MPO; Status-post 6 doses of cyclophosphamide in 1995; on maintenance rituximab, 500 mg every 9 months (last infusion 01-15): Patient reports ongoing productive cough, but no blood-streaked sputum. There is stable exercise tolerance. Exam shows subtle, saddlenose change no sinus tenderness, and good airflow throughout all lung schwab. Data: In October 2023, comprehensive metabolic panel was normal; CBC and urinalysis were normal. Imaging: High-resolution chest CT July 28, 2023 showed pulmonary nodules similar to 2019, unchanged mucous plugging and peribronchial infiltrates in the lung bases suggesting small airways infectious process. Discussion: Significant, but non-progressive respiratory symptoms notwithstanding, she continues overall stable and is tolerating Rituxan infusions well. There is no imaging evidence of recurrent cavitary lung disease. I think it unlikely that current respiratory syndrome represents active granulomatosis; I think that chronic productive cough and chest congestion likely reflects bronchiectasis (postinflammatory changes), as described by Dr. Rush. I recommend continuing annual rituximab infusions, with next scheduled dose slated for December 2024. Diagnosis: 1. 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 2. Bronchiectasis: Structural changes in the airways are likely the major driver examiner of recurrent voluminous sputum and mucus production. Plan: 1. Continue aggressive pulmonary toilet with daily inhalers, saline washes, etc., consider additionof mucolytics. Follow-up with pulmonary/Dr. Rush regarding management of bronchiectasis (mucolytics, suppressive antibiotics, etc.) 2. Plan rituximab 500 mg intravenous to be given no less than 1 year from December 24, 2023 at the infusion center in [facility]. 3. Repeat comprehensive metabolic panel, CBC, urinalysis, CRP in July 2024. 4. Consider substitution of hydroxyzine for Benadryl as needed at the next infusion. Follow-up: 9 mos No orders of the defined types were placed in this encounter. 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 The longitudinal plan of care for the diagnosis(es)/condition(s) as documented were addressed during this visit. Due to the added complexity in care, I will continue to support Dorothea in the subsequent management and with ongoing continuity of care. Orders Placed This Encounter Procedures CBC with platelets Comprehensive metabolic panel Routine UA with Micro Reflex to Culture Erythrocyte sedimentation rate auto CRP inflammation HPI: Dorothea Brunner has a history of granulomatosis polyangiitis with primarily sinus and airway involvement and an intermittently positive p-ANCA and MPO who presents for follow-up. I last saw the patient at which time patient had symptoms of chest congestion, but otherwise no evidence of GPAactivity. I recommended maintenance therapy of Rituximab 500mg IV annuallycomprehensive metabolic panel, CBC, and urinalysis. Background: She was followed by Dr. Fernando Torres at [facility] for many years. She had recurrent sinus infections starting in her youth and developed eye swelling at age 21, upper and lower tracheitis/ulcerations in 1995 when she received 6 doses of cyclophosphamide. She was in remission many years but had upper respiratory symptoms in 2015 and was found to have mild pulmonary hemorrhage on bronchoscopy. She was given 4 doses of rituximab a week apart as well as a prolonged steroid taper. She was put on methotrexate for maintenance therapy however she developed upper airway and sinus symptoms in March of 2016 that were concerning for pulmonary toxicity and this was stopped. Thus she was put back on rituximab and got 2 maintenance doses 2 weeks apart in May of 2016. She hadintermittent rituximab therapy through present with 9-12 month intervals of 500 mg IV. Last -90, after annual infusions in December 2021 in December 2022. Interval history February 06, [address] Rush in pulmonary in November 2023. Impression was of granulomatosis with extensive sinus disease. PFTs were judged not informative for monitoring disease activity; but moderate obstruction was noted to be unchanged from previous. Recommendation was to continue rituximab therapywhich was judged successful in maintaining stability. She reports concerns about still-profuse sputum/mucous production. No blood with secretions. Notes periodic total fatigue, lasting for minutes/hours, spontaneously remitting. She is limited by dyspnea after 2 to 2.6 miles walking. She also swims daily. She deos not feel well if she does not exercise. She has tried saline nebs without pesistent effect; mucinex has not helped. No prednisone since last visit. She has not had luck producing sputum for further diagnostics.She took a course of antibiotics (fora tick bite) this summer, and the lung improved from last Spring. She had rituxan 500 mg in . No AE, but her eyes get dry with benadryl; she requests consideration of zyrtec. No F/C, no rash, no joint pain, no neuritic symptoms. Interval history July 04, 2023 Notes continued congestion in chest, with cough productive of green sputum. No hemoptysis Using breo and singulair. Able to swim several times weekly, walk 2 miles, but chest congestion is slowly progressive and more troublesome in the course of the day. Saw Dr. Cedric giles in ENT; recommended consideration of sinus imaging and increasing frequency of Rituxan infusions. Last rituxan infusion in , well tolerated. She had COVID19 infection in late 2022 and RSV vax in . Interval history November 29, 2022 She notes abrupt fatigue during aerobic exercise. She reports malaise increasing in recent months. All my joints and muscles are weak on some days. I struggle just to use legs. Not related to time of day, diet, or recent activity, sleep quality. She does report increasingly frequent insomnia, no problem falling asleep, just early awakening. She may be a heavy snorer. She notes slow progression of saddle nose change, and in fact reports increased congestion in thenose. No blood in nasal/oral secretions however She has cough, sometimes with colored sputum. No BRB in sputum. She did have bronchitis/cough in which has not recurred with similar severity. Still has material from back of lungs and sinuses; she must cough several times a day to clear. Better than when she interacted with Dr. Rush in . She walks 2 miles daily, not impaired by lungs/berathing. Interval history March 22, 2022 I reviewed a note dated November 23, 2019 from rheumatology at [facility]. Impression was of MPO positive granulomatous polyangiitis with respiratory disease. Plan was to continue every 9-month Rituxan infusion schedule with an infusion scheduled for November 2019. [facility] Henderson is dated January 31, 2022. At that visit, review of recent rituximab infusion on December 29, 2021 was had. Disease activity was considered well controlled. Continued Rituxan infusions every 12 months was recommended. She had a severe respiratory illness starting after T-giving with cough/juarez. Occasional blood streaked sputum. Viral serology negative. Took abx and prednisone with slow improvement. She is still limited with respect to walking/exercise. Stil has sputum in the morning. +post nasal drip with running down throat. Otherwise, she is feeling well. No skin rashes, joint pain, leg swelling, neuritic symptoms. Appetite is low and taste is reduced seconddary to GPA. History Today, she reports that she is feeling well. Last Rituxan infusion was in March 2019 and without complication. She continues to have a cough productive of clear mucus, but denies hemoptysis or nosebleeds. Denies joints pains, swelling, morning stiffness, fevers, chills. She denies rashes or bleeding. She plans to move to [place] to be with her daughter as soon as her house in [place] sells. Review of Systems: Pertinent items are noted in HPI or as below, remainder of complete ROS is negative. No recent problems with hearing or vision. No swallowing problems. No breathing difficulty, shortness of breath, coughing, or wheezing No chest pain or palpitations No heart burn, indigestion, abdominal pain, nausea, vomiting, diarrhea No urination problems, no bloody, cloudy urine, no dysuria No numbing, tingling, weakness No headaches or confusion No rashes. No easy bleeding or bruising. Active Medications: Current Outpatient Medications Medication Sig Dispense Refill [...] by mouth montelukast (SINGULAIR) 10 MG tablet TAKE 1 TABLET(10 MG) BY MOUTH AT BEDTIME 30 tablet 3 mupirocin (BACTROBAN) 2 % ointment Use as directed twice daily - mixing 1/3 tube of Bactroban into 1 liter of usual saline nasal rinse. omeprazole (PRILOSEC) [address] capsule TK 1 C PO QAM riTUXimab (RITUXAN) 1 mg/0.1 mL 1 mg/0.1 ml intravitreal injection (PF) Inject 600 mg into the veinEvery 9 months sodium chloride (NEBUSAL) 3 % neb solution Take 4 mLs by nebulization 2 times daily. Use AFTER albuterol 240 mL 6 No current facility-administered medications for this visit. Allergies: Iodine; Amoxicillin; Iodides; and Levaquin [levofloxacin] Past Medical History: Background: She was followed by Dr. Fernando Torres at [facility] for many years. She had recurrent sinus infections starting in her youth and developed eye swelling at age 21, upper and lower tracheitis/ulcerations in 1995 when she received 6 doses of cyclophosphamide for Jacky's. She was in remission many years but had upper respiratory symptoms in 2016 and was found to have mild pulmonary hemorrhage on bronchoscopy. She was given 4 doses of rituximab a week apart as well as a prolonged steroid taper. She was put on methotrexate for maintenance therapy however she developed upperairway and sinus symptoms in March of 2016 that were concerning for pulmonary toxicity and this was stopped. Thus she was put back on rituximab and got 2 maintenance doses 2 weeks apart in May. She did not require any prednisone therapy after starting rituximab. [facility] [place] [facility] 10-09, and -. Asthma Granulomatosis with polyangiitis Hypothyroid Past Surgical History: Appendectomy Section Sinus Surgery Family History: No family history of lung disease Social History: 2018 Former smoker (for 5 years) No alcohol use Physical Exam: BP 107/70 (BP Location: Left arm, Patient Position: Sitting, Cuff Size: Adult Regular) Pulse 68 Ht 1.626 m (5' 4) Wt 68 kg (150 lb) SpO2 94% BMI 25.75 kg/m?? Wt Readings from Last 4 Encounters: 02/06/24 68 kg (150 lb) 07/04/23 67.1 kg (148 lb) 11/29/22 65.3 kg (144 lb) 05/29/22 62.1 kg (137 lb) Constitutional: Well-developed, appearing stated age; cooperative ENT: Slightly depressed nasal bridge. No mucous membrane lesions, normal saliva pool Resp: Decreased breath sounds, left base; no wheezes or crackles. MS: The TMJ, neck, shoulder, elbow, wrist, MCP/PIP/DIP, spine, hip, knee, ankle, and foot MTP/IP joints were examined and found normal. Left wrist slightly swollen; patient reports recent fall on outstretched hand prior to development of swelling and mild tenderness in the radial aspect of the wrist. No active synovitis or altered joint anatomy. Full joint ROM. Normal clinical documentation developer strength. No dactylitis, tenosynovitis, enthesopathy. Skin: No nail pitting, alopecia, rash, nodules or lesions Neuro: Normal cranial nerves, strength, sensation, DTRs. Psych: Normal judgement, orientation, memory, affect. Imaging: EXAMINATION: CT CHEST W/O CONTRAST, 12/23/2018 2:43 PM CLINICAL HISTORY: lung nodule, eval for airway stenosis (GPA); Granulomatosis with polyangiitis (H); Pulmonary nodules COMPARISON: 02/03/2016. IMPRESSION: Solid and part solid nodules represent sequela of underlying granulomatous polyangiitis. The larger isolated pulmonary nodules are similar to prior. Right lower lobe micronodules new. Mayrepresent acute infection superimposed on underlying immune mediated lung disease. SUSY SMITH MD Laboratory: Latest Ref Rng & Units 11/19/2022 1:09 PM 06/26/2023 9:36 AM 11/07/2023 9:53 AM RHEUM RESULTS Albumin 3.5 - 5.2 g/dL 4.7 4.2 4.0 ALT 0 - 50 U/L 25 19 25 AST 0 - 45 U/L 24 20 24 Creatinine 0.51 - 0.95 mg/dL 0.74 0.73 0.71 CRP Inflammation <5.00 mg/L 12.20 <3.00 3.23 GFR Estimate >60 mL/min/1.73m2 86 87 90 Hematocrit 35.0 - 47.0 % 45.4 41.8 39.0 Hemoglobin 11.7 - 15.7 g/dL 14.5 13.5 12.4 WBC 4.0 - 11.0 10e3/uL 8.7 6.0 7.0 RBC Count 3.80 - 5.20 10e6/uL 4.92 4.63 4.29 RDW 10.0 - 15.0 % 13.0 14.7 14.4 MCHC 31.5 - 36.5 g/dL 31.9 32.3 31.8 MCV 78 - 100 fL 92 90 91 Platelet Count 150 - 450 10e3/uL 302 259 307 Neutrophil Cytoplasmic IgG Antibody Date Value Ref Range Status 10/19/2016 Final <1:20 Reference range: <1:20 (Note) The ANCA IFA is <1:20; therefore, no further testing will be performed. INTERPRETIVE INFORMATION: Anti-Neutrophil Cyto Ab, IgG Neutrophil Cytoplasmic Antibodies (C-ANCA = granular cytoplasmic staining, P-ANCA = perinuclear staining) are found in the serum of over 90 percent of patients with certain necrotizing systemic vasculitides, and usually in less than 5 percent of patients with collagen vascular disease or arthritis. Performed by [facility], [address] [place] [id number] [email or web address], Rory Kaba MD, Lab. Director Proteinase 3 Antibody IgG Date Value Ref Range Status 02/05/2018 <0.2 0.0 - 0.9 AI Final Comment: Negative Antibody index (AI) values reflect qualitative changes in antibody concentration that cannot be directly associated with clinical condition or disease state. Myeloperoxidase Antibody IgG Date Value Ref Range Status 02/05/2018 0.7 0.0 - 0.9 AI Final Comment: Negative Antibody index (AI) values reflect qualitative changes in antibody concentration that cannot be directly associated with clinical condition or disease state. 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 Willy Kee. BONNY Thomason TATION WORKER CLEANING EQUIPMENT documented in this encounter Plan of Treatment Upcoming Encounters Date Type Department Care Team (Late st Contact Info) Description 07/07/2024 12:00 PM CDT Office Visit [facility] Pulmonary Function Testing [address] [place] [address] Jen Rush MD [address] [place] [phone] 07/07/2024 1:30 PM CDT Office Visit [facility] [address] [phone] Jen Rush MD [address] [facility] [address] [place], [place] [address] 11/24/2024 10:15 AM CDT Lab [facility] [address] [place] [phone] 12/03/2024 10:30 AM CDT Office Visit [facility] [place] [address] [facility] [address] [place] [phone] Refugio Schulz MD [address] [facility] [address] [place], [place] [address] Scheduled Orders Name Type Priority Associated Diagnoses Orde r Schedule CBC with platelets Lab Routine 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) Expected: 08/05/2024 (Approximate), Expires: 08/07/2024 Comprehensive metabolic panel Lab Routine 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) Expected: 08/05/2024 (Approximate), Expires: 08/07/2024 Routine UA with Micro Reflex to Culture Lab Routine 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) Expected: 08/05/2024 (Approximate), Expires: 08/07/2024 Erythrocyte sedimentation rate auto Lab Routine 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) Expected: 08/05/2024 (Approximate), Expires: 08/07/2024 CRP inflammation Lab Routine 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) Expected: 08/05/2024 (Approximate), Expires: 08/07/2024 documented as of this encounter Visit Diagnoses Diagnosis 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)- Primary documented in this encounter Care Teams Stucco Laborer Relationship Specialty Start Date End Date Dorothea Barfield MD [facility] [address] [place] [address] PCP - General Internal Medicine 12/03/16 Jen Rush MD [address] [facility] [address] [place], [place] [address] Pulmonary Disease 08/27/16 Refugio Schulz MD [address] [place] [id number] Assigned Rheumatology Provider 03/24/22 Jen Rush MD [address] [id number] Assigned Pulmonology Provider 06/09/22 documented as of this encounter
[2024-02-17 12:33] LABS: C Reactive Protein* < 0.5 mg/dL (0.5-1.0)
--- OUTSIDE RECORDS SUMMARY | 2024-02-17 12:33 | XMS_ITS | Encounter Summary ---
Author Organization [facility] Address [address] [facility] [place] [address] Care Team Providers Care Gunner Mate Name Role Phone Jen Rush MD Unavailable [phone] Dorothea Barfield MD Primary Care Provider Refugio Schulz MD Unavailable [phone] Jen Rush MD Unavailable [phone] Encounter Details Date Type Department Care Team (Late st Contact Info) Description 04/05/2023 [facility] [place] [address] [place] [address] Jen Rush MD [address] [facility] [address] [place] [address] Social History Tobacco Use Types [...] AM CDT Legal Sex Female 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 Gender Identity Female 08/03/2018 6:39 PM CDT Sexual Orientation Straight 08/03/2018 6: 39 PM CDT documented as of this encounter Plan of Treatment Upcoming Encounters Date Type Department Care Team (Late st Contact Info) Description 07/07/2024 12:00 PM CDT Office Visit [facility] Pulmonary Function Testing [address] [place] [phone] Jen Rush MD [address] [phone] 07/07/2024 1:30 PM CDT Office Visit [facility] [address] [phone] Jen Rush MD [address] [place] [id number] 11/24/2024 10:15 AM CDT Lab [facility] [address] [place] [phone] 12/03/2024 10:30 AM CDT Office Visit [facility] [address] [phone] Refugio Schulz MD [address] [place] [phone] documented as of this encounter Visit Diagnoses Not on filedocumented in this encounter Care Teams Gunner Mate Relationship Specialty Start Date End Date Dorothea Barfield MD [facility] [address] [place] [address] PCP - General Internal Medicine 12/03/16 Jen Rush MD [address] [phone] Pulmonary Disease 08/27/16 Refugio Schulz MD [address] [place] [address] 88 [place], [place] [phone] Assigned Rheumatology Provider 03/24/22 Jen Rush MD [address] [place] [address] 276 [place], [place] [phone] Assigned Pulmonology Provider 06/09/22 documented as of this encounter
--- OUTSIDE RECORDS SUMMARY | 2024-02-17 12:33 | XMS_ITS | Encounter Summary ---
Author Organization [place] Address [address] [facility] 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 Gender Identity Female 08/03/2018 6:39 PM CDT Sexual Orientation Straight 08/03/2018 6: 39 PM CDT documented as of this encounter Plan of Treatment Upcoming Encounters Date Type Department Care Team (Late st Contact Info) Description 07/07/2024 12:00 PM CDT Office Visit [facility] Pulmonary Function Testing [address] 3rd [place] [phone] Jen Rush MD [address] [place] [address] [id number] 07/07/2024 1:30 PM CDT Office Visit [facility] [address] [phone] Jen Rush MD [address] [place] [address] 686915 11/24/2024 10:15 AM CDT Lab [facility] [address] [place] [phone] 12/03/2024 10:30 AM CDT Office Visit [facility] [place] [address] [place] [phone] Refugio Schulz MD [address] [place] [address] 875445 documented as of this encounter Visit Diagnoses Not on filedocumented in this encounter Care Teams Ostomy Care Nurse Relationship Specialty Start Date End Date Dorothea Barfield MD [facility] [address] [place] [address] PCP - General Internal Medicine 12/03/16 Jen Rush MD [address] [place] [address] [id number] Pulmonary Disease 08/27/16 Refugio Schulz MD [address] [place] [address] 118695 Assigned Rheumatology Provider 03/24/22 Jen Rush MD [address] [place] [address] Assigned Pulmonology Provider 06/09/22 documented as of this encounter
--- OUTSIDE RECORDS SUMMARY | 2024-02-17 12:33 | XMS_ITS | Encounter Summary ---
Author Organization [place] Address [address] [facility] [place] [address] Care Team Providers Care Oxygen Therapy Teacher Name Role Phone Jen Rush MD Unavailable [phone] Dorothea Barfield MD Primary Care Provider [phone] Cinthia Bravo MD Unavailable [phone] eRfugio Schulz MD Unavailable [phone] Jen Rush MD Unavailable [phone] Refugio Schulz MD Unavailable [phone] Jen Rush MD Unavailable [phone] Reason for Referral * Consultation (Routine) - Closed Specialty Diagnoses / Procedures Referred By Lisa kim Referred To Contact Rheumatology Diagnoses Granulomatosis with polyangiitis, unspecified whether renal involvement (H) Refugio Schulz MD [address] [place] [address] Phone: tel: fax: Referral ID Status Reason Start Date Expiration Date Visits Re quested Visits Authorized [id number] Closed 08/24/2019 08/23/2020 1 1 Question Answer Preferred Location: Other - Use Comments Class External referral [5] Scheduling Instructions: Please call the facility your provider referred you to schedule your appointment - [facility] Comments Please be aware that coverage of these services is subject to the terms and limitations of your health insurance plan. Call member services at your health plan with any benefit or coverage questions. Please call the facility your provider referred you to schedule your appointment [facility] Encounter Details Date Type Department Care Team (Latest Contact Info) Description 08/24/[address] [facility] Rheumatology Clinic [address] [address] Refugio Schulz MD [address] [place] [address] 88 [place] [address] Granulomatosis with polyangiitis, unspecified whether renal involvement (H) (Primary Dx) Social History Tobacco Use Types Packs/Day Years Used Date Smoking Tobacco: Former Cigarettes 0 03/25/1967 - 03/25/1972 Smokeless Tobacco: Never Comments: very little Alcohol Use Standard Drinks/Week Comments Yes 0 (1 standard drink = 0.6 oz pur e alcohol) PHQ-2 Answer Date Recorded PHQ-2 Score 0 06/02/2019 Comments No Sex and Gender Information Value Date Recorded Sex Assigned at Female 08/08/2018 9:48 AM CDT 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 Pulmonary Function Testing [address] 3rd [place] [address] Jen Rush MD [address] [place] [address] 276 [place], [place] [phone] 07/07/2024 1:30 PM CDT Office Visit [facility] [address] [address] Jen Rush MD 420 [facility] 276 [place] [address] 11/24/2024 10:[address] [facility] Laboratory [address] [place] [address] 12/03/2024 10:30 AM CDT Office Visit [facility] Specialty Clinic [place] [address] [facility] [address] [place] [phone] Refugio Schulz MD [address] [place] [address] Scheduled Referrals Name Type Priority Associated Diagnoses Orde r Schedule RHEUMATOLOGY REFERRAL Referral Routine Granulomatosis with polyangiitis, unspecified whether renal involvement (H) Expected: 11/24/2019 (Approximate), Expires: 08/23/2020 documented as of this encounter Visit Diagnoses Diagnosis Granulomatosis with polyangiitis, unspecified whether renal involvement (H)- Primary documented in this encounter Care Teams Oxygen Therapy Teacher Relationship Specialty Start Date End Date Dorothea Barfield MD [facility] [address] [place] [address] PCP - General Internal Medicine 12/03/16 Jen Rush MD 420 [facility] 276 [place] [address] Pulmonary Disease 08/27/16 Cinthia Bravo MD 420 [facility] 396 [place] [address] Assigned Surgical Provider 01/15/20 02/13/20 Refugio Schulz MD [address] [place] [address] Assigned Rheumatology Provider 01/15/20 12/03/20 Jen Rush MD 420 [facility] [address] [place], [place] [phone] Assigned Pulmonology Provider 01/15/20 12/17/20 Refugio Schulz MD [address] [facility] 88 [place] [address] Assigned Rheumatology Provider 03/24/22 Jen Rush MD 420 [facility] 276 [place] [address] Assigned Pulmonology Provider 06/09/22 documented as of this encounter
--- OUTSIDE RECORDS SUMMARY | 2024-02-17 12:33 | XMS_ITS | Encounter Summary ---
Author Organization [place] Address [address] [facility] [address] Care Team Providers Care Bricklayer Helper Name Role Phone Jen Rush MD Unavailable [phone] Dorothea Barfield MD Primary Care Provider [phone] Cinthia Bravo MD Unavailable [phone] Refugio Schulz MD Unavailable Jen Rush MD Unavailable [phone] Refugio Schulz MD Unavailable [phone] Jen Rush MD Unavailable [phone] Reason for Visit * Reason Onset Date Comments request 06/09/2019 Encounter Details Date Type Department Care Team (Late st Contact Info) Description 06/09/2019 Telephone [facility] [place] [id number] [place] [address] Jen Rush MD [address] [facility] 276 [place] [address] request Social History Tobacco Use [...] AM CDT 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 Gender Identity Female 08/03/2018 6:39 PM CDT [...] Ivonne Parson - 06/09/2019 8:53 AM CDT [facility] Phone Message May a detailed message be left on voicemail: no Reason for Call: Other: Agustín called to let the clinic know they are faxing over a CMN form forthe pt Action Taken: Message routed to: [facility] Pulm Travel Screening: Not Applicable documented in this encounter Plan of Treatment Upcoming Encounters Date Type Department Care Team (Late st Contact Info) Description 07/07/2024 12:00 PM CDT Office Visit [facility] Pulmonary Function Testing [address] 3rd [place] [address] Jen Rush MD [address] [place] [address] 07/07/2024 1:30 PM CDT Office Visit [facility] [place] [address] [place] [phone] Jen Rush MD [address] 673135 11/24/2024 10:15 AM CDT Lab [facility] [address] [place] [address] 12/03/2024 10:30 AM CDT Office Visit [facility] [place] [address] [facility] 200 [place] [phone] Refugio Schulz MD [address] [place] [address] 856605 documented as of this encounter Visit Diagnoses Not on filedocumented in this encounter Care Teams Bricklayer Helper Relationship Specialty Start Date End Date Dorothea Barfield MD [address] [address] PCP - General Internal Medicine 12/03/16 Jen Rush MD [address] [address] Pulmonary Disease 08/27/16 Cinthia Bravo MD [address] [address] Assigned Surgical Provider 01/15/20 02/13/20 Refugio Schulz MD [address] [place] [address] Assigned Rheumatology Provider 01/15/20 12/03/20 Jen Rush MD [address] [phone] Assigned Pulmonology Provider 01/15/20 12/17/20 Refugio Schulz MD [address] [place] [address] Assigned Rheumatology Provider 03/24/22 Jen Rush MD [address] [phone] Assigned Pulmonology Provider 06/09/22 documented as of this encounter
--- OUTSIDE RECORDS SUMMARY | 2024-02-17 12:33 | XMS_ITS | Encounter Summary ---
Author Organization [place] Address [address] [facility] [address] [place] [address] Care Team Providers Care Writing Tutor Name Role Phone Jen Rush MD Unavailable [phone] Dorothea Barfield MD Primary Care Provider Refugio Schulz MD Unavailable [phone] Jen Rush MD Unavailable [phone] Reason for Visit * Reason Comments Medication Refill Encounter Details Date Type Department Care Team (Late st Contact Info) Description 11/29/2023 Refill [facility] [place] [address] [place] [address] Jen Rush MD 420 [facility] 276 [place] [address] Medication Refill Social History Tobacco [...] AM CDT 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 Gender Identity Female 08/03/2018 6:39 PM CDT Sexual Orientation Straight 08/03/2018 6: 39 PM CDT documented as of this encounter Plan of Treatment Upcoming Encounters Date Type Department Care Team (Late st Contact Info) Description 07/07/2024 12:00 PM CDT Office Visit [facility] Pulmonary Function Testing [address] 3rd [place] [phone] Jen Rush MD [address] [place] [address] 276 [place], [place] 017415 07/07/2024 1:30 PM CDT Office Visit [facility] [address] [phone] Jen Rush MD [address] [place] [place] [address] 761645 11/24/2024 10:[address] [facility] [address] [place] [phone] 12/03/2024 10:30 AM CDT Office Visit [facility] Specialty Clinic [address] [phone] Refugio Schulz MD [address] [place] [address] documented as of this encounter Visit Diagnoses Diagnosis Moderate persistent asthma without complication Unspecified asthma documented in this encounter Care Teams Writing Tutor Relationship Specialty Start Date End Date Dorothea Barfield MD [facility] [address] [place] [address] PCP - General Internal Medicine 12/03/16 Jen Rush MD [facility] [address] [place], [place] 9911[address] Pulmonary Disease 08/27/16 Refugio Schulz MD [address] [place] [address] Assigned Rheumatology Provider 03/24/22 Jen Rush MD [address] [place] [address] [id number] Assigned Pulmonology Provider 06/09/22 documented as of this encounter
--- OUTSIDE RECORDS SUMMARY | 2024-02-17 12:33 | XMS_ITS | Encounter Summary ---
Author Organization [place] Address [address] [facility] 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 Gender Identity Female 08/03/2018 6:39 PM CDT Sexual Orientation Straight 08/03/2018 6: 39 PM CDT documented as of this encounter Plan of Treatment Upcoming Encounters Date Type Department Care Team (Late st Contact Info) Description 07/07/2024 12:00 PM CDT Office Visit [facility] Pulmonary Function Testing [place] [address] [place] [address] 3rd [place] [phone] Jen Rush MD [address] [phone] 07/07/2024 1:30 PM CDT Office Visit [facility] [address] [phone] Jen Rush MD [address] [phone] 11/24/2024 10:15 AM CDT Lab [facility] [address] [place] [address] 12/03/2024 10:30 AM CDT Office Visit [facility] Specialty Clinic [address] [phone] Refugio Schulz MD [address] [place] [address] [phone] documented as of this encounter Visit Diagnoses Not on filedocumented in this encounter Care Teams Client Technologies Analyst Relationship Specialty Start Date End Date Dorothea Barfield MD [facility] [address] [place] [address] PCP - General Internal Medicine 12/03/16 Jen Rush MD [address] 613725 Pulmonary Disease 08/27/16 Refugio Schulz MD 515 [facility] 88 [place] [address] Assigned Rheumatology Provider 03/24/22 Jen Rush MD 420 [facility] 276 [place], [place] 923555 Assigned Pulmonology Provider 06/09/22 documented as of this encounter
--- OUTSIDE RECORDS SUMMARY | 2024-02-17 12:33 | XMS_ITS | Encounter Summary ---
Author Organization [place] Address [address] [facility] [place] [address] Care Team Providers Care Fund Raiser Name Role Phone Jen Rush MD Unavailable [phone] Dorothea Barfield MD Primary Care Provider Refugio Schulz MD Unavailable Jen Rush MD Unavailable [phone] Encounter Details Date Type Department Care Team (Late st Contact Info) Description 10/08/2022 [facility] [place] [address]09 [place] [address] Jen Rush MD [address] [facility] 276 [place] [address] Social History Tobacco Use Types Packs/Day Years Used Date Smoking Tobacco: Former Cigarettes 0 03/25/1967 - 03/25/1972 Smokeless Tobacco: Never Comments: very little Alcohol Use Standard Drinks/Week Comments Yes 0 (1 standard drink = 0.6 oz pur e alcohol) PHQ-2 Answer Date Recorded PHQ-2 Score 0 05/29/2022 Comments No Sex and Gender Information Value Date Recorded Sex Assigned at Female 08/08/2018 9:48 AM CDT 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 Gender Identity Female 08/03/2018 6:39 PM CDT Sexual Orientation Straight 08/03/2018 6: 39 PM CDT documented as of this encounter Plan of Treatment Upcoming Encounters Date Type Department Care Team (Late st Contact Info) Description 07/07/2024 12:00 PM CDT Office Visit [facility] Pulmonary Function Testing [address] 3rd [place] [phone] Jen Rush MD 420 [facility] 276 [place], [place] 436[address] 07/07/2024 1:30 PM CDT Office Visit [facility] Clinic [address] [phone] Jen Rush MD [address] [place] [address] [phone] 11/24/2024 10:15 AM CDT Lab [facility] [address] [place] [phone] 12/03/2024 10:30 AM CDT Office Visit [facility] Specialty Clinic [address] [phone] Refugio Schulz MD [address] [place] [address] 772265 documented as of this encounter Visit Diagnoses Not on filedocumented in this encounter Care Teams Fund Raiser Relationship Specialty Start Date End Date Dorothea Barfield MD [facility] [address] [place] [address] PCP - General Internal Medicine 12/03/16 Jen Rush MD [address] [phone] Pulmonary Disease 08/27/16 Refugio Schulz MD [address] [place] [address] 88 [place] [address] Assigned Rheumatology Provider 03/24/22 Jen Rush MD 420 [facility] [address] [place] [address] Assigned Pulmonology Provider 06/09/22 documented as of this encounter
--- OUTSIDE RECORDS SUMMARY | 2024-02-17 12:33 | XMS_ITS | Encounter Summary ---
Author Organization [place] Address [address] [facility] 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 Gender Identity Female 08/03/2018 6:39 PM CDT [...] 07/07/2024 12:00 PM CDT Office Visit [facility] Pulmonary Function Testing [address] 3rd [place] [phone] Jen Rush MD 420 [facility] 276 [place], [place] 3[address] 07/07/2024 1:30 PM CDT Office Visit [facility] for [facility] Health Clinic [address] [phone] Jen Rush MD [address] [place] [place] [address] 735585 11/24/2024 10:15 AM CDT Lab [facility] [address] [place] [phone] 12/03/2024 10:30 AM CDT Office Visit [facility] Specialty Clinic [place] [address] [place] [phone] Refugio cShulz MD [address] [place] [address] 576155 documented as of this encounter Visit Diagnoses Not on filedocumented in this encounter Care Teams Dry Wall Installations Mechanic Relationship Specialty Start Date End Date Dorothea Barfield MD [facility] [address] [place] [address] PCP - General Internal Medicine 12/03/16 Jen Rush MD [address] [place] [address] [phone] Pulmonary Disease 08/27/16 Refugio Schulz MD [address] [place] [address] 88 [place], [place] [phone] Assigned Rheumatology Provider 03/24/22 Jen Rush MD [address] [place] [address] 276 [place], [place] [phone] Assigned Pulmonology Provider 06/09/22 documented as of this encounter
--- OUTSIDE RECORDS SUMMARY | 2024-02-17 12:33 | XMS_ITS | Encounter Summary ---
Author Organization [place] Address [address] [place] [address] Care Team Providers Care Supervisor Film Processing Name Role Phone Jen Rush MD Unavailable [phone] Dorothea Barfield MD Primary Care Provider Refugio Schulz MD Unavailable [phone] Jen Rush MD Unavailable [phone] Reason for Visit * Reason Onset Date Comments Orders 05/28/2023 Encounter Details Date Type Department Care Team (Late st Contact Info) Description 05/28/2023 Telephone [facility] [address] [address] Jen Rush MD 420 [facility] 276 [place] [address] Orders Social History Tobacco Use [...] AM CDT Legal 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 Rush Pt had to reschedule her original apt on 06/11/2023 to 11/12/2023. Please extend PFT orders. Action Taken: Other: Pulm Travel Screening: Not Applicable ES SUPERVISOR documented in this encounter Plan of Treatment Upcoming Encounters Date Type Department Care Team (Late st Contact Info) Description 07/07/2024 12:00 PM CDT Office Visit [facility] Pulmonary Function Testing [address]rd [place] [phone] Jen Rush MD [address] [place] [address] [phone] 07/07/2024 1:30 PM CDT Office Visit [facility] [address] [address] Jen Rush MD [address] [place] [address] 11/24/2024 10:15 AM CDT Lab [facility] [address] [place] [phone] 12/03/2024 10:30 AM CDT Office Visit [facility] Specialty Clinic [address] [phone] Refugio Schulz MD 515 [facility] 88 [place] [address] documented as of this encounter Visit Diagnoses Not on filedocumented in this encounter Care Teams Supervisor Film Processing Relationship Specialty Start Date End Date Dorothea Barfield MD [address] [address] PCP - General Internal Medicine 12/03/16 Jen Rush MD [address] [phone] Pulmonary Disease 08/27/16 Refugio Schulz MD 515 [facility] 88 [place], [place] 889335 Assigned Rheumatology Provider 03/24/22 Jen Rush MD 420 [facility] 276 [place], [place] 129725 Assigned Pulmonology Provider 06/09/22 documented as of this encounter
--- OUTSIDE RECORDS SUMMARY | 2024-02-17 12:33 | XMS_ITS | Encounter Summary ---
Author Organization [place] Address [address] [place] [address] Care Team Providers Care Claim Review Medical Director Name Role Phone Jen Rush MD Unavailable [phone] Dorothea Barfield MD Primary Care Provider [phone] Refugio Schulz MD Unavailable [phone] Jen Rush MD Unavailable [phone] Reason for Visit * Reason Onset Date Comments Labs Only 11/15/2022 Encounter Details Date Type Department Care Team (Late st Contact Info) Description 11/15/2022 MyC Medical Advice [facility]ty Clinic [address] [address] Refugio Schulz MD [address] [place] [address] Labs Only Social History Tobacco Use [...] AM CDT 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 Gender Identity Female 08/03/2018 6:39 PM CDT [...] Description 07/07/2024 12:00 PM CDT Office Visit [facility] Pulmonary Function Testing [address] 3rd [place] [address] Jen Rush MD [address] [place] [address] 07/07/2024 1:30 PM CDT Office Visit [facility] [address] [phone] Jen Rush MD [address] [place] [address] 11/24/2024 10:15 AM CDT Lab [facility] Laboratory [address] [place] [phone] 12/03/2024 10:30 AM CDT Office Visit [facility]ty Clinic [address] 200 [place] [phone] Refugio Schulz MD [address] [place] [address] documented as of this encounter Results * [...] 06/26/2023 9:49 AM CDT CR LABORATORY Specific [place] Urine 1.025 1.003 - 1.035 06/26/2023 9:49 [...] 9:42 AM CDT 06/26/2023 9:42 AM CDT us Refugio Schulz MD LAB - URINE ORDERABLES Hilda virginie Result CR LABORATORY [facility] [address] [place] [address] (no room number, 1st floor of clinic) [place] [address], [facility] [phone] * CRP inflammation (06/26/2023 9:36 AM CDT) CRP Inflammation <3.00 <5.00 mg/L 06/26/19 3:29 PM CDT UU LABORATORY Blood BLOOD SPECIMEN / Unknown Venipuncture / Unknown 06/26/2023 9:36 AM CDT 06/26/2023 9:36 AM CDT us Refugio Schulz MD LAB - BLOOD ORDERABLES Hilda l Result UU LABORATORY [facility] [place] [address], [address] [place] [address] * Comprehensive metabolic panel (06/26/2023 9:36 AM CDT) Pathologist [facility] Sodium 140 135 - 145 mmol/L 06/26/2023 [...] 9:36 AM CDT 06/26/2023 9:36 AM CDT us Refugio Schulz MD LAB - BLOOD ORDERABLES Hilda rachel Result UU LABORATORY [facility] [address] [place] [address], [facility] * (ABNORMAL) Routine UA with microscopic - No culture (UMP) (11/19/2022 1:13 PM CDT) Color Urine Yellow Colorless, Straw, Light Yellow, Yellow 11/19/2022 1:26 PM CDT CR LABORATORY Appearance Urine Clear Clear 11/20/19 1:26 PM CDT CR LABORATORY Glucose Urine Negative Negative mg/dL 11/19/2022 1:26 PM CDT CR LABORATORY Bilirubin Urine Negative Negative 1:26 PM CDT CR LABORATORY Ketones Urine 40(A) Negative mg/dL 11/19/2022 1:26 PM CDT CR LABORATORY Specific [place] Urine >=1.030 1.003 - 1.035 11/19/2022 1:26 [...] CDT Refugio Schulz MD LAB - URINE ORDERABLES Hilda l Result CR LABORATORY [facility] [address] [facility] (no room number, 1st floor of clinic) [place] [address], [facility] [phone] * (ABNORMAL) CRP inflammation (11/19/2022 1:09 PM CDT) CRP Inflammation 12.20(H) <5.00 mg/L 11/19/2022 5:29 PM CDT UU LABORATORY Blood BLOOD SPECIMEN / Unknown Venipuncture / Unknown 11/19/2022 1:09 PM CDT 11/19/2022 1:09 PM CDT Refugio Schulz MD LAB - BLOOD ORDERABLES Hilda l Result UU LABORATORY [facility] [place] [address], [address] [place] [address], [facility] [phone] * CBC with platelets (11/19/2022 1:09 PM [...] LAB - BLOOD ORDERABLES Hilda l Result CR LABORATORY [facility] [address] [place] [address] Lab (no room number, 1st floor of clinic) [place] [address], [facility] [phone] * Comprehensive metabolic panel (11/19/2022 1:09 PM CDT) Sodium 141 136 - 145 mmol/L 11/19/2022 [...] 1:09 PM CDT 11/19/2022 1:09 PM CDT us Refugio Schulz MD LAB - BLOOD ORDERABLES Hilda l Result UU LABORATORY [facility] [address], [address] [id number] [phone] documented in this encounter Visit Diagnoses Diagnosis 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)- Primary documented in this encounter Care Teams Claim Review Medical Director Relationship Specialty Start Date End Date Dorothea Barfield MD [facility] [place] [place] [address] PCP - General Internal Medicine 12/03/16 Jen Rush MD [address] [place], [place] [address] Pulmonary Disease 08/27/16 Refugio Schulz MD [address] [place] [address] 874305 Assigned Rheumatology Provider 03/24/22 Jen Rush MD [address] [place] [address] 574855 Assigned Pulmonology Provider 06/09/22 documented as of this encounter
--- OUTSIDE RECORDS SUMMARY | 2024-02-17 12:33 | XMS_ITS | Encounter Summary ---
Author Organization [place] Address [address] 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 Gender Identity Female 08/03/2018 6:39 PM CDT Sexual Orientation Straight 08/03/2018 6: 39 PM CDT documented as of this encounter Plan of Treatment Upcoming Encounters Date Type Department Care Team (Late st Contact Info) Description 07/07/2024 12:00 PM CDT Office Visit [facility] Pulmonary Function Testing [place] [address] [place] [address] 3rd [place] [address] Jen Rush MD [address] 5379[address] 07/07/2024 1:30 PM CDT Office Visit [facility] [address] [phone] Jen Rush MD [address] [address] 11/24/2024 10:15 AM CDT Lab [facility] Laboratory [address] [place] [address] 12/03/2024 10:30 AM CDT Office Visit [facility] Specialty Clinic [address] [phone] Refugio Schulz MD [address] [place] [address] 496515 documented as of this encounter Visit Diagnoses Not on filedocumented in this encounter Care Teams Renovation Plant Supervisor Relationship Specialty Start Date End Date Dorothea Barfield MD [facility] [address] [place] [address] PCP - General Internal Medicine 12/03/16 Jen Rush MD [address] 322505 Pulmonary Disease 08/27/16 Refugio Schulz MD [address] [facility] 88 [place] [address] Assigned Rheumatology Provider 03/24/22 Jen Rush MD 420 [facility] 276 [place], [place] 0[address] Assigned Pulmonology Provider 06/09/22 documented as of this encounter
--- OUTSIDE RECORDS SUMMARY | 2024-02-17 12:33 | XMS_ITS | Encounter Summary ---
Author Organization [place] Address [address] 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 Gender Identity Female 08/03/2018 6:39 PM CDT Sexual Orientation Straight 08/03/2018 6: 39 PM CDT documented as of this encounter Plan of Treatment Upcoming Encounters Date Type Department Care Team (Late st Contact Info) Description 07/07/2024 12:00 PM CDT Office Visit [facility] Pulmonary Function Testing [address] 3rd [place] [phone] Jen Rush MD [address] [address] 07/07/2024 1:30 PM CDT Office Visit [facility] Clinic [address] [phone] Jen Rush MD [address] [place] [address] 802385 11/24/2024 10:15 AM CDT Lab [facility] [address] [place] [phone] 12/03/2024 10:30 AM CDT Office Visit [facility] Specialty Clinic [address] [phone] Refugio Schulz MD [address] [place] [address] 467745 documented as of this encounter Visit Diagnoses Not on filedocumented in this encounter Care Teams Panman Relationship Specialty Start Date End Date Dorothea Barfield MD [facility] [address] [place] [address] PCP - General Internal Medicine 12/03/16 Jen Rush MD [address] 613905 Pulmonary Disease 08/27/16 Refugio Schulz MD [address] [place] [address] 88 [place], [place] 8[address] Assigned Rheumatology Provider 03/24/22 Jen Rush MD [address] [place] [address] 276 [place], [place] [address]85 Assigned Pulmonology Provider 06/09/22 documented as of this encounter
--- OUTSIDE RECORDS SUMMARY | 2024-02-17 12:33 | XMS_ITS | Encounter Summary ---
Author Organization [place] Address [address] [facility] [place] [address] Care Team Providers Care Development Specialist Name Role Phone Jen Rush MD Unavailable [phone] Dorothea Barfield MD Primary Care Provider Refugio Schulz MD Unavailable [phone] Jen Rush MD Unavailable [phone] Encounter Details Date Type Department Care Team (Late st Contact Info) Description 10/07/2023 [facility] [place] [address] [place] [address] Jen Rush MD [address] [place] [address] [facility] [address] [place] [address] Moderate persistent asthma without complication [...] AM CDT Legal Sex Female 3:15 AM CREW PERSON Gender Identity Female 08/03/2018 6:39 PM CDT Sexual Orientation Straight 08/03/2018 6: 39 PM CDT documented as of this encounter Plan of Treatment Upcoming Encounters Date Type Department Care Team (Late st Contact Info) Description 07/07/2024 12:00 PM CDT Office Visit [facility] Pulmonary Function Testing [address] 3rd [place] [phone] Jen Rush MD [address] [place] [address] 781165 07/07/2024 1:30 PM CDT Office [facility] Clinic [address] [phone] Jen Rush MD [address] [place] [address] 947245 11/24/2024 10:15 AM CDT Lab [facility] Laboratory [address] [place] [address] 12/03/2024 10:30 AM CDT Office Visit [facility] Clinic [address] [phone] Refugio cShulz MD [address] [place] [address] 194005 documented as of this encounter Visit Diagnoses Diagnosis Moderate persistent asthma without complication Unspecified asthma documented in this encounter Care Teams Development Specialist Relationship Specialty Start Date End Date Dorothea Barfield MD [facility] [address] [place] [address] PCP - General Internal Medicine 12/03/16 Jen Rush MD [address] 506275 Pulmonary Disease 08/27/16 Refugio Schulz MD [address] [place] [address] 851525 Assigned Rheumatology Provider 03/24/22 Jen Rush MD [address] 975345 Assigned Pulmonology Provider 06/09/22 documented as of this encounter
--- OUTSIDE RECORDS SUMMARY | 2024-02-17 12:33 | XMS_ITS | Encounter Summary ---
Author Organization [place] Address [address] [facility] [place] [address] Care Team Providers Care Retirement Assistant Name Role Phone Jen Rush MD Unavailable [phone] Dorothea Barfield MD Primary Care Provider Refugio Schulz MD Unavailable [phone] Jen Rush MD Unavailable [phone] Reason for Visit * Reason Onset Date Comments Medication Question 12/03/2023 Encounter Details Date Type Department Care Team (Late st Contact Info) Description 12/03/2023 Telephone [facility] Rheumatology Clinic [address] [address] Refugio Schulz MD [address] [place] [address] Medication Question Social History Tobacco Use [...] AM CDT Legal Sex Female 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 Gender Identity Female 08/03/2018 6:39 PM CDT [...] to: [facility] Rheum Travel Screening: Not Applicable Date of Service: documented in this encounter Plan of Treatment Upcoming Encounters Date Type Department Care Team (Late st Contact Info) Description 07/07/2024 12:00 PM CDT Office Visit [facility] Pulmonary Function Testing [address] 3rd [place] [address] Jen Rush MD [address] [place] [address] 07/07/2024 1:30 PM CDT Office Visit [facility] Clinic [address] [phone] Jen Rush MD [address] [address] 11/24/2024 10:15 AM CDT Lab [facility] Laboratory [address] [place] [address] 12/03/2024 10:30 AM CDT Office Visit [facility] Specialty Clinic [place] [address] [place] [address] 200 [place] [phone] Refugio Schulz MD [address] [place] [address] documented as of this encounter Visit Diagnoses Not on filedocumented in this encounter Care Teams Retirement Assistant Relationship Specialty Start Date End Date Dorothea Barfield MD [facility] [address] [place] [address] PCP - General Internal Medicine 12/03/16 Jen Rush MD [address] [address] Pulmonary Disease 08/27/16 Refugio Schulz MD [address] [place] [address] Assigned Rheumatology Provider 03/24/22 Jen Rush MD [address] [address] Assigned Pulmonology Provider 06/09/22 documented as of this encounter
--- OUTSIDE RECORDS SUMMARY | 2024-02-17 12:33 | XMS_ITS | Encounter Summary ---
Author Organization [place] Address [facility] 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 Gender Identity Female 08/03/2018 6:39 PM CDT Sexual Orientation Straight 08/03/2018 6: 39 PM CDT documented as of this encounter Plan of Treatment Upcoming Encounters Date Type Department Care Team (Late st Contact Info) Description 07/07/2024 12:00 PM CDT Office Visit [facility] Pulmonary Function Testing [address] 3rd [place] [phone] Jen Rush MD 420 [facility] 276 [place], [place] [address] 07/07/2024 1:30 PM CDT Office Visit [facility] for [facility] Health Clinic [address] [phone] Jen Rush MD [address] [place] [address] 465355 11/24/2024 10:15 AM CDT Lab [facility] Laboratory [address] [place] [phone] 12/03/2024 10:30 AM CDT Office Visit [facility] Specialty Clinic [address] [phone] Refugio Schulz MD [address] [place] [address] documented as of this encounter Visit Diagnoses Not on filedocumented in this encounter Care Teams Middle School Counselor Relationship Specialty Start Date End Date Dorothea Barfield MD [facility] [address] [place] [address] PCP - General Internal Medicine 12/03/16 Jen Rush MD [address] [place] [address] Pulmonary Disease 08/27/16 Refugio Schulz MD [address] [place] [address] 88 [place] [address] Assigned Rheumatology Provider 03/24/22 Jen Rush MD [address] [place] [address] 276 [place], [place] [phone] Assigned Pulmonology Provider 06/09/22 documented as of this encounter
--- OUTSIDE RECORDS SUMMARY | 2024-02-17 12:33 | XMS_ITS | Encounter Summary ---
Author Organization [place] Address [address] [facility] 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 Gender Identity Female 08/03/2018 6:39 PM CDT Sexual Orientation Straight 08/03/2018 6: 39 PM CDT documented as of this encounter Plan of Treatment Upcoming Encounters Date Type Department Care Team (Late st Contact Info) Description 07/07/2024 12:00 PM CDT Office Visit [facility] Pulmonary Function Testing [address] 3rd [place] [phone] Jen Rush MD [address] [place] [address] 07/07/2024 1:30 PM CDT Office [facility] [address] [phone] Jen Rush MD [address] [place] [address] 531735 11/24/2024 10:15 AM CDT Lab [facility] Laboratory [address] [place] [address] 12/03/2024 10:30 AM CDT Office Visit [facility] Specialty Clinic [place] [address] [place] [phone] Refugio Schulz MD [address] [place] [address] 305085 documented as of this encounter Visit Diagnoses Not on filedocumented in this encounter Care Teams Press Worker Helper Relationship Specialty Start Date End Date Dorothea Barfield MD [facility] [address] [place] [address] PCP - General Internal Medicine 12/03/16 Jen Rush MD [address] [place] [address] 394375 Pulmonary Disease 08/27/16 Refugio Schulz MD [address] [place] [address] 340265 Assigned Rheumatology Provider 03/24/22 Jen Rush MD [address] [place] [address] Assigned Pulmonology Provider 06/09/22 documented as of this encounter
--- OUTSIDE RECORDS SUMMARY | 2024-02-17 12:33 | XMS_ITS | Encounter Summary ---
Author Organization [place] Address [address] [facility] [place] [address] Care Team Providers Care Support Services Manager Name Role Phone Jen Rush MD Unavailable [phone] Dorothea Barfield MD Primary Care Provider Cinthia Bravo MD Unavailable [phone] Refugio Schulz MD Unavailable Jen Rush MD Unavailable [phone] Refugio Schulz MD Unavailable [phone] Jen Rush MD Unavailable [phone] Encounter Details Date Type Department Care Team (Late st Contact Info) Description 08/03/2019 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 Gender Identity Female 08/03/2018 6:39 PM CDT Sexual Orientation Straight 08/03/2018 6: 39 PM CDT documented as of this encounter Plan of Treatment Upcoming Encounters Date Type Department Care Team (Late st Contact Info) Description 07/07/2024 12:00 PM CDT Office Visit [facility] Pulmonary Function Testing [address] 3rd [place] [phone] Jen Rush MD [address] [phone] 07/07/2024 1:30 PM CDT Office Visit [facility] Health Clinic [address] [phone] Jen Rush MD [address] [place] [address] 11/24/2024 10:15 AM CDT Lab [facility] Laboratory [address] [place] [address] 12/03/2024 10:30 AM CDT Office Visit [facility] Specialty Clinic [address] [phone] Refugio Schulz MD [address] [place] [address] documented as of this encounter Visit Diagnoses Not on filedocumented in this encounter Care Teams Support Services Manager Relationship Specialty Start Date End Date Dorothea Barfield MD [facility] [address] [place] [address] PCP - General Internal Medicine 9/11/17 Jen Rush MD [address] [place] [facility] 276 [place] [address] Pulmonary Disease 08/27/16 Cinthia Bravo MD [address] [place] [facility] 396 [place], [place] [address] Assigned Surgical Provider 01/15/20 02/13/20 Refugio Schulz MD [address] 496785 Assigned Rheumatology Provider 01/15/20 12/03/20 Jen Rush MD [address] [place] [facility] 276 [place], [place] 6[address] Assigned Pulmonology Provider 01/15/20 12/17/20 Refugio Schulz MD [address] 137445 Assigned Rheumatology Provider 03/24/22 Jen Rush MD 420 [facility] 276 [place], [place] 256095 Assigned Pulmonology Provider 06/09/22 documented as of this encounter
--- OUTSIDE RECORDS SUMMARY | 2024-02-17 12:33 | XMS_ITS | Encounter Summary ---
Author Organization [place] Address [address] [facility] [address] Care Team Providers Care Press Operator Meat Name Role Phone Jen Rush MD Unavailable [phone] Dorothea Barfield MD Primary Care Provider [phone] Refugio Schulz MD Unavailable [phone] Jen Rush MD Unavailable [phone] Reason for Visit * Reason Comments Follow Up Return pulm. 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 [facility] [address] [address] Patient: Dorothea [place], Date of 1950 Date [...] her. She is also seeing rheumatology had [facility] to manage this. PFTs do not seem [...] since quittin.7 Smokeless tobacco: Never Tobacco comments: 1967- very little Substance and Sexual Activity Alcohol use: Yes Drug use: No Sexual activity: Never Other Topics Concern Parent/sibling w/ CABG, NE or angioplasty before 65F 55M? Not Asked [...] APPENDECTOMY CATARACT EXTRACTION, BILATERAL Bilateral 08/10/2022 SECTION SUPERVISOR GREEN END DEPARTMENT SURGERY 2 Caesarians SINUS SURGERY TONSILLECTOMY Age [...] CT done in March [address] [facility] January 2016 IMPRESSION: 1. Significant interval [...] and medications were reconciled. Maria Ines Zamorano RMA 3:59 PM documented in this encounter Plan of Treatment Upcoming Encounters Date Type Department Care Team (Late st Contact Info) Description 07/07/2024 12:00 PM CDT Office Visit [facility] Pulmonary Function Testing [address] 3rd [place] [address] Jen Rush MD [address] [place] [address] 07/07/2024 1:30 PM CDT Office Visit [facility] [address] [phone] Jen Rush MD [address] [place] [address]80455 11/24/2024 10:15 AM CDT Lab [facility] [address] [place] [address] 12/03/2024 10:30 AM CDT Office Visit [facility] Specialty Clinic [place] [address] [place] [address] 200 [place] [address] Refugio Schulz MD [address] [place] [address] 571845 documented as of this encounter Visit Diagnoses Diagnosis Bronchiectasis without complication (H)- Primary Bronchiectasis without acute exacerbation 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
--- OUTSIDE RECORDS SUMMARY | 2024-02-17 12:33 | XMS_ITS | Encounter Summary ---
Author Organization [place] Address [address] [facility] [place] [address] Care Team Providers Care Manager Cosmetic Name Role Phone Jen Rush MD Unavailable [phone] Dorothea Barfield MD Primary Care Provider Cinthia Bravo MD Unavailable [phone] Refugio Schulz MD Unavailable Jen Rush MD Unavailable [phone] Refugio Schulz MD Unavailable [phone] Jen Rush MD Unavailable [phone] Encounter Details Date Type Department Care Team (Late st Contact Info) Description 10/22/2019 [facility] [address] [address] Jen Rush MD 420 [facility] 276 [place] [address] Social History Tobacco [...] AM CDT Legal 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 [address] [place] [address] 12/03/2024 10:30 AM CDT Office Visit [facility] [place] [address] [place] [address] 200 [place] [phone] Refugio Schulz MD [address] [place] [address] documented as of this encounter Visit Diagnoses Not on filedocumented in this encounter Care Teams Manager Cosmetic Relationship Specialty Start Date End Date Dorothea Barfield MD [address] [address] PCP - General Internal Medicine 12/03/16 Jen Rush MD [address] [place] [address] 832605 Pulmonary Disease 08/27/16 Cinthia Bravo MD [address] [place] [address] 879845 Assigned Surgical Provider 01/15/20 02/13/20 Refugio Schulz MD [address] [place] [address] 994345 Assigned Rheumatology Provider 01/15/20 12/03/20 Jen Rush MD [address] [place] [address] 960175 Assigned Pulmonology Provider 01/15/20 12/17/20 Refugio Schulz MD [address] [place] [address] 624035 Assigned Rheumatology Provider 03/24/22 Jen Rush MD [address] [place] [address] 754945 Assigned Pulmonology Provider 06/09/22 documented as of this encounter
--- OUTSIDE RECORDS SUMMARY | 2024-02-17 12:33 | XMS_ITS | Encounter Summary ---
Author Organization [place] Address [address] [facility] [place] [address] Care Team Providers Care Cleaning Professional Name Role Phone Jen Rush MD Unavailable [phone] Dorothea Barfield MD Primary Care Provider Refugio Schulz MD Unavailable [phone] Jen Rush MD Unavailable [phone] Encounter Details Date Type Department Care Team (Late st Contact Info) Description 03/09/2022 [facility] [place] 909 [place] [address] Jen Rush MD 420 [facility] 276 [place] [address] Social History Tobacco Use Types [...] AM CDT Legal Sex Female 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 Unable to assess 03/12/2022 8:19 AM CHOCOLATE DIPPER documented as of this encounter Plan of Treatment Upcoming Encounters Date Type Department Care Team (Late st Contact Info) Description 07/07/2024 12:00 PM CDT Office Visit [facility] Pulmonary Function Testing [address] 3rd [place] [address] Jen Rush MD [address] [phone] 07/07/2024 1:30 PM CDT Office Visit [facility] [address] [phone] Jen Rush MD [address] [place] [address] 11/24/2024 10:15 AM CDT Lab [facility] [address] [place] [address] 12/03/2024 10:30 AM CDT Office Visit [facility] Specialty Clinic [address] 200 [place] [phone] Refugio Schulz MD [address] [place] [address] documented as of this encounter Visit Diagnoses Not on filedocumented in this encounter Care Teams Cleaning Professional Relationship Specialty Start Date End Date Dorothea Barfield MD [facility] [address] [place] [address] PCP - General Internal Medicine 12/03/16 Jen Rush MD [address] [phone] Pulmonary Disease 08/27/16 Refugio Schulz MD [address] [place] [address] Assigned Rheumatology Provider 03/24/22 Jen Rush MD [address] [phone] Assigned Pulmonology Provider 06/09/22 documented as of this encounter
--- OUTSIDE RECORDS SUMMARY | 2024-02-17 12:33 | XMS_ITS | Encounter Summary ---
Author Organization [place] Address [address] [facility] [place] [address] Care Team Providers Care Highway Engineer Name Role Phone Jen Rush MD Unavailable [phone] Dorothea Barfield MD Primary Care Provider [phone] Refugio Schulz MD Unavailable Jen Rush MD Unavailable [phone] Encounter Details Date Type Department Care Team (Late st Contact Info) Description 07/08/2023 [facility] [place] 9[address] [place] [address] Jen Rush MD [address] [facility] 276 [place] [address] Social History Tobacco Use Types [...] AM CDT Legal 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 Gender Identity Female 08/03/2018 6:39 PM CDT Sexual Orientation Straight 08/03/2018 6: 39 PM CDT documented as of this encounter Plan of Treatment Upcoming Encounters Date Type Department Care Team (Late st Contact Info) Description 07/07/2024 12:00 PM CDT Office Visit [facility] Pulmonary Function Testing [address] 3rd [place] [phone] Jen Rush MD [address] 720325 07/07/2024 1:30 PM CDT Office Visit [facility] [address] [phone] Jen Rush MD [address] [place] [address] 886355 11/24/2024 10:15 AM CDT Lab [facility] [address] [place] [phone] 12/03/2024 10:30 AM CDT Office Visit [facility] [address] [phone] Rfeugio Schulz MD [address] [place] [address] 786355 documented as of this encounter Visit Diagnoses Not on filedocumented in this encounter Care Teams Highway Engineer Relationship Specialty Start Date End Date Dorothea Barfield MD [facility] 1999 [place] [address] PCP - General Internal Medicine 12/03/16 Jen Rush MD [address] 067005 Pulmonary Disease 08/27/16 Refugio Schulz MD [address] [place] [address] 88 [place], [place] 989125 Assigned Rheumatology Provider 03/24/22 Jen Rush MD [address] [place] [address] 276 [place], [place] 939195 Assigned Pulmonology Provider 06/09/22 documented as of this encounter
--- OUTSIDE RECORDS SUMMARY | 2024-02-17 12:33 | XMS_ITS | Encounter Summary ---
Author Organization [place] Address [address] [facility] [place] [address] Care Team Providers Care Electric Meter Tester Name Role Phone Jen Rush MD Unavailable [phone] Dorothea Barfield MD Primary Care Provider Refugio Schulz MD Unavailable Jen Rush MD Unavailable [phone] Encounter Details Date Type Department Care Team (Late st Contact Info) Description 04/22/2022 [facility] [place] 909 [place] [address] Jen Rush MD 420 [facility] 276 [place] [address] Social History Tobacco Use Types [...] CDT Legal Sex Female 3: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 No / Unsure 03/26/2022 1:20 PM SENIOR FUNCTIONAL ANALYST documented as of this encounter Plan of Treatment Upcoming Encounters Date Type Department Care Team (Late st Contact Info) Description 07/07/2024 12:00 PM CDT Office Visit [facility] Pulmonary Function Testing [address] 3rd [place] [address] Jen Rush MD [address] 497[address] 07/07/2024 1:30 PM CDT Office Visit [facility] [address] [phone] Jen Rush MD [address] [place] [address] 11/24/2024 10:15 AM CDT Lab [facility] [address] [place] [address] 12/03/2024 10:30 AM CDT Office Visit [facility] [address] 200 [place] [phone] Refugio Schulz MD [address] [place] [address] documented as of this encounter Visit Diagnoses Not on filedocumented in this encounter Care Teams Electric Meter Tester Relationship Specialty Start Date End Date Dorothea Barfield MD [facility] 1999 [place] [address] PCP - General Internal Medicine 12/03/16 Jen Rush MD 420 [facility] 276 [place], [place] 699055 Pulmonary Disease 08/27/16 Refugio Schulz MD [address] [place] [address] Assigned Rheumatology Provider 03/24/22 Jen Rush MD [address] 295305 Assigned Pulmonology Provider 06/09/22 documented as of this encounter
--- OUTSIDE RECORDS SUMMARY | 2024-02-17 12:33 | XMS_ITS | Encounter Summary ---
Author Organization [place] Address [address] [facility] [address] Care Team Providers Care Bottling Supervisor Name Role Phone Jen Rush MD Unavailable [phone] Dorothea Barfield MD Primary Care Provider Refugio Schulz MD Unavailable Jen Rush MD Unavailable [phone] Encounter Details Date Type Department Care Team (Late st Contact Info) Description 07/16/2023 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 Clinic [address] [phone] Jen Rush MD [address] [place] [address] 299105 11/24/2024 10:15 AM CDT Lab [facility] Laboratory [address] [place] [phone] 12/03/2024 10:30 AM CDT Office Visit [facility] Specialty Clinic [address] [phone] Refugio Schulz MD [address] [place] [address] 448895 documented as of this encounter Visit Diagnoses Not on filedocumented in this encounter Care Teams Bottling Supervisor Relationship Specialty Start Date End Date Dorothea Barfield MD [facility] 1999 [place] [address] PCP - General Internal Medicine 12/03/16 Jen Rush MD [address] 172155 Pulmonary Disease 08/27/16 Refugio Schulz MD [address] [place] [address] 88 [place], [place] 108035 Assigned Rheumatology Provider 03/24/22 Jen Rush MD [address] [place] [address] 276 [place], [place] 988235 Assigned Pulmonology Provider 06/09/22 documented as of this encounter
--- OUTSIDE RECORDS SUMMARY | 2024-02-17 12:33 | XMS_ITS | Encounter Summary ---
Author Organization [place] Address [address] [facility] [place] [address] Care Team Providers Care Counter Sales Representative Name Role Phone Jen Rush MD Unavailable [phone] Dorothea Barfield MD Primary Care Provider Cinthia Bravo MD Unavailable [phone] Refugio Schulz MD Unavailable [phone] Jen Rush MD Unavailable [phone] Refugio Schulz MD Unavailable [phone] Jen Rush MD Unavailable [phone] Encounter Details Date Type Department Care Team (Late st Contact Info) Description 06/10/2019 [facility] Clinic [address] [address] Jne Rush MD 420 [facility] 276 [place] [address] Social History Tobacco Use Types [...] AM CDT Legal Sex Female 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 Gender Identity Female 08/03/2018 6:39 PM CDT Sexual Orientation Straight 08/03/2018 6: 39 PM CDT documented as of this encounter Plan of Treatment Upcoming Encounters Date Type Department Care Team (Late st Contact Info) Description 07/07/2024 12:00 PM CDT Office Visit [facility] Pulmonary Function Testing [address] 3rd [place] [address] Jen Rush MD [address] 178325 07/07/2024 1:30 PM CDT Office Visit [facility] [address] [phone] Jen Rush MD [address] [place] [address] 11/24/2024 10:15 AM CDT Lab [facility] Laboratory [address] [place] [address] 12/03/2024 10:30 AM CDT Office Visit [facility] Specialty Clinic [address] [phone] Refugio Schulz MD [address] [place] [address] documented as of this encounter Visit Diagnoses Not on filedocumented in this encounter Care Teams Counter Sales Representative Relationship Specialty Start Date End Date Dorothea Barfield MD [facility] 1999 [place] [address] PCP - General Internal Medicine 9/11/17 Jen Rush MD [address] [facility] 276 [place] [address] Pulmonary Disease 08/27/16 Cinthia Bravo MD [address] [facility] 396 [place], [place] 587275 Assigned Surgical Provider 01/15/20 02/13/20 Refugio Schulz MD [address] 202545 Assigned Rheumatology Provider 01/15/20 12/03/20 Jen Rush MD [address] [facility] 276 [place], [place] 539645 Assigned Pulmonology Provider 01/15/20 12/17/20 Refugio Schulz MD [address] [phone] Assigned Rheumatology Provider 03/24/22 Jen Rush MD 420 [place] [facility] 276 [place], [place] 668025 Assigned Pulmonology Provider 06/09/22 documented as of this encounter
--- OUTSIDE RECORDS SUMMARY | 2024-02-17 12:33 | XMS_ITS | Encounter Summary ---
Author Organization [place] Address [address] [place] [address] Care Team Providers Care School Commissioner Name Role Phone Jen Rush MD Unavailable [phone] Dorothea Barfield MD Primary Care Provider Refugio Schulz MD Unavailable Jen Rush MD Unavailable [phone] Encounter Details Date Type Department Care Team (Late st Contact Info) Description 02/07/2023 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 Gender Identity Female 08/03/2018 6:39 PM CDT Sexual Orientation Straight 08/03/2018 6: 39 PM CDT documented as of this encounter Plan of Treatment Upcoming Encounters Date Type Department Care Team (Late st Contact Info) Description 07/07/2024 12:00 PM CDT Office Visit [facility] Pulmonary Function Testing [address] 3rd [place] [phone] Jen Rush MD [address] 004305 07/07/2024 1:30 PM CDT Office Visit [facility] [address] [phone] Jen Rush MD [address] [place] [address] 205045 11/24/2024 10:15 AM CDT Lab [facility] Laboratory [address] [place] [phone] 12/03/2024 10:30 AM CDT Office Visit [facility] Specialty Clinic [address] [phone] Refugio Schulz MD [address] [place] [address] 262595 documented as of this encounter Visit Diagnoses Not on filedocumented in this encounter Care Teams School Commissioner Relationship Specialty Start Date End Date Dorothea Barfield MD [facility] 1999 [place] [address] PCP - General Internal Medicine 12/03/16 Jen Rush MD [address] 258945 Pulmonary Disease 08/27/16 Refugio Schulz MD [address] [place] [address] 88 [place], [place] 825065 Assigned Rheumatology Provider 03/24/22 Jen Rush MD [address] [place] [address] 276 [place], [place] 504035 Assigned Pulmonology Provider 06/09/22 documented as of this encounter
--- OUTSIDE RECORDS SUMMARY | 2024-02-17 12:34 | XMS_ITS | Encounter Summary ---
Author Organization [place] Address [address] [place] [address] Care Team Providers Care Primary Care Coordinator Name Role Phone Jen Rush MD Unavailable [phone] Dorothea Barfield MD Primary Care Provider Cinthia Bravo MD Unavailable [phone] Refugio Schulz MD Unavailable Jen Rush MD Unavailable [phone] Refugio Schulz MD Unavailable [phone] Jen Rush MD Unavailable [phone] Encounter Details Date Type Department Care Team (Late st Contact Info) Description 06/22/2017 [facility] Clinic [address] [address] Jen Rush MD 420 [facility] 276 [place] [address] Social History Tobacco Use Types Packs/Day Years Used Date Smoking Tobacco: Former Cigarettes Smokeless Tobacco: Never Comments: very little Alcohol Use Standard Drinks/Week Comments No 0 (1 standard drink = 0.6 oz pur e alcohol) Comments Unknown Sex and Gender Information Value Date Recorded Sex Assigned at Female 08/08/2018 9:48 AM CDT 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 Gender Identity Female 08/03/2018 6:39 PM CDT Sexual Orientation Straight 08/03/2018 6: 39 PM CDT documented as of this encounter Plan of Treatment Upcoming Encounters Date Type Department Care Team (Late st Contact Info) Description 07/07/2024 12:00 PM CDT Office Visit [facility] Pulmonary Function Testing [address] 3rd [place] [phone] Jen Rush MD 420 [facility] 276 [place], [place] 6[address]805 07/07/2024 1:30 PM CDT Office Visit [facility] [address] [phone] Jen Rush MD [address] [place] [address] 169955 11/24/2024 10:15 AM CDT Lab [facility] Laboratory [address] [place] [phone] 12/03/2024 10:30 AM CDT Office Visit [facility] Specialty Clinic [address] [phone] Refugio Schulz MD [address] [place] [address] documented as of this encounter Visit Diagnoses Not on filedocumented in this encounter Care Teams Primary Care Coordinator Relationship Specialty Start Date End Date Dorothea Barfield MD [facility] [address] [place] [address] PCP - General Internal Medicine 12/03/16 Jen Rush MD [address] [address] Pulmonary Disease 08/27/16 Cinthia Bravo MD [address] [address] Assigned Surgical Provider 01/15/20 02/13/20 Refugio Schulz MD [address] [place] [address] Assigned Rheumatology Provider 01/15/20 12/03/20 Jen Rush MD [address] [place] [address] Assigned Pulmonology Provider 01/15/20 12/17/20 Refugio Schulz MD [address] [place] [address] Assigned Rheumatology Provider 03/24/22 Jen Rush MD [address] [place] [address] Assigned Pulmonology Provider 06/09/22 documented as of this encounter
--- OUTSIDE RECORDS SUMMARY | 2024-02-17 12:34 | XMS_ITS | Encounter Summary ---
Author Organization [place] Address [address] [place] [address] Care Team Providers Care Income Tax Expert Name Role Phone Jen Rush MD Unavailable [phone] Dorothea Barfield MD Primary Care Provider [phone] Cinthia Bravo MD Unavailable [phone] Refugio Schulz MD Unavailable [phone] Jen Rush MD Unavailable [phone] Refugio Schulz MD Unavailable [phone] Jen Rush MD Unavailable [phone] Encounter Details Date Type Department Care Team (Late st Contact Info) Description 06/08/2019 [facility] [address] [address] Jen Rush MD 420 [facility] 276 [place] [address] Social History Tobacco Use Types [...] AM CDT 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 Gender Identity Female 08/03/2018 6:39 PM CDT [...] Description 07/07/2024 12:00 PM CDT Office Visit [facility] Pulmonary Function Testing [address] 3rd [place] [address] Jen Rush MD [address] [place] [address] 07/07/2024 1:30 PM CDT Office Visit [facility] [address] [phone] Jen Rush MD [address] [place] [address] 11/24/2024 10:15 AM CDT Lab [facility] [address] [place] [phone] 12/03/2024 10:30 AM CDT Office [facility] [place] 6525 [facility] 200 [place] [phone] Refugio Schulz MD [address] [place] [address] documented as of this encounter Visit Diagnoses Not on filedocumented in this encounter Care Teams Income Tax Expert Relationship Specialty Start Date End Date Dorothea Barfield MD [facility] & [address] [address] PCP - General Internal Medicine 12/03/16 Jen Rush MD [address] [place] [address] 255845 Pulmonary Disease 08/27/16 Cinthia Bravo MD [address] [place] [address] 091195 Assigned Surgical Provider 01/15/20 02/13/20 Refugio Schulz MD [address] [place] [address] 213845 Assigned Rheumatology Provider 01/15/20 12/03/20 Jen Rush MD [address] [place] [address] 038235 Assigned Pulmonology Provider 01/15/20 12/17/20 Refugio Schulz MD [address] [place] [address] Assigned Rheumatology Provider 03/24/22 Jen Rush MD [address] [place] [address] 625425 Assigned Pulmonology Provider 06/09/22 documented as of this encounter
--- OUTSIDE RECORDS SUMMARY | 2024-02-17 12:34 | XMS_ITS | Encounter Summary ---
Author Organization [place] Address [address] [facility] [address] Care Team Providers Care Prison Psychiatrist Name Role Phone Jen Rush MD Unavailable [phone] Dorothea Barfield MD Primary Care Provider Cinthia Bravo MD Unavailable [phone] Refugio Schulz MD Unavailable [phone] Jen Rush MD Unavailable [phone] Refugio Schulz MD Unavailable [phone] Jen Rush MD Unavailable [phone] Encounter Details Date Type Department Care Team (Late st Contact Info) Description 06/22/2018 [facility] [address] [address] Jen Rsuh MD 420 [facility] 276 [place] [address] Social History Tobacco Use Types Packs/Day Years Used Date Smoking Tobacco: Former Cigarettes 0 06/10/1966 - 06/11/1971 Smokeless Tobacco: Never Comments:1967- very little Alcohol Use Standard Drinks/Week Comments No 0 (1 standard drink = 0.6 oz pur e alcohol) PHQ-2 Answer Date Recorded PHQ-2 Score 0 04/01/2018 Comments No Sex and Gender Information Value Date Recorded Sex Assigned at Female 08/08/2018 9:48 AM CDT 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 Gender Identity Female 08/03/2018 6:39 PM CDT Sexual Orientation Straight 08/03/2018 6: 39 PM CDT documented as of this encounter Plan of Treatment Upcoming Encounters Date Type Department Care Team (Late st Contact Info) Description 07/07/2024 12:00 PM CDT Office Visit [facility] Pulmonary Function Testing [address] 3rd [place] [phone] Jen Rush MD [address] [phone] 07/07/2024 1:30 PM CDT Office Visit [facility] [address] [phone] Jen Rush MD [address] [place] [address] 11/24/2024 10:15 AM CDT Lab [facility] [address] [place] [address] 12/03/2024 10:30 AM CDT Office Visit [facility] [address] [phone] Refugio Schulz MD [address] [place] [address] documented as of this encounter Visit Diagnoses Not on filedocumented in this encounter Care Teams Prison Psychiatrist Relationship Specialty Start Date End Date Dorothea Barfield MD [facility] 1999 [place] [address] PCP - General Internal Medicine 9/11/17 Jen Rush MD [address] [facility] [address] [place] [address] Pulmonary Disease 08/27/16 Cinthia Bravo MD [address] [facility] [address] [place], [place] 206885 Assigned Surgical Provider 01/15/20 02/13/20 Refugio Schulz MD [address] 239945 Assigned Rheumatology Provider 01/15/20 12/03/20 Jen Rush MD [address] [facility] [address] [place], [place] 823565 Assigned Pulmonology Provider 01/15/20 12/17/20 Refugio Schulz MD [address] 093765 Assigned Rheumatology Provider 03/24/22 Jen Rush MD 420 [place] [facility] [address] [place], [place] 255225 Assigned Pulmonology Provider 06/09/22 documented as of this encounter
--- OUTSIDE RECORDS SUMMARY | 2024-02-17 12:34 | XMS_ITS | Encounter Summary ---
Author Organization [place] Address [address] [place] [address] Care Team Providers Care Rigging Foreman Name Role Phone Jen Rush MD Unavailable [phone] Dorothea Barfield MD Primary Care Provider Cinthia rBavo MD Unavailable [phone] Refugio Schulz MD Unavailable Jen Rush MD Unavailable [phone] Refugio Schulz MD Unavailable [phone] Jen Rush MD Unavailable [phone] Encounter Details Date Type Department Care Team (Late st Contact Info) Description 06/18/2017 [facility] [address] [address] Jen Rush MD 420 [facility] 276 [place] [address] Social History Tobacco Use Types Packs/Day Years Used Date Smoking Tobacco: Former Cigarettes Smokeless Tobacco: Never Comments: very little Alcohol Use Standard Drinks/Week Comments No 0 (1 standard drink = 0.6 oz pur e alcohol) Comments Unknown Sex and Gender Information Value Date Recorded Sex Assigned at Female 08/08/2018 9:48 AM CDT 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 Gender Identity Female 08/03/2018 6:39 PM CDT Sexual Orientation Straight 08/03/2018 6: 39 PM CDT documented as of this encounter Plan of Treatment Upcoming Encounters Date Type Department Care Team (Late st Contact Info) Description 07/07/2024 12:00 PM CDT Office Visit [facility] Pulmonary Function Testing [address] 3rd [place] [phone] Jen Rush MD 420 [facility] 276 [place], [place] 149835 07/07/2024 1:30 PM CDT Office Visit [facility] for [facility] Clinic [address] [phone] Jen Rush MD [address] [place] [address] 331685 11/24/2024 10:[address] [facility] [address] [place] [phone] 12/03/2024 10:30 AM CDT Office Visit [facility] Specialty Clinic [address] [phone] Refugio Schulz MD [address] [place] [address] documented as of this encounter Visit Diagnoses Not on filedocumented in this encounter Care Teams Rigging Foreman Relationship Specialty Start Date End Date Dorothea Barfield MD [facility] [address] [place] [address] PCP - General Internal Medicine 12/03/16 Jen Rush MD [address] [address] Pulmonary Disease 08/27/16 Cinthia Bravo MD [address] [address] Assigned Surgical Provider 01/15/20 02/13/20 Refugio Schulz MD [address] [place] [address] Assigned Rheumatology Provider 01/15/20 12/03/20 Jen Rush MD [address] [place] [address] Assigned Pulmonology Provider 01/15/20 12/17/20 Refugio Schulz MD [address] [place] [address] Assigned Rheumatology Provider 03/24/22 Jen Rush MD [address] [place] [address] Assigned Pulmonology Provider 06/09/22 documented as of this encounter
--- OUTSIDE RECORDS SUMMARY | 2024-02-17 12:34 | XMS_ITS | Encounter Summary ---
Author Organization [place] Address [address] [facility] [place] [address] Care Team Providers Care Supervisor Facepiece Line Name Role Phone Jen Rush MD Unavailable [phone] Dorothea Barfield MD Primary Care Provider Cinthia Bravo MD Unavailable [phone] Refugio Schulz MD Unavailable [phone] Jen Rush MD Unavailable [phone] Refugio Schulz MD Unavailable [phone] Jen Rush MD Unavailable [phone] Reason for Visit * Reason Onset Date Comments Patient Request 03/02/2019 Infusion Center needing last lab results from 01/10 Encounter Details Date Type Department Care Team (Late st Contact Info) Description 03/02/2019 Telephone [facility] [address] [address] Refugio Schulz MD [address] [place] [address] Patient Request (Infusion Center needing last [...] AM CDT 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 KELLEY Negron RN Rheumatology Clinic Nurse [facility] CULTURE ENGINEER * Telephone Encounter - Jordyn Hightower - 03/02/2019 11:58 AM CST [facility] Call Center Phone Message May a detailed message be left on voicemail: yes Reason for Call: Other: Infusion [facility] is requesting the last lab for pt from [facility] 2018. They are ging to need it for pt's infusion coming up. Please reach out to Laura or fax results to number on file. Thank you Action Taken: Message routed to: [facility] Rheum CULTURE ENGINEER documented in this encounter Plan of Treatment Upcoming Encounters Date Type Department Care Team (Late st Contact Info) Description 07/07/2024 12:00 PM CDT Office Visit [facility] Pulmonary Function Testing [address] 3rd [place] [address] Jen Rush MD [address] [place] [address] 07/07/2024 1:30 PM CDT Office Visit [facility] for [facility] [address] [address] Jen Rush MD [address] [place] [facility] 276 [place] [address] 11/24/2024 10:15 AM CDT Lab [facility] [address] [place] [address] 12/03/2024 10:30 AM CDT Office Visit [facility] [place] 6525 [facility] [address] [place] [phone] Refugio Schulz MD [address] [place] [address] 479165 documented as of this encounter Visit Diagnoses Not on filedocumented in this encounter Care Teams Supervisor Facepiece Line Relationship Specialty Start Date End Date Dorothea Barfield MD [facility] 1999 [place] [address] PCP - General Internal Medicine 12/03/16 Jen Rush MD [address] 918145 Pulmonary Disease 08/27/16 Cinthia Bravo MD [address] 419865 Assigned Surgical Provider 01/15/20 02/13/20 Refugio Schulz MD [address] 243905 Assigned Rheumatology Provider 01/15/20 12/03/20 Jen Rush MD [address] 828165 Assigned Pulmonology Provider 01/15/20 12/17/20 Refugio Schulz MD [address] [place] [address] 88 [place] [address] Assigned Rheumatology Provider 03/24/22 Jen Rush MD [address] [place] [address] 276 [place] [address] Assigned Pulmonology Provider 06/09/22 documented as of this encounter
--- OUTSIDE RECORDS SUMMARY | 2024-02-17 12:34 | XMS_ITS | Encounter Summary ---
Author Organization [place] Address [address] [place] [address]. [place] [address] Care Team Providers Care Studio Producer Name Role Phone Jen Rush MD Unavailable [phone] Dorothea Barfield MD Primary Care Provider [phone] Cinthia Bravo MD Unavailable [phone] Refugio Schulz MD Unavailable [phone] Jen Rush MD Unavailable [phone] Refugio Schulz MD Unavailable [phone] Jen Rush MD Unavailable [phone] Encounter Details Date Type Department Care Team (Late st Contact Info) Description 12/11/2016 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 Gender Identity Female 08/03/2018 6:39 PM CDT Sexual Orientation Straight 08/03/2018 6: 39 PM CDT documented as of this encounter Plan of Treatment Upcoming Encounters Date Type Department Care Team (Late st Contact Info) Description 07/07/2024 12:00 PM CDT [facility] Pul[facility] Function Testing [address] 3rd [place] [address] Jen Rush MD 420 [facility] 276 [place], [place] [address] 07/07/2024 1:30 PM CDT Office Visit [facility] [address] [phone] Jen Rush MD [address] [place] [address] 403565 11/24/2024 10:15 AM CDT Lab [facility] [address] [place] [address] 12/03/2024 10:30 AM CDT Office [facility] [address] 200 [place] [address] Refugio Schulz MD [address] [place] [address] 698625 documented as of this encounter Visit Diagnoses Not on filedocumented in this encounter Care Teams Studio Producer Relationship Specialty Start Date End Date Dorothea Barfield MD [facility] 1999 [place] [address] PCP - General Internal Medicine 12/03/16 Jen Rush MD [address] [place] [address] Pulmonary Disease 08/27/16 Cinthia Bravo MD 420 [facility] 396 [place] [address] Assigned Surgical Provider 01/15/20 02/13/20 Refugio Schulz MD [address] [place] [address] Assigned Rheumatology Provider 01/15/20 12/03/20 Jen Rush MD [address] [address] Assigned Pulmonology Provider 01/15/20 12/17/20 Refugio Schulz MD [address] [place] [address] Assigned Rheumatology Provider 03/24/22 Jen Rush MD [address] [place] [address] 641915 Assigned Pulmonology Provider 06/09/22 documented as of this encounter
--- OUTSIDE RECORDS SUMMARY | 2024-02-17 12:34 | XMS_ITS | Encounter Summary ---
Author Organization [place] Address [address] [facility] [place] [address] Care Team Providers Care Elementary Education Teacher Name Role Phone Jen Rush MD Unavailable [phone] Dorothea Barfield MD Primary Care Provider Cinthia Bravo MD Unavailable [phone] Refugio Schulz MD Unavailable Jen Rush MD Unavailable [phone] Refugio Schulz MD Unavailable [phone] Jen Rush MD Unavailable [phone] Encounter Details Date Type Department Care Team (Late st Contact Info) Description 03/11/2017 [facility] for [facility] Health Clinic [address] [address] Jen Rush MD 420 [facility] 276 [place] [address] Social History Tobacco Use Types Packs/Day Years Used Date Smoking Tobacco: Former Cigarettes Smokeless Tobacco: Never Comments: very little Comments Unknown Sex and Gender Information Value Date Recorded Sex Assigned at Female 08/08/2018 9:48 AM CDT 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 Clinic [address] [phone] Jen Rush MD [address] [place] [address] 050465 11/24/2024 10:15 AM CDT Lab [facility] [address] [place] [address] 12/03/2024 10:30 AM CDT Office Visit [facility] Clinic [address] [phone] Refugio Schulz MD [address] [place] [address] 428405 documented as of this encounter Visit Diagnoses Not on filedocumented in this encounter Care Teams Elementary Education Teacher Relationship Specialty Start Date End Date Dorothea Barfield MD [facility] 1999 [place] [address] PCP - General Internal Medicine 12/03/16 Jen Rush MD 420 [facility] 276 [place], [place] 8[address] Pulmonary Disease 08/27/16 Cinthia Bravo MD [address] [place] [address] 818715 Assigned Surgical Provider 01/15/20 02/13/20 Refugio Schulz MD [address] [place] [address] 178745 Assigned Rheumatology Provider 01/15/20 12/03/20 Jen Rush MD [address] [place] [address] 332835 Assigned Pulmonology Provider 01/15/20 12/17/20 Refugio Schulz MD [address] [place] [address] 802485 Assigned Rheumatology Provider 03/24/22 Jen Rush MD [address] [place] [address] 725505 Assigned Pulmonology Provider 06/09/22 documented as of this encounter
--- OUTSIDE RECORDS SUMMARY | 2024-02-17 12:34 | XMS_ITS | Encounter Summary ---
Author Organization [place] Address [address] [facility] [place] [address] Care Team Providers Care Honey Processor Name Role Phone Jne Rush MD Unavailable [phone] Dorothea Barfield MD Primary Care Provider Cinthia Bravo MD Unavailable [phone] Refugio Schulz MD Unavailable [phone] Jen Rush MD Unavailable [phone] Refugio Schulz MD Unavailable [phone] Jen Rush MD Unavailable [phone] Encounter Details Date Type Department Care Team (Late st Contact Info) Description 05/09/2018 [facility] [address] [address] Jen Rush MD 420 [facility] 276 [place] [address] Social History Tobacco Use Types [...] AM CDT 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 Gender Identity Female 08/03/2018 6:39 PM CDT Sexual Orientation Straight 08/03/2018 6: 39 PM CDT documented as of this encounter Plan of Treatment Upcoming Encounters Date Type Department Care Team (Late st Contact Info) Description 07/07/2024 12:00 PM CDT Office Visit [facility] Pulmonary Function Testing [address] 3rd [place] [address] Jen Rush MD [address] 9488[address] 07/07/2024 1:30 PM CDT Office Visit [facility] for [facility] Health Clinic [address] [phone] Jen Rush MD [address] [place] [address] 11/24/2024 10:15 AM CDT Lab [facility] [address] [place] [phone] 12/03/2024 10:30 AM CDT Office Visit [facility] Specialty Clinic [address] [phone] Refugio Schulz MD [address] [place] [address] documented as of this encounter Visit Diagnoses Not on filedocumented in this encounter Care Teams Honey Processor Relationship Specialty Start Date End Date Dorothea Barfield MD [facility] [address] [place] [address] PCP - General Internal Medicine 12/03/16 Jen Rush MD [address] [place] 276 [place] [address] Pulmonary Disease 08/27/16 Cinthia Bravo MD [address] [place] [facility] 396 [place] [address] Assigned Surgical Provider 01/15/20 02/13/20 Refugio Schulz MD 515 [facility] 88 [place], [place] 664065 Assigned Rheumatology Provider 01/15/20 12/03/20 Jen Rush MD 420 [facility] 276 [place], [place] 567965 Assigned Pulmonology Provider 01/15/20 12/17/20 Refugio Schulz MD 515 [facility] 88 [place], [place] 262335 Assigned Rheumatology Provider 03/24/22 Jen Rush MD 420 [facility] 276 [place], [place] 886705 Assigned Pulmonology Provider 06/09/22 documented as of this encounter
--- OUTSIDE RECORDS SUMMARY | 2024-02-17 12:34 | XMS_ITS | Encounter Summary ---
Author Organization [place] Address [address] [facility] [place] [address] Care Team Providers Care State Attorney Name Role Phone Jen Rush MD Unavailable [phone] Dorothea Barfield MD Primary Care Provider Cinthia Bravo MD Unavailable [phone] Refugio Schulz MD Unavailable [phone] Jen Rush MD Unavailable [phone] Refugio Schulz MD Unavailable [phone] Jen Rush MD Unavailable [phone] Encounter Details Date Type Department Care Team (Late st Contact Info) Description 06/04/2019 [facility] [address] [address] Jen Rush MD 420 [facility] 276 [place] [address] Social History Tobacco Use Types [...] AM CDT Legal Sex Female 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 Gender Identity Female 08/03/2018 6:39 PM CDT Sexual Orientation Straight 08/03/2018 6: 39 PM CDT documented as of this encounter Plan of Treatment Upcoming Encounters Date Type Department Care Team (Late st Contact Info) Description 07/07/2024 12:00 PM CDT Office Visit [facility] Pulmonary Function Testing [address] 3rd [place] [address] Jen Rush MD [address] 173635 07/07/2024 1:30 PM CDT Office Visit [facility] Clinic [address] [phone] Jen Rush MD [address] [place] [address] 11/24/2024 10:15 AM CDT Lab [facility] Laboratory [address] [place] [address] 12/03/2024 10:30 AM CDT Office Visit [facility] Specialty Clinic [address] [phone] Refugio Schulz MD [address] [place] [address] documented as of this encounter Visit Diagnoses Not on filedocumented in this encounter Care Teams State Attorney Relationship Specialty Start Date End Date Dorothea Barfield MD [facility] [address] [place] [address] PCP - General Internal Medicine 9/11/17 Jen Rush MD [address] [place] [address] [facility] 276 [place] [address] Pulmonary Disease 08/27/16 Cinthia Bravo MD [address] [place] [address] [facility] 396 [place], [place] [address] Assigned Surgical Provider 01/15/20 02/13/20 Refugio Schulz MD [address] 315105 Assigned Rheumatology Provider 01/15/20 12/03/20 Jen Rush MD [address] [place] [address] [facility] 276 [place], [place] 6[address] Assigned Pulmonology Provider 01/15/20 12/17/20 Refugoi Schulz MD [address] 103985 Assigned Rheumatology Provider 03/24/22 Jen Rush MD [address] [place] [facility] 276 [place], [place] 121565 Assigned Pulmonology Provider 06/09/22 documented as of this encounter
--- OUTSIDE RECORDS SUMMARY | 2024-02-17 12:34 | XMS_ITS | Encounter Summary ---
Author Organization [place] Address [address] [facility] [place] [address] Care Team Providers Care Education Trainer Name Role Phone Jen Rush MD Unavailable [phone] Dorothea Barfield MD Primary Care Provider Cinthia Bravo MD Unavailable [phone] Refugio Schulz MD Unavailable [phone] Jen Rush MD Unavailable [phone] Refugio Schulz MD Unavailable [phone] Jen Rush MD Unavailable [phone] Encounter Details Date Type Department Care Team (Late st Contact Info) Description 12/26/[address] 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 Gender Identity Female 08/03/2018 6:39 PM CDT Sexual Orientation Straight 08/03/2018 6: 39 PM CDT documented as of this encounter Plan of Treatment Upcoming Encounters Date Type Department Care Team (Late st Contact Info) Description 07/07/2024 12:00 PM CDT Office Visit [facility] Pulmonary Function Testing [address] 3rd [place] [phone] Jen Rush MD [address] 515085 07/07/2024 1:30 PM CDT Office Visit [facility] Clinic [address] [phone] Jen Rush MD [address] [place] [address] 722425 11/24/2024 10:15 AM CDT Lab [facility] Laboratory [address] [place] [phone] 12/03/2024 10:30 AM CDT Office Visit [facility] Specialty Clinic [address] [phone] Refugio Schulz MD [address] [place] [address] documented as of this encounter Visit Diagnoses Not on filedocumented in this encounter Care Teams Education Trainer Relationship Specialty Start Date End Date Dorothea Barfield MD [facility] [address] [place] [address] PCP - General Internal Medicine 12/03/16 Jen Rush MD [address] [address] Pulmonary Disease 08/27/16 Cinthia Bravo MD [address] [address] Assigned Surgical Provider 01/15/20 02/13/20 Refugio Schulz MD [address] [place] [address] Assigned Rheumatology Provider 01/15/20 12/03/20 Jen Rush MD [address] [place] [address] Assigned Pulmonology Provider 01/15/20 12/17/20 Refugio Schulz MD [address] [place] [address] Assigned Rheumatology Provider 03/24/22 Jen Rush MD [address] [place] [address] Assigned Pulmonology Provider 06/09/22 documented as of this encounter
--- OUTSIDE RECORDS SUMMARY | 2024-02-17 12:34 | XMS_ITS | Encounter Summary ---
Author Organization [place] Address [address] [facility] [place] [place] [address] Care Team Providers Care Pitch Gatherer Name Role Phone Jen Rush MD Unavailable [phone] Dorothea Barfield MD Primary Care Provider Cinthia Bravo MD Unavailable [phone] Refugio Schulz MD Unavailable Jen Rush MD Unavailable [phone] Refugio Schulz MD Unavailable [phone] Jen Rush MD Unavailable [phone] Encounter Details Date Type Department Care Team (Late st Contact Info) Description 06/18/2017 [facility] [place] [facility] [address] [address] Jen Rush MD 420 [facility] 276 [place] [address] Social History Tobacco Use Types Packs/Day Years Used Date Smoking Tobacco: Former Cigarettes Smokeless Tobacco: Never Comments: very little Alcohol Use Standard Drinks/Week Comments No 0 (1 standard drink = 0.6 oz pur e alcohol) Comments Unknown Sex and Gender Information Value Date Recorded Sex Assigned at Female 08/08/2018 9:48 AM CDT 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 Female 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 CLIN 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 Gender Identity Female 08/03/2018 6:39 PM CDT Sexual Orientation Straight 08/03/2018 6: 39 PM CDT documented as of this encounter Plan of Treatment Upcoming Encounters Date Type Department Care Team (Late st Contact Info) Description 07/07/2024 12:00 PM CDT Office Visit [facility] Pulmonary Function Testing [address] 3rd [place] [phone] Jen Rush MD 420 [facility] 276 [place], [place] [address] 07/07/2024 1:30 PM CDT Office Visit [facility] [address] [phone] Jen Rush MD [address] [place] [address] 464225 11/24/2024 10:15 AM CDT Lab [facility] Laboratory [address] [place] [address] 12/03/2024 10:30 AM CDT Office Visit [facility] Specialty Clinic [address] [phone] Refugio Schulz MD [address] [place] [address] documented as of this encounter Visit Diagnoses Not on filedocumented in this encounter Care Teams Pitch Gatherer Relationship Specialty Start Date End Date Dorothea Barfield MD [facility] [address] [place] [address] PCP - General Internal Medicine 12/03/16 Jen Rush MD [address] [address] Pulmonary Disease 08/27/16 Cinthia Bravo MD [address] [address] Assigned Surgical Provider 01/15/20 02/13/20 Refugio Schulz MD [address] [place] [address] Assigned Rheumatology Provider 01/15/20 12/03/20 Jen Rush MD [address] [place] [address] Assigned Pulmonology Provider 01/15/20 12/17/20 Refugio Schulz MD [address] [place] [address] Assigned Rheumatology Provider 03/24/22 Jen Rush MD [address] [place] [address] Assigned Pulmonology Provider 06/09/22 documented as of this encounter
--- OUTSIDE RECORDS SUMMARY | 2024-02-17 12:34 | XMS_ITS | Encounter Summary ---
Author Organization [place] Address [facility] [place] [address] Care Team Providers Care Angledozer Operator Name Role Phone Jen Rush MD Unavailable [phone] Dorothea Barfield MD Primary Care Provider Cinthia Bravo MD Unavailable [phone] Refugio Schulz MD Unavailable [phone] Jen Rush MD Unavailable [phone] Refugio Schulz MD Unavailable [phone] Jen Rush MD Unavailable [phone] Encounter Details Date Type Department Care Team (Late st Contact Info) Description 01/15/2019 [facility] Nose [facility] [address] [facility] [address] 4th [place] [address] Cinthia Bravo MD 420 [facility] 396 [place] [address] Social History Tobacco Use Types [...] AM CDT 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 Gender Identity Female 08/03/2018 6:39 PM CDT Sexual Orientation Straight 08/03/2018 6: 39 PM CDT documented as of this encounter Plan of Treatment Upcoming Encounters Date Type Department Care Team (Late st Contact Info) Description 07/07/2024 12:00 PM CDT Office Visit [facility] Pulmonary Function Testing [address] 3rd [place] [address] Jen Rush MD [address] 550545 07/07/2024 1:30 PM CDT Office Visit [facility] for [facility] Health Clinic [address] [phone] Jen Rush MD [address] [place] [address] 11/24/2024 10:15 AM CDT Lab [facility] Laboratory [address] [place] [phone] 12/03/2024 10:30 AM CDT Office Visit [facility] Specialty Clinic [address] 200 [place] [address] Refugio Schulz MD [address] [place] [address] documented as of this encounter Visit Diagnoses Not on filedocumented in this encounter Care Teams Angledozer Operator Relationship Specialty Start Date End Date Dorothea Barfield MD [facility] [address] [place] [address] PCP - General Internal Medicine 12/03/16 Jen Rush MD [address] [facility] 276 [place], [place] [address] Pulmonary Disease 08/27/16 Cinthia Bravo MD [address] [facility] 396 [place], [place] 317115 Assigned Surgical Provider 01/15/20 02/13/20 Refugio Schulz MD 515 [facility] 88 [place], [place] 8719[address] Assigned Rheumatology Provider 01/15/20 12/03/20 Jen Rush MD 420 [facility] [address] [place], [place] [address] Assigned Pulmonology Provider 01/15/20 12/17/20 Refugio Schulz MD 515 [facility] 88 [place], [place] 676455 Assigned Rheumatology Provider 03/24/22 Jen Rush MD 420 [facility] 276 [place], [place] 303385 Assigned Pulmonology Provider 06/09/22 documented as of this encounter
--- OUTSIDE RECORDS SUMMARY | 2024-02-17 12:34 | XMS_ITS | Encounter Summary ---
Author Organization [place] Address [address] [facility] [place] [address] Care Team Providers Care Returned Materials Inspector Name Role Phone Jen Rush MD Unavailable [phone] Dorothea Barfield MD Primary Care Provider Cinthia Bravo MD Unavailable [phone] eRfugio Schulz MD Unavailable Jen Rush MD Unavailable [phone] Refugio Schulz MD Unavailable [phone] Jen Rush MD Unavailable [phone] Encounter Details Date Type Department Care Team (Late st Contact Info) Description 03/11/2017 [facility] [address] [address] Jen Rush MD 420 [facility] [address] [place] [address] Social History Tobacco Use Types Packs/Day Years Used Date Smoking Tobacco: Former Cigarettes Smokeless Tobacco: Never Comments: very little Comments Unknown Sex and Gender Information Value Date Recorded Sex Assigned at Female 08/08/2018 9:48 AM CDT 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 Gender Identity Female 08/03/2018 6:39 PM CDT Sexual Orientation Straight 08/03/2018 6: 39 PM CDT documented as of this encounter Plan of Treatment Upcoming Encounters Date Type Department Care Team (Late st Contact Info) Description 07/07/2024 12:00 PM CDT Office Visit [facility] Pulmonary Function Testing [address] 3rd [place] [address] Jen Rush MD 420 [facility] 276 [place], [place] [address] 07/07/2024 1:30 PM CDT Office Visit [facility] Health Clinic [address] [phone] Jen Rush MD [address] [place] [address] 889445 11/24/2024 10:15 AM CDT Lab [facility] Laboratory [address] [place] [address] 12/03/2024 10:30 AM CDT Office Visit [facility] Specialty Clinic [address] [phone] Refugio Schulz MD [address] [place] [address] 598635 documented as of this encounter Visit Diagnoses Not on filedocumented in this encounter Care Teams Returned Materials Inspector Relationship Specialty Start Date End Date Dorothea Barfield MD [facility] [address] [place] [address] PCP - General Internal Medicine 12/03/16 Jen Rush MD 420 [facility] [address] [place], [place] 798824[address] Pulmonary Disease 08/27/16 Cinthia Bravo MD [address] [place] [address] 953505 Assigned Surgical Provider 01/15/20 02/13/20 Refugio Schulz MD [address] [place] [address] 615575 Assigned Rheumatology Provider 01/15/20 12/03/20 Jen Rush MD [address] [place] [address] 097265 Assigned Pulmonology Provider 01/15/20 12/17/20 Refugio Schulz MD [address] [place] [address] 013245 Assigned Rheumatology Provider 03/24/22 Jen Rush MD [address] [place] [address] 865525 Assigned Pulmonology Provider 06/09/22 documented as of this encounter
--- OUTSIDE RECORDS SUMMARY | 2024-02-17 12:34 | XMS_ITS | Encounter Summary ---
Author Organization [place] Address [address] [facility] [place] [address] Care Team Providers Care Loading Inspector Name Role Phone Jen Rush MD Unavailable [phone] Dorothea Barfield MD Primary Care Provider [phone] Cinthia Bravo MD Unavailable [phone] Refugio Schulz MD Unavailable Jen Rush MD Unavailable [phone] Refugio Schulz MD Unavailable [phone] Jen Rush MD Unavailable [phone] Encounter Details Date Type Department Care Team (Late st Contact Info) Description 02/16/2018 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 Gender Identity Female 08/03/2018 6:39 PM CDT Sexual Orientation Straight 08/03/2018 6: 39 PM CDT documented as of this encounter Plan of Treatment Upcoming Encounters Date Type Department Care Team (Late st Contact Info) Description 07/07/2024 12:00 PM CDT Office Visit [facility] Pulmonary Function Testing [address] 3rd [place] [phone] Jen Rush MD [address] 607[address] 07/07/2024 1:30 PM CDT Office Visit [facility] for [facility] Health Clinic [address] [phone] Jen Rush MD [address] [place] [address] 829055 11/24/2024 10:15 AM CDT Lab [facility] Laboratory [address] [place] [phone] 12/03/2024 10:30 AM CDT Office Visit [facility] Specialty Clinic [address] [phone] Refugio Schulz MD [address] [place] [address] 632465 documented as of this encounter Visit Diagnoses Not on filedocumented in this encounter Care Teams Loading Inspector Relationship Specialty Start Date End Date Dorothea Barfield MD [facility] [address] [place] [address] PCP - General Internal Medicine 12/03/16 Jen Rush MD [address] [place] [address] Pulmonary Disease 08/27/16 Cinthia Bravo MD [address] [place] [address] Assigned Surgical Provider 01/15/20 02/13/20 Refugio Schulz MD [address] [place] [address] Assigned Rheumatology Provider 01/15/20 12/03/20 Jen Rush MD [address] [place] [address] Assigned Pulmonology Provider 01/15/20 12/17/20 Refugio Schulz MD [address] [place] [address] Assigned Rheumatology Provider 03/24/22 Jen Rush MD [address] [place] [address] Assigned Pulmonology Provider 06/09/22 documented as of this encounter
--- OUTSIDE RECORDS SUMMARY | 2024-02-17 12:34 | XMS_ITS | Encounter Summary ---
Author Organization [place] Address [address] [facility] [place] [address] Care Team Providers Care Harness Cleaner Name Role Phone Jen Rush MD Unavailable [phone] Dorothea Barfield MD Primary Care Provider Cinthia Bravo MD Unavailable [phone] Refugio Schulz MD Unavailable [phone] Jen Rush MD Unavailable [phone] Refugio Schulz MD Unavailable [phone] Jen Rush MD Unavailable [phone] Encounter Details Date Type Department Care Team (Late st Contact Info) Description 08/15/2017 [facility] [address] [address] Kye Raymond MD [facility] [address] [place] [address] Social History Tobacco Use Types Packs/Day Years Used Date Smoking Tobacco: Former Cigarettes Smokeless Tobacco: Never Comments: very little Alcohol Use Standard Drinks/Week Comments No 0 (1 standard drink = 0.6 oz pur e alcohol) Comments No Sex and Gender Information Value Date Recorded Sex Assigned at Female 08/08/2018 9:48 AM CDT 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 Gender Identity Female 08/03/2018 6:39 PM CDT Sexual Orientation Straight 08/03/2018 6: 39 PM CDT documented as of this encounter Plan of Treatment Upcoming Encounters Date Type Department Care Team (Late st Contact Info) Description 07/07/2024 12:00 PM CDT Office Visit [facility] Pulmonary Function Testing [address] 3rd [place] [phone] Jen Rush MD [address] 445435 07/07/2024 1:30 PM CDT Office Visit [facility] for [facility] Science [facility] Health Clinic [address] [phone] Jen Rush MD [address] [place] [address] 706375 11/24/2024 10:15 AM CDT Lab [facility] Laboratory [address] [place] [phone] 12/03/2024 10:30 AM CDT Office Visit [facility] Specialty Clinic [address] [phone] Refugio Schulz MD [address] [place] [address] documented as of this encounter Visit Diagnoses Not on filedocumented in this encounter Care Teams Harness Cleaner Relationship Specialty Start Date End Date Dorothea Barfield MD [facility] 1999 [place] [address] PCP - General Internal Medicine 12/03/16 Jen Rush MD [address] [address] Pulmonary Disease 08/27/16 Cinthia Bravo MD [address] [address] Assigned Surgical Provider 01/15/20 02/13/20 Refugio Schulz MD [address] [place] [address] Assigned Rheumatology Provider 01/15/20 12/03/20 Jen Rush MD [address] [place] [address] Assigned Pulmonology Provider 01/15/20 12/17/20 Refugio Schulz MD [address] [place] [address] Assigned Rheumatology Provider 03/24/22 Jen Rush MD [address] [place] [address] Assigned Pulmonology Provider 06/09/22 documented as of this encounter
--- OUTSIDE RECORDS SUMMARY | 2024-02-17 12:34 | XMS_ITS | Encounter Summary ---
Author Organization [place] Address [facility] [place] [address] Care Team Providers Care Clinical Data Analyst Name Role Phone Jen Rush MD Unavailable [phone] Dorothea Barfield MD Primary Care Provider Cinthia Bravo MD Unavailable [phone] Refugio Schulz MD Unavailable Jen Rush MD Unavailable [phone] Refugio Schulz MD Unavailable [phone] Jen Rush MD Unavailable [phone] Encounter Details Date Type Department Care Team (Late st Contact Info) Description 08/21/2018 [facility] Medical Advice [facility] - Medical Specialties Service Line [address] [place] [address] Jen Rush MD 420 [facility] 276 [place] [address] Social History Tobacco Use Types [...] AM CDT Legal Sex Female 3:15 AM BABCOCK TESTER Gender Identity Female 08/03/2018 6:39 PM CDT Sexual Orientation Straight 08/03/2018 6: 39 PM CDT documented as of this encounter Plan of Treatment Upcoming Encounters Date Type Department Care Team (Late st Contact Info) Description 07/07/2024 12:00 PM CDT Office Visit [facility] Pulmonary Function Testing [address] 3rd [place] [address] Jen Rush MD [address] [address]57875 07/07/2024 1:30 PM CDT Office Visit [facility] for Lung Science and Health Clinic [address] [phone] Jen Rush MD [address] [place] [address] 11/24/2024 10:15 AM CDT Lab [facility] Laboratory [address] [place] [phone] 12/03/2024 10:30 AM CDT Office Visit [facility] Specialty Clinic [address] 200 [place] [address] Refugio Schulz MD [address] [place] [address] documented as of this encounter Visit Diagnoses Not on filedocumented in this encounter Care Teams Clinical Data Analyst Relationship Specialty Start Date End Date Dorothea Barfield MD [facility] [address] [place] [address] PCP - General Internal Medicine 12/03/16 Jen Rush MD [address] [place] [address] [facility] 276 [place] [address] Pulmonary Disease 08/27/16 Cinthia Bravo MD 420 [facility] 396 [place], [place] [address] Assigned Surgical Provider 01/15/20 02/13/20 Refugio Schulz MD 515 [facility] 88 [place], [place] [address] Assigned Rheumatology Provider 01/15/20 12/03/20 Jen Rush MD 420 [facility] 276 [place], [place] [address] Assigned Pulmonology Provider 01/15/20 12/17/20 Refugio Schulz MD [address] 717475 Assigned Rheumatology Provider 03/24/22 Jen Rush MD 420 [facility] [address] [place] [address] Assigned Pulmonology Provider 06/09/22 documented as of this encounter
--- OUTSIDE RECORDS SUMMARY | 2024-02-17 12:34 | XMS_ITS | Encounter Summary ---
Author Organization [place] Address [address] [facility] [place] [address] Care Team Providers Care Dropper Tank Storage Name Role Phone Jen Rush MD Unavailable [phone] Dorothea Barfield MD Primary Care Provider Cinthia Bravo MD Unavailable [phone] Refugio Schulz MD Unavailable [phone] Jen Rush MD Unavailable [phone] Refugio Schulz MD Unavailable [phone] Jen Rush MD Unavailable [phone] Encounter Details Date Type Department Care Team (Late st Contact Info) Description 12/10/2017 [facility] [address] [address] Jen Rush MD 420 [facility] 276 [place] [address] Social History Tobacco Use Types Packs/Day Years Used Date Smoking Tobacco: Former Cigarettes Smokeless Tobacco: Never Comments: very little Alcohol Use Standard Drinks/Week Comments No 0 (1 standard drink = 0.6 oz pur e alcohol) Comments No Sex and Gender Information Value Date Recorded Sex Assigned at Female 08/08/2018 9:48 AM CDT Legal Sex Female 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 AM 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 Gender Identity Female 08/03/2018 6:39 PM CDT Sexual Orientation Straight 08/03/2018 6: 39 PM CDT documented as of this encounter Plan of Treatment Upcoming Encounters Date Type Department Care Team (Late st Contact Info) Description 07/07/2024 12:00 PM CDT Office Visit [facility] Pulmonary Function Testing [address] 3rd [place] [phone] Jen Rush MD 420 [facility] 276 [place], [place] [address] 07/07/2024 1:30 PM CDT Office Visit [facility] [address] [phone] Jen Rush MD [address] [place] [address] 484915 11/24/2024 10:15 AM CDT Lab [facility] [address] [place] [phone] 12/03/2024 10:30 AM CDT Office Visit [facility] Specialty Clinic [address] [phone] Refugio Schulz MD [address] [place] [address] documented as of this encounter Visit Diagnoses Not on filedocumented in this encounter Care Teams Dropper Tank Storage Relationship Specialty Start Date End Date Dorothea Barfield MD [facility] [address] [place] [address] PCP - General Internal Medicine 12/03/16 Jen Rush MD [address] [address] Pulmonary Disease 08/27/16 Cinthia Bravo MD [address] [address] Assigned Surgical Provider 01/15/20 02/13/20 Refugio Schulz MD [address] [place] [address] Assigned Rheumatology Provider 01/15/20 12/03/20 Jen Rush MD [address] [place] [address] Assigned Pulmonology Provider 01/15/20 12/17/20 Refugio Schulz MD [address] [place] [address] Assigned Rheumatology Provider 03/24/22 Jen Rush MD [address] [place] [address] Assigned Pulmonology Provider 06/09/22 documented as of this encounter
--- OUTSIDE RECORDS SUMMARY | 2024-02-17 12:34 | XMS_ITS | Encounter Summary ---
Author Organization [place] Address [address] [place] [address] Care Team Providers Care Fire Safety Manager Name Role Phone Jen Rush MD Unavailable [phone] Dorothea Barfield MD Primary Care Provider Cinthia Bravo MD Unavailable [phone] Refugio Schulz MD Unavailable [phone] Jen Rush MD Unavailable [phone] Refugio Schulz MD Unavailable [phone] Jen Rush MD Unavailable [phone] Encounter Details Date Type Department Care Team (Late st Contact Info) Description 07/15/2017 [facility] [address] [address] Jen Rush MD 420 [facility] 276 [place] [address] Social History Tobacco Use Types Packs/Day Years Used Date Smoking Tobacco: Former Cigarettes Smokeless Tobacco: Never Comments: very little Alcohol Use Standard Drinks/Week Comments No 0 (1 standard drink = 0.6 oz pur e alcohol) Comments Unknown Sex and Gender Information Value Date Recorded Sex Assigned at Female 08/08/2018 9:48 AM CDT Legal Sex Female 3:15 AM UNDERLAY STITCHER Gender Identity Female 08/03/2018 6:39 PM CDT Sexual Orientation Straight 08/03/2018 6: 39 PM CDT documented as of this encounter Plan of Treatment Upcoming Encounters Date Type Department Care Team (Late st Contact Info) Description 07/07/2024 12:00 PM CDT Office Visit [facility] Pulmonary Function Testing [address] 3rd [place] [phone] Jen Rush MD 420 [facility] 276 [place], [place] 3[address] 07/07/2024 1:30 PM CDT Office Visit [facility] for [facility] Clinic [address] [phone] Jen Rush MD [address] [place] [address] 922915 11/24/2024 10:15 AM CDT Lab [facility] [address] [place] [phone] 12/03/2024 10:30 AM CDT Office Visit [facility] Specialty Clinic [address] [phone] Refugio Schulz MD [address] [place] [address] documented as of this encounter Visit Diagnoses Not on filedocumented in this encounter Care Teams Fire Safety Manager Relationship Specialty Start Date End Date Dorothea Barfield MD [facility] 1999 [place] [address] PCP - General Internal Medicine 12/03/16 Jen Rush MD [address] [address] Pulmonary Disease 08/27/16 Cinthia Bravo MD [address] [address] Assigned Surgical Provider 01/15/20 02/13/20 Refugio Schulz MD [address] [place] [address] Assigned Rheumatology Provider 01/15/20 12/03/20 Jen Rush MD [address] [place] [address] Assigned Pulmonology Provider 01/15/20 12/17/20 Refugio Schulz MD [address] [place] [address] Assigned Rheumatology Provider 03/24/22 Jen Rush MD [address] [place] [address] Assigned Pulmonology Provider 06/09/22 documented as of this encounter
== END 2024-02-17 13:34 | disposition home or self-care (01) ==
PROVIDERS: Emergency Provider Family Medicine; PCP Internal Medicine
DX: K80.20 Calculus of gallbladder without cholecystitis without obstruction (principal)
CPT/HCPCS: 36415; 76705; 80048; 80076; 83690; 85025; 86140; 99284

== ENCOUNTER 2024-04-02 09:28 | Day surgery (SDC) | payer MEDICARE, SELFPAY ==
[2024-04-02] VITALS (14 sets, daily range): BP systolic 102–138; BP diastolic 59–83; PULSE 48–61; RESP 14–16; TEMP 35.7–36.4; O2SAT 95–99; BMI 25.4
--- OUTSIDE RECORDS SUMMARY | 2024-04-02 09:33 | XMS_ITS | Encounter Summary ---
Author Organization [place] Address [address] [facility] [place] [address] Care Team Providers Care Vector Control Assistant Name Role Phone Jen Rush MD Unavailable [phone] Dorothea Barfield MD Primary Care Provider Refugio Schulz MD Unavailable [phone] Jen Rush MD Unavailable [phone] Encounter Details Date Type Department Care Team (Late st Contact Info) Description 06/20/2023 [facility] Clinic [address] [address] Carlee Bates, RN Social History [...] AM CDT Legal Sex Female 3:15 AM SEO COORDINATOR Gender Identity Female 08/03/2018 6:39 PM CDT Sexual Orientation Straight 08/03/2018 6: 39 PM CDT documented as of this encounter Plan of Treatment Upcoming Encounters Date Type Department Care Team (Late st Contact Info) Description 07/07/2024 12:00 PM CDT Office Visit [facility] Pulmonary Function Testing [place] [address] [place] [address] 3rd [place] [phone] Jen Rush MD [address] 638185 07/07/2024 1:30 PM CDT Office Visit [facility] for [facility] Clinic [address] [phone] Jen Rush MD [address] [phone] 11/24/2024 10:15 AM CDT Lab [facility] [address] [place] [address] 12/03/2024 10:30 AM CDT Office Visit [facility] Specialty Clinic [address] [phone] Refugio Schulz MD [address] [place] [address]25 documented as of this encounter Visit Diagnoses Not on filedocumented in this encounter Care Teams Vector Control Assistant Relationship Specialty Start Date End Date Dorothea Barfield MD [facility] [address] [place] [address] PCP - General Internal Medicine 12/03/16 Jen Rush MD [address] 679515 Pulmonary Disease 08/27/16 Refugio Schulz MD [address] [facility] 88 [place] [address] Assigned Rheumatology Provider 03/24/22 Jen Rush MD 420 [facility] 276 [place], [place] 5[address]45 Assigned Pulmonology Provider 06/09/22 documented as of this encounter
--- OUTSIDE RECORDS SUMMARY | 2024-04-02 09:33 | XMS_ITS | Encounter Summary ---
Author Organization [place] Address [address] [place] [address] Care Team Providers Care Staff Reporter Name Role Phone Jen Rush MD Unavailable [phone] Dorothea Barfield MD Primary Care Provider Refugio Schulz MD Unavailable Jen Rush MD Unavailable [phone] Encounter Details Date Type Department Care Team (Late st Contact Info) Description 04/05/2023 [facility] [place] [address] [place] [address] Jen Rush MD [address] [facility] 276 [place] [address] Social History Tobacco Use Types [...] AM CDT Legal Sex Female 3:15 AM 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 Gender Identity Female 08/03/2018 6:39 PM CDT Sexual Orientation Straight 08/03/2018 6: 39 PM CDT documented as of this encounter Plan of Treatment Upcoming Encounters Date Type Department Care Team (Late st Contact Info) Description 07/07/2024 12:00 PM CDT Office Visit [facility] Pulmonary Function Testing [address] 3rd [place] [phone] Jen Rush MD [address] [address] 07/07/2024 1:30 PM CDT Office Visit [facility] for [facility] Clinic [address] [phone] Jen Rush MD [address] [place] [address] 217575 11/24/2024 10:15 AM CDT Lab [facility] Laboratory [address] [place] [phone] 12/03/2024 10:30 AM CDT Office Visit [facility] Specialty Clinic [address] [phone] Rfeugio Schulz MD [address] [place] [address] 262785 documented as of this encounter Visit Diagnoses Not on filedocumented in this encounter Care Teams Staff Reporter Relationship Specialty Start Date End Date Dorothea Barfield MD [facility] [address] [place] [address] PCP - General Internal Medicine 12/03/16 Jen Rush MD [address] 392725 Pulmonary Disease 08/27/16 Refugio Schulz MD [address] [place] [address] 88 [place], [place] 661725 Assigned Rheumatology Provider 03/24/22 Jen Rush MD [address] [place] [address] 276 [place], [place] 149185 Assigned Pulmonology Provider 06/09/22 documented as of this encounter
--- OUTSIDE RECORDS SUMMARY | 2024-04-02 09:33 | XMS_ITS | Continuity of Care Document ---
Author Name NwRONN User ArchieleMN-a llowed Address Unknown Organization Unknown Address Unknown Procedures FILTER APPLIED:Only known Procedures with Onset Date within the last 5 years Procedure Date Procedure Provider Additiona l Information Status ASSAY IGA/IGD/IGG/IGM EACH (43240) Completed ROUTINE VENIPUNCTURE (36078) Completed OFFICE O/P EST SF 10 MIN (82286) Completed COMPLETE CBC W/AUTO DIFF WBC (64479) Completed OFFICE O/P EST MOD 30 MIN (10667) Completed CHEMO IV INFUSION 1 HR (28801) Completed CHEMO IV INFUSION ADDL HR (23768) Completed FLOWCYTOMETRY/ TC 1 MARKER (45635) Completed FLOWCYTOMETRY/TC ADD-ON (18493) Completed TX/PRO/DX INJ SAME DRUG LINE CONSTRUCTION SUPERVISOR (49566) Completed ASSAY THYROID STIM HORMONE (55698) Completed ASSAY GLUCOSE BLOOD QUANT (11508) Completed LIPID PANEL (88404) Comp leted VITAMIN D 25 HYDROXY (84372) Completed ANESTH LENS SURGERY (79319) Completed XCAPSL CTRC RMVL INSJ IO LENS PROSTH W/O ECP (83133) Completed ANES PT EXTEME AGE<1 YR >70 (02171) Completed Encounters FILTER APPLIED:Only known Encounters with Admission Date within the last 5 years Encounter Location Admission Discharge Billing Code Overhead Worker Landry telles Outpatient Gabriela Henderson Outpatient Carleen Barfield Outpatient Shivani Ramirez Outpatient [facility] Outpatient [facility] Outpatient [facility] Out[facility] Outpatient [facility] Outpatient [facility] Outpatient [facility] Outpatient [facility]
--- OUTSIDE RECORDS SUMMARY | 2024-04-02 09:33 | XMS_ITS | Encounter Summary ---
Author Organization [place] Address [address] [facility] [place] [address] Care Team Providers Care Agricultural Service Technician Name Role Phone Jen Rush MD Unavailable [phone] Dorothea Barfield MD Primary Care Provider Refugio Schulz MD Unavailable [phone] Jen Rush MD Unavailable [phone] Encounter Details Date Type Department Care Team (Late st Contact Info) Description 08/16/2023 [facility] [place] [address] [place] [address] Jen Rush MD [address] [facility] 276 [place] [address] Social History Tobacco Use Types [...] AM CDT Legal Sex Female 3:15 AM DIABETOLOGIST Gender Identity Female 08/03/2018 6:39 PM CDT Sexual Orientation Straight 08/03/2018 6: 39 PM CDT documented as of this encounter Plan of Treatment Upcoming Encounters Date Type Department Care Team (Late st Contact Info) Description 07/07/2024 12:00 PM CDT Office Visit [facility] Pulmonary Function Testing [address] 3rd [place] [phone] Jen Rush MD [address] [phone] 07/07/2024 1:30 PM CDT Office Visit [facility] for [facility] Health Clinic [address] [phone] Jen Rush MD [address] [place] [address]265 11/24/2024 10:15 AM CDT Lab [facility] Laboratory [address] [place] [phone] 12/03/2024 10:30 AM CDT Office Visit [facility] Specialty Clinic [address] [phone] Refugio Schulz MD [address] [place] [address] 633795 documented as of this encounter Visit Diagnoses Not on filedocumented in this encounter Care Teams Agricultural Service Technician Relationship Specialty Start Date End Date Dorothea Barfield MD [facility] [address] [place] [address] PCP - General Internal Medicine 12/03/16 Jen Rush MD [address] 202435 Pulmonary Disease 08/27/16 Refugio Schulz MD [address] [place] [address] 88 [place], [place] 888075 Assigned Rheumatology Provider 03/24/22 Jen Rush MD [address] [place] [address] 276 [place], [place] 042665 Assigned Pulmonology Provider 06/09/22 documented as of this encounter
--- OUTSIDE RECORDS SUMMARY | 2024-04-02 09:33 | XMS_ITS | Clinical Summary ---
Author Organization [place] Address [address] [place] [address] Care Team Providers Care Heat Treat Supervisor Name Role Phone Jen Rush MD Unavailable [phone] Dorothea Barfield MD Primary Care Provider Refugio Schulz MD Unavailable [phone] Jen Rush MD Unavailable [phone] Allergies Active Allergy Reactions Criticality Noted Date [...] Department Care Team Description 02/06/2024 11:00 AM MANAGER STAFFING Office Visit 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) 02/06/2024 Travel 02/02/2024 Travel from Last 3 Months Immunizations Name [...] AM CDT Legal Sex Female 3:15 AM MANAGER STAFFING Gender Identity Female 08/03/2018 6:39 PM CDT Sexual Orientation Straight 08/03/2018 6: 39 PM CDT Last Filed Vital Signs Vital Sign Reading Time Taken Comments Blood Pressure 107/70 02/06/2024 10:53 AM MANAGER STAFFING Pulse 68 02/06/2024 10:53 AM MANAGER STAFFING Temperature 36.7 C (98.1 F) 06/02/2019 11:30 AM CDT Respiratory Rate 16 07/04/2023 10:53 AM CDT Oxygen Saturation 94% 02/06/2024 10:53 AM MANAGER STAFFING Inhaled Oxygen Concentration - - Weight 68 kg (150 lb) 02/06/2024 10:53 AM MANAGER STAFFING sh oes Height 162.6 cm (5' 4) 02/06/2024 10:53 AM MANAGER STAFFING Body Mass Index 25.75 02/06/2024 10:53 AM MANAGER STAFFING Plan of Treatment Upcoming Encounters Date Type Department Care Team (Late st Contact Info) Description 07/07/2024 12:00 PM CDT Office Visit [facility] Pulmonary Function Testing [address] 3rd [place] [phone] Jen Rush MD [address] [place] [address] [phone] 07/07/2024 1:30 PM CDT Office Visit [facility] for [facility] Health Clinic [address] [phone] Jen Rush MD [address] [place] [address] 610045 11/24/2024 10:15 AM CDT Lab [facility] Laboratory [address] [place] [phone] 12/03/2024 10:30 AM CDT Office [facility] Clinic [address] 200 [place] [phone] Refugio Schulz MD [address] [place] [address] Health Maintenance Due Date Last Done Comments [...] 2024 11/27/2023, 04/23/2023, 07/31/2022, Additional history exists PHQ-2 (once per calendar year) 2024 07/04/2023, 05/29/2022, 06/02/2019, Additional history exists DTAP/TDAP/TD IMMUNIZATION (3 - Td or Tdap) 11/06/2026 11/06/2016, 11/06/2016 GLUCOSE 11/06/2026 11/07/2023, 04/0 05/2023, 11/19/2022, Additional history exists COLONOSCOPY 03/25/2027 03/25/2022 COLORECTAL CANCER SCREENING 03/25/2027 DEXA 01/09/2037 01/09/2022 Pneumococcal Vaccine: 50+ Years Completed 09/27/2017, 05/11/2016, 11/11/2015 ZOSTER IMMUNIZATION Completed 09/27/2017, 8 LUNG CANCER SCREENING Discontinued 07/26/2023 , 01/08/2020, 12/23/2018 INFLUENZA VACCINE Completed 11/27/2023, , 12/16/2021, Additional history exists HPV IMMUNIZATION Aged Out [...] BLOOD ORDERABLES Hilda rachel Result [facility] [place] [facility] [address] [facility], Room [address] [phone] * CT Chest Hi-Resolution wo Contrast (07/26/2023 [...] * Colonoscopy - HIM Scan (03/25/2022) Narrative Lashon Birdaisha - 03/25/2022 [facility] Progress Note us Patient Reported PROCEDURES Final Result * DEXA - HIM Scan (01/09/2022) Anatomical Region Laterality Modality Other Narrative 01/09/[address] [place] [address] Progress Note us Provider Outside IMG DEXA ORDERABLES Final Resul t from Last 3 Months or Most Recently Relevant to Health Maintenance Insurance MEDICARE [facility] MEDIC[facility] Care Teams Heat Treat Supervisor Relationship Specialty Start Date End Date Dorothea Barfield MD [facility] [address] [place] [address] PCP - General Internal Medicine 12/03/16 Jen Rush MD [address] [place] [address] 276 [place] [address] Pulmonary Disease 08/27/16 Refugio Schulz MD [address] [place] [address] 88 [place] [address] Assigned Rheumatology Provider 03/24/22 Jen Rush MD [address] [place] [address] 276 [place], [place] 595795 Assigned Pulmonology Provider 06/09/22
--- OUTSIDE RECORDS SUMMARY | 2024-04-02 09:33 | XMS_ITS | Encounter Summary ---
Author Organization [place] Address [facility] 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 Gender Identity Female 08/03/2018 6:39 PM CDT Sexual Orientation Straight 08/03/2018 6: 39 PM CDT documented as of this encounter Plan of Treatment Upcoming Encounters Date Type Department Care Team (Late st Contact Info) Description 07/07/2024 12:00 PM CDT Office Visit [facility] Pulmonary Function Testing [address] 3rd [place] [phone] Jen Rush MD [address] [facility] 276 [place], [place] [address] 07/07/2024 1:30 PM CDT Office Visit [facility] Clinic [address] [phone] Jen Rush MD [address] [place] [address] 990785 11/24/2024 10:15 AM CDT Lab [facility] Laboratory [address] [place] [address] 12/03/2024 10:30 AM CDT Office Visit [facility] Special[facility] Clinic [address] [phone] Refugio Schulz MD [address] [place] [address] documented as of this encounter Visit Diagnoses Not on filedocumented in this encounter Care Teams Pad Machine Feeder Relationship Specialty Start Date End Date Dorothea Barfield MD [facility] [address] [place] [address] PCP - General Internal Medicine 12/03/16 Jen Rush MD [address] [place] [address] Pulmonary Disease 08/27/16 Refugio Schulz MD [address] [place] [address] 88 [place] [address] Assigned Rheumatology Provider 03/24/22 Jen Rush MD [address] [place] [address] 276 [place], [place] [id number] Assigned Pulmonology Provider 06/09/22 documented as of this encounter
--- OUTSIDE RECORDS SUMMARY | 2024-04-02 09:33 | XMS_ITS | Referral Summary ---
Author Organization [place] Address [address] [facility] 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) 02/02/2024 Travel from Last 3 Months Allergies Active [...] AM CDT Legal Sex Female 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 Gender Identity Female 08/03/2018 6:39 PM CDT Sexual Orientation Straight 08/03/2018 6: 39 PM CDT Last Filed Vital Signs Vital Sign Reading Time Taken Comments Blood Pressure 107/70 02/06/2024 10:53 AM NAUMKEAG OPERATOR Pulse 68 02/06/2024 10:53 AM NAUMKEAG OPERATOR Temperature 36.7 C (98.1 F) 06/02/2019 11:30 AM CDT Respiratory Rate 16 07/04/2023 10:53 AM CDT Oxygen Saturation 94% 02/06/2024 10:53 AM NAUMKEAG OPERATOR Inhaled Oxygen Concentration - - Weight 68 kg (150 lb) 02/06/2024 10:53 AM NAUMKEAG OPERATOR sh oes Height 162.6 cm (5' 4) 02/06/2024 10:53 AM NAUMKEAG OPERATOR Body Mass Index 25.75 02/06/2024 10:53 AM NAUMKEAG OPERATOR Plan of Treatment Upcoming Encounters Date Type Department Care Team (Late st Contact Info) Description 07/07/2024 12:00 PM CDT Office Visit [facility] Pulmonary Function Testing [address] 3rd [place] [phone] Jen Rush MD [address] [place] [address] 210255 07/07/2024 1:30 PM CDT Office Visit [facility] [address] [phone] Jen Rush MD [address] [place] [address] 947765 11/24/2024 10:[address] [facility] Laboratory [address] [place] [phone] 12/03/2024 10:30 AM CDT Office Visit [facility] [place] [address] [place] [phone] Refugio Schulz MD [address] [place] [address] [phone] Procedures Procedure Name Priority Date/Time Associated Diagnosis [...] CDT [facility] Comment:eGFR calculated usin g 2020 CKD-EPI equation. Calcium 9.1 8.8 - [...] BLOOD ORDERABLES Hilda l Result [facility] [address] [facility], Room 3-580 [place] [address] * CT Chest Hi-Resolution wo Contrast (07/26/2023 11:15 AM CDT) Anatomical Region Laterality Modality Chest, SUBRAD CT BODY, UMP CT CHEST, RAD CT Computed Tomography Impressions 07/26/2023 2:36 PM CDT IMPRESSION: 1. Scattered bilateral pulmonary nodules similar to 2019 and therefore should be benign. 2. Mucous plugging and mild peribronchial infiltrates in the lung bases suggesting mild small airways type infectious process. NANYC VELIZ MD Narrative 07/26/2023 2:36 PM CDT [...] * Colonoscopy - HIM Scan (03/25/2022) Narrative Nestor Birdcheko - 03/25/2022 [facility] Progress Note us Patient Reported PROCEDURES Final Result * DEXA - HIM Scan (01/09/2022) Anatomical Region Laterality Modality Other Narrative 01/09/2022 [facility] Progress Note us Provider Outside IMG DEXA ORDERABLES Final Resul t from Last 3 Months or Most Recently Relevant to Health Maintenance Insurance MEDICARE [facility] [place] [address] [place] [id number] [facility] MEDICARE [facility] Member Subscriber Plan / Payer (Ef fective 2016-Present) Name:Dorothea Brunner Relation to Subscriber:Self Name:Dorothea Brunner Payer ID:[id number] Group ID:Not on file Type:Indemnity Address: [employer] CLAIM DIV [address] [place] [id number] Care Teams Assurance Senior Relationship Specialty Start Date End Date Dorothea Barfield MD [facility] & [address] [address] PCP - General Internal Medicine 12/03/16 Jen Rush MD 420 [facility] 276 [place], [place] 0[address] Pulmonary Disease 08/27/16 Refugio Schulz MD [address] [place] [address] 88 [place], [place] 307185 Assigned Rheumatology Provider 03/24/22 Jen Rush MD [address] [place] [address] Assigned Pulmonology Provider 06/09/22
--- OUTSIDE RECORDS SUMMARY | 2024-04-02 09:33 | XMS_ITS | Encounter Summary ---
Author Organization [place] Address [address] [facility] [place] [address] Care Team Providers Care Optometric Coordinator Name Role Phone Jen Rush MD Unavailable [phone] Dorothea Barfield MD Primary Care Provider Refugio Schulz MD Unavailable Jen Rush MD Unavailable [phone] Encounter Details Date Type Department Care Team (Late st Contact Info) Description 07/08/2023 [facility] for [facility] [place] [address] [place] [address] Jen Rush MD [address] [place] [address] [facility] 276 [place] [address] Social History Tobacco Use Types [...] AM CDT 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 Pulmonary Function Testing [address] 3rd [place] [phone] Jen Rush MD [address] [address] 07/07/2024 1:30 PM CDT Office Visit [facility] [address] [phone] Jen Rush MD [address] [place] [address] 977205 11/24/2024 10:15 AM CDT Lab [facility] Laboratory [address] [place] [phone] 12/03/2024 10:30 AM CDT Office [facility] Specialty Clinic [address] [phone] Refugio Schulz MD [address] [place] [address] 302665 documented as of this encounter Visit Diagnoses Not on filedocumented in this encounter Care Teams Optometric Coordinator Relationship Specialty Start Date End Date Dorothea Barfield MD [facility] [address] [place] [address] PCP - General Internal Medicine 12/03/16 Jen Rush MD [address] [phone] Pulmonary Disease 08/27/16 Refugio Schulz MD [address] [place] [address] 88 [place], [place] 582965 Assigned Rheumatology Provider 03/24/22 Jen Rush MD [address] [place] [address] 276 [place], [place] 103935 Assigned Pulmonology Provider 06/09/22 documented as of this encounter
--- OUTSIDE RECORDS SUMMARY | 2024-04-02 09:33 | XMS_ITS | Encounter Summary ---
Author Organization [place] Address [address] [facility] [place] [address] Care Team Providers Care Technical Instructor Course Developer Name Role Phone Jen Rush MD Unavailable [phone] Dorothea Barfield MD Primary Care Provider Refugio Schulz MD Unavailable [phone] Jen Rush MD Unavailable [phone] Encounter Details Date Type Department Care Team (Late st Contact Info) Description 07/10/[address] 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 for [facility] Health Clinic [address] [phone] Jen Rush MD [address] 004[address] 11/24/2024 10:15 AM CDT Lab [facility] Laboratory [address] [place] [phone] 12/03/2024 10:30 AM CDT Office Visit [facility] Specialty Clinic [address] [phone] Refugio Schulz MD [address] [place] [address] 349055 documented as of this encounter Visit Diagnoses Not on filedocumented in this encounter Care Teams Technical Instructor Course Developer Relationship Specialty Start Date End Date Dorothea Barfield MD [facility] [address] [place] [address] PCP - General Internal Medicine 12/03/16 Jen Rush MD [address] 929695 Pulmonary Disease 08/27/16 Refugio Schulz MD 515 [facility] 88 [place] [address] Assigned Rheumatology Provider 03/24/22 Jen Rush MD 420 [facility] 276 [place], [place] 543285 Assigned Pulmonology Provider 06/09/22 documented as of this encounter
--- OUTSIDE RECORDS SUMMARY | 2024-04-02 09:33 | XMS_ITS | Encounter Summary ---
Author Organization [place] Address [address] [place] [address] Care Team Providers Care Coal Picker Name Role Phone Jen Rush MD Unavailable [phone] Dorothea Barfield MD Primary Care Provider Refugio Schulz MD Unavailable [phone] Jen Rush MD Unavailable [phone] Encounter Details Date Type Department Care Team (Late st Contact Info) Description 07/16/2023 [facility] Health Clinic [place] [address] [place] [address] Jen Rush MD [address] [place] [address] [facility] 276 [place] [address] Social History Tobacco Use Types [...] AM CDT 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 Gender Identity Female 08/03/2018 6:39 PM CDT Sexual Orientation Straight 08/03/2018 6: 39 PM CDT documented as of this encounter Plan of Treatment Upcoming Encounters Date Type Department Care Team (Late st Contact Info) Description 07/07/2024 12:00 PM CDT Office Visit [facility] Pulmonary Function Testing [address] 3rd [place] [phone] Jen Rush MD [address] [address] 07/07/2024 1:30 PM CDT Office Visit [facility] for [facility] Health Clinic [address] [phone] Jen Rush MD [address] [place] [address] 896255 11/24/2024 10:[address] [facility] Laboratory [address] [place] [phone] 12/03/2024 10:30 AM CDT Office Visit [facility] Specialty Clinic [address] [phone] Refugio Schulz MD [address] [place] [address] 106435 documented as of this encounter Visit Diagnoses Not on filedocumented in this encounter Care Teams Coal Picker Relationship Specialty Start Date End Date Dorothea Barfield MD [facility] [address] [place] [address] PCP - General Internal Medicine 12/03/16 Jen Rush MD [address] 922665 Pulmonary Disease 08/27/16 Refugio Schulz MD [address] [place] [address] 88 [place], [place] 107265 Assigned Rheumatology Provider 03/24/22 Jen Rush MD [address] [place] [address] 276 [place], [place] 617705 Assigned Pulmonology Provider 06/09/22 documented as of this encounter
--- OUTSIDE RECORDS SUMMARY | 2024-04-02 09:33 | XMS_ITS | Encounter Summary ---
Author Organization [place] Address [address] [facility] [place] [address] Care Team Providers Care Social Work Therapist Name Role Phone Jen Rush MD Unavailable [phone] Dorothea Barfield MD Primary Care Provider [phone] Refugio Schulz MD Unavailable [phone] Jen Rush MD Unavailable [phone] Reason for Visit * Reason Onset Date Comments Orders 05/28/2023 Encounter Details Date Type Department Care Team (Late st Contact Info) Description 05/28/2023 Telephone [facility] for [facility] Clinic [address] [address] Jen Rush MD 420 [facility] 276 [place] [address] Orders Social History Tobacco Use [...] AM CDT 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 Rush Pt had to reschedule her original apt on 06/11/2023 to 11/12/2023. Please extend PFT orders. 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 documented in this encounter Plan of Treatment Upcoming Encounters Date Type Department Care Team (Late st Contact Info) Description 07/07/2024 12:00 PM CDT Office Visit [facility] Pulmonary Function Testing [address] 3rd [place] [phone] Jen Rush MD [address] [place] [address] 384055 07/07/2024 1:30 PM CDT Office Visit [facility] Clinic [address] [phone] Jen Rush MD [address] [place] [address] 11/24/2024 10:15 AM CDT Lab [facility] Laboratory [address] [place] [phone] 12/03/2024 10:30 AM CDT Office Visit [facility] Specialty Clinic [address] [phone] Refugio Schulz MD 515 [facility] 88 [place] [address] documented as of this encounter Visit Diagnoses Not on filedocumented in this encounter Care Teams Social Work Therapist Relationship Specialty Start Date End Date Dorothea Barfield MD [address] [address] PCP - General Internal Medicine 12/03/16 Jen Rush MD [address] [phone] Pulmonary Disease 08/27/16 Refugio Schulz MD 515 [facility] 88 [place], [place] 7[address]35 Assigned Rheumatology Provider 03/24/22 Jen Rush MD 420 [facility] 276 [place], [place] [address] Assigned Pulmonology Provider 06/09/22 documented as of this encounter
--- OUTSIDE RECORDS SUMMARY | 2024-04-02 09:33 | XMS_ITS | Encounter Summary ---
Author Organization [place] Address [address] [facility] [place] [address] Care Team Providers Care Environmental Services Attendant Name Role Phone Jen Rush MD Unavailable [phone] Dorothea Barfield MD Primary Care Provider [phone] Refugio Schulz MD Unavailable Jen Rush MD Unavailable [phone] Encounter Details Date Type Department Care Team (Late st Contact Info) Description 02/07/2023 [facility] Clinic [place] [address] [place] [address] Jen Rush MD [address] [place] [address] [facility] 276 [place] [address] Social History Tobacco Use Types [...] AM CDT 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 Gender Identity Female 08/03/2018 6:39 PM CDT Sexual Orientation Straight 08/03/2018 6: 39 PM CDT documented as of this encounter Plan of Treatment Upcoming Encounters Date Type Department Care Team (Late st Contact Info) Description 07/07/2024 12:00 PM CDT Office Visit [facility] Pulmonary Function Testing [address] 3rd [place] [phone] Jen Rush MD [address] [address] 07/07/2024 1:30 PM CDT Office Visit [facility] Health Clinic [address] [phone] Jen Rush MD [address] [place] [address]505 11/24/2024 10:15 AM CDT Lab [facility] [address] [place] [phone] 12/03/2024 10:30 AM CDT Office Visit [facility] Specialty Clinic [address] [phone] Refugio Schulz MD [address] [place] [address] 355905 documented as of this encounter Visit Diagnoses Not on filedocumented in this encounter Care Teams Environmental Services Attendant Relationship Specialty Start Date End Date Dorothea Barfield MD [facility] 1999 [place] [address] PCP - General Internal Medicine 12/03/16 Jen Rush MD [address] 948455 Pulmonary Disease 08/27/16 Refugio Schulz MD [address] [place] [address] 88 [place], [place] 7[address]95 Assigned Rheumatology Provider 03/24/22 Jen Rush MD [address] [place] [address] 276 [place], [place] 880385 Assigned Pulmonology Provider 06/09/22 documented as of this encounter
--- OUTSIDE RECORDS SUMMARY | 2024-04-02 09:33 | XMS_ITS | Encounter Summary ---
Author Organization [place] Address [address] [place] [address] Care Team Providers Care Stamp Classifier Name Role Phone Jen Rush MD Unavailable [phone] Dorothea Barfield MD Primary Care Provider Refugio Schulz MD Unavailable [phone] Jen Rush MD Unavailable [phone] Encounter Details Date Type Department Care Team (Late st Contact Info) Description 10/07/2023 [facility] Health Clinic [place] [address] [place] [address] Jen Rush MD [address] [place] [address] [facility] 276 [place] [address] Moderate persistent asthma without complication [...] AM CDT Legal 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 Female 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 Gender Identity Female 08/03/2018 6:39 PM CDT Sexual Orientation Straight 08/03/2018 6: 39 PM CDT documented as of this encounter Plan of Treatment Upcoming Encounters Date Type Department Care Team (Late st Contact Info) Description 07/07/2024 12:00 PM CDT Office Visit [facility] Pulmonary Function Testing [address] 3rd [place] [phone] Jen Rush MD [address] [place] [address] 437315 07/07/2024 1:30 PM CDT Office Visit [facility] for [facility] Health Clinic [address] [phone] Jen Rush MD [address] [place] [address] 223215 11/24/2024 10:15 AM CDT Lab [facility] Laboratory [address] [place] [phone] 12/03/2024 10:30 AM CDT Office Visit [facility] Specialty Clinic [address] [phone] Refugio Schulz MD [address] [place] [address] 103565 documented as of this encounter Visit Diagnoses Diagnosis Moderate persistent asthma without complication Unspecified asthma documented in this encounter Care Teams Stamp Classifier Relationship Specialty Start Date End Date Dorothea Barfield MD [facility] [address] [place] [address] PCP - General Internal Medicine 12/03/16 Jen Rush MD [address] 644325 Pulmonary Disease 08/27/16 Refugio Schulz MD [address] [place] [address] 873835 Assigned Rheumatology Provider 03/24/22 Jen Rush MD [address] 749535 Assigned Pulmonology Provider 06/09/22 documented as of this encounter
--- OUTSIDE RECORDS SUMMARY | 2024-04-02 09:34 | XMS_ITS | Encounter Summary ---
Author Organization [place] Address [address] [facility] [place] [address] Care Team Providers Care Cns Name Role Phone Jen Rush MD Unavailable [phone] Dorothea Barfield MD Primary Care Provider Cinthia Bravo MD Unavailable [phone] Refugio Schulz MD Unavailable [phone] Jen Rush MD Unavailable [phone] Refugio Schulz MD Unavailable [phone] Jen Rush MD Unavailable [phone] Encounter Details Date Type Department Care Team (Late st Contact Info) Description 12/26/2018 [facility] [address] [address] Amada Issa, ESPERANZA Social History [...] AM CDT 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 Gender Identity Female 08/03/2018 6:39 PM CDT Sexual Orientation Straight 08/03/2018 6: 39 PM CDT documented as of this encounter Plan of Treatment Upcoming Encounters Date Type Department Care Team (Late st Contact Info) Description 07/07/2024 12:00 PM CDT Office Visit [facility] Pulmonary Function Testing [address] 3rd [place] [phone] Jen Rush MD [address] [phone] 07/07/2024 1:30 PM CDT Office Visit [facility] for [facility] Science and Health Clinic [address] [phone] Jne Rush MD [address] [place] [address] 003675 11/24/2024 10:15 AM CDT Lab [facility] Laboratory [address] [place] [phone] 12/03/2024 10:30 AM CDT Office Visit [facility] Specialty Clinic [address] [phone] Refugio Schulz MD [address] [place] [address] documented as of this encounter Visit Diagnoses Not on filedocumented in this encounter Care Teams Cns Relationship Specialty Start Date End Date Dorothea Barfield MD [facility] [address] [place] [address] PCP - General Internal Medicine 12/03/16 Jen Rush MD [address] [address] Pulmonary Disease 08/27/16 Cinthia Bravo MD [address] [address] Assigned Surgical Provider 01/15/20 02/13/20 Refugio Schulz MD [address] [place] [address] Assigned Rheumatology Provider 01/15/20 12/03/20 Jen Rush MD [address] [place] [address] Assigned Pulmonology Provider 01/15/20 12/17/20 Refugio Schulz MD [address] [place] [address] Assigned Rheumatology Provider 03/24/22 Jen Rush MD [address] [place] [address] Assigned Pulmonology Provider 06/09/22 documented as of this encounter
--- OUTSIDE RECORDS SUMMARY | 2024-04-02 09:34 | XMS_ITS | Encounter Summary ---
Author Organization [place] Address [address] [facility] [place] [address] Care Team Providers Care Director Of Land Acquisition Name Role Phone Jen Rush MD Unavailable [phone] Dorothea Barfield MD Primary Care Provider Cinthia Bravo MD Unavailable [phone] Refugio Schulz MD Unavailable [phone] Jen Rush MD Unavailable [phone] Refugio Schulz MD Unavailable [phone] Jen Rush MD Unavailable [phone] Encounter Details Date Type Department Care Team (Late st Contact Info) Description 08/03/2019 [facility] [address] [address] Jen Rush MD 420 [facility] 276 [place] [address] Social History Tobacco Use Types [...] AM CDT 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 for [facility] Health Clinic [address] [phone] Jen Rush MD [address] [place] [address] 11/24/2024 10:15 AM CDT Lab [facility] [address] [place] [address] 12/03/2024 10:30 AM CDT Office Visit [facility] Specialty Clinic [address] [phone] Refugio Schulz MD [address] [place] [address] documented as of this encounter Visit Diagnoses Not on filedocumented in this encounter Care Teams Director Of Land Acquisition Relationship Specialty Start Date End Date Dorothea Barfield MD [facility] 1999 [place] [address] PCP - General Internal Medicine 9/11/17 Jen Rush MD [address] [place] [facility] 276 [place] [address] Pulmonary Disease 08/27/16 Cinthia Bravo MD [address] [facility] 396 [place], [place] [address] Assigned Surgical Provider 01/15/20 02/13/20 Refugio Schulz MD [address] 608745 Assigned Rheumatology Provider 01/15/20 12/03/20 Jen Rush MD [address] [facility] 276 [place], [place] [address]05 Assigned Pulmonology Provider 01/15/20 12/17/20 Refugio Schulz MD [address] 527645 Assigned Rheumatology Provider 03/24/22 Jen Rush MD [address] [place] [facility] 276 [place], [place] [address]45 Assigned Pulmonology Provider 06/09/22 documented as of this encounter
--- OUTSIDE RECORDS SUMMARY | 2024-04-02 09:34 | XMS_ITS | Encounter Summary ---
Author Organization [place] Address [address] [facility] [place] [address] Care Team Providers Care Door Trimmer Name Role Phone Jen Rush MD Unavailable [phone] Dorothea Barfield MD Primary Care Provider Cinthia Bravo MD Unavailable [phone] Refugio Schulz MD Unavailable [phone] Jen Rush MD Unavailable [phone] Refugio Schulz MD Unavailable [phone] Jen Rush MD Unavailable [phone] Encounter Details Date Type Department Care Team (Late st Contact Info) Description 06/10/2019 [facility] Clinic [address] [address] Jen Rush MD 420 [facility] 276 [place] [address] Social History Tobacco Use Types [...] AM CDT 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 Gender Identity Female 08/03/2018 6:39 PM CDT Sexual Orientation Straight 08/03/2018 6: 39 PM CDT documented as of this encounter Plan of Treatment Upcoming Encounters Date Type Department Care Team (Late st Contact Info) Description 07/07/2024 12:00 PM CDT Office Visit [facility] Pulmonary Function Testing [address] 3rd [place] [address] Jen Rush MD [address] 849575 07/07/2024 1:30 PM CDT Office Visit [facility] for [facility] and Health Clinic [address] [phone] Jen Rush MD [address] [place] [address] 11/24/2024 10:15 AM CDT Lab [facility] [address] [place] [address] 12/03/2024 10:30 AM CDT Office Visit [facility] Specialty Clinic [address] [phone] Refugio Schulz MD [address] [place] [address] documented as of this encounter Visit Diagnoses Not on filedocumented in this encounter Care Teams Door Trimmer Relationship Specialty Start Date End Date Dorothea Barfield MD [facility] [address] [place] [address] PCP - General Internal Medicine 9/11/17 Jen Rush MD [address] [address] [facility] 276 [place] [address] Pulmonary Disease 08/27/16 Cinthia Bravo MD [address] [place] [address] [facility] 396 [place], [place] 283[address] Assigned Surgical Provider 01/15/20 02/13/20 Refugio Schulz MD [address] 939245 Assigned Rheumatology Provider 01/15/20 12/03/20 Jen Rush MD [address] [place] [address] [facility] 276 [place], [place] 774745 Assigned Pulmonology Provider 01/15/20 12/17/20 Refugio Schulz MD [address] 792975 Assigned Rheumatology Provider 03/24/22 Jen Rush MD [address] [place] [facility] 276 [place], [place] [address]475 Assigned Pulmonology Provider 06/09/22 documented as of this encounter
--- OUTSIDE RECORDS SUMMARY | 2024-04-02 09:34 | XMS_ITS | Encounter Summary ---
Author Organization [place] Address [address] [facility] 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 No / Unsure 03/26/2022 1:20 PM MASONRY INSTALLER documented as of this encounter Plan of Treatment Upcoming Encounters Date Type Department Care Team (Late st Contact Info) Description 07/07/2024 12:00 PM CDT Office Visit [facility] Pulmonary Function Testing [address] 3rd [place] [address] Jen Rush MD [address] 592785 07/07/2024 1:30 PM CDT Office Visit [facility] for [facility] Health Clinic [address] [phone] Jen Rush MD [address] [place] [address] 11/24/2024 10:15 AM CDT Lab [facility] [address] [place] [address] 12/03/2024 10:30 AM CDT Office [facility] Specialty Clinic [address] 200 [place] [address] Refugio Schulz MD [address] [place] [address] documented as of this encounter Visit Diagnoses Not on filedocumented in this encounter Care Teams Collar Cutter Relationship Specialty Start Date End Date Dorothea Barfield MD [facility] 1999 [place] [address] PCP - General Internal Medicine 12/03/16 Jen Rush MD 420 [facility] 276 [place], [place] 2284[address] Pulmonary Disease 08/27/16 Refugio Schulz MD [address] [place] [address] Assigned Rheumatology Provider 03/24/22 Jen Rush MD [address] 101565 Assigned Pulmonology Provider 06/09/22 documented as of this encounter
--- OUTSIDE RECORDS SUMMARY | 2024-04-02 09:34 | XMS_ITS | Encounter Summary ---
Author Organization [place] Address [address] [facility] [place] [address] Care Team Providers Care Capacity Planner Name Role Phone Jen Rush MD Unavailable [phone] Dorothea Barfield MD Primary Care Provider Cinthia Bravo MD Unavailable [phone] Refugio Schulz MD Unavailable [phone] Jen Rush MD Unavailable [phone] Refugio Schulz MD Unavailable [phone] Jen Rush MD Unavailable [phone] Encounter Details Date Type Department Care Team (Late st Contact Info) Description 06/22/2018 [facility] for [facility] Science [facility] Health Clinic [address] [address] Jen Rush MD 420 [facility] 276 [place] [address] Social History Tobacco Use [...] AM CDT 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 Gender Identity Female 08/03/2018 6:39 PM CDT Sexual Orientation Straight 08/03/2018 6: 39 PM CDT documented as of this encounter Plan of Treatment Upcoming Encounters Date Type Department Care Team (Late st Contact Info) Description 07/07/2024 12:00 PM CDT Office Visit [facility] Pulmonary Function Testing [address] 3rd [place] [address] Jen Rush MD [address] 364725 07/07/2024 1:30 PM CDT Office Visit [facility] for [facility] Clinic [address] [phone] Jen Rush MD [address] [place] [address] 11/24/2024 10:15 AM CDT Lab [facility] [address] [place] [address] 12/03/2024 10:30 AM CDT Office Visit [facility] Specialty Clinic [address] [phone] Refugio Schulz MD [address] [place] [address] documented as of this encounter Visit Diagnoses Not on filedocumented in this encounter Care Teams Capacity Planner Relationship Specialty Start Date End Date Dorothea Barfield MD [facility] 1999 [place] [address] PCP - General Internal Medicine 9/11/17 Jen Rush MD [address] [place] [address] [facility] 276 [place] [address] Pulmonary Disease 08/27/16 Cinthia Bravo MD [address] [place] [address] [facility] 396 [place], [place] 002985 Assigned Surgical Provider 01/15/20 02/13/20 Refugio Schulz MD [address] 359475 Assigned Rheumatology Provider 01/15/20 12/03/20 Jen Rush MD [address] [place] [address] [facility] 276 [place], [place] 38[address]05 Assigned Pulmonology Provider 01/15/20 12/17/20 Refugio Schulz MD [address] 225875 Assigned Rheumatology Provider 03/24/22 Jen Rush MD [address] [place] [facility] 276 [place], [place] 6[address] Assigned Pulmonology Provider 06/09/22 documented as of this encounter
--- OUTSIDE RECORDS SUMMARY | 2024-04-02 09:34 | XMS_ITS | Encounter Summary ---
Author Organization [place] Address [address] [facility] [address] Care Team Providers Care Division Order Technician Name Role Phone Jen Rush MD Unavailable [phone] Dorothea Barfield MD Primary Care Provider Cinthia Bravo MD Unavailable [phone] Refugio Schulz MD Unavailable Jen Rush MD Unavailable [phone] Refugio Schulz MD Unavailable [phone] Jen Rush MD Unavailable [phone] Encounter Details Date Type Department Care Team (Late st Contact Info) Description 03/11/2017 [facility] for [facility] Science [facility] Health Clinic [address] [address] Jen Rsuh MD 420 [facility] 276 [place] [address] Social History Tobacco Use Types Packs/Day Years Used Date Smoking Tobacco: Former Cigarettes Smokeless Tobacco: Never Comments: very little Comments Unknown Sex and Gender Information Value Date Recorded Sex Assigned at Female 08/08/2018 9:48 AM CDT 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 Gender Identity Female 08/03/2018 6:39 PM CDT Sexual Orientation Straight 08/03/2018 6: 39 PM CDT documented as of this encounter Plan of Treatment Upcoming Encounters Date Type Department Care Team (Late st Contact Info) Description 07/07/2024 12:00 PM CDT Office Visit [facility] Pulmonary Function Testing [address] 3rd [place] [address] Jen Rush MD 420 [facility] 276 [place], [place] [address] 07/07/2024 1:30 PM CDT Office Visit [facility] for [facility] and Health Clinic [address] [phone] Jen Rush MD [address] [place] [address] 923025 11/24/2024 10:15 AM CDT Lab [facility] [address] [place] [address] 12/03/2024 10:30 AM CDT Office Visit [facility] Specialty Clinic [address] [phone] Refugio Schulz MD [address] [place] [address] 217155 documented as of this encounter Visit Diagnoses Not on filedocumented in this encounter Care Teams Division Order Technician Relationship Specialty Start Date End Date Dorothea Barfield MD [facility] 1999 [place] [address] PCP - General Internal Medicine 12/03/16 Jen Rush MD 420 [facility] 276 [place], [place] [address] Pulmonary Disease 08/27/16 Cinthia Bravo MD [address] [place] [address] 169495 Assigned Surgical Provider 01/15/20 02/13/20 Refugio Schulz MD [address] [place] [address] 487605 Assigned Rheumatology Provider 01/15/20 12/03/20 Jen Rush MD [address] [place] [address] 147615 Assigned Pulmonology Provider 01/15/20 12/17/20 Refugio Schulz MD [address] [place] [address] 445755 Assigned Rheumatology Provider 03/24/22 Jen Rush MD [address] [place] [address] 896075 Assigned Pulmonology Provider 06/09/22 documented as of this encounter
--- OUTSIDE RECORDS SUMMARY | 2024-04-02 09:34 | XMS_ITS | Encounter Summary ---
Author Organization [place] Address [address] [facility] [place] [address] Care Team Providers Care Game Attendant Name Role Phone Jen Rush MD Unavailable [phone] Dorothea Barfield MD Primary Care Provider Cinthia Bravo MD Unavailable [phone] Refugio Schulz MD Unavailable Jen Rush MD Unavailable [phone] Refugio Schulz MD Unavailable [phone] Jne Rush MD Unavailable [phone] Encounter Details Date Type Department Care Team (Late st Contact Info) Description 06/22/2017 [facility] Adv[facility] for [facility] Health Clinic [address] [address] Jen Rush MD 420 [facility] 276 [place] [address] Social History Tobacco Use Types Packs/Day Years Used Date Smoking Tobacco: Former Cigarettes Smokeless Tobacco: Never Comments: very little Alcohol Use Standard Drinks/Week Comments No 0 (1 standard drink = 0.6 oz pur e alcohol) Comments Unknown Sex and Gender Information Value Date Recorded Sex Assigned at Female 08/08/2018 9:48 AM CDT 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 Gender Identity Female 08/03/2018 6:39 PM CDT Sexual Orientation Straight 08/03/2018 6: 39 PM CDT documented as of this encounter Plan of Treatment Upcoming Encounters Date Type Department Care Team (Late st Contact Info) Description 07/07/2024 12:00 PM CDT Office Visit [facility] Pulmonary Function Testing [address] 3rd [place] [phone] Jen Rush MD 420 [facility] 276 [place], [place] [address] 07/07/2024 1:30 PM CDT Office Visit [facility] for [facility] Health Clinic [address] [phone] Jen Rush MD [address] [place] [address] 498915 11/24/2024 10:15 AM CDT Lab [facility] [address] [place] [address] 12/03/2024 10:30 AM CDT Office Visit [facility] Specialty Clinic [address] [phone] Refugio Schulz MD [address] [place] [address] documented as of this encounter Visit Diagnoses Not on filedocumented in this encounter Care Teams Game Attendant Relationship Specialty Start Date End Date Dorothea Barfield MD [facility] [address] [place] [address] PCP - General Internal Medicine 12/03/16 Jen Rush MD [address] [address] Pulmonary Disease 08/27/16 Cinthia Bravo MD [address] [address] Assigned Surgical Provider 01/15/20 02/13/20 Refugio Schulz MD [address] [place] [address] Assigned Rheumatology Provider 01/15/20 12/03/20 Jen Rush MD [address] [place] [address] Assigned Pulmonology Provider 01/15/20 12/17/20 Refugio Schulz MD [address] [place] [address] Assigned Rheumatology Provider 03/24/22 Jen Rush MD [address] [place] [address] Assigned Pulmonology Provider 06/09/22 documented as of this encounter
--- OUTSIDE RECORDS SUMMARY | 2024-04-02 09:34 | XMS_ITS | Encounter Summary ---
Author Organization [employer] Address [facility] [place] [address] Care Team Providers Care Continuous Yarn Dyeing Machine Operator Name Role Phone Jen Rush MD Unavailable [phone] Dorothea Barfield MD Primary Care Provider Cinthia Bravo MD Unavailable [phone] Refugio Schulz MD Unavailable Jen Rush MD Unavailable [phone] Refugio Schulz MD Unavailable [phone] Jen Rush MD Unavailable [phone] Encounter Details Date Type Department Care Team (Late st Contact Info) Description 08/21/[address] [facility] [address] 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 Gender Identity Female 08/03/2018 6:39 PM CDT Sexual Orientation Straight 08/03/2018 6: 39 PM CDT documented as of this encounter Plan of Treatment Upcoming Encounters Date Type Department Care Team (Late st Contact Info) Description 07/07/2024 12:00 PM CDT Office Visit [facility] Pulmonary Function Testing [address] 3rd [place] [address] Jen Rush MD [address] [address] 07/07/2024 1:30 PM CDT Office Visit [facility] for [facility] Health Clinic [address] [phone] Jen Rush MD [address] [place] [address] 11/24/2024 10:15 AM CDT Lab [facility] [address] [place] [address] 12/03/2024 10:30 AM CDT Office Visit [facility] Specialty Clinic [address] 200 [place] [phone] Refugio Schulz MD [address] [place] [address] documented as of this encounter Visit Diagnoses Not on filedocumented in this encounter Care Teams Continuous Yarn Dyeing Machine Operator Relationship Specialty Start Date End Date Dorothea Barfield MD [facility] 1999 [place] [address] PCP - General Internal Medicine 12/03/16 Jen Rush MD [address] [address] [facility] 276 [place] [address] Pulmonary Disease 08/27/16 Cinthia Bravo MD [facility] 396 [place], [place] [address] Assigned Surgical Provider 01/15/20 02/13/20 Refugio Schulz MD 515 [facility] 88 [place], [place] 184405 Assigned Rheumatology Provider 01/15/20 12/03/20 Jen Rush MD 420 [facility] 276 [place], [place] [address] Assigned Pulmonology Provider 01/15/20 12/17/20 Refugio Schulz MD [address] 369335 Assigned Rheumatology Provider 03/24/22 Jen Rush MD 420 [facility] 276 [place] [address] Assigned Pulmonology Provider 06/09/22 documented as of this encounter
--- OUTSIDE RECORDS SUMMARY | 2024-04-02 09:34 | XMS_ITS | Encounter Summary ---
Author Organization [place] Address 2450 [facility] [place] [address] Care Team Providers Care Rotary Drier Name Role Phone Jen Rush MD Unavailable [phone] Dorothea Barfield MD Primary Care Provider Cinthia Bravo MD Unavailable [phone] Refugio Schulz MD Unavailable Jen Rush MD Unavailable [phone] Refugio Schulz MD Unavailable [phone] Jen Rush MD Unavailable [phone] Encounter Details Date Type Department Care Team (Late st Contact Info) Description 06/04/2019 [facility] for [facility] Health Clinic [address] [address] Jen Rush MD 420 [facility] 276 [place] [address] Social History Tobacco Use Types [...] AM CDT 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 Gender Identity Female 08/03/2018 6:39 PM CDT Sexual Orientation Straight 08/03/2018 6: 39 PM CDT documented as of this encounter Plan of Treatment Upcoming Encounters Date Type Department Care Team (Late st Contact Info) Description 07/07/2024 12:00 PM CDT Office Visit [facility] Pulmonary Function Testing [address] 3rd [place] [phone] Jen Rush MD [address] 127225 07/07/2024 1:30 PM CDT Office Visit [facility] for [facility] Health Clinic [address] [phone] Jen Rush MD [address] [place] [address] 11/24/2024 10:15 AM CDT Lab [facility] [address] [place] [address] 12/03/2024 10:30 AM CDT Office Visit [facility] Specialty Clinic [address] [phone] Refugio Schulz MD [address] [place] [address] documented as of this encounter Visit Diagnoses Not on filedocumented in this encounter Care Teams Rotary Drier Relationship Specialty Start Date End Date Dorothea Barfield MD [facility] 1999 [place] [address] PCP - General Internal Medicine 9/11/17 Jen Rush MD [address] [facility] 276 [place] [address] Pulmonary Disease 08/27/16 Cinthia Bravo MD [address] [address] [facility] 396 [place], [place] 8[address]325 Assigned Surgical Provider 01/15/20 02/13/20 Refugio Schulz MD [address] 456475 Assigned Rheumatology Provider 01/15/20 12/03/20 Jen Rush MD [address] [address] [facility] 276 [place], [place] 98[address] Assigned Pulmonology Provider 01/15/20 12/17/20 Refugio Schulz MD [address] 938755 Assigned Rheumatology Provider 03/24/22 Jen Rush MD [address] [place] [facility] 276 [place], [place] [address] Assigned Pulmonology Provider 06/09/22 documented as of this encounter
--- OUTSIDE RECORDS SUMMARY | 2024-04-02 09:34 | XMS_ITS | Encounter Summary ---
Author Organization [place] Address [address] [facility] [place] [address] Care Team Providers Care Operations Supervisor Chemical Cleaning Name Role Phone Jen Rush MD Unavailable [phone] Dorothea Barfield MD Primary Care Provider Cinthia Bravo MD Unavailable [phone] Refugio Schulz MD Unavailable [phone] Jen Rush MD Unavailable [phone] Refugio Schulz MD Unavailable [phone] Jen Rush MD Unavailable [phone] Encounter Details Date Type Department Care Team (Late st Contact Info) Description 02/16/2018 [facility] Clinic [address] [address] Refugio Schulz MD [address] [place] [address] Social History Tobacco Use Types Packs/Day Years Used Date Smoking Tobacco: Former Cigarettes Smokeless Tobacco: Never Comments: very little Alcohol Use Standard Drinks/Week Comments No 0 (1 standard drink = 0.6 oz pur e alcohol) Comments No Sex and Gender Information Value Date Recorded Sex Assigned at Female 08/08/2018 9:48 AM CDT 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 Gender Identity Female 08/03/2018 6:39 PM CDT Sexual Orientation Straight 08/03/2018 6: 39 PM CDT documented as of this encounter Plan of Treatment Upcoming Encounters Date Type Department Care Team (Late st Contact Info) Description 07/07/2024 12:00 PM CDT Office Visit [facility] Pulmonary Function Testing [address] 3rd [place] [phone] Jen Rush MD [address] 839745 07/07/2024 1:30 PM CDT Office Visit [facility] [address] [phone] Jen Rush MD [address] [place] [address] 372345 11/24/2024 10:15 AM CDT Lab [facility] Laboratory [address] [place] [phone] 12/03/2024 10:30 AM CDT Office Visit [facility] Specialty Clinic [address] [phone] Refugio Schulz MD [address] [place] [address] 684535 documented as of this encounter Visit Diagnoses Not on filedocumented in this encounter Care Teams Operations Supervisor Chemical Cleaning Relationship Specialty Start Date End Date Dorothea Barfield MD [facility] [address] [place] [address] PCP - General Internal Medicine 12/03/16 Jen Rush MD [address] [place] [address] Pulmonary Disease 08/27/16 Cinthia Bravo MD [address] [place] [address] 164[address] Assigned Surgical Provider 01/15/20 02/13/20 Refugio Schulz MD [address] [place] [address] Assigned Rheumatology Provider 01/15/20 12/03/20 Jen Rush MD [address] [place] [address] Assigned Pulmonology Provider 01/15/20 12/17/20 Refugio Schulz MD [address] [place] [address] Assigned Rheumatology Provider 03/24/22 Jen Rush MD [address] [place] [address] 87191 Assigned Pulmonology Provider 06/09/22 documented as of this encounter
--- OUTSIDE RECORDS SUMMARY | 2024-04-02 09:34 | XMS_ITS | Encounter Summary ---
Author Organization [place] Address [address] [facility] [address] Care Team Providers Care Narrow Gauge Engineer Name Role Phone Jen Rush MD Unavailable [phone] Dorothea Barfield MD Primary Care Provider Refugio Schulz MD Unavailable [phone] Jen Rush MD Unavailable [phone] Encounter Details Date Type Department Care Team (Late st Contact Info) Description 03/09/2022 [facility] Medical 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 Unable to assess 03/12/2022 8:19 AM REFRACTORY MIXER documented as of this encounter Plan of Treatment Upcoming Encounters Date Type Department Care Team (Late st Contact Info) Description 07/07/2024 12:00 PM CDT Office Visit [facility] Pulmonary Function Testing [address] 3rd Floor [phone] Jen Rush MD [address] 278945 07/07/2024 1:30 PM CDT Office Visit [facility] Clinic [address] [phone] Jen Rush MD [address] [place] [address] 11/24/2024 10:15 AM CDT Lab [facility] Laboratory [address] [place] [phone] 12/03/2024 10:30 AM CDT Office Visit [facility] Specialty Clinic [address] 200 [place] [address] Refugio Schulz MD [address] [place] [address] documented as of this encounter Visit Diagnoses Not on filedocumented in this encounter Care Teams Narrow Gauge Engineer Relationship Specialty Start Date End Date Dorothea Barfield MD [facility] [address] [place] [address] PCP - General Internal Medicine 12/03/16 Jen Rush MD [address] [phone] Pulmonary Disease 08/27/16 Refugio Schulz MD [address] [place] [address] Assigned Rheumatology Provider 03/24/22 Jne Rush MD [address] [phone] Assigned Pulmonology Provider 06/09/22 documented as of this encounter
--- OUTSIDE RECORDS SUMMARY | 2024-04-02 09:34 | XMS_ITS | Encounter Summary ---
Author Organization [place] Address [address] [facility] [place] [address] Care Team Providers Care Fishing Guide Name Role Phone Jen Rush MD Unavailable [phone] Dorothea Barfield MD Primary Care Provider Cinthia Bravo MD Unavailable [phone] Refugio Schulz MD Unavailable Jen Rush MD Unavailable [phone] Refugio Schulz MD Unavailable [phone] Jen Rush MD Unavailable [phone] Encounter Details Date Type Department Care Team (Late st Contact Info) Description 05/09/2018 [facility] Clinic [address] [address] Jen Rush MD 420 [facility] 276 [place] [address] Social History Tobacco Use Types [...] AM CDT Legal Sex 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 Gender Identity Female 08/03/2018 6:39 PM CDT Sexual Orientation Straight 08/03/2018 6: 39 PM CDT documented as of this encounter Plan of Treatment Upcoming Encounters Date Type Department Care Team (Late st Contact Info) Description 07/07/2024 12:00 PM CDT Office Visit [facility] Pulmonary Function Testing [address] 3rd [place] [phone] Jen Rush MD [address] 512765 07/07/2024 1:30 PM CDT Office Visit [facility] [address] [phone] Jen Rush MD [address] [place] [address] 11/24/2024 10:15 AM CDT Lab [facility] Laboratory [address] [place] [address] 12/03/2024 10:30 AM CDT Office Visit [facility] Specialty Clinic [address] [phone] Refugio Schulz MD [address] [place] [address] documented as of this encounter Visit Diagnoses Not on filedocumented in this encounter Care Teams Fishing Guide Relationship Specialty Start Date End Date Dorothea Barfield MD [facility] 1999 [place] [address] PCP - General Internal Medicine 12/03/16 Jen Rush MD [address] [facility] 276 [place] [address] Pulmonary Disease 08/27/16 Cinthia Bravo MD [address] [facility] 396 [place] [address] Assigned Surgical Provider 01/15/20 02/13/20 Refugio Schulz MD 515 [facility] 88 [place], [place] 184195 Assigned Rheumatology Provider 01/15/20 12/03/20 Jen Rush MD 420 [facility] 276 [place], [place] 404755 Assigned Pulmonology Provider 01/15/20 12/17/20 Refugio Schulz MD 515 [facility] 88 [place], [place] 390595 Assigned Rheumatology Provider 03/24/22 Jen Rush MD 420 [facility] 276 [place], [place] 378225 Assigned Pulmonology Provider 06/09/22 documented as of this encounter
--- OUTSIDE RECORDS SUMMARY | 2024-04-02 09:34 | XMS_ITS | Encounter Summary ---
Author Organization [place] Address [address] [facility] [place] [address] Care Team Providers Care Industrial Yard Brake Coupler Name Role Phone Jen Rush MD Unavailable [phone] Dorothea Barfield MD Primary Care Provider Cinthia Bravo MD Unavailable [phone] Refugio Schulz MD Unavailable Jen Rush MD Unavailable [phone] Refugio Schulz MD Unavailable [phone] Jen Rush MD Unavailable [phone] Encounter Details Date Type Department Care Team (Late st Contact Info) Description 06/18/[address] 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 Gender Identity Female 08/03/2018 6:39 PM CDT Sexual Orientation Straight 08/03/2018 6: 39 PM CDT documented as of this encounter Plan of Treatment Upcoming Encounters Date Type Department Care Team (Late st Contact Info) Description 07/07/2024 12:00 PM CDT Office Visit [facility] Pulmonary Function Testing [address] 3rd [place] [phone] Jen Rush MD 420 [facility] 276 [place], [place] 562375 07/07/2024 1:30 PM CDT Office Visit [facility] [address] [phone] Jen Rush MD [address] [place] [address] 556795 11/24/2024 10:15 AM CDT Lab [facility] [address] [place] [phone] 12/03/2024 10:30 AM CDT Office Visit [facility] Specialty Clinic [address] [phone] Refugio Schulz MD [address] [place] [address] documented as of this encounter Visit Diagnoses Not on filedocumented in this encounter Care Teams Industrial Yard Brake Coupler Relationship Specialty Start Date End Date Dorothea Barfield MD [facility] [address] [place] [address] PCP - General Internal Medicine 12/03/16 Jen Rush MD [address] [address] Pulmonary Disease 08/27/16 Cinthia Bravo MD [address] [address] Assigned Surgical Provider 01/15/20 02/13/20 Refugio Schulz MD [address] [place] [address] Assigned Rheumatology Provider 01/15/20 12/03/20 Jen Rush MD [address] [place] [address] Assigned Pulmonology Provider 01/15/20 12/17/20 Refugio Schulz MD [address] [place] [address] Assigned Rheumatology Provider 03/24/22 Jen Rush MD [address] [place] [address] 0[address] Assigned Pulmonology Provider 06/09/22 documented as of this encounter
--- OUTSIDE RECORDS SUMMARY | 2024-04-02 09:34 | XMS_ITS | Encounter Summary ---
Author Organization [place] Address [address] [facility] [place] [address] Care Team Providers Care Rope Cutter Name Role Phone Jen Rush MD Unavailable [phone] Dorothea Barfield MD Primary Care Provider Cinthia Bravo MD Unavailable [phone] Refugio Schulz MD Unavailable Jen Rush MD Unavailable [phone] Refugio Schulz MD Unavailable [phone] Jen Rush MD Unavailable [phone] Encounter Details Date Type Department Care Team (Late st Contact Info) Description 06/08/2019 [facility] for [facility] Science and Health Clinic [address] [address] Jen Rush MD 420 [facility] 276 [place] [address] Social History Tobacco Use Types [...] AM CDT 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 Laboratory [address] [place] [address] 12/03/2024 10:30 AM CDT Office Visit [facility] Specialty Clinic [place] [address] [facility] 200 [place] [phone] Refugio Schulz MD [address] [place] [address] documented as of this encounter Visit Diagnoses Not on filedocumented in this encounter Care Teams Rope Cutter Relationship Specialty Start Date End Date Dorothea Barfield MD [facility] [address] [address] PCP - General Internal Medicine 12/03/16 Jen Rush MD [address] [place] [address] 120425 Pulmonary Disease 08/27/16 Cinthia Bravo MD [address] [place] [address] 353105 Assigned Surgical Provider 01/15/20 02/13/20 Refugio Schulz MD [address] [place] [address] 596015 Assigned Rheumatology Provider 01/15/20 12/03/20 Jen Rush MD [address] [place] [address] 581105 Assigned Pulmonology Provider 01/15/20 12/17/20 Refugio Schulz MD [address] [place] [address] Assigned Rheumatology Provider 03/24/22 Jen Rush MD [address] [place] [address] 229975 Assigned Pulmonology Provider 06/09/22 documented as of this encounter
--- OUTSIDE RECORDS SUMMARY | 2024-04-02 09:34 | XMS_ITS | Encounter Summary ---
Author Organization [place] Address Former[facility] [place] [address] Care Team Providers Care Air Traffic Control Specialist Name Role Phone Jen Rush MD Unavailable [phone] Dorothea Barfield MD Primary Care Provider Cinthia Bravo MD Unavailable [phone] Refugio Schulz MD Unavailable Jen Rush MD Unavailable [phone] Refugio Schulz MD Unavailable [phone] Jen Rush MD Unavailable [phone] Encounter Details Date Type Department Care Team (Late st Contact Info) Description 01/15/2019 [facility] Advice [facility] [address] [facility] [address] 4th [place] [address] Cinthia Bravo MD 420 [facility] 396 [place] [address] Social History Tobacco Use Types [...] AM CDT Legal Sex Female 3: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 Gender Identity Female 08/03/2018 6:39 PM CDT Sexual Orientation Straight 08/03/2018 6: 39 PM CDT documented as of this encounter Plan of Treatment Upcoming Encounters Date Type Department Care Team (Late st Contact Info) Description 07/07/2024 12:00 PM CDT Office Visit [facility] Pulmonary Function Testing [address] 3rd [place] [address] Jen Rush MD [address] 908645 07/07/2024 1:30 PM CDT Office Visit [facility] for [facility] Health Clinic [address] [phone] Jen Rush MD [address] [place] [address] 11/24/2024 10:15 AM CDT Lab [facility] Laboratory [address] [place] [address] 12/03/2024 10:30 AM CDT Office Visit [facility] Specialty Clinic [address] 200 [place] [phone] Refugio Schulz MD [address] [place] [address] documented as of this encounter Visit Diagnoses Not on filedocumented in this encounter Care Teams Air Traffic Control Specialist Relationship Specialty Start Date End Date Dorothea Barfield MD [facility] [address] [place] [address] PCP - General Internal Medicine 12/03/16 Jen Rush MD [address] [facility] 276 [place], [place] 482725 Pulmonary Disease 08/27/16 Cinthia Bravo MD 420 [facility] 396 [place], [place] 490935 Assigned Surgical Provider 01/15/20 02/13/20 Refugio Schulz MD 515 [facility] 88 [place], [place] 6[address] Assigned Rheumatology Provider 01/15/20 12/03/20 Jen Rush MD 420 [facility] 276 [place], [place] 155315 Assigned Pulmonology Provider 01/15/20 12/17/20 Refugio Schulz MD 515 [facility] 88 [place], [place] 348895 Assigned Rheumatology Provider 03/24/22 Jen Rush MD 420 [facility] 276 [place], [place] 537195 Assigned Pulmonology Provider 06/09/22 documented as of this encounter
--- OUTSIDE RECORDS SUMMARY | 2024-04-02 09:34 | XMS_ITS | Encounter Summary ---
Author Organization [place] Address [address] [facility] [place] [address] Care Team Providers Care Clinical Cytogenetics Director Name Role Phone Jen Rush MD Unavailable [phone] Dorothea Barfield MD Primary Care Provider Cinthia Bravo MD Unavailable [phone] Refugio Schulz MD Unavailable Jen Rush MD Unavailable [phone] Refugio Schulz MD Unavailable [phone] Jen Rush MD Unavailable [phone] Encounter Details Date Type Department Care Team (Late st Contact Info) Description 06/18/2017 [facility] Advice [facility] for [facility] Health Clinic [address] [address] Jen Rush MD 420 [facility] 276 [place] [address] Social History Tobacco Use Types Packs/Day Years Used Date Smoking Tobacco: Former Cigarettes Smokeless Tobacco: Never Comments: very little Alcohol Use Standard Drinks/Week Comments No 0 (1 standard drink = 0.6 oz pur e alcohol) Comments Unknown Sex and Gender Information Value Date Recorded Sex Assigned at Female 08/08/2018 9:48 AM CDT Legal 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 Gender Identity Female 08/03/2018 6:39 PM CDT Sexual Orientation Straight 08/03/2018 6: 39 PM CDT documented as of this encounter Plan of Treatment Upcoming Encounters Date Type Department Care Team (Late st Contact Info) Description 07/07/2024 12:00 PM CDT Office Visit [facility] Pulmonary Function Testing [address] 3rd [place] [phone] Jen Rush MD 420 [facility] 276 [place], [place] [address] 07/07/2024 1:30 PM CDT Office Visit [facility] for [facility] Health Clinic [address] [phone] Jen Rush MD [address] [place] [address] 451905 11/24/2024 10:15 AM CDT Lab [facility] [address] [place] [address] 12/03/2024 10:30 AM CDT Office Visit [facility] Specialty Clinic [address] [phone] Refugio Schulz MD [address] [place] [address] documented as of this encounter Visit Diagnoses Not on filedocumented in this encounter Care Teams Clinical Cytogenetics Director Relationship Specialty Start Date End Date Dorothea Barfield MD [facility] 1999 [place] [address] PCP - General Internal Medicine 12/03/16 Jen Rush MD [address] [address] Pulmonary Disease 08/27/16 Cinthia Bravo MD [address] [address] Assigned Surgical Provider 01/15/20 02/13/20 Refugio Schulz MD [address] [place] [address] Assigned Rheumatology Provider 01/15/20 12/03/20 Jen Rush MD [address] [place] [address] Assigned Pulmonology Provider 01/15/20 12/17/20 Refugio Schulz MD [address] [place] [address] Assigned Rheumatology Provider 03/24/22 Jen Rush MD [address] [place] [address] Assigned Pulmonology Provider 06/09/22 documented as of this encounter
--- OUTSIDE RECORDS SUMMARY | 2024-04-02 09:34 | XMS_ITS | Encounter Summary ---
Author Organization [place] Address [address] [facility] [place] [address] Care Team Providers Care Cotton Expert Name Role Phone Jen Rush MD Unavailable [phone] Dorothea Barfield MD Primary Care Provider Cinthia Bravo MD Unavailable [phone] Refugio Schulz MD Unavailable Jen Rush MD Unavailable [phone] Refugio Schulz MD Unavailable [phone] Jen Rush MD Unavailable [phone] Encounter Details Date Type Department Care Team (Late st Contact Info) Description 12/10/2017 [facility] Advice [facility] for [facility] Science [facility] Health Clinic [address] [address] Jen Rush MD 420 [facility] 276 [place] [address] Social History Tobacco Use Types Packs/Day Years Used Date Smoking Tobacco: Former Cigarettes Smokeless Tobacco: Never Comments: very little Alcohol Use Standard Drinks/Week Comments No 0 (1 standard drink = 0.6 oz pur e alcohol) Comments No Sex and Gender Information Value Date Recorded Sex Assigned at Female 08/08/2018 9:48 AM CDT 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 Gender Identity Female 08/03/2018 6:39 PM CDT Sexual Orientation Straight 08/03/2018 6: 39 PM CDT documented as of this encounter Plan of Treatment Upcoming Encounters Date Type Department Care Team (Late st Contact Info) Description 07/07/2024 12:00 PM CDT Office Visit [facility] Pulmonary Function Testing [address] 3rd [place] [phone] Jen Rush MD 420 [facility] 276 [place], [place] [address]195 07/07/2024 1:30 PM CDT Office Visit [facility] for [facility] Science [facility] Health Clinic [address] [phone] Jen Rush MD [address] [place] [address] 985335 11/24/2024 10:15 AM CDT Lab [facility] Laboratory [address] [place] [address] 12/03/2024 10:30 AM CDT Office Visit [facility] Specialty Clinic [address] [phone] Refugio Schulz MD [address] [place] [address] documented as of this encounter Visit Diagnoses Not on filedocumented in this encounter Care Teams Cotton Expert Relationship Specialty Start Date End Date Dorothea Barfield MD [facility] [address] [place] [address] PCP - General Internal Medicine 12/03/16 Jen Rush MD [address] [address] Pulmonary Disease 08/27/16 Cinthia Bravo MD [address] [address] Assigned Surgical Provider 01/15/20 02/13/20 Refugio Schulz MD [address] [place] [address] Assigned Rheumatology Provider 01/15/20 12/03/20 Jen Rush MD [address] [place] [address] Assigned Pulmonology Provider 01/15/20 12/17/20 Refugio Schulz MD [address] [place] [address] Assigned Rheumatology Provider 03/24/22 Jen Rush MD [address] [place] [address] Assigned Pulmonology Provider 06/09/22 documented as of this encounter
--- OUTSIDE RECORDS SUMMARY | 2024-04-02 09:34 | XMS_ITS | Encounter Summary ---
Author Organization [place] Address [address] [facility] [place] [address] Care Team Providers Care Therapeutic Recreation Director Name Role Phone Jen Rush MD Unavailable [phone] Dorothea Barfield MD Primary Care Provider Cinthia Bravo MD Unavailable [phone] Refugio Schulz MD Unavailable Jen Rush MD Unavailable [phone] Refugio Schulz MD Unavailable [phone] Jen Rush MD Unavailable [phone] Reason for Visit * Reason Onset Date Comments request 06/09/2019 Encounter Details Date Type Department Care Team (Late st Contact Info) Description 06/09/2019 Telephone [facility] [place] [id number] [place] [address] Jen Rush MD [address] [facility] 276 [place] [address] request Social History Tobacco Use [...] AM CDT Legal Sex Female 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 Gender Identity Female 08/03/2018 6:39 PM CDT [...] Visit [facility] Pulmonary Function Testing [address] 3rd [place] [address] Jen Rush MD [address] [place] [address] 07/07/2024 1:30 PM CDT Office Visit [facility] [place] [address] [place] [phone] Jen Rush MD [address] 771105 11/24/2024 10:15 AM CDT Lab [facility] Laboratory [address] [place] [address] 12/03/2024 10:30 AM CDT Office Visit [facility] [place] 65[address] [facility] 200 [place] [address] Refugio Schulz MD [address] [place] [address] 663655 documented as of this encounter Visit Diagnoses Not on filedocumented in this encounter Care Teams Therapeutic Recreation Director Relationship Specialty Start Date End Date Dorothea Barfield MD [address] [address] PCP - General Internal Medicine 12/03/16 Jen Rush MD [address] [address] Pulmonary Disease 08/27/16 Cinthia Bravo MD [address] [address] Assigned Surgical Provider 01/15/20 02/13/20 Refugio Schulz MD [address] [place] [address] Assigned Rheumatology Provider 01/15/20 12/03/20 Jen Rush MD [address] [id number] Assigned Pulmonology Provider 01/15/20 12/17/20 Refugio Schulz MD [address] [place] [address] Assigned Rheumatology Provider 03/24/22 Jen Rush MD [address] [phone] Assigned Pulmonology Provider 06/09/22 documented as of this encounter
--- OUTSIDE RECORDS SUMMARY | 2024-04-02 09:34 | XMS_ITS | Encounter Summary ---
Author Organization [place] Address [address] [facility] 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 [address] [phone] Jen Rush MD [address] [place] [address] [phone] 11/24/2024 10:15 AM CDT Lab [facility] Laboratory [address] [place] [phone] 12/03/2024 10:30 AM CDT Office Visit [facility] [place] [address] [place] [phone] Refugio Schulz MD [address] [place] [address] 637755 documented as of this encounter Visit Diagnoses Not on filedocumented in this encounter Care Teams Cap And Stud Machine Operator Relationship Specialty Start Date End Date Dorothea Barfield MD [facility] [address] [place] [address] PCP - General Internal Medicine 12/03/16 Jen Rush MD [address] [place] [address] [phone] Pulmonary Disease 08/27/16 Refugio Schulz MD [address] [place] [address] 88 [place], [place] [phone] Assigned Rheumatology Provider 03/24/22 Jen Rush MD [address] [place] [place] [address] 276 [place], [place] [phone] Assigned Pulmonology Provider 06/09/22 documented as of this encounter
--- OUTSIDE RECORDS SUMMARY | 2024-04-02 09:34 | XMS_ITS | Encounter Summary ---
Author Organization [place] Address [address] [place] [address] Care Team Providers Care Form Tamper Name Role Phone Jen Rush MD Unavailable [phone] Dorothea Barfield MD Primary Care Provider [phone] Refugio Schulz MD Unavailable [phone] Jen Rush MD Unavailable [phone] Reason for Visit * Reason Onset Date Comments Labs Only 11/15/2022 Encounter Details Date Type Department Care Team (Late st Contact Info) Description 11/15/2022 [facility] Medical Advice [facility] Specialty Clinic [address] [address] Refugio Schulz MD [address] [place] [address] Labs Only Social History Tobacco Use [...] AM CDT 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 Gender Identity Female 08/03/2018 6:39 PM CDT [...] Description 07/07/2024 12:00 PM CDT Office Visit [facility] Pulmonary Function Testing [address] 3rd [place] [phone] Jen Rush MD [address] [place] [address] 029615 07/07/2024 1:30 PM CDT Office Visit [facility] [address] [phone] Jen Rush MD [address] [place] [address] 11/24/2024 10:15 AM CDT Lab [facility] Laboratory [address] [place] [phone] 12/03/2024 10:30 AM CDT Office Visit [facility] Clinic [address] 200 [place] [phone] Refugio Schulz MD [address] [place] [address] documented as of this encounter Results * [...] 06/26/2023 9:49 AM CDT CR LABORATORY Specific Ennice Urine 1.025 1.003 - 1.035 06/26/2023 9:49 [...] URINE ORDERABLES Hilda virginie Result CR LABORATORY [facility] [place] Lab [address] [place] [address] (no room number, 1st floor of clinic) [place] [address], [facility] [phone] * CRP inflammation (06/26/2023 9:36 AM CDT) CRP Inflammation <3.00 <5.00 mg/L 06/26/19 3:29 PM CDT [facility] LABORATORY Blood BLOOD SPECIMEN / Unknown Venipuncture / Unknown 06/26/2023 9:36 AM CDT 06/26/2023 9:36 AM CDT us Refugio Schulz MD LAB - BLOOD ORDERABLES Hilda l Result UU LABORATORY [facility] [place] [facility] [address] [facility], Room [address] [place] [address] * Comprehensive metabolic panel (06/26/2023 9:36 AM CDT) Pathologist [facility] Sodium 140 135 - 145 mmol/L 06/26/2023 [...] rachel Result [facility]U LABORATORY [facility] [place] [facility] [address] [facility], Room [address] [place] [address], [facility] * (ABNORMAL) Routine UA with microscopic [...] 11/19/2022 1:26 PM CDT CR LABORATORY Specific [place]nice Urine >=1.030 1.003 - 1.035 11/19/2022 1:26 [...] URINE ORDERABLES Hilda l Result CR LABORATORY [facility] [place] Lab [address] [facility] (no room number, 1st floor of clinic) [place] [address], [facility] [phone] * (ABNORMAL) CRP inflammation (11/19/2022 1:09 PM CDT) CRP Inflammation 12.20(H) <5.00 mg/L 11/19/2022 5:29 PM CDT [facility] LABORATORY Blood BLOOD SPECIMEN / Unknown Venipuncture / Unknown 11/19/2022 1:09 PM CDT 11/19/2022 1:09 PM CDT Refugio Schulz MD LAB - BLOOD ORDERABLES Hilda l Result [facility]U LABORATORY [facility] [place] [facility] [address] [facility], Room [address] [place] [address], [facility] [phone] * CBC with platelets (11/19/2022 1:09 PM [...] BLOOD ORDERABLES Hilda l Result CR LABORATORY [facility] [address] [place] [address] Lab (no room number, 1st floor of clinic) [place] [address], [facility] [phone] * Comprehensive metabolic panel (11/19/2022 1:09 PM [...] BLOOD ORDERABLES Hilda l Result [facility]U LABORATORY [facility] [place] [facility] [address] [facility], Room [address] [phone] [phone] documented in this encounter Visit Diagnoses Diagnosis 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
--- OUTSIDE RECORDS SUMMARY | 2024-04-02 09:34 | XMS_ITS | Encounter Summary ---
Author Organization [place] Address [address] [place] [address] Care Team Providers Care Auto Refinisher Name Role Phone Jen Rush MD Unavailable [phone] Dorothea Barfield MD Primary Care Provider Cinthia Bravo MD Unavailable [phone] Refugio Schulz MD Unavailable Jen Rush MD Unavailable [phone] Refugio Schulz MD Unavailable [phone] Jen Rush MD Unavailable [phone] Encounter Details Date Type Department Care Team (Late st Contact Info) Description 10/22/2019 [facility] [address] [address] Jen Rush MD 420 [facility] 276 [place] [address] Social History Tobacco Use Types [...] AM CDT 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 Gender Identity Female 08/03/2018 6:39 PM [...] Office Visit [facility] Pulmonary Function Testing [address] 3rd [place] [phone] Jen Rush MD [address] [place] [address] 276 [place] [address] 07/07/2024 1:30 PM CDT Office Visit [facility] [address] [phone] Jen Rush MD [address] [place] [address] 11/24/2024 10:15 AM CDT Lab [facility] Laboratory [address] [place] [address] 12/03/2024 10:30 AM CDT Office Visit [facility] [place] [address] [place] [address] 200 [place] [address] Refugio Schulz MD [address] [place] [address] documented as of this encounter Visit Diagnoses Not on filedocumented in this encounter Care Teams Auto Refinisher Relationship Specialty Start Date End Date Dorothea Barfield MD [address] [address] PCP - General Internal Medicine 12/03/16 Jen Rush MD [address] [place] [address] 862295 Pulmonary Disease 08/27/16 Cinthia Bravo MD [address] [place] [address]0075 Assigned Surgical Provider 01/15/20 02/13/20 Refugio Schulz MD [address] [place] [address] 334245 Assigned Rheumatology Provider 01/15/20 12/03/20 Jen Rush MD [address] [place] [address] 031705 Assigned Pulmonology Provider 01/15/20 12/17/20 Refugio Schulz MD [address] [place] [address] [phone] Assigned Rheumatology Provider 03/24/22 Jen Rush MD [address] [place] [address] 610985 Assigned Pulmonology Provider 06/09/22 documented as of this encounter
--- OUTSIDE RECORDS SUMMARY | 2024-04-02 09:34 | XMS_ITS | Encounter Summary ---
Author Organization [place] Address [address] [facility] [place] [address] Care Team Providers Care Control Room Technician Name Role Phone Jen Rush MD Unavailable [phone] Dorothea Barfield MD Primary Care Provider Cinthia Bravo MD Unavailable [phone] Refugio Schulz MD Unavailable [phone] Jen Rush MD Unavailable [phone] Refugio Schulz MD Unavailable [phone] Jen Rush MD Unavailable [phone] Encounter Details Date Type Department Care Team (Late st Contact Info) Description 08/15/2017 [facility] [place] [place] [facility] Rhe[facility]ology Clinic [address] [address] Kye Raymond MD [facility] [address] [place] [address] [place] [address] Social History Tobacco Use Types Packs/Day Years Used Date Smoking Tobacco: Former Cigarettes Smokeless Tobacco: Never Comments: very little Alcohol Use Standard Drinks/Week Comments No 0 (1 standard drink = 0.6 oz pur e alcohol) Comments No Sex and Gender Information Value Date Recorded Sex Assigned at Female 08/08/2018 9:48 AM CDT 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 Gender Identity Female 08/03/2018 6:39 PM CDT Sexual Orientation Straight 08/03/2018 6: 39 PM CDT documented as of this encounter Plan of Treatment Upcoming Encounters Date Type Department Care Team (Late st Contact Info) Description 07/07/2024 12:00 PM CDT Office Visit [facility] Pulmonary Function Testing [address] 3rd [place] [phone] Jen Rush MD [address] [address] 07/07/2024 1:30 PM CDT Office Visit [facility] Clinic [address] [phone] Jen Rush MD [address] [place] [address] 919925 11/24/2024 10:15 AM CDT Lab [facility] Laboratory [address] [place] [phone] 12/03/2024 10:30 AM CDT Office Visit [facility] Specialty Clinic [address] [phone] Refugio Schulz MD [address] [place] [address] documented as of this encounter Visit Diagnoses Not on filedocumented in this encounter Care Teams Control Room Technician Relationship Specialty Start Date End Date Dorothea Barfield MD [facility] [address] [place] [address] PCP - General Internal Medicine 12/03/16 Jen Rsuh MD [address] [address] Pulmonary Disease 08/27/16 Cinthia Bravo MD [address] [address] Assigned Surgical Provider 01/15/20 02/13/20 Refugio Schulz MD [address] [place] [address] Assigned Rheumatology Provider 01/15/20 12/03/20 Jen Rush MD [address] [place] [address] Assigned Pulmonology Provider 01/15/20 12/17/20 Refugio Schulz MD [address] [place] [address] Assigned Rheumatology Provider 03/24/22 Jen Rush MD [address] [place] [address] Assigned Pulmonology Provider 06/09/22 documented as of this encounter
--- OUTSIDE RECORDS SUMMARY | 2024-04-02 09:34 | XMS_ITS | Encounter Summary ---
Author Organization [place] Address [address] [facility] [place] [address] Care Team Providers Care Gunstock Spray Unit Feeder Name Role Phone Jen Rush MD Unavailable [phone] Dorothea Barfield MD Primary Care Provider [phone] Cinthia Bravo MD Unavailable [phone] Refugio Schulz MD Unavailable Jen Rush MD Unavailable [phone] Refugio Schulz MD Unavailable [phone] Jen Rush MD Unavailable [phone] Encounter Details Date Type Department Care Team (Late st Contact Info) Description 07/15/2017 [facility] [place] [facility] Clinic [address] [address] Jen Rush MD 420 [facility] 276 [place] [address] Social History Tobacco Use Types Packs/Day Years Used Date Smoking Tobacco: Former Cigarettes Smokeless Tobacco: Never Comments: very little Alcohol Use Standard Drinks/Week Comments No 0 (1 standard drink = 0.6 oz pur e alcohol) Comments Unknown Sex and Gender Information Value Date Recorded Sex Assigned at Female 08/08/2018 9:48 AM CDT 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 Gender Identity Female 08/03/2018 6:39 PM CDT Sexual Orientation Straight 08/03/2018 6: 39 PM CDT documented as of this encounter Plan of Treatment Upcoming Encounters Date Type Department Care Team (Late st Contact Info) Description 07/07/2024 12:00 PM CDT Office Visit [facility] Pulmonary Function Testing [address] 3rd [place] [phone] Jen Rush MD 420 [facility] 276 [place], [place] [address] 07/07/2024 1:30 PM CDT Office Visit [facility] Clinic [address] [phone] Jen Rush MD [address] [place] [address]71125 11/24/2024 10:15 AM CDT Lab [facility] Laboratory [address] [place] [address] 12/03/2024 10:30 AM CDT Office Visit [facility] Specialty Clinic [address] [phone] Refugio Schulz MD [address] [place] [address] documented as of this encounter Visit Diagnoses Not on filedocumented in this encounter Care Teams Gunstock Spray Unit Feeder Relationship Specialty Start Date End Date Dorothea Barfield MD [facility] [address] [place] [address] PCP - General Internal Medicine 12/03/16 Jen Rush MD [address] [address] Pulmonary Disease 08/27/16 Cinthia Bravo MD [address] [address] Assigned Surgical Provider 01/15/20 02/13/20 Refugio Schulz MD [address] [place] [address] Assigned Rheumatology Provider 01/15/20 12/03/20 Jen Rush MD [address] [place] [address] Assigned Pulmonology Provider 01/15/20 12/17/20 Refugio Schulz MD [address] [place] [address] Assigned Rheumatology Provider 03/24/22 Jen Rush MD [address] [place] [address] Assigned Pulmonology Provider 06/09/22 documented as of this encounter
--- OUTSIDE RECORDS SUMMARY | 2024-04-02 09:34 | XMS_ITS | Encounter Summary ---
Author Organization [place] Address [address] [facility] [place] [address] Care Team Providers Care Grommet Man Name Role Phone Jen Rush MD Unavailable [phone] Dorothea Barfield MD Primary Care Provider [phone] Cinthia Bravo MD Unavailable [phone] Refugio Schulz MD Unavailable [phone] Jen Rush MD Unavailable [phone] Refugio Schulz MD Unavailable [phone] Jen Rush MD Unavailable [phone] Reason for Visit * Reason Onset Date Comments Patient Request 03/02/2019 Infusion Center needing last lab results from 01/10 Encounter Details Date Type Department Care Team (Late st Contact Info) Description 03/02/2019 Telephone [facility] Rheumatology Clinic [address] [address] Refugio Schulz MD [address] [place] [place] [address] Patient Request (Infusion Center needing last [...] AM CDT 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 KELLEY Negron RN Rheumatology Clinic Nurse [facility] CLERK * Telephone Encounter - Jordyn Hightower - 03/02/2019 11:58 AM CST [facility] Call Center Phone Message May a detailed message be left on voicemail: yes Reason for Call: Other: Infusion [facility] is requesting the last lab for pt from [facility] 2018. They are ging to need it for pt's infusion coming up. Please reach out to Laura or fax results to number on file. Thank you Action Taken: Message routed to: [facility] Rheum CLERK documented in this encounter Plan of Treatment Upcoming Encounters Date Type Department Care Team (Late st Contact Info) Description 07/07/2024 12:00 PM CDT Office Visit [facility] Pulmonary Function Testing [address] 3rd [place] [address] Jen Rush MD [address] [place] [address] 07/07/2024 1:30 PM CDT Office Visit [facility] for [facility] Science and Health Clinic [address] [address] Jen Rush MD [address] [place] [address] [facility] 276 [place] [address] 11/24/2024 10:15 AM CDT Lab [facility] Laboratory [address] [place] [address] 12/03/2024 10:30 AM CDT Office Visit [facility] Clinic [place] [address] [facility] [address] [place] [address] Refugio Schulz MD [address] [place] [place] [address] [phone] documented as of this encounter Visit Diagnoses Not on filedocumented in this encounter Care Teams Grommet Man Relationship Specialty Start Date End Date Dorothea Barfield MD [facility] [address] [place] [address] PCP - General Internal Medicine 12/03/16 Jen Rush MD [address] [address]45[address] Pulmonary Disease 08/27/16 Cinthia Bravo MD [address] 738775 Assigned Surgical Provider 01/15/20 02/13/20 Refugio Schulz MD [address] 500265 Assigned Rheumatology Provider 01/15/20 12/03/20 Jen Rush MD [address] 535095 Assigned Pulmonology Provider 01/15/20 12/17/20 Refugio Schulz MD [address] [place] [address] 88 [place] [address] Assigned Rheumatology Provider 03/24/22 Jen Rush MD [address] [place] [address] 276 [place] [address] Assigned Pulmonology Provider 06/09/22 documented as of this encounter
--- OUTSIDE RECORDS SUMMARY | 2024-04-02 09:34 | XMS_ITS | Encounter Summary ---
Author Organization [place] Address [address] [facility] [place] [address] Care Team Providers Care Blood Bank Laboratory Professional Name Role Phone Jen Rush MD Unavailable [phone] Dorothea Barfield MD Primary Care Provider [phone] Refugio Schulz MD Unavailable [phone] Jen Rush MD Unavailable [phone] Encounter Details Date Type Department Care Team (Late st Contact Info) Description 10/08/2022 [facility] [place] [address] [place] [address] Jen Rush MD [address] [facility] [address] [place] [address] Social History Tobacco Use Types [...] AM CDT 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 Gender Identity Female 08/03/2018 6:39 PM CDT Sexual Orientation Straight 08/03/2018 6: 39 PM CDT documented as of this encounter Plan of Treatment Upcoming Encounters Date Type Department Care Team (Late st Contact Info) Description 07/07/2024 12:00 PM CDT Office Visit [facility] Pulmonary Function Testing [address] 3rd [place] [phone] Jen Rush MD 420 [facility] [address] [place], [place] [address] 07/07/2024 1:30 PM CDT Office Visit [facility] [address] [phone] Jen Rush MD [address] [place] [address] 11/24/2024 10:15 AM CDT Lab [facility] [address] [place] [phone] 12/03/2024 10:30 AM CDT Office Visit [facility] Specialty Clinic [address] [phone] Refugio Schulz MD [address] [place] [address]205 documented as of this encounter Visit Diagnoses Not on filedocumented in this encounter Care Teams Blood Bank Laboratory Professional Relationship Specialty Start Date End Date Dorothea Barfield MD [facility]NOTE 3[facility] [address] [place] [address] PCP - General Internal Medicine 12/03/16 Jen Rush MD [address] [id number] Pulmonary Disease 08/27/16 Refugio Schulz MD [address] [place] [address] [address] [place] [address] Assigned Rheumatology Provider 03/24/22 Jen Rush MD [address] [facility] [address] [place] [address] Assigned Pulmonology Provider 06/09/22 documented as of this encounter
--- OUTSIDE RECORDS SUMMARY | 2024-04-02 09:34 | XMS_ITS | Encounter Summary ---
Author Organization [place] Address [address] [place] [address] Care Team Providers Care Machine Zipper Trimmer Name Role Phone Jen Ruhs MD Unavailable [phone] Dorothea Barfield MD Primary Care Provider Cinthia Bravo MD Unavailable [phone] Refugio Schulz MD Unavailable [phone] Jen Rush MD Unavailable [phone] Refugio Schulz MD Unavailable [phone] Jen Rush MD Unavailable [phone] Reason for Referral * Consultation (Routine) - Closed Specialty Diagnoses / Procedures Referred By Lisa kim Referred To Contact Rheumatology Diagnoses Granulomatosis with polyangiitis, unspecified whether renal involvement (H) Refugio Schulz MD [address] [place] [address] Phone: tel: fax: Referral ID Status Reason Start Date Expiration Date Visits Re quested Visits Authorized [id number] Closed 08/24/2019 08/23/2020 1 1 Question Answer Preferred Location: Other - Use Comments Class External referral [5] Scheduling Instructions: Please call the facility your provider referred you to schedule your appointment - [facility] Comments Please be aware that coverage of these services is subject to the terms and limitations of your health insurance plan. Call member services at your health plan with any benefit or coverage questions. 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 Gender Identity Female 08/03/2018 6:39 PM CDT Sexual Orientation Straight 08/03/2018 6: 39 PM CDT documented as of this encounter Plan of Treatment Upcoming Encounters Date Type Department Care Team (Late st Contact Info) Description 07/07/2024 12:00 PM CDT Office Visit [facility] Pulmonary Function Testing [address] 3rd [place] [address] Jen Rush MD [address] [place] [address] [address] [place], [place] [address] 07/07/2024 1:30 PM CDT Office Visit [facility] [address] [address] Jen Rush MD 420 [facility] [address] [place] [address] 11/24/2024 10:15 AM CDT Lab [facility] [address] [place] [address] 12/03/2024 10:30 AM CDT Office Visit [facility] Specialty Clinic [place] [address] [facility] [address] [place] [phone] Refugio Schulz MD [address] [place] [address] Scheduled Referrals Name Type Priority Associated Diagnoses Orde r Schedule RHEUMATOLOGY REFERRAL Referral Routine Granulomatosis with polyangiitis, unspecified whether renal involvement (H) Expected: 11/24/2019 (Approximate), Expires: 08/23/2020 documented as of this encounter Visit Diagnoses Diagnosis Granulomatosis with polyangiitis, unspecified whether renal involvement (H)- Primary documented in this encounter Care Teams Machine Zipper Trimmer Relationship Specialty Start Date End Date Dorothea Barfield MD [facility] [address] [place] [address] PCP - General Internal Medicine 12/03/16 Jen Rush MD 420 [facility] [address] [place] [address] Pulmonary Disease 08/27/16 Cinthia Bravo MD 420 [facility] [address] [place] [address] Assigned Surgical Provider 01/15/20 02/13/20 Refugio Schulz MD [address] [place] [address] Assigned Rheumatology Provider 01/15/20 12/03/20 Jen Rush MD 420 [facility] [address] [place], [place] [phone] Assigned Pulmonology Provider 01/15/20 12/17/20 Refugio Schulz MD [address] [facility] [address] [place] [address] Assigned Rheumatology Provider 03/24/22 Jen Rush MD 420 [facility] [address] [place] [address] Assigned Pulmonology Provider 06/09/22 documented as of this encounter
--- OUTSIDE RECORDS SUMMARY | 2024-04-02 09:35 | XMS_ITS | Encounter Summary ---
Author Organization [place] Address [address] [facility] [place] [address] Care Team Providers Care Air Traffic Controller Center Name Role Phone Jen Rush MD Unavailable [phone] Dorothea Barfield MD Primary Care Provider Cinthia Bravo MD Unavailable [phone] Refugio Schulz MD Unavailable [phone] Jen Rush MD Unavailable [phone] Refugio Schulz MD Unavailable [phone] Jen Rush MD Unavailable [phone] Encounter Details Date Type Department Care Team (Late st Contact Info) Description 03/11/2017 [facility] [address] [address] Jen Rush MD 420 [facility] [address] [place] [address] Social History Tobacco Use Types Packs/Day Years Used Date Smoking Tobacco: Former Cigarettes Smokeless Tobacco: Never Comments: very little Comments Unknown Sex and Gender Information Value Date Recorded Sex Assigned at Female 08/08/2018 9:48 AM CDT Legal Sex Female 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 Pulmonary Function Testing [address]rd [place] [phone] Jen Rush MD 420 [facility] [address] [place], [place] [address] 07/07/2024 1:30 PM CDT Office Visit [facility] [address] [phone] Jen Rush MD [address] [place] [address] 11/24/2024 10:15 AM CDT Lab [facility] [address] [place] [address] 12/03/2024 10:30 AM CDT Office [facility] Specialty Clinic [address] [phone] Refugio Schulz MD [address] [place] [address]49395 documented as of this encounter Visit Diagnoses Not on filedocumented in this encounter Care Teams Air Traffic Controller Center Relationship Specialty Start Date End Date Dorothea Barfield MD [facility] [address] [place] [address] PCP - General Internal Medicine 12/03/16 Jen Rush MD 420 [facility] [address] [place], [place] [phone] Pulmonary Disease 08/27/16 Cinthia Bravo MD [address] [place] [address] [id number] Assigned Surgical Provider 01/15/20 02/13/20 Refugio Schulz MD [address] [place] [address] [phone] Assigned Rheumatology Provider 01/15/20 12/03/20 Jen Rush MD [address] [place] [address] 222105 Assigned Pulmonology Provider 01/15/20 12/17/20 Refugio Schulz MD [address] [place] [address] [phone] Assigned Rheumatology Provider 03/24/22 Jen Rush MD [address] [place] [address] [id number] Assigned Pulmonology Provider 06/09/22 documented as of this encounter
--- OUTSIDE RECORDS SUMMARY | 2024-04-02 09:35 | XMS_ITS | Encounter Summary ---
Author Organization [place] Address [address] [place] [address]. [place] [address] Care Team Providers Care Conveyor Line Bakery Worker Name Role Phone Jen Rush MD Unavailable [phone] Dorothea Barfield MD Primary Care Provider Cinthia Bravo MD Unavailable [phone] Refugio Schulz MD Unavailable [phone] Jen Rush MD Unavailable [phone] Refugio Schulz MD Unavailable [phone] Jen Rush MD Unavailable [phone] Encounter Details Date Type Department Care Team (Late st Contact Info) Description 12/11/2016 [facility] [address] [address] Kylah Cueva RN Social History Tobacco Use Types Packs/Day Years Used Date Smoking Tobacco: Former Cigarettes Comments: very little Comments Unknown Sex and Gender Information Value Date Recorded Sex Assigned at Female 08/08/2018 9:48 AM CDT 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 Gender Identity Female 08/03/2018 6:39 PM CDT Sexual Orientation Straight 08/03/2018 6: 39 PM CDT documented as of this encounter Plan of Treatment Upcoming Encounters Date Type Department Care Team (Late st Contact Info) Description 07/07/2024 12:00 PM CDT Office Visit [facility] Pulmonary Function Testing [address] [place] [phone] Jen Rush MD 420 [facility] [address] [place], [place] [address] 07/07/2024 1:30 PM CDT Office Visit [facility] [address] [phone] Jen Rush MD [address] [place] [address] 11/24/2024 10:15 AM CDT Lab [facility] [address] [place] [phone] 12/03/2024 10:30 AM CDT Office Visit [facility] Specialty Clinic [address] [place] [phone] Refugio Schulz MD [address] [place] [address]65905 documented as of this encounter Visit Diagnoses Not on filedocumented in this encounter Care Teams Conveyor Line Bakery Worker Relationship Specialty Start Date End Date Dorothea Barfield MD [facility] [address] [place] [address] PCP - General Internal Medicine 12/03/16 Jen Rush MD [address] [place] [address] Pulmonary Disease 08/27/16 Cinthia Bravo MD 420 [facility] [address] [place] [address] Assigned Surgical Provider 01/15/20 02/13/20 Refugio Schulz MD [address] [place] [address] Assigned Rheumatology Provider 01/15/20 12/03/20 Jen Rush MD [address] [address] Assigned Pulmonology Provider 01/15/20 12/17/20 Refugio Schulz MD [address] [place] [address] Assigned Rheumatology Provider 03/24/22 Jen Rush MD [address] [place] [address] [id number] Assigned Pulmonology Provider 06/09/22 documented as of this encounter
[2024-04-02] MEDS: 0.9 % SODIUM CHLORIDE 500 ML 500 ML 100 ML IV ×2 (10:17→11:25)
--- NOTE | 2024-04-02 10:25 | W.PM.H&PU ---
History & Physical Update History & Physical Update H&P Reviewed and patient assessed: No changes noted
[2024-04-02] MEDS: CEFAZOLIN 1 GM inj IVP (10:42)
[2024-04-02] MEDS: BUPIVACAINE 0.25% 30 ML INJECTION (10:48)
--- NOTE | 2024-04-02 11:48 | P.GSOP_ITS ---
Operative Note Date of procedure: 04/02/24 Pre-op diagnosis: Biliary colic Post-op diagnosis: Same Type of Procedure: Laparoscopic cholecystectomy Indications: The patient is a 73-year-old female who presented to clinic with recurrent epigastric and right upper quadrant pain. She was seen in the emergency department and found to have gallstones. She altered her diet and improved her symptoms, however because of her ongoing right upper quadrant pain, cholecystectomy was recommended and she agreed to proceed. Procedure Description: After discussing the risks and benefits of the procedure, the patient signed informed consent.? The operative site was marked and the patient was brought to the operating room and placed on the operating table in supine position.? Care was taken to pad the patient's pressure points.?? The patient was then intubated by anesthesia.?? The operative site was then prepped and draped in the usual sterile fashion.? A time-out was then performed. Entrance to the abdomen was gained via a 5 mm Visiport in the left upper quadrant. The abdomen was insufflated and briefly surveyed for signs of injury. There was none. A 10 mm umbilical port was placed as well as 2 working ports along the right costal margin, all under direct vision. The patient was then pl aced in reverse Trendelenburg position with the right side up. The gallbladder fundus was grasped and retracted cephalad. A small amount of dissection was needed to free omental adhesions from the gallbladder. The gallbladder was noted to have several large stones contained within. The infundibulum was grasped. There were stones impacted in the gallbladder neck/proximal cystic duct. A combination of hook cautery and blunt dissection was used to carefully dissect out the cystic duct and artery until they could clearly be seen entering the gallbladder without any intervening structures. The gallbladder was dissected off the cystic plate to achieve the critical view. Once this was achieved the cystic duct and artery were each clipped with 2 clips proximally and 1 clip distally and transected with the scissors. The gallbladder was then taken off of the liver bed and removed from the abdomen using an Endo-Catch bag. The gallbladder bed was surveyed for hemostasis which appeared adequate. The ports were removed and the abdomen desufflated. The umbilical port fascia was closed with 0 Vicryl suture in a running fashion. The skin was closed with absorbable subcuticular suture. Sterile dressings were then applied. Instrument sponge and needle counts were correct at the end of the case. The patient was then woken and transferred to the PACU in stable condition. ? The patient tolerated the procedure well. Findings: Gallbladder with omental adhesions and multiple large gallstones noted. Anesthesia: GETA Surgeon: Jordyn Schwartz MD Estimated blood loss (mL): 5 Condition: stable Disposition: PACU
--- NOTE | 2024-04-02 11:58 | P.ANES_ITS ---
Anesthesia Charges Start Date/Time Anesthesia Start Date: 04/02/24 Anesthesia Start Time: 10:23 Stop Date/Time Anesthesia Stop Date: 04/02/24 Anesthesia Stop Time: 11:53 Summary Extremes of Age - Over 70 or under 1: TISSUE TECHNICIAN Coding CPT Codes CPT Codes: ANESTH SURG UPPER ABDOMEN - 31010 ([id number]) P3 - PATIENT W/SEVERE SYS DISEASE, QK - SWAGE TOOLSETTER 2-4 CNCRNT ANES PROC, QX - TISSUE TECHNICIAN SVC W/ MD MED DIRECTION Additional Codes: Summary - Extremes of Age - Over 70 or under 1: TISSUE TECHNICIAN ([id number])
--- NOTE | 2024-04-02 11:58 | W.ANESCHARGE ---
Anesthesia Charges Start Date/Time Anesthesia Start Date: 04/02/24 Anesthesia Start Time: 10:23 Stop Date/Time Anesthesia Stop Date: 04/02/24 Anesthesia Stop Time: 11:53 Summary Extremes of Age - Over 70 or under 1: TECHNICAL SUPPORT ASSISTANT Coding CPT Codes CPT Codes: ANESTH SURG UPPER ABDOMEN - 65900 ([id number]) P3 - PATIENT W/SEVERE SYS DISEASE, QK - STILL OPERATOR HELPER 2-4 CNCRNT ANES PROC, QX - TECHNICAL SUPPORT ASSISTANT SVC W/ MD MED DIRECTION Additional Codes: Summary - Extremes of Age - Over 70 or under 1: TECHNICAL SUPPORT ASSISTANT ([id number])
--- NOTE | 2024-04-02 12:25 | P.ANES_ITS ---
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
[2024-04-02] MEDS: ACETAMINOPHEN 325 MG TABLET 650 MG PO (12:41)
--- NOTE | 2024-04-02 13:15 | SUR.PHASEII ---
Patient sitting up and eating toast with jelly. Tolerating water and ice chips. Pt c/o gas pains in abdomen. Lotus hugger on and po Tylenol given.
== END 2024-04-02 13:55 | disposition home or self-care (01) ==
PROVIDERS: PCP Internal Medicine; Visit Provider Surgery
PROC: 0FT44ZZ Resection of Gallbladder, Percutaneous Endoscopic Approach (ICD-10-PCS; CPT 47562; principal; 2024-04-02 10:45)
DX: K80.20 Calculus of gallbladder without cholecystitis without obstruction (principal); R10.13 Epigastric pain
CPT/HCPCS: 47562; 00790; 88304; 99100; A9270; J0665; J0690; J1100; J1885; J2371; J2405; J2704; J2710; J3010; J7030

== ENCOUNTER 2024-05-01 12:41 | Outpatient (CLI) | payer MEDICARE, SELFPAY ==
--- NOTE | 2024-05-01 13:00 | CRLHL7_ITS ---
For Patients: As a result of the Century Cures Act, medical imaging exams and procedure reports are released immediately into your electronic medical record. You may view this report before your referring provider. If you have questions, please contact your health care provider. BILATERAL SCREENING MAMMOGRAM WITH COMPUTER-AIDED DETECTION AND TOMOSYNTHESIS TECHNIQUE: CC and MLO views were obtained. These mammographic images have been obtained using full-field digital technique. These mammographic images were interpreted with the benefit of computer-aided detection. Breast tomosynthesis was used in this interpretation. COMPARISON FILM: 12/02/18, 11/26/17, 11/15/16. FINDINGS: There are scattered areas of fibroglandular density. IMPRESSION: There is no radiographic evidence for malignancy. ASSESSMENT: BI-RADS Category 1: Negative RECOMMENDATION: Routine screening mammogram in 1 year. A lay language report of this examination will be provided to the patient. KYE BRANCH M.D. Diagnostic Radiologist [email or web address] MAURA/екатерина Transcribed: 05/04/2024, 12:[address]/Dictated by: Kye Branch MD @ 05/04/2024 8:43:00 AM (Electronically Signed)
== END 2024-05-01 12:42 | disposition home or self-care (01) ==
LOC: MAMMO 12:41
PROVIDERS: PCP Internal Medicine; Visit Provider Internal Medicine
DX: Z12.31 Encounter for screening mammogram for malignant neoplasm of breast (principal)
CPT/HCPCS: 77063; 77067

== ENCOUNTER 2024-07-29 08:47 | Outpatient (CLI) | payer MEDICARE, SELFPAY ==
--- NOTE | 2024-07-29 09:00 | CRLHL7_ITS ---
For Patients: As a result of the Century Cures Act, medical imaging exams and procedure reports are released immediately into your electronic medical record. You may view this report before your referring provider. If you have questions, please contact your health care provider. Indication: DYSPHAGIA, CHRONIC SINUSITIS Technique: Performed without IV contrast Comparison: None available Findings: Frontal sinuses: Mild mucosal thickening within the left frontal sinus. Right frontal sinuses is under developed and is opacified with mucus. Ethmoid sinuses: Mucosal thickening within the right ethmoid region. Postop changes of bilateral ethmoidectomy noted. Maxillary sinuses: Mucosal thickening and mucous located within both maxillary sinuses. Bilateral postop changes are noted. The maxillary sinus drainage pathways are patent on both sides. Sphenoid sinuses: Mucosal thickening is present within both sphenoid sinuses with patency of the right sphenoethmoidal recess and partial obstruction of the left sphenoethmoidal recess. Nasal Cavity: Postop changes are present. Nasal septum midline. No polyps. Chronic opacification of the residual left mastoid air cells. Soft tissue density throughout the left middle ear cavity. Right temporal bone air spaces are clear. Impression: 1. Bilateral multifocal postop changes. 2. Chronic mild sinus disease present bilaterally. 3. Chronic left mastoid effusion and opacification of the left middle ear cavity which could be related to effusion or cholesteatoma. Please note that all CT scans at this facility use dose modulation, iterative reconstruction, and/or weight-based dosing when appropriate to reduce radiation dose to as low as reasonably achievable. Dictated by Kye Ruffin MD @ 07/29/2024 9:30:57 AM (Electronically Signed)
--- NOTE | 2024-07-29 09:15 | CRLHL7_ITS ---
For Patients: As a result of the Century Cures Act, medical imaging exams and procedure reports are released immediately into your electronic medical record. You may view this report before your referring provider. If you have questions, please contact your health care provider. Technique: Double-contrast esophagram performed after the uneventful administration of effervescent crystals and thick barium followed by thin barium. Fluoroscopy time 0.57 minutes. Indication: Dysphagia Comparison: None. Findings: Sliding hiatal hernia measures 3.0 cm. No obstruction or stricture. No ulcer. No mucosal irregularity. Mild spontaneous reflux. Esophageal motility normal. Impression: 3.0 cm sliding hiatal hernia with mild spontaneous gastroesophageal reflux. Dictated by Kye Ruffin MD @ 07/29/2024 10:57:50 AM (Electronically Signed)
== END 2024-07-29 08:48 | disposition home or self-care (01) ==
LOC: CT 08:49
PROVIDERS: PCP Internal Medicine; Visit Provider Otolaryngology
DX: R13.10 Dysphagia, unspecified (principal); J32.9 Chronic sinusitis, unspecified
CPT/HCPCS: 70486; 74221

== ENCOUNTER 2024-12-29 08:32 | Outpatient (CLI) | payer MEDICARE, SELFPAY | END 2024-12-29 08:33 | disposition home or self-care (01) | LOC: NFLDREF 12-31 15:51 | PROVIDERS: PCP Internal Medicine; Referring Provider Internal Medicine; Visit Provider Internal Medicine | DX: E78.5 Hyperlipidemia, unspecified (principal); E03.9 Hypothyroidism, unspecified; M81.0 Age-related osteoporosis without current pathological fracture | CPT/HCPCS: 80061; 82306; 84443 ==

== ENCOUNTER 2025-01-07 12:13 | Outpatient (CLI) | payer MEDICARE, SELFPAY ==
--- NOTE | 2025-02-09 12:16 | W.PM.SLEEP ---
Sleep Study Details Details Interpreting Provider: George Date of Sleep Study: 01/07/25 Sleep Study Details: STUDY TYPE:? Home unattended ? BMI:? 25.15 ORDERING PROVIDER:? George INDICATION:? Concern for sleep apnea ? SLEEP SUMMARY:? 300.5 minutes monitored RESPIRATORY SUMMARY:? AHI 4.2 Low oxygen 85 1.1% of study oxygen less than 90% Snoring 97.5% PERIODIC LIMB MOVEMENTS OF SLEEP:? Not recorded CARDIAC:? Range 46-71, mean 51.5 beats per minute IMPRESSION:? Primary snoring. This study does not demonstrate clinically significant obstructive sleep apnea. RECOMMENDATION: If sleep disorder is strongly suspected recommend repeat study in sleep lab were with sedative hypnotic agent.
== END 2025-01-07 12:14 | disposition home or self-care (01) ==
LOC: SLEEP 12:14
PROVIDERS: PCP Internal Medicine; Visit Provider Otolaryngology
DX: R06.83 Snoring (principal); G47.19 Other hypersomnia
CPT/HCPCS: 95806

== ENCOUNTER 2025-01-28 14:43 | Outpatient (CLI) | payer MEDICARE, SELFPAY ==
--- NOTE | 2025-01-28 15:00 | CRLHL7_ITS ---
For Patients: As a result of the Century Cures Act, medical imaging exams and procedure reports are released immediately into your electronic medical record. You may view this report before your referring provider. If you have questions, please contact your health care provider. XR DXA BONE MINERAL DENSITY (BMD) Current height (in): 63.0. Weight (lb): 140.0. Menopause age: 46. Ethnicity: White. Reason for exam: Osteopenia. 1. Have you had a previous hip or vertebral fracture? No. 2. Have you had any fractures during your adult life which did not result from significant trauma (e.g., auto accident)? No. 3. Did either of your parents have a hip fracture? No. 4. Do you smoke? No. 5. Have you ever taken Glucocorticoids? Yes. 6. Do you have rheumatoid arthritis? No. 7. Do you have secondary osteoporosis? No. 8. Do you drink 3 or more alcoholic drinks per day? No. 9. Are you being treated for osteoporosis? No. 10. Have you ever taken any of the following medications: Actonel, Evista, Fosamax, Miacalcin, Reclast, Boniva, Forteo, HRT (i.e. estrogen/hormone therapy), Protelos, Prolia, Vitamin D, Calcium, other ??? please specify. ANSWER: Yes, vitamin D. 11. Do you have any of the following medical conditions: Anorexia or bulimia, asthma or emphysema, end stage renal disease, hyperparathyroidism, any seizure disorders, cancer, inflammatory bowel diseases, hysterectomy, other ??? please specify. ANSWER: Yes, asthma or emphysema. 12. What was your maximum height (inches)? 63.5. 13. Do you perform weight bearing exercise regularly? Yes. 14. Do you regularly consume dairy products? Yes. 15. Do you drink caffeinated beverages? Yes. 16. At what age did your period start? 12. 17. Are you premenopausal? No. 18. How many full-term pregnancies have you had? 2. 19. Have you ever missed your period for more than 6 months in a row (not including or menopause)? No. TECHNIQUE: Bone mineral density study was performed using the [email or web address]. FINDINGS: The results of the study expressed as bone mineral density (BMD) are as follows: Lumbar spine L1 to L4: BMD: 0.836 g/cm2. T-score: -1.9. Z-score: 0.4 Neck Left: BMD: 0.683 g/cm2. T-score: -1.5. Z-score: 0.5 Right: BMD: 0.667 g/cm2. T-score: -1.6. Z-score: 0.4 Total Left: BMD: 0.808 g/cm2. T-score: -1.1. Z-score: 0.6 Right: BMD: 0.820 g/cm2. T-score: -1.0. Z-score: 0.7 IMPRESSION: Osteopenia. FRAX 10-year Fracture Risk Major Osteoporotic Fracture: 18 percent Hip Fracture: 4.0 percent Reported Risk Factors: [place] () Neck BMD = 0.667, BMI = 24.8 Marichuy Gupta M.D. Body/Diagnostic Radiologist [email or web address] Transcribed: 8:45 am DW/Dictated by: Marichuy Gupta MD @ 01/29/2025 3:15:00 AM (Electronically Signed)
== END 2025-01-28 14:44 | disposition home or self-care (01) ==
LOC: RAD 14:45
PROVIDERS: PCP Internal Medicine; Visit Provider Internal Medicine
DX: M85.89 Other specified disorders of bone density and structure, multiple sites (principal)
CPT/HCPCS: 77080